=== PATIENT | male | born 1960 | race Caucasian/White ===

== ENCOUNTER → 2017-06-29 | Outpatient (CLI) | payer OTHER ==
[~2017-06-29] MED LIST: ACT30 PO; ALLO100T PO; AMLO-110 PO; BENA-4 PO; CITA40TA4 PO; FLUT1INH INH; GLC/500 PO; TAMS0.4C38 PO; TIZA4CAP PO; UMEC1AER INH; ventolin inh INH
[2017-06-29 10:11] LABS: BASO % 0.6 %; BASO ABS # 0.04 K/uL (0-0.2); COMPLETE YES; EOS % 3.5 %; HEMATOCRIT 41.2 % (42-52); IG% 0.3 %; LYMPH % 35.9 %; LYMPH ABS # 2.48 K/uL (1.2-3.4); MEAN CELL VOLUME 89.8 fL (80-100); MEAN CORPUSCULAR HEMOGLOBIN 29.2 pg (25-34); MEAN CORPUSCULAR HGB CONC 32.5 g/dl (32-36); MEAN PLATELET VOLUME 8.9 fL (7.4-10.4); NEUT % 51.7 %; PLATELET COUNT 313 K/uL (130-400); RED BLOOD COUNT 4.59 M/uL (4.7-6.1)
[2017-06-29 10:19] LABS: INR 0.9 (0.9-1.1)
[2017-06-29 10:45] LABS: ALT/SGPT 22 U/L (12-78); BLOOD UREA NITROGEN 13 mg/dl (7-18); BUN/CREATININE RATIO 15.8 (10-20); CALCIUM 9.2 mg/dl (8.5-10.1); CARBON DIOXIDE 31 mmol/L (21-32); CHLORIDE 104 mmol/L (98-107); CREATININE 0.79 mg/dl (0.60-1.40); GLUCOSE 91 mg/dl (70-99); SODIUM 138 mmol/L (136-145)
[2017-06-29 10:48] LABS: ALB/GLOB RATIO 0.9 (0.9-2); ALKALINE PHOSPHATASE 69 U/L (45-117); AST/SGOT 12 U/L (15-37)
[2017-06-29 12:09] LABS: PARTIAL THROMBOPLASTIN RATIO 1.1
== END | disposition home or self-care (01) ==
LOC: C.LAB1850 09:31
PROVIDERS: ATTEND Internal Medicine Pulmonary Disease
DX: J44.9 Chronic obstructive pulmonary disease, unspecified (principal); I10 Essential (primary) hypertension; R06.09 Other forms of dyspnea

== ENCOUNTER → 2017-07-11 | Outpatient (CLI) | payer OTHER ==
--- NOTE | 2017-07-11 13:46 | DOBUTAMINE ECHO ---
*NOTICE TO RECEIVING REPUBLICAN AGENCY This information is strictly Confidential and protected under [place] law. [place] law prohibits you from making any further disclosure of this information unless further disclosure is expressly permitted by the written consent of the person to whom it pertains or is authorized by law. A general authorization for the release of medical or other information is not sufficient for this purpose. Hospital accepts no responsibility if the information is made available to any other person, INCLUDING THE PATIENT. Interpretation Summary * Name: MARIAH BALL Study Date: 07/11/2017 10:35 AM BP: 100/61 mmHg * Patient Location: [facility] HR: 65 * : 1960 (M/d/yyyy) Gender: Male Height: 69 in * Age: 56 yrs Ethnicity: CA Weight: 230 lb * Ordering Physician: Héctor Shultz * Referring Physician: Héctor Shultz * Performed By: Marzena Villalba RDCS * * Reason For Study: COPD, SOB * BSA: 2.2 m2 * -- Conclusions -- * 1. Negative dobutamine stress echocardiogram for myocardial ischemia at 91% of the maximum predicted heart rate. * 2. No dobutamine induced chest pain. * 3. No EKG changes. * 4. Baseline echocardiogram notes normal left ventricular systolic function, diastolic dysfunction, and mild aortic insufficiency. Procedure Details * DOBUTAMINE ECHO, CPT#45629 * A contrast injection of Definity was performed to improve assessment of LV function. * Contrast was injected into an intravenous site in the left arm. * One vial of Definity ultrasound contrast was diluted in normal saline to a total volume of 10 ml. A total of '6' ml of solution was administered during imaging. * Lot # [id number] of Definity utilized for procedure. * Expiration date 1 AUG 09. * The attending nurse who injected the contrast agent was TAMIKO MAYFIELD RN. Left Ventricle * The left ventricle is normal in size. * There is borderline concentric left ventricular hypertrophy. * Ejection Fraction = 65-70%. * Resting wall motion: Normal. Stress wall motion: Appropriate increase in Left ventricular systolic function and decrease in cavity size. No stress induced segmental wall motion abnormalities. Right Ventricle * The right ventricle is grossly normal size. * The right ventricular systolic function is normal as assessed by tricuspid annular plane systolic excursion (TAPSE) (normal >1.5 cm). Atria * The left atrium is mildly dilated. * Right atrial size is normal. * There is no evidence of atrial septal defect, but resolution does not allow assessment for a patent foramen ovale. Mitral Valve * The mitral valve is grossly normal. * There is no mitral valve stenosis. * Significant mitral regurgitation is absent. Tricuspid Valve * The tricuspid valve is not well visualized, but is grossly normal. * There is no tricuspid stenosis. * Significant tricuspid regurgitation is absent. Aortic Valve * The aortic valve is not well visualized. * The aortic valve opens well. * Aortic valve sclerosis mild, without significant aortic valvular stenosis. * No hemodynamically significant valvular aortic stenosis. * Mild aortic regurgitation. Pulmonic Valve * The pulmonary valve is inadequately visualized, but the Doppler data is adequate for interpretation. Pericardium * There is no pericardial effusion. Stress Parameters * Normal baseline electrocardiogram. * Stress ECG: No ST changes. No arrhythmias. * The stress portion of this study was personally supervised by the undersigned interpreting physician. * Rest heart rate was '65' BPM. * Rest blood pressure was '100/61' * Maximum heart rate achieved was 155 bpm. * Maximum heart rate was 93 % of maximum age-predicted heart rate. * Maximum blood pressure was '166/69' * Maximum Dobutamine infusion rate was '30' mcg/kg/min. * A total of 1 mg of intravenous Atropine was used to supplement Dobutamine for heart rate response. * Dobutamine infusion was terminated due to achieving target heart rate * A total of 10 mg of IV Metoprolol was administered to reverse Dobutamine-induced tachycardia. Left Ventricular Diastolic Function * Grade I diastolic dysfunction, (abnormal relaxation pattern). MMode 2D Measurements and Calculations IVSd 1.0 cm IVSs 1.9 cm LVIDd 4.8 cm LVIDs 3.0 cm LVPWd 1.0 cm LVPWs 1.7 cm IVS/LVPW 1.0 FS 36.6 % EDV(Teich) 105.9 ml ESV(Teich) 35.6 ml EF(Teich) 66.4 % EDV(cubed) 108.4 ml ESV(cubed) 27.6 ml EF(cubed) 74.6 % % IVS thick 77.7 % % LVPW thick 63.3 % LV mass(C)d 179.1 grams LV mass(C)dI 81.7 grams/m\S\2 LV mass(C)s 215.6 grams LV mass(C)sI 98.4 grams/m\S\2 SV(Teich) 70.3 ml SI(Teich) 32.1 ml/m\S\2 SV(cubed) 80.9 ml SI(cubed) 36.9 ml/m\S\2 Ao root diam 3.5 cm Ao root area 9.6 cm\S\2 LA dimension 3.2 cm LA/Ao 0.92 LVAd ap4 36.5 cm\S\2 LVLd ap4 9.1 cm EDV(MOD-sp4) 120.9 ml EDV(sp4-el) 124.6 ml LVAs ap4 21.5 cm\S\2 LVLs ap4 8.0 cm ESV(MOD-sp4) 50.3 ml ESV(sp4-el) 49.5 ml EF(MOD-sp4) 58.4 % EF(sp4-el) 60.3 % LVAd ap2 28.7 cm\S\2 LVLd ap2 9.3 cm EDV(MOD-sp2) 73.7 ml EDV(sp2-el) 75.6 ml LVAs ap2 14.9 cm\S\2 LVLs ap2 7.5 cm ESV(MOD-sp2) 26.5 ml ESV(sp2-el) 25.0 ml EF(MOD-sp2) 64.1 % EF(sp2-el) 66.9 % LVLd %diff 2.2 % EDV(MOD-bp) 95.0 ml LVLs %diff -5.90 % ESV(MOD-bp) 37.1 ml EF(MOD-bp) 60.9 % SV(MOD-sp4) 70.5 ml SI(MOD-sp4) 32.2 ml/m\S\2 SV(MOD-sp2) 47.2 ml SI(MOD-sp2) 21.5 ml/m\S\2 SV(MOD-bp) 57.9 ml SI(MOD-bp) 26.4 ml/m\S\2 SV(sp4-el) 75.1 ml SI(sp4-el) 34.2 ml/m\S\2 SV(sp2-el) 50.6 ml SI(sp2-el) 23.1 ml/m\S\2 Doppler Measurements and Calculations MV E max vu 78.9 cm/sec MV A max vu 89.7 cm/sec MV E/A 0.88 MV dec time 0.19 sec Ao V2 max 173.8 cm/sec Ao max PG 12.1 mmHg Ao max PG (full) 9.0 mmHg Ao V2 mean 116.8 cm/sec Ao mean PG 6.2 mmHg Ao mean PG (full) 4.6 mmHg Ao V2 VTI 36.2 cm LV V1 max PG 3.1 mmHg LV V1 mean PG 1.6 mmHg LV V1 max 88.4 cm/sec LV V1 mean 56.9 cm/sec LV V1 VTI 20.3 cm SV(Ao) 348.4 ml SI(Ao) 158.9 ml/m\S\2
== END | disposition home or self-care (01) ==
LOC: C.CPL 10:25
PROVIDERS: ATTEND Internal Medicine Pulmonary Disease
DX: I10 Essential (primary) hypertension (principal); J44.9 Chronic obstructive pulmonary disease, unspecified; R06.09 Other forms of dyspnea

== ENCOUNTER 2017-07-12 06:33 | Day surgery (SDC) | payer OTHER ==
[~2017-07-12] VITALS: Ht 170.2 cm; Wt 104.5 kg
[2017-07-12] VITALS (18 sets, daily range): BP systolic 90–120; BP diastolic 62–89; PULSE 59–75; TEMP 36.4–36.9; O2SAT 90–100; Ht 170.2 cm; Wt 104.5 kg
[~2017-07-12 06:33] MED LIST changes: -ACT30 PO; -ALLO100T PO; -AMLO-110 PO; +ATROPINE SULFATE 0.1 MG/ML 5ML SYR ONE; -BENA-4 PO; -CITA40TA4 PO; +DOBUTamine 500MG / 250ML D5W ONE; -FLUT1INH INH; -GLC/500 PO; +METOPROLOL TARTRATE 1 MG/ML VIAL ONE; +PERFLUTREN LIPID MICROSPHERE (DEFINITY) IV ONE; -TAMS0.4C38 PO; -TIZA4CAP PO; -UMEC1AER INH; -ventolin inh INH
[2017-07-12] MEDS ORDERED: MIDAZOLAM HCL 1 MG/ML 2ML VIAL IV ONE (06:34)
[2017-07-12] MEDS ORDERED: FENTANYL CITRATE 100 MCG 2 ML CARP IV ONE (06:34)
[2017-07-12] MEDS ORDERED: BENA-4 PO (07:12)
[2017-07-12] MEDS ORDERED: ALLO100T PO (07:12)
[2017-07-12] MEDS ORDERED: AMLO-110 PO (07:12)
[2017-07-12] MEDS ORDERED: GLC/500 PO (07:12)
[2017-07-12] MEDS ORDERED: ventolin inh INH (07:12)
[2017-07-12] MEDS ORDERED: ACT30 PO (07:12)
[2017-07-12] MEDS ORDERED: TIZA4CAP PO (07:12)
[2017-07-12] MEDS ORDERED: TAMS0.4C38 PO (07:12)
[2017-07-12] MEDS ORDERED: UMEC1AER INH (07:12)
[2017-07-12] MEDS ORDERED: CITA40TA4 PO (07:12)
[2017-07-12] MEDS ORDERED: FLUT1INH INH (07:12)
--- NOTE | 2017-07-12 08:08 | History & Physical Bridge Note ---
H&P Re-Evaluation Bridge Note: I have examined the patient, reviewed the History & Physical and in the interval since the performance of the History & Physical I have noted the following changes of clinical significance: No changes noted
--- NOTE | 2017-07-12 08:08 | Procedure Note ---
Pre-Mod Sedation Assessment General Date of Moderate Sedation: Jul 12, 2017. Vital Signs: Vital Signs Past 12 Hours Date Time Temp Pulse Resp B/P (MAP) Pulse Ox O2 Delivery O2 Flow Rate FiO2 07/12/17 07:00 36.5 68 20 97/71 (80) 99 Room Air Review Cardiovascular: regular rate, rhythm, no edema, no gallop, no JVD, no murmur Abdomen: normal bowel sounds, non tender, soft, no organomegaly, no pulsatile mass Lungs: chest non-tender, lungs clear, normal breath sounds, no respiratory distress, no accessory muscle use Pre-Sedation Airway Assessment Oral Cavity: Loose Teeth, Chipped Teeth Short Thick Neck: Yes Hx of Sleep Apnea: Yes Smoking Status: Former Smoker Mallampati Classification: Class III ASA Classification: Class II Procedure Planning Contraindications-for Mod Sed: None Yes Notes The planned sedation has been discussed with the patient and consent obtained. I have identified the patient, determined the appropriateness of sedation and have assessed the patient immediately prior to the procedure. All medicine(s) and interventions are by my order.
--- NOTE | 2017-07-12 08:08 | History and Physical ---
History & Physical Date Jul 12, 2017. Chief Complaint Chronic Cough with SOB History of Present Illness The patient is a 56 year old male with complaints of SOB with PT presents today for a initial consult visit. He reports he is hear today for his breathing. He has dyspnea and increase in SOB all the time. He usually has a cough when he goes to bed at night. He props himself up at night and this helps him. Denies drainage and cough while sitting upright. He is taking medications as listed./ap 56-year-old white male who within the past years moved up from [place] to live with his sister who [facility]. 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 His primary care physician at the [facility] in [facility] was Nena Perez/STEPHANIE and has established himself with Amelie WHITE here in [place]. He suffers from benign essential hypertension, type 2 diabetes mellitus with diabetic polyneuropathy and major depression. He also has been diagnosed with COPD/ chronic bronchitis and hyperuricemia. He is currently on Breo Ellipta 100 micrograms 1 inhalation daily Melita symptoms of sciatica requiring epidural injections for L5-S1 disc protrusion. His hypertension has been managed with amlodipine and benazepril/hydrochlorothiazide and depression with Celexa as well as BPH on Flomax. He has been placed on oxygen at 2 liters continually and chest x-ray on 05/17/2017 was reportedly showing no acute abnormality. PFTs in the past revealed forced vital capacity of 3.30 liters or 63 percent of predicted with an FEV1 of 2.70 liters or 67 percent of predicted with a ratio of 82 percent. No response to bronchodilator was noted. Lung volumes were not measured. He was also started on ANoro Ellipta inhaler home with his Breo Ellipta. Prednisone has been utilized. Hemoglobin A1c has been elevated. He was seen in the clear field area in the ER with severe shortness of breath and chest pain on 05/17/2017 given an albuterol inhaler. Enzymes and echocardiogram were reportedly negative for acute infarction. He has 1 sister and 2 brothers with a history of cancer or diabetes in the family. And his parents are both . Patient quit smoking 20 years ago after pack a day for 30 years. He tends to cough when he lays flat and prednisone is ineffective when decreased below 30 milligrams daily. He has not been stress test in over 30 years. Active Problems 1. Anxiety 2. BPH (benign prostatic hyperplasia) 3. COPD (FEV1: 67%) & RVD via GOLD standards (FVC: 63%) 4. Diabetes mellitus, type 2 5. Dyspnea on exertion 6. Gout 7. Hypertension 8. Neck pain 9. Vision problem Surgical History 1. foot surgery 2. hernia repair Family History 1. Diabetes 2. Hypertension 3. Malignancy, breast, colon, ovary, prostate 4. 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 Citalopram Hydrobromide 40 MG Oral Tablet; TAKE 1 TABLET DAILY 2. Tamsulosin HCl - 0.4 MG Oral Capsule; TAKE 1 CAPSULE Daily 3. Breo Ellipta 100-25 MCG/INH ONE INHALATION DAILY 4. Anoro Ellipta 62.5-25 MCG/INH Inhalation Aerosol Powder Breath Activated; INHALE 1PUFFS Daily 5. Pioglitazone HCl - 15 MG Oral Tablet; TAKE 1 TABLET ONCE DAILY; 6. Allopurinol 100 MG Oral Tablet; TAKE 1 TABLET TWICE DAILY; 7. AmLODIPine Besylate 5 MG Oral Tablet; TAKE 1 TABLET TWICE DAILY; 8. Benazepril-Hydrochlorothiazide 20-12.5 MG Oral Tablet; Take 1 tablet twice daily; 9. TiZANidine HCl - 4 MG Oral Tablet; TAKE 1 TABLET 3 TIMES DAILY NEEDED; 10. MetFORMIN HCl - 500 MG Oral Tablet; Take 1 tablet twice daily; 11. Ventolin HFA 108 1 TO 2 PUFFS EVERY 4 TO 6 HOURS NEEDED Allergies 1. No Known Drug Allergies Additional History Hepatic Disease: No Endocrine Disorder: Yes Kidney Disease: No Hypertension: Yes Heart Disease: No Bleeding Tendencies: No Infectious Diseases: No Allergies Coded Allergies: No Known Allergies (Unverified , 07/12/17) PER PATIENT Home Medications Scheduled Allopurinol (Zyloprim), 100 MG PO DAILY Amlodipine (Norvasc), 5 MG PO DAILY Benazepril/Hctz (Lotensin Hct), 1 TAB PO BID Citalopram (Citalopram Hydrobromide), 40 MG PO DAILY Fluticasone Furoate-Vilanterol (Breo Ellipta), 1 PUFF INH DAILY Metformin Hcl (Glucophage), 500 MG PO TID Pioglitazone (Actos), 15 MG PO DAILY Tizanidine (Zanaflex), 4 MG PO prn Umeclidinium-Vilanterol (Anoro Ellipta 62.5-25 Mcg/INH), 1 PUFF INH DAILY [ventolin inh], 2 PUFFS INH [id number] Miscellaneous Medications Tamsulosin Hcl (Flomax), 0.4 MG PO Physical Examination Skin: warm/dry, no rash Eyes: normal inspection, EOMI, sclerae normal ENT: normal ENT inspection, pharynx normal Head: normocephalic, atraumatic Neck: supple, no adenopathy, trachea midline Respiratory/Chest: lungs clear, normal breath sounds, no respiratory distress Cardiovascular: regular rate, rhythm, no edema, no murmur Abdomen / GI: normal bowel sounds, non tender Back: normal inspection Extremities: normal inspection, normal range of motion Neurologic/Psych: no motor/sensory deficits, alert, normal reflexes, oriented x 3 Diagnosis MOLINA ASA Classification: ASA Class II Plan of Treatment Dynamic Bronchoscopy with BAL
--- NOTE | 2017-07-12 09:42 | Bronchoscopy Procedure Note ---
Bronchoscopy Procedure Note Procedure: Bronchoscopy, conscious sedation, bronchial lavage right upper lobe, dynamic bronchoscopy Consent: Obtained through the patient placed into the chart Pre-procedural diagnosis: Progressive shortness of breath with chronic cough Post-procedural diagnosis: Progressive shortness of breath with chronic cough Start time: 919 End time: 929 Total time: minutes Analgesia: 2% liquid lidocaine: Via nebulizer 4% gel lidocaine: Via right naris 2% liquid lidocaine: Via bronchoscopy Sedation: Versed IV: 2mg Fentanyl IV: 50g Procedure: The Olympus video bronchoscope was used for this procedure and passed down through the right naris Right naris/posterior naris/posterior oropharynx: Anatomically within normal limits, diffuse mucous secretions Glottis: Anatomically within normal limits Vocal cords: Proper abduction and abduction, anatomically within normal limits Subglottis/trachea/Stacy: Anatomically within normal limits Right bronchial tree: Right mainstem bronchus: Anatomically within normal limits, mucous secretions in the RB3 region Right upper lobe: Anatomically within normal limits Bronchus intermedius: Anatomically within normal limits Right middle lobe: Anatomically within normal limits Right lower lobe: Anatomically within normal limits Findings: No significant findings noted Left bronchial tree: Left mainstem bronchus: Anatomically within normal limits Left upper lobe: Anatomically within normal limits Lingula: Anatomically within normal limits Left lower lobe: Anatomically within normal limits, easy friability at the takeoff to the left lower lobe Findings: No significant findings noted Bronchial alveolar lavage: Performed in the RB3 region Dynamic bronchoscopy: No signs of tracheobronchial malacia or EDAC EBL: None Complications: None Follow-up: In the [facility] with Dr. Héctor Shultz
--- NOTE | 2017-07-12 09:43 | Procedure Note ---
Post-Moderate Sedation Plan General Date of Moderate Sedation Jul 12, 2017. Vital Signs: Vital Signs Past 12 Hours Date Time Temp Pulse Resp B/P (MAP) Pulse Ox O2 Delivery O2 Flow Rate FiO2 07/12/17 09:35 75 16 90/74 95 Mask 4.0 07/12/17 09:30 73 16 103/89 98 Mask 4.0 07/12/17 09:25 72 16 116/78 100 Mask 4.0 07/12/17 09:20 63 20 107/81 100 Mask 4.0 07/12/17 09:15 64 20 108/73 100 Mask 4.0 07/12/17 09:10 63 20 110/65 100 Mask 8.0 07/12/17 09:05 59 20 113/70 100 Room Air 07/12/17 08:48 36.5 68 20 97/71 99 Room Air 07/12/17 07:00 36.5 68 20 97/71 (80) 99 Room Air Review - Discharge Plan Post Moderate Sedation Plan: On clinical assessment, the patient appears to have tolerated the conscious sedation without complications. Patient is recovering as anticipated. Patient will continue to be monitored by nursing and may be discharged when conscious sedation discharge criteria are met.
--- NOTE | 2017-07-12 09:45 | Discharge Instructions ---
Discharge Instructions Date of Service Jul 12, 2017. Admission Reason for Admission: Copd, Shortness Of Breath Discharge Discharge Diagnosis / Problem: progressive dysmenorrhea exertion, cough Discharge Goals Goal(s): Diagnostic testing Activity Recommendations Activity Limitations: resume your previous activity . Current Hospital Diet Patient's current hospital diet: Discharge Diet Recommended Diet: Regular Diet Procedures Procedures Performed: Bronchoscopy, conscious sedation, bronchial alveolar lavage Pending Studies Studies pending at discharge: no Medical Emergencies . Who to Call and When: Medical Emergencies: If at any time you feel your situation is an emergency, please call 911 immediately. . Non-Emergent Contact Non-Emergency issues call your: Appliance Sales Associate . . "Provider Documentation" section prepared by Maury Melvin. . VTE Core Measure Inpt VTE Proph given/why not?: Treatment not indicated
[2017-07-12] MEDS ORDERED: NURSING VERBAL MED ORDER ONE (10:15)
[2017-07-12] MEDS ORDERED: FENTANYL CITRATE INJ 50 MCG/1 ML 2 ML VIAL IV ONE (10:30)
[2017-07-12] MEDS ORDERED: MIDAZOLAM HCL 5 MG/ML 1 ML VIAL IV ONE (10:30)
[2017-08-05 14:18] LABS: HERPES SIMPLEX CULT SOURCE OTHER-BRONCH LAVAGE; HERPES SIMPLEX VIRUS CULT NOT ISOLATED (NOT ISOLATED)
== END 2017-07-12 12:55 | disposition home or self-care (01) ==
LOC: C.ACU 06:33
PROVIDERS: ATTEND Internal Medicine Critical Care Medicine
DX: R06.02 Shortness of breath (principal); J44.9 Chronic obstructive pulmonary disease, unspecified; I10 Essential (primary) hypertension; E11.42 Type 2 diabetes mellitus with diabetic polyneuropathy; F32.9 Major depressive disorder, single episode, unspecified; N40.0 Benign prostatic hyperplasia without lower urinary tract symptoms; F41.9 Anxiety disorder, unspecified; Z87.891 Personal history of nicotine dependence; Z80.3 Family history of malignant neoplasm of breast; Z80.0 Family history of malignant neoplasm of digestive organs; Z82.49 Family history of ischemic heart disease and other diseases of the circulatory system; Z83.3 Family history of diabetes mellitus; Z79.84 Long term (current) use of oral hypoglycemic drugs; Z79.899 Other long term (current) drug therapy; Z80.41 Family history of malignant neoplasm of ovary; Z80.42 Family history of malignant neoplasm of prostate

== ENCOUNTER → 2017-08-10 | Outpatient (CLI) | payer OTHER ==
[~2017-08-10] MED LIST changes: +ACT30 PO; +ALLO100T PO; +AMLO-110 PO; -ATROPINE SULFATE 0.1 MG/ML 5ML SYR ONE; +BENA-4 PO; +CITA40TA4 PO; -DOBUTamine 500MG / 250ML D5W ONE; +FLUT1INH INH; +GLC/500 PO; -METOPROLOL TARTRATE 1 MG/ML VIAL ONE; -PERFLUTREN LIPID MICROSPHERE (DEFINITY) IV ONE; +TAMS0.4C38 PO; +TIZA4CAP PO; +UMEC1AER INH; +ventolin inh INH
--- NOTE | 2017-08-10 12:41 | DIAGNOSTIC IMAGING REPORT ---
ABDOMEN FOR HERNIA HISTORY: 56 years-old Male 22.2 Abdominal wall masshernia vs. cystic structure on abdominal palpable abnormality of the midline abdomen COMPARISON: None available TECHNIQUE: Multiple real-time sonographic images of the midline abdomen were obtained assessing grayscale appearance, and color flow FINDINGS: No abdominal wall hernia identified. Within the area of concern, there is a circumscribed ovoid wider than tall lesion, 5.1 x 2.5 x 5.1 cm located within the subcutaneous tissues demonstrating heterogeneous echogenicity, mostly isoechoic to slightly hypoechoic compared to the subcutaneous fat. There is likely minimal internal vascularity documented. IMPRESSION: 1. No abdominal wall hernia. 2. Nonspecific circumscribed ovoid wider than tall soft tissue mass containing internal vascularity within the subcutaneous tissues of the abdomen measures 5.1 x 2.5 x 5.1 cm. The above report was generated using voice recognition software. It may contain grammatical, syntax or spelling errors. Electronically signed by: Benigno Alvarado M.D. 08/10/2017 12:40 PM Dictated Date/Time: 08/10/2017 12:36 PM
== END | disposition home or self-care (01) ==
LOC: C.ULTR 11:33
PROVIDERS: ATTEND Internal Medicine
DX: R22.2 Localized swelling, mass and lump, trunk (principal)

== ENCOUNTER → 2017-08-30 | Outpatient (CLI) | payer OTHER ==
[~2017-08-30] MED LIST changes: +ACT/15 PO; -ACT30 PO; +HYDR-5688 PO; +VNTHFA/IN INH; -ventolin inh INH
[2017-08-30 12:18] LABS: BASO % 0.7 %; BASO ABS # 0.06 K/uL (0-0.2); COMPLETE YES; EOS % 3.2 %; HEMATOCRIT 40.3 % (42-52); IG% 0.5 %; LYMPH % 45.3 %; MEAN CELL VOLUME 87.6 fL (80-100); MEAN CORPUSCULAR HEMOGLOBIN 28.9 pg (25-34); MEAN PLATELET VOLUME 9.3 fL (7.4-10.4); MONO % 7.9 %; NEUT % 42.4 %; PLATELET COUNT 314 K/uL (130-400); WHITE BLOOD COUNT 8.39 K/uL (4.8-10.8)
[2017-08-30 17:53] LABS: BLOOD UREA NITROGEN 11 mg/dl (7-18); BUN/CREATININE RATIO 12.8 (10-20); CALCIUM 8.8 mg/dl (8.5-10.1); CARBON DIOXIDE 30 mmol/L (21-32); CHLORIDE 102 mmol/L (98-107); CREATININE 0.85 mg/dl (0.60-1.40); GLUCOSE 121 mg/dl (70-99); POTASSIUM 3.6 mmol/L (3.5-5.1); SODIUM 138 mmol/L (136-145)
== END | disposition home or self-care (01) ==
LOC: C.LABPBG 11:11
PROVIDERS: ATTEND Surgery
DX: Z01.812 Encounter for preprocedural laboratory examination (principal); R22.2 Localized swelling, mass and lump, trunk

== ENCOUNTER → 2017-09-05 | Day surgery (SDC) | payer OTHER ==
[2017-08-29 12:34] VITALS: Ht 180.3 cm; Wt 104.5 kg
[~2017-09-05] VITALS: Ht 180.3 cm; Wt 104.5 kg
[~2017-09-05] MED LIST changes: +ATROPINE SULFATE 0.1 MG/ML 5ML SYR IV PRN; +BUPIVACAINE 0.5 % 5 MG/1 ML MPF 30ML VIAL ONE; +CEFAZOLIN 2000MG IV PUSH 10 ML IV SCH; +EpHEDrine SULFATE INJ 50 MG/ML AMP IV PRN; +FENTANYL CITRATE INJ 50 MCG/1 ML 2 ML VIAL IV PRN; +FENTANYL CITRATE INJ 50 MCG/1 ML 2 ML VIAL ONE; +HYDROCODONE/ACETAMOPHEN 5/325MG TAB PO PRN; +HYDROmorphone INJ 1 MG/ML SYR IV PRN; +LACTATED RINGER'S 1000ML 1,000 ML IV SCH; +LIDOCAINE HCL 2% 2 ML VIAL (20MG/ML) ONE; +MIDAZOLAM HCL 1 MG/ML 2ML VIAL ONE; +ONDANSETRON INJ 2 MG/ML 2 ML VIAL IV PRN; +ONDANSETRON INJ 2 MG/ML 2 ML VIAL ONE; +PROPOFOL IV EMULSION 10 MG/ML 20 ML VIAL IV ONE; +SODIUM CHLORIDE 0.9% 1000ML 1,000 ML IV SCH
--- NOTE | 2017-09-05 10:13 | [facility] Operative Report ---
Operative Report Operative Date Sep 05, 2017. Pre-Operative Diagnosis Abdominal Wall Mass Post-Operative Diagnosis large abdominal wall cyst Procedure(s) Performed Excision Of Abdominal Wall Mass (6 cm) Surgeon Dr. Neumann Vocational Psychologist Surgeon(s) Yumi Benavides PA-C Estimated Blood Loss 5 mL Findings large sebaceous cyst Specimens A. Abdominal Wall Mass (6 cm) Anesthesia LMA Disposition Recovery Room / PACU Description of Procedure After informed consent was obtained the patient was taken the operating room and placed in supine position. The abdomen had already been shaved. After successful placement of the laryngeal mask airway the abdomen was sterilely prepped and draped in usual fashion. We made a vertical incision directly over the visible mass. I carried this down through the soft tissue using electrocautery. We immediately encountered an extremely large 6 cm sebaceous cyst. It was very thin-walled and closed the abdominal wall skin and a small puncture was made incidentally in it. We able to keep the majority of the sebaceous material from coming out of it. We used traction countertraction electrocautery to remove the cyst entirely intact except for the small hole previously mentioned. Once we removed it we sent to pathology. We thoroughly irrigated the abdominal wound. There was no evidence of hernia. We closed this in multiple layers using 2-0 Vicryl for deep layers 3-0 Vicryl for mid layers and 4-0 Monocryl for skin. Marcaine was used for postoperative analgesia benzoin and Steri-Strips were used for dressing. The patient was awaken extubated and transferred recovery in stable condition My physician medical assistant cardiology was directly involved in the surgical procedure. She held retractors throughout the procedure. She also held countertraction on the cyst as I dissected it free. She also closed the middle and superficial layers of the wound closure and placed the abdominal dressing I attest to the content of the Intraoperative Record and any orders documented therein. Any exceptions are noted below.
--- NOTE | 2017-09-05 10:14 | Discharge Instructions-SurgCtr ---
Discharge Instructions Date of Service Sep 05, 2017. Visit Reason for Visit: 6 Cm Abdominal Wall Mass Discharge Discharge Diagnosis / Problem: 6cm Abdomimal Wall Mass Discharge Goals Goal(s): Decrease discomfort, Improve function Medications Stopped Medications Name(s): metformin stopped last dose on monday. Activity Recommendations Activity Limitations: as noted below Lifting Limitations: no more than 10 pounds Exercise/Sports Limitations: until after follow-up appointment May Resume Sexual Activity: after follow-up appointment Shower/Bathe: tomorrow Driving or Machine Use: resume 1 day after discharge Anesthesia . Post Anesthesia Instructions: If you have had General Anesthesia or IV Sedation: * Do not drive today. * Resume driving when surgeon permits. * Do not make important decisions or sign legal documents today. * Call surgeon for: 1. Temperature elevations greater than 101 degrees F. 2. Uncontrollable pain. 3. Excessive bleeding. 4. Persistent nausea and vomiting. 5. Medication intolerance (nausea, vomiting or rash). * For nausea and vomiting use only clear liquids such as: tea, soda, bouillon until nausea subsides, then gradually increase diet as tolerated. * If you have any concerns or questions, call your surgeon's office. If physician is unavailable and it is an emergency, call 911 or go to the nearest emergency room. . Instructions / Follow-Up Instructions / Follow-Up Please follow-up with Dr. Neumann in the General Surgery Office in 1-2 weeks. Please call the office at [phone] to make a follow-up appointment if you do not have one already. Please call the office with any questions or concerns. Diet Recommendations Home Diet: no limitations, resume previous diet Procedures Procedures Performed: Excision Of Abdominal Wall Mass (6 cm) Pending Studies Studies pending at discharge: yes List of pending studies: Pathology report. Medical Emergencies . Who to Call and When: Medical Emergencies: If at any time you feel your situation is an emergency, please call 911 immediately. . Non-Emergent Contact Non-Emergency issues call your: Primary Care Provider, Surgeon Call Non-Emergent contact if: temperature is above 101.5, your pain is not controlled, wound has increased drainage, wound has increased redness . . "Provider Documentation" section prepared by Alisa Benavides. . [place] Drug Monitoring Program Search Results: patient reviewed within database, no issues identified
[2017-09-05 11:39] VITALS: TEMP 36.8
[2017-09-05 12:03] VITALS: BP 114/78; PULSE 76; O2SAT 95
--- NOTE | 2017-09-05 12:14 | Anesthesia Progress Nt - [facility] ---
Anesthesia Post Op Note Date & Time Sep 05, 2017 at 12:13 Vital Signs Pain Intensity: 0 Vital Signs Past 12 Hours Date Time Temp Pulse Resp B/P (MAP) Pulse Ox O2 Delivery O2 Flow Rate FiO2 09/05/17 12:03 76 16 114/78 (90) 95 Room Air 09/05/17 11:49 92 Room Air 09/05/17 11:39 36.8 69 16 108/72 (84) 95 Nasal Cannula 2 09/05/17 11:30 37.3 70 17 125/84 93 Nasal Cannula 2 09/05/17 11:30 125/84 09/05/17 11:29 71 15 09/05/17 11:29 69 15 93 09/05/17 11:25 131/84 09/05/17 11:24 74 12 91 09/05/17 11:24 73 12 09/05/17 11:20 130/82 09/05/17 11:19 70 16 09/05/17 11:19 70 16 89 09/05/17 11:15 119/85 09/05/17 11:14 63 15 93 09/05/17 11:14 65 15 09/05/17 11:10 117/80 09/05/17 11:09 72 15 09/05/17 11:09 72 15 94 09/05/17 11:05 127/84 09/05/17 11:04 74 11 09/05/17 11:04 73 11 94 09/05/17 11:00 122/78 09/05/17 10:59 75 16 94 09/05/17 10:59 74 16 09/05/17 10:55 118/83 09/05/17 10:54 73 16 09/05/17 10:54 72 16 93 09/05/17 10:50 109/81 09/05/17 10:49 72 17 09/05/17 10:49 73 17 92 09/05/17 10:45 109/70 09/05/17 10:44 70 17 09/05/17 10:44 71 17 94 09/05/17 10:40 119/73 09/05/17 10:39 71 17 09/05/17 10:39 71 17 93 09/05/17 10:35 109/65 09/05/17 10:34 71 16 09/05/17 10:34 71 16 93 09/05/17 10:30 119/71 09/05/17 10:29 76 16 09/05/17 10:29 77 16 94 09/05/17 10:25 115/77 09/05/17 10:24 74 16 09/05/17 10:24 74 16 93 09/05/17 10:20 114/73 09/05/17 10:19 75 15 09/05/17 10:19 76 15 93 09/05/17 10:15 112/81 09/05/17 10:14 83 20 09/05/17 10:14 83 20 93 09/05/17 10:10 114/70 09/05/17 10:09 82 8 89 09/05/17 10:09 82 8 09/05/17 10:09 37 85 12 114/70 93 Mask 10 09/05/17 07:35 36.5 68 18 97/60 (72) 95 Room Air Notes Mental Status: alert / awake / arousable, participated in evaluation Pt Amnestic to Procedure: Yes Nausea / Vomiting: adequately controlled Pain: adequately controlled Airway Patency, RR, SpO2: stable & adequate BP & HR: stable & adequate Hydration State: stable & adequate Anesthetic Complications: no major complications apparent
== END | disposition home or self-care (01) ==
LOC: X.SURG 06:45
PROVIDERS: ATTEND Surgery
DX: L72.0 Epidermal cyst (principal); F41.9 Anxiety disorder, unspecified; E11.9 Type 2 diabetes mellitus without complications; M10.9 Gout, unspecified; I10 Essential (primary) hypertension; J98.4 Other disorders of lung

== ENCOUNTER → 2017-09-11 | Outpatient (CLI) | payer OTHER ==
[~2017-09-11] MED LIST changes: -ATROPINE SULFATE 0.1 MG/ML 5ML SYR IV PRN; -BUPIVACAINE 0.5 % 5 MG/1 ML MPF 30ML VIAL ONE; -CEFAZOLIN 2000MG IV PUSH 10 ML IV SCH; -EpHEDrine SULFATE INJ 50 MG/ML AMP IV PRN; -FENTANYL CITRATE INJ 50 MCG/1 ML 2 ML VIAL IV PRN; -FENTANYL CITRATE INJ 50 MCG/1 ML 2 ML VIAL ONE; -HYDR-5688 PO; -HYDROCODONE/ACETAMOPHEN 5/325MG TAB PO PRN; -HYDROmorphone INJ 1 MG/ML SYR IV PRN; -LACTATED RINGER'S 1000ML 1,000 ML IV SCH; -LIDOCAINE HCL 2% 2 ML VIAL (20MG/ML) ONE; -MIDAZOLAM HCL 1 MG/ML 2ML VIAL ONE; -ONDANSETRON INJ 2 MG/ML 2 ML VIAL IV PRN; -ONDANSETRON INJ 2 MG/ML 2 ML VIAL ONE; +OPTIRAY 320 IV PRN; -PROPOFOL IV EMULSION 10 MG/ML 20 ML VIAL IV ONE; -SODIUM CHLORIDE 0.9% 1000ML 1,000 ML IV SCH
--- NOTE | 2017-09-11 09:55 | DIAGNOSTIC IMAGING REPORT ---
CT SCAN OF THE CHEST WITHOUT IV CONTRAST CLINICAL HISTORY: Cough. COPD. Restrictive lung disease. COMPARISON STUDY: No priors. TECHNIQUE: CT scan of the thorax was performed from the thoracic inlet to the upper abdomen. Images are reviewed in the axial, sagittal, and coronal planes. IV contrast was not administered for this examination as per the referring clinician. A dose lowering technique was utilized adhering to the principles of ALARA. CT DOSE: 728.25 mGy.cm FINDINGS: Thyroid: Imaged portions of the thyroid gland are normal in size and attenuation. Thoracic aorta: The thoracic aorta is normal in caliber and demonstrates standard 3-vessel arch anatomy. Heart: The heart is enlarged and there is a moderate pericardial effusion. There are calcifications of the aortic valve leaflets. Lungs and pleural spaces: The trachea and central airways are clear. No airspace consolidation or pleural effusion is identified. There is no subpleural reticulation, honeycombing, or traction bronchiectasis. A 4 mm right upper lobe pulmonary nodule seen image #86. A 3 mm left upper lobe pleural-based nodule is seen along the major fissure on image #67. There are atelectasis versus scarring are present at the lung bases. Mediastinum: There is no mediastinal lymphadenopathy. An: Not well assessed without IV contrast. Axillae: There is no axillary lymphadenopathy. Upper abdomen: There is a small hiatal hernia. Partially visualized upper abdominal viscera is otherwise within normal limits. Skeletal structures: The skeletal structures are osteopenic. Mild degenerative change is noted in the thoracic spine. There are healed right-sided rib fractures. There are mild compression deformities of T4, T5, T6, T7, and T10. No lytic or blastic bony lesions are seen. IMPRESSION: 1. There is no airspace consolidation or pleural effusion. 2. Cardiomegaly noting a moderate pericardial effusion. 3. There is no significant emphysematous change, and no CT evidence of interstitial lung disease. 4. There are at least 2 pathologically indeterminant but low suspicion pulmonary nodules measuring up to 4 mm. These can be followed if clinically warranted. See below. Please refer to below summary of Fleischner criteria recommendations for follow-up of incidental CT nodules (Kirsty Hatch, Guidelines for management of small pulmonary nodules detected on CT scans: A statement from the Fleischner Society, Radiology 237: [phone].) SOLID NODULES Solitary nodule size: <6 mm * low risk patients: no follow-up needed * high risk patients: optional CT at 12 months Solitary nodule size: 6-8 mm * low risk patients: follow-up at 6-12 months, then consider further follow-up at 18-24 months * high risk patients: initial follow-up CT at 6-12 months and then at 18-24 months if no change Solitary nodule size: >8 mm * either low or high risk patients - consider follow-up CT at 3 months, and/or CT-PET, and/or biopsy Multiple nodules size: <6 mm * low risk patients: no routine follow-up * high risk patients: optional CT at 12 months Multiple nodules size: 6-8 mm * low risk patients: follow-up at 3-6 months, then consider further follow-up at 18-24 months * high risk patients: follow-up at 3-6 months, then at 18-24 months if no change Multiple nodules size: >8 mm * low risk patients: follow-up at 3-6 months, then consider further follow-up at 18-24 months * high risk patients: follow-up at 3-6 months, then at 18-24 months if no change Note: newly detected indeterminate nodule in persons 35 years of age or older. * low risk patients: minimal or absent history of smoking and/or other known risk factors * high risk patients: history of smoking or of other known risk factors (e.g. first degree relative with lung cancer, or exposure to asbestos, radon, uranium) * if a nodule up to 8 mm is partly solid or is ground glass further follow-up is required after 24 months to exclude possible slow growing adenocarcinoma (EVANGELINA) SUBSOLID NODULES Solitary pure ground-glass nodule * nodule size <6 mm - no CT follow-up required * nodule size >=6 mm - follow-up CT at 6-12 months, then every 2 years until 5 years Solitary part-solid nodule * nodule size <6 mm - no CT follow-up required * nodule size >=6 mm - follow-up CT at 3-6 months. If unchanged, and solid component remains <6 mm, then annual follow-up for 5 years Multiple subsolid nodules * nodule size <6 mm - follow-up CT at 3-6 months, consider further follow-up at 2 and 4 years if stable * nodule size >=6 mm - follow-up CT at 3-6 months, subsequent management based on the most suspicious nodule(s) Electronically signed by: Jake Elizalde M.D. 09/11/2017 9:54 AM Dictated Date/Time: 09/11/2017 9:48 AM
== END | disposition home or self-care (01) ==
LOC: C.CTS 08:54
PROVIDERS: ATTEND Internal Medicine Critical Care Medicine
DX: J98.4 Other disorders of lung (principal); I51.7 Cardiomegaly; I31.3 Pericardial effusion (noninflammatory); R91.8 Other nonspecific abnormal finding of lung field

== ENCOUNTER → 2018-01-12 | Outpatient (CLI) | payer OTHER ==
[~2018-01-12] MED LIST changes: -OPTIRAY 320 IV PRN
[2018-01-12 13:27] LABS: BASO % 0.5 %; BASO ABS # 0.04 K/uL (0-0.2); EOS ABS # 0.22 K/uL (0-0.5); HEMATOCRIT 41.6 % (42-52); HEMOGLOBIN 13.9 g/dL (14.0-18.0); IG# 0.01 K/uL (0.00-0.02); LYMPH % 27.2 %; LYMPH ABS # 1.99 K/uL (1.2-3.4); MEAN CELL VOLUME 85.4 fL (80-100); MEAN CORPUSCULAR HEMOGLOBIN 28.5 pg (25-34); MEAN CORPUSCULAR HGB CONC 33.4 g/dl (32-36); MEAN PLATELET VOLUME 9.7 fL (7.4-10.4); MONO % 9.6 %; NEUT % 59.6 %; NEUT ABS # 4.36 K/uL (1.4-6.5); PLATELET COUNT 366 K/uL (130-400); RED CELL DISTRIBUTION WIDTH CV 13.7 % (11.5-14.5); RED CELL DISTRIBUTION WIDTH SD 42.8 fL (36.4-46.3); WHITE BLOOD COUNT 7.32 K/uL (4.8-10.8)
[2018-01-12 14:07] LABS: ALBUMIN 3.7 gm/dl (3.4-5.0); ALT/SGPT 33 U/L (12-78); AST/SGOT 16 U/L (15-37); BLOOD UREA NITROGEN 19 mg/dl (7-18); CALCIUM 9.2 mg/dl (8.5-10.1); CARBON DIOXIDE 29 mmol/L (21-32); CHOLESTEROL 170 mg/dl (0-200); CREATININE 0.85 mg/dl (0.60-1.40); GLUCOSE 108 mg/dl (70-99); POTASSIUM 3.7 mmol/L (3.5-5.1); SODIUM 136 mmol/L (136-145)
[2018-01-12 14:18] LABS: ALKALINE PHOSPHATASE 76 U/L (45-117); LDL CHOLESTEROL CALCULATED 107 mg/dl; TOTAL PROTEIN 8.5 gm/dl (6.4-8.2)
[2018-01-13 07:31] LABS: HEMOGLOBIN A1C 6.5 % (4.5-5.6)
--- NOTE | 2018-01-25 14:12 | CODING QUERY MEDICAL NECESSITY ---
CQSUPPORTING DIAGNOSIS NEEDED A supporting diagnosis is required for the test/procedure performed on this patient in order for us to be reimbursed by the patient's insurance. Please provide a supporting diagnosis for the following test/procedure listed below next to the test name along with your signature. *If there is no additional diagnosis for this patient that would support the following test/procedure please document that below next to the test/procedure. Test(s)/Procedure(s) that require a supporting diagnosis: DOS 01/12/18 VITAMIN D TEST TSH (THYROID) TEST Provider Signature: Date: Thank you [facility] Information Management Once completed, please kindly fax back to [phone] For questions please call [phone]
== END | disposition home or self-care (01) ==
LOC: C.LABPBG 08:01
PROVIDERS: ATTEND Physician Assistant
DX: E11.9 Type 2 diabetes mellitus without complications (principal); N40.0 Benign prostatic hyperplasia without lower urinary tract symptoms; M54.2 Cervicalgia; M79.642 Pain in left hand

== ENCOUNTER → 2018-01-16 | Outpatient (CLI) | payer OTHER ==
--- NOTE | 2018-01-16 14:07 | DIAGNOSTIC IMAGING REPORT ---
CT SCAN OF THE CHEST WITHOUT IV CONTRAST CLINICAL HISTORY: Dyspnea. Follow-up pulmonary nodules. COMPARISON STUDY: Chest CT dated 09/11/2017. TECHNIQUE: CT scan of the thorax was performed from the thoracic inlet to the upper abdomen. Images are reviewed in the axial, sagittal, and coronal planes. IV contrast was not administered for this examination as per the referring clinician. A dose lowering technique was utilized adhering to the principles of ALARA. CT DOSE: 624.27 mGycm FINDINGS: Thyroid: Imaged portions of the thyroid gland are normal in size and attenuation. Thoracic aorta: The thoracic aorta is normal in caliber and demonstrates standard 3-vessel arch anatomy. Heart: The heart is enlarged and there is a small to moderate pericardial effusion. There are calcifications of the aortic valve leaflets. Lungs and pleural spaces: Evaluation of lung parenchyma is modestly degraded by motion artifact. The trachea and central airways are clear. No airspace consolidation or pleural effusion is identified. A 4 mm right upper lobe pulmonary nodule is seen image #86. A 3 mm left upper lobe pleural-based nodule is seen along the major fissure on image #58. A 3 mm nodule at the left lung base is seen on image #171. This was not seen previously due to atelectasis at this site. No new pulmonary nodule is clearly identified. Mediastinum: There is no mediastinal lymphadenopathy. An: Not well assessed without IV contrast. Axillae: There is no axillary lymphadenopathy. Upper abdomen: There is a small hiatal hernia. A 2.1 cm cyst is noted in the right kidney. Partially visualized upper abdominal viscera is otherwise within normal limits. Skeletal structures: The skeletal structures are osteopenic. Mild degenerative change is noted in the thoracic spine. There are healed right-sided rib fractures. There are mild compression deformities of T4, T5, T6, T7, and T10. No lytic or blastic bony lesions are seen. IMPRESSION: 1. There is no airspace consolidation or pleural effusion. 2. Cardiomegaly with a a small to moderate pericardial effusion. 3. There are at least 3 pathologically indeterminant but low suspicion pulmonary nodules measuring up to 4 mm. As detailed above These can be followed if clinically warranted. See below. 4. No new pulmonary nodule is identified. Please refer to below summary of Fleischner criteria recommendations for follow-up of incidental CT nodules (Kirsty Hatch, Guidelines for management of small pulmonary nodules detected on CT scans: A statement from the Fleischner Society, Radiology 237: [phone].) SOLID NODULES Solitary nodule size: <6 mm * low risk patients: no follow-up needed * high risk patients: optional CT at 12 months Solitary nodule size: 6-8 mm * low risk patients: follow-up at 6-12 months, then consider further follow-up at 18-24 months * high risk patients: initial follow-up CT at 6-12 months and then at 18-24 months if no change Solitary nodule size: >8 mm * either low or high risk patients - consider follow-up CT at 3 months, and/or CT-PET, and/or biopsy Multiple nodules size: <6 mm * low risk patients: no routine follow-up * high risk patients: optional CT at 12 months Multiple nodules size: 6-8 mm * low risk patients: follow-up at 3-6 months, then consider further follow-up at 18-24 months * high risk patients: follow-up at 3-6 months, then at 18-24 months if no change Multiple nodules size: >8 mm * low risk patients: follow-up at 3-6 months, then consider further follow-up at 18-24 months * high risk patients: follow-up at 3-6 months, then at 18-24 months if no change Note: newly detected indeterminate nodule in persons 35 years of age or older. * low risk patients: minimal or absent history of smoking and/or other known risk factors * high risk patients: history of smoking or of other known risk factors (e.g. first degree relative with lung cancer, or exposure to asbestos, radon, uranium) * if a nodule up to 8 mm is partly solid or is ground glass further follow-up is required after 24 months to exclude possible slow growing adenocarcinoma (EVANGELINA) SUBSOLID NODULES Solitary pure ground-glass nodule * nodule size <6 mm - no CT follow-up required * nodule size >=6 mm - follow-up CT at 6-12 months, then every 2 years until 5 years Solitary part-solid nodule * nodule size <6 mm - no CT follow-up required * nodule size >=6 mm - follow-up CT at 3-6 months. If unchanged, and solid component remains <6 mm, then annual follow-up for 5 years Multiple subsolid nodules * nodule size <6 mm - follow-up CT at 3-6 months, consider further follow-up at 2 and 4 years if stable * nodule size >=6 mm - follow-up CT at 3-6 months, subsequent management based on the most suspicious nodule(s) Electronically signed by: Jake Elizalde M.D. 01/16/2018 2:05 PM Dictated Date/Time: 01/16/2018 2:00 PM
--- NOTE | 2018-01-16 14:29 | DIAGNOSTIC IMAGING REPORT ---
CERVICAL SPINE 2 OR 3 VIEWS CLINICAL HISTORY: Neck pain. COMPARISON STUDY: No previous studies for comparison. FINDINGS: Alignment of the cervical spine is anatomic. There is no fracture or suspicious lesion. Lower cervical spine is slightly obscured on this exam but was demonstrated on the chest CT performed at the same time. Prevertebral soft tissues are unremarkable. There is no fracture. There is moderate multilevel facet arthrosis and mild multilevel degenerative disc disease. IMPRESSION: 1. No cervical spine fracture. 2. Mild multilevel degenerative disc disease and moderate multilevel facet arthrosis. Electronically signed by: Blake Irving M.D. 01/16/2018 2:27 PM Dictated Date/Time: 01/16/2018 2:04 PM
== END | disposition home or self-care (01) ==
LOC: C.CTS 13:09
PROVIDERS: ATTEND Internal Medicine Critical Care Medicine
DX: M54.2 Cervicalgia (principal); M79.642 Pain in left hand; R91.8 Other nonspecific abnormal finding of lung field; I51.7 Cardiomegaly; I31.3 Pericardial effusion (noninflammatory)

== ENCOUNTER → 2018-01-26 | Outpatient (CLI) | payer OTHER ==
[2018-01-26 17:30] LABS: BLOOD UREA NITROGEN 10 mg/dl (7-18); CREATININE 0.83 mg/dl (0.60-1.40)
== END | disposition home or self-care (01) ==
LOC: C.LABPBG 11:54
PROVIDERS: ATTEND Family Medicine
DX: E11.9 Type 2 diabetes mellitus without complications (principal)

== ENCOUNTER → 2018-01-29 | Outpatient (CLI) | payer OTHER ==
[~2018-01-29] MED LIST changes: +GADAVIST IV PRN
--- NOTE | 2018-01-29 18:18 | DIAGNOSTIC IMAGING REPORT ---
CERVICAL SPINE COMBO CLINICAL HISTORY: 57 years-old Male presenting with M54.2 Neck painR20.2 Hand paresthesia pain from the neck down to lower back, pain for years, radiating into the left numbness and tingling. TECHNIQUE: Multisequence, multiplanar MR imaging of the cervical spine was performed before and after the administration of intravenous contrast. IV contrast: 10.5 mL of Gadavist. COMPARISON: Plain radiographs of the cervical spine 01/16/2018. FINDINGS: Localizer images: Unremarkable. Normal cervical lordosis. Vertebral bodies maintain normal height, alignment, and bone marrow signal intensity. Intervertebral discs are preserved in signal intensity and height. Small disc osteophyte complexes noted at C3-4 and C4-5. At C3-4, there is mild effacement of the thecal sac secondary to disc osteophyte complex and ligamentum flavum thickening. This does not deform the spinal cord. Some CSF signal is maintained. No significant spinal stenosis at C4-5. Uncovertebral hypertrophy at C6-7 results in mild bilateral neural foraminal narrowing. The remaining levels demonstrate no significant neural foraminal narrowing. Cervical spinal cord normal in morphology and signal intensity. Craniocervical junction normal. Paraspinal soft tissues normal. Postcontrast imaging demonstrates no abnormal enhancement. IMPRESSION: 1. Mild degenerative changes of the cervical spine with mild circumferential spinal canal stenosis at C3-4 and mild bilateral neural foraminal narrowing at C6-7. No evidence of spinal cord impingement. Electronically signed by: Ant Reid M.D. 01/29/2018 6:17 PM Dictated Date/Time: 01/29/2018 6:09 PM
== END | disposition home or self-care (01) ==
LOC: C.MRI 16:41
PROVIDERS: ATTEND Family Medicine
DX: M54.2 Cervicalgia (principal); R20.2 Paresthesia of skin

== ENCOUNTER 2024-05-13 13:22 | Inpatient (IN) ==
--- NOTE | 2024-05-13 15:05 | History & Physical Report ---
Date of Service May 13, 2024 Assessment & Plan (1) Gross hematuria: Plan: s/p TURP 04/23/2024 UA +culture, blood culture Consult urology for CBI Continue IV ceftriaxone while on CBI (first dose given in [facility] ER) CT ordered by urology Monitor Hgb in AM Hold ASA (2) BPH loc w urin obs/LUTS: Plan: s/p TURP, given problems orf urine retention will continue on tamsulosin (pt reports previously stopping this (3) Diabetes mellitus, type 2: Plan: Hemoglobin A1C 7.6 in April Hold glipizide, Jardiance, semaglutide Use insulin while admitted Lantus 5 units BID NovoLog: --Goal BSG Range: Low 110 mg/dL, High 140 mg/dL --Correction Factor: 45mg/dL/unit --Carbohydrate ratio = 15 g/unit --BSGs ACHS if eating, q6h if npo (4) Hypertension: Plan: Hold lisinopril given low normal BP, continue metoprolol Plan VTE Prophylaxis - SCDs Diet - T2DM Disposition - admit to med/surg Admission and Anticipated Discharge Date Admission Date: May 13, 2024 History of Present Illness Chief Complaint: Hematuria Primary Care Provider: Sharita Pompa DO Rigo Diaz is a 63 year old male who presents as a direct admission from [facility] ER due to hematuria. He underwent TURP on April 23, [address] Nobles. He reports passing blood clots since the operation. The marinelli catheter was removed the day after surgery. He followed up on still passing blood clots however PVR showed only 134ml and he was unable to give a urine sample during the nurse office visit. He was advised to go to the ER if he still couldn't pass urine after 6 hours. He went to the ER the following day at [place] and placed a marinelli catheter and passed over a 1L of bloody urine. He was discharged from the ER. He has been having intermittent problems with the marinelli catheter working since with it becoming blocked. This morning around 3am he woke up and no urine was coming out therefore went to [place] ER. He was started on CBI and urology were contacted here for transfer. Urology requested the patient transferred under medicine. On discussion with ER physician at [place] no prior urine culture was in there system. He received 1g IV ceftriaxone in the ER around 11am today. The patient denies any fever or chills. He stopped taking his aspirin 4 days ago. Allergies Allergy/AdvReac Type Severity Reaction Status Date / Time No Known Drug Allergies Allergy Verified 05/07/24 15:47 Home Medications Medication Instructions Recorded Confirmed Type Custom Orthotics #1 ea 07/21/20 04/22/24 Rx Orthotics Misc #1 ea 07/21/20 04/22/24 Rx blood sugar diagnostic #50 ea 10/13/20 04/22/24 Rx lancets 33 gauge (OneTouch Delica #100 ea 01/18/23 04/22/24 Rx Lancets) blood-glucose meter (OneTouch #1 ea 01/27/23 04/22/24 Rx Verio Flex Start kit) fluticasone propionate 50 2 spray intranasal DAILY PRN 06/01/23 05/13/24 Rx mcg/actuation nasal Congestion #47.4 mL spray,suspension (Allergy Relief (fluticasone)) diabetic supplies, miscellan. #1 ea 07/28/23 04/22/24 Rx Diabetic Shoes #1 ea 08/07/23 04/22/24 Rx gabapentin 300 mg capsule 600 mg (2 x 300 mg) PO HS #180 caps 08/07/23 05/13/24 Rx pantoprazole 40 mg tablet,delayed 40 mg PO PM #90 tabs 08/11/23 05/13/24 Rx release aspirin 325 mg tablet 81 mg PO QAM 10/10/23 05/13/24 History trazodone 50 mg tablet 50 mg PO HS #90 tabs 10/20/23 05/13/24 Rx metoprolol succinate 25 mg 25 mg PO QAM #90 tabs 01/08/24 05/13/24 Rx tablet,extended release 24 hr promethazine 12.5 mg tablet 12.5 mg PO HS PRN nausea and 02/12/24 05/13/24 Rx vomiting #60 tabs tamsulosin 0.4 mg capsule (Flomax) 0.4 mg PO QPM #90 caps 03/14/24 05/13/24 Rx azelastine 137 mcg (0.1 %) nasal 1 spray intranasal DAILY PRN 04/04/24 05/13/24 Rx spray Congestion #90 mL escitalopram oxalate 20 mg tablet 20 mg PO QAM 04/11/24 05/13/24 History fluticasone fur. 100 mcg-umeclid 1 inh inhalation Q24H PRN sob 04/11/24 05/13/24 History 62.5 mcg-vilant 25 mcg inhalat.powder (Trelegy Ellipta) glipizide 10 mg tablet, extended 10 mg PO QAM 04/11/24 05/13/24 History release 24 hr atorvastatin 20 mg tablet 20 mg PO PM #90 tabs 04/15/24 05/13/24 Rx lisinopril 10 mg tablet 10 mg PO Q2D #90 tabs 04/15/24 05/13/24 Rx blood sugar diagnostic (OneTouch #100 ea 04/22/24 04/22/24 Rx Verio test strips) tizanidine 4 mg tablet 4 mg PO HS PRN muscle spasticity 04/22/24 05/13/24 Rx #20 tabs empagliflozin 25 mg tablet 25 mg PO QAM #90 tabs 04/30/24 05/13/24 Rx semaglutide 0.25 mg or 0.5 mg (2 0.25 mg (0.368 mL) subcut .Weekly 04/30/24 05/13/24 Rx mg/3 mL) subcutaneous pen injector #3 mL (Ozempic) Past Med/Surg History Problem List (Updated 05/13/24 @ 15:34 by CINDY Rodriguez) Gross hematuria BPH loc w urin obs/LUTS Pre-operative cardiovascular exam, new EKG abnormalities c/w ischemia Chronic venous insufficiency Varicose veins of left lower extremity S/P right rotator cuff repair Encounter for pre-operative examination Urinary urgency Right ankle pain Trochanteric bursitis, right hip Right rotator cuff tear Atypical chest pain Bony sclerosis 05/02/23-Sclerotic foci within the intertrochanteric region of the right femur have slightly progressed. Dominant focus measures 1.9 cm, previously measuring 1.6 cm Avascular necrosis of right femoral head Pericardial effusion small, monitoring per [place] cardiology records Cardiomegaly follows w/ Dr Rigo Barrios Diabetic neuropathy ETD (eustachian tube dysfunction) Mixed hearing loss, bilateral IBS (irritable bowel syndrome) Abnormal finding on GI tract imaging Dyslipidemia Renal cyst Lung nodules being monitored Vitamin D deficiency Stenosis, cervical spine Restrictive lung disease has not used rescue for a while Obstructive sleep apnea of adult cpap Mixed conductive and sensorineural hearing loss of right ear with restricted hearing of left ear Disc degeneration, lumbar Chronic diarrhea Benign prostatic hyperplasia with urinary obstruction Obesity Gout GERD (gastroesophageal reflux disease) Diabetes mellitus, type 2 NIDDM Hypertension COPD (chronic obstructive pulmonary disease) Anxiety Medical History Urinary urgency Pericardial effusion pt. unaware - small, monitoring per [place] cardiology records ETD (eustachian tube dysfunction) Renal cyst pt. unaware Lung nodules monitored Dyslipidemia Hypertension Anxiety COPD (chronic obstructive pulmonary disease) no pulm, inhalers prn, SOB with exertion Stenosis, cervical spine reports full ROM Disc degeneration, lumbar Obstructive sleep apnea cpap - does not wear as it "does not stay on" Restrictive lung disease no pulmonoloist, uses inhaler prn Diabetic neuropathy GERD (gastroesophageal reflux disease) Diabetes mellitus, type 2 Cardiomegaly follows w/ Dr Rigo Barrios (03/10/24) IBS (irritable bowel syndrome) Mixed hearing loss, bilateral No H/A's Bony sclerosis 05/02/23-Sclerotic foci within the intertrochanteric region of the right femur have slightly progressed. Dominant focus measures 1.9 cm, previously measuring 1.6 cm Varicose veins of left lower extremity having testing at [facility] 04/17 or 04/18 Chronic venous insufficiency Hx: UTI (urinary tract infection) Hx of colonic polyps Chest discomfort I called patient who reports new onset of chest discomfort with activity 3 weeks ago-he denied chest discomfort or changed MOLINA during call and was instructed to call 911 if recurrence and to call his cardiology group for further evaluation BPH (benign prostatic hyperplasia) Hx of gout SOBOE (shortness of breath on exertion) with minimal exertion when walking Surgical History Hx of removal of cyst (2016) abdominal Hx of colonoscopy with polypectomy History of arthroscopy of right shoulder (07/2023) History of open reduction and internal fixation (ORIF) procedure (11/12/19) R ankle History of cataract surgery (2019) B/L Hx of transurethral resection of prostate (06/2018) History of esophagogastroduodenoscopy (EGD) (2019) History of tooth extraction All teeth removed History of inguinal herniorrhaphy Family History Sister Family history of diabetes mellitus multiple sisters Stroke Hypertension Cancer Breast cancer Mother Family history of diabetes mellitus Hypertension Cancer Other Family history of deafness or hearing loss No family history of adverse response to anesthesia Denies family history of Ovarian cancer Prostate cancer Myocardial infarction Colorectal cancer Social History Smoking Status: Former smoker Tobacco Type: Cigarettes packs per day: 1; Smoking End Date: 15 years ago; Second Hand Exposure: No; Do You Dip or Chew Tobacco: No; Hx Alcohol Use: No Hx Substance Use: No Preferred Language: Guamanian Communication Ability: Effective Visual Impairment: No Limitations Hearing Ability: Normal 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 Beliefs That Will Affect Care: None marital status: Current Living Situation: Family current occupational status: unemployed Other Information That Helps Us Care for You: No Feels Safe at Home: Yes Safety Concerns: Feels Safe At This Time Childhood Exposure to Second-Hand Smoke: Yes Diet: regular Diet Comment: regular caffeine: No during the past year weight has: remained stable Dental Care, Regularly: No Physical Activity Frequency: 1-2 Times per Week Physical Activity Frequency Comment: LIMITED BY PHYSICAL CONDITION Seatbelt Use: always Sunscreen Use: No Assistive Devices: Denture - Upper and Denture - Lower Review of Systems Review of Systems: All systems reviewed & are unremarkable except as noted in HPI & below Physical Exam Constitutional: WD/WN, vitals as above Eyes: PERRL, conjunctivae normal, anicteric sclerae ENMT: external ear and nose normal, oropharynx normal Respiratory: normal respiratory effort, lungs clear to auscultation Cardiovascular: RRR, no murmur, no edema Gastrointestinal (Abdomen): normal bowel sounds, soft, nontender, no hepatosplenomegaly Musculoskeletal: no cyanosis or clubbing, extremities motor strength 5/5 Skin: no rashes, warm and dry Neurologic: moves all extremities and awake; not confused Psychiatric: A+Ox3, euthymic affect Genitourinary: no CVA tenderness meagan blood coming out of marinelli catheter Results & Data Results & Data Laboratory Results Abnormal lab results 05/13/24 05/13/24 05/13/24 Range/Units 15:09 17:30 20:45 WBC 19.31 H (4.8-10.8) K/ul RBC 4.17 L (4.70-6.10) M/uL Hgb 11.4 L (14.0-18.0) g/dl Hct 34.4 L (42.0-52.0) % Neut # (Auto) 14.22 H (1.40-6.50) K/uL Lymph # (Auto) 3.71 H (1.20-3.40) K/uL Weston # (Auto) 1.25 H (0.11-0.59) K/uL Glucose 155 H (70-99(Fasting)) mg/dl POC Glucose 192 H 195 H (70-99) mg/dl Urine Appearance Cloudy A (Clear) Urine Protein 2+ H (Negative) Urine Blood 3+ H (Negative) Ur Leukocyte Esterase 1+ H (Negative) Urine RBC >20 H (0-2) /hpf Urine WBC 21-50 H (0-5) /hpf Ur Epithelial Cells 3-5 H (0-2) /hpf Urine Bacteria 1+ H (None Seen) Urine Yeast Present A (None Prsent) Code Status & VTE Plan Code Status Full VTE Prophylaxis Plan VTE Prophylaxis will be ordered: Yes Reason for no VTE drug order: Contraindicated PG Care Time/CCT Total # of Minutes Spent Total Time Spent: 75 Total Time Spent with Patient: Total time spent is greater than 50% in coordination of care (as documented) at patient's floor/unit and/or counseling patient: Coding Level of Care Code 13559 INT INP/OBS CARE 3/75MIN Diagnoses Gross hematuria R31.0 BPH loc w urin obs/LUTS N40.1 Diabetes mellitus, type 2 E11.9 Hypertension I10
--- NOTE | 2024-05-13 15:07 | Urology Consultation ---
Date of Consultation May 13, 2024 Assessment & Plan (1) BPH loc w urin obs/LUTS: (2) Gross hematuria: Plan 63-year-old male s/p TURP on 04/23/24 who was transferred from an outside ER due to gross hematuria. We will order a CT without contrast for further evaluation Labs reviewed-patient has leukocytosis, slightly anemic, normal kidney function Recommend urine culture -treat with appropriate antibiotics as indicated- recommend empiric antibiotics until culture results are available Patient currently on CBI, titrate as needed Maintain Cortez catheter and may hand irrigate as needed if CBI not draining Urology will follow-further recommendations pending imaging/labs Other medical management per primary team History of Present Illness Attending Physician: Jacky Mcdermott, II, DO History of Present Illness 63-year-old male with BPH with LUTS status post TURP on 04/23/[address] Nobles. Patient presented twice to an outside ER for gross hematuria. On 05/09/2024 he was started on CBI and then discharged with a Cortez catheter. He returned back to an outside facility on 05/13/2024. They continued CBI but were dealt with clots/clogging of the catheter per report on the phone. Per outside ER doctor he had leukocytosis, normal hemoglobin, slightly elevated creatinine-there are no records to review in his chart from his transfer. Patient resting comfortably in bed. Patient was seen in our office on 05/07/2024 was unable to void he had a PVR of 134. He then presented to an outside ER in which he states that he had over thousand in his bladder and a catheter was placed. It sounds like they replaced a Cortez catheter with a three-way catheter and CBI was started. He again called our office on Monday in which our computer systems were not working stating his catheter was not draining appropriately and we recommended going to an ER for evaluation. He decided to not report back to an ER until this morning. He states when the catheter is not draining he has significant lower abdominal pain. Denies pain currently. He denied fevers, chills. Did report some nausea/vomiting when he has pain. Labs reviewed 05/13/2024 WBCs 19.31 Hemoglobin 11.4 Glucose 155 Creatinine 0.91 Allergies Allergy/AdvReac Type Severity Reaction Status Date / Time No Known Drug Allergies Allergy Verified 05/07/24 15:47 Home Medications Medication Instructions Recorded Confirmed Type Custom Orthotics #1 ea 07/21/20 04/22/24 Rx Orthotics Misc #1 ea 07/21/20 04/22/24 Rx blood sugar diagnostic #50 ea 10/13/20 04/22/24 Rx lancets 33 gauge (OneTouch Delica #100 ea 01/18/23 04/22/24 Rx Lancets) blood-glucose meter (OneTouch #1 ea 01/27/23 04/22/24 Rx Verio Flex Start kit) fluticasone propionate 50 2 spray intranasal DAILY PRN 06/01/23 05/13/24 Rx mcg/actuation nasal Congestion #47.4 mL spray,suspension (Allergy Relief (fluticasone)) diabetic supplies, Scaladocellan. #1 ea 07/28/23 04/22/24 Rx Diabetic Shoes #1 ea 08/07/23 04/22/24 Rx gabapentin 300 mg capsule 600 mg (2 x 300 mg) PO HS #180 caps 08/07/23 05/13/24 Rx pantoprazole 40 mg tablet,delayed 40 mg PO PM #90 tabs 08/11/23 05/13/24 Rx release aspirin 325 mg tablet 81 mg PO QAM 10/10/23 05/13/24 History trazodone 50 mg tablet 50 mg PO HS #90 tabs 10/20/23 05/13/24 Rx metoprolol succinate 25 mg 25 mg PO QAM #90 tabs 01/08/24 05/13/24 Rx tablet,extended release 24 hr promethazine 12.5 mg tablet 12.5 mg PO HS PRN nausea and 02/12/24 05/13/24 Rx vomiting #60 tabs tamsulosin 0.4 mg capsule (Flomax) 0.4 mg PO QPM #90 caps 03/14/24 05/13/24 Rx azelastine 137 mcg (0.1 %) nasal 1 spray intranasal DAILY PRN 04/04/24 05/13/24 Rx spray Congestion #90 mL escitalopram oxalate 20 mg tablet 20 mg PO QAM 04/11/24 05/13/24 History fluticasone fur. 100 mcg-umeclid 1 inh inhalation Q24H PRN sob 04/11/24 05/13/24 History 62.5 mcg-vilant 25 mcg inhalat.powder (Trelegy Ellipta) glipizide 10 mg tablet, extended 10 mg PO QAM 04/11/24 05/13/24 History release 24 hr atorvastatin 20 mg tablet 20 mg PO PM #90 tabs 04/15/24 05/13/24 Rx lisinopril 10 mg tablet 10 mg PO Q2D #90 tabs 04/15/24 05/13/24 Rx blood sugar diagnostic (OneTouch #100 ea 04/22/24 04/22/24 Rx Verio test strips) tizanidine 4 mg tablet 4 mg PO HS PRN muscle spasticity 04/22/24 05/13/24 Rx #20 tabs empagliflozin 25 mg tablet 25 mg PO QAM #90 tabs 04/30/24 05/13/24 Rx semaglutide 0.25 mg or 0.5 mg (2 0.25 mg (0.368 mL) subcut .Weekly 04/30/24 05/13/24 Rx mg/3 mL) subcutaneous pen injector #3 mL (Ozempic) Patient History Medical History Urinary urgency Pericardial effusion pt. unaware - small, monitoring per [place] cardiology records ETD (eustachian tube dysfunction) Renal cyst pt. unaware Lung nodules monitored Dyslipidemia Hypertension Anxiety COPD (chronic obstructive pulmonary disease) no pulm, inhalers prn, SOB with exertion Stenosis, cervical spine reports full ROM Disc degeneration, lumbar Obstructive sleep apnea cpap - does not wear as it "does not stay on" Restrictive lung disease no pulmonoloist, uses inhaler prn Diabetic neuropathy GERD (gastroesophageal reflux disease) Diabetes mellitus, type 2 Cardiomegaly follows w/ Dr Rigo Barrios (03/10/24) IBS (irritable bowel syndrome) Mixed hearing loss, bilateral No H/A's Bony sclerosis 05/02/23-Sclerotic foci within the intertrochanteric region of the right femur have slightly progressed. Dominant focus measures 1.9 cm, previously measuring 1.6 cm Varicose veins of left lower extremity having testing at [facility] 04/17 or 04/18 Chronic venous insufficiency Hx: UTI (urinary tract infection) Hx of colonic polyps Chest discomfort I called patient who reports new onset of chest discomfort with activity 3 weeks ago-he denied chest discomfort or changed MOLINA during call and was instructed to call 911 if recurrence and to call his cardiology group for further evaluation BPH (benign prostatic hyperplasia) Hx of gout SOBOE (shortness of breath on exertion) with minimal exertion when walking Surgical History Hx of removal of cyst (2016) abdominal Hx of colonoscopy with polypectomy History of arthroscopy of right shoulder (07/2023) History of open reduction and internal fixation (ORIF) procedure (11/12/19) R ankle History of cataract surgery (2019) B/L Hx of transurethral resection of prostate (06/2018) History of esophagogastroduodenoscopy (EGD) (2018) History of tooth extraction All teeth removed History of inguinal herniorrhaphy Family History Sister Family history of diabetes mellitus multiple sisters Stroke Hypertension Cancer Breast cancer Mother Family history of diabetes mellitus Hypertension Cancer Other Family history of deafness or hearing loss No family history of adverse response to anesthesia Denies family history of Ovarian cancer Prostate cancer Myocardial infarction Colorectal cancer Social History Smoking Status: Never smoker Tobacco Type: Cigarettes packs per day: 1; Second Hand Exposure: No; Do You Dip or Chew Tobacco: No; Hx Alcohol Use: No Hx Substance Use: No Preferred Language: Lithuanian Communication Ability: Effective Visual Impairment: No Limitations Hearing Ability: Normal Director Of Cardiac Cath Lab Required: No Beliefs That Will Affect Care: None marital status: Current Living Situation: Family current occupational status: unemployed Feels Safe at Home: Yes Childhood Exposure to Second-Hand Smoke: Yes Diet: regular Diet Comment: regular caffeine: No during the past year weight has: remained stable Dental Care, Regularly: No Physical Activity Frequency: 1-2 Times per Week Physical Activity Frequency Comment: LIMITED BY PHYSICAL CONDITION Seatbelt Use: always Sunscreen Use: No Assistive Devices: CPAP, Denture - Upper and Denture - Lower Review of Systems Constitutional: as per Subjective / HPI Genitourinary: + as per Subjective / HPI Physical Exam Constitutional: well developed and well nourished; no acute distress Respiratory: normal respiratory effort and able to speak in complete sentences Musculoskeletal: Extremities: extremities normal to inspection Psychiatric: Orientation: alert and oriented x 3 Genitourinary: Cortez catheter draining burgundy colored urine Catheter hand irrigated clots noted CBI started, catheter draining appropriately with small clots in tubing PG Care Time/CCT Total # of Minutes Spent Total Time Spent with Patient: Total time spent is greater than 50% in coordination of care (as documented) at patient's floor/unit and/or counseling patient: Coding Level of Care Code 80022 IN/OBS CONSULT LVL 4,60M Diagnoses BPH loc w urin obs/LUTS N40.1 Gross hematuria R31.0
[2024-05-13 15:29] LABS: Hematocrit (blood only) 34.4 % (42.0-52.0); Hemoglobin 11.4 g/dl (14.0-18.0); Mean Corpuscular Hemoglobin 27.3 pg (25.0-34.0); Mean Corpuscular Hgb Conc 33.1 g/dL (32.0-36.0); Mean Corpuscular Volume 82.5 fL (80.0-100.0); Mean Platelet Volume 9.5 fL (9.4-12.4); Platelet Count 289 K/uL (130-400); RDW Coefficient of Variation 13.1 % (11.5-14.5); RDW Standard Deviation 39.7 fL (36.4-46.3); Red Blood Count 4.17 M/uL (4.70-6.10); White Blood Count 19.31 K/ul (4.8-10.8)
[2024-05-13 15:48] LABS: Alanine Aminotransferase 14 U/L (7-52); Albumin Level 3.7 gm/dl (3.4-5.0); Alkaline Phosphatase 75 U/L (34-104); Anion Gap 11 (3-11); Aspartate Aminotransferase 13 U/L (13-39); BUN Creatinine Ratio 13.2 (10-20); Bilirubin,Total 0.5 mg/dl (0.2-1.0); Blood Urea Nitrogen 12 mg/dl (6-23); Calcium 8.8 mg/dl (8.6-10.3); Carbon Dioxide 23 mmol/L (21-32); Chloride 102 mmol/L (98-107); Est GFR (African American) 104.3 ml/min; Globulin 3.7 gm/dl (2.5-4.0); Glucose 155 mg/dl (70-99(Fasting)); Potassium 3.5 mmol/L (3.5-5.1); Sodium 136 mmol/L (136-145); Total Protein 7.4 gm/dl (6.0-8.3)
[2024-05-13 15:50] LABS: Basophils # (auto) 0.05 K/uL (0.00-0.20); Basophils % (auto) 0.3 %; Eosinophils # (auto) 0.01 K/uL (0.00-0.50); Eosinophils % (auto) 0.1 %; Immature Granulocytes # (auto) 0.07 K/uL (0.01-0.20); Immature Granulocytes % (auto) 0.4 %; Lymphocytes # (auto) 3.71 K/uL (1.20-3.40); Lymphocytes % (auto) 19.2 %; Monocytes # (auto) 1.25 K/uL (0.11-0.59); Monocytes % (auto) 6.5 %; Neutrophils # (auto) 14.22 K/uL (1.40-6.50); Neutrophils % (auto) 73.5 %
[2024-05-13 16:04] LABS: INR 1.1 (0.9-1.1); Partial Thromboplastin Ratio 0.9; Partial Thromboplastin Time 23 Seconds (21-31); Prothrombin Time 11.4 Seconds (9.0-12.0)
[2024-05-13] MEDS ORDERED: DEXTROSE 50% 50 ML SYRINGE IV PRN (16:13)
[2024-05-13] MEDS ORDERED: GLUCOSE 40% GEL 15 GM TUBE PO PRN (16:13)
[2024-05-13] MEDS ORDERED: GLUCOSE 10 TAB/TUBE PO PRN (16:13)
[2024-05-13] MEDS ORDERED: GLUCAGON FOR INJ 1 MG VIAL SQ PRN (16:13)
[2024-05-13] MEDS ORDERED: CARBOHYDRATES FOR HYPOGLYCEMIA PO PRN (16:13)
--- NOTE | 2024-05-13 17:13 | CT Scan Report ---
ABDOMEN AND PELVIS CT WITHOUT CONTRAST CT DOSE: 1338.53 mGy.cm HISTORY: Gross hematuira TECHNIQUE: Multiaxial CT images of the abdomen and pelvis were performed without contrast. A dose lo wering technique was utilized adhering to the principles of ALARA. COMPARISON STUDY: 05/14/2019 FINDINGS: Trace pericardial effusion. No free air. The unenhanced spleen, pancreas, gallbladder and a drenal glands are unremarkable. Mild hepatic steatosis. There are a few cysts within the kidneys marianne ure 3.5 cm on the right. No urolith or hydronephrosis. Large amount of hemorrhagic debris intermixed with air noted within the urinary bladder lumen. Urinary bladder wall thickening with perivesicular s tranding. A Cortez catheter there is an place. Atherosclerosis of the aorta. No lymphadenopathy. No bowel obstruction or bowel wall thickening. Colonic diverticulosis. No CT evidence of acute append icitis. Unremarkable soft tissues. Chronic appearing transverse process fractures in the lumbar spine . No acute fracture. Mild avascular necrosis of the right femoral head with likely benign sclerotic f ocus in the intertrochanteric right femoral neck. IMPRESSION: 1. There is a large amount of hemorrhagic debris and air within the urinary bladder with Cortez cathet er in place. 2. No urolith or hydronephrosis. 3. No bowel obstruction or bowel wall thickening. 4. 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 ACT 112: Negative or not required by law. The above report was generated using voice recognition software. It may contain grammatical, syntax o r spelling errors. Electronically signed by: Gregory Alvarado M.D. 05/13/2024 5:11 PM
[2024-05-13] MEDS: METOPROLOL SUCC 25MG EXT REL TAB PO ONE (17:46)
[2024-05-13] MEDS: Patient's HEIGHT &/or WEIGHT Needed STA (17:46)
[2024-05-13] MEDS: LACTATED RINGER'S 1,000 ML IV ONE (17:46)
[2024-05-13 18:14] LABS: Appearance Urine Cloudy (Clear); Bilirubin Urine Negative (Negative); Blood Urine 3+ (Negative); Color Urine Red; Glucose Urine UA Negative (Negative); Ketones Urine Negative (Negative); Leukocyte Esterase Urine 1+ (Negative); Nitrite Urine Negative (Negative); Protein Urine 2+ (Negative); Urobilinogen Urine Negative (Negative); pH Urine 5.5 (4.5-7.5)
[2024-05-13 18:20] LABS: Bacteria Urine 1+ (None Seen); RBC Urine >20 /hpf (0-2); WBC Urine 21-50 /hpf (0-5)
[2024-05-13] MEDS: INSULIN ASPART PER UNIT CHARGE SC SCH (18:30)
[2024-05-13] MEDS: tiZANidine HCL 4 MG TABLET PO PRN (20:14)
[2024-05-13] MEDS: TAMSULOSIN HCL 0.4 MG CAP PO SCH (22:27)
[2024-05-13] MEDS: PANTOprazole 40 MG TAB PO SCH (22:27)
[2024-05-13] MEDS: traZODone HCL 50 MG TAB PO SCH (22:27)
[2024-05-13] MEDS: GABAPENTIN 600 MG TAB PO SCH (22:27)
[2024-05-13] MEDS: ATORVASTATIN 20 MG TAB PO SCH (22:27)
[2024-05-13] MEDS: LANTUS PER UNIT CHARGE SQ SCH (22:34)
[2024-05-13] MEDS ORDERED: oxyBUTYnin chloride 5 MG TAB PO PRN (23:16)
[2024-05-13] MEDS ORDERED: MoRPHine SULFATE 2 MG/ML CARP IV PRN (23:16)
[2024-05-14] MEDS ORDERED: Nursing to Pharmacy Communication SCH (01:15)
[2024-05-14] MEDS: INSULIN ASPART PER UNIT CHARGE SC SCH ×2 (06:10→17:41)
--- NOTE | 2024-05-14 08:10 | Urology Progress Note ---
Date of Service May 14, 2024 Assessment & Plan (1) BPH loc w urin obs/LUTS: (2) Gross hematuria: Plan 63-year-old male s/p TURP on 04/23/24 who was transferred from an outside ER due to gross hematuria. Patient currently on CBI, keep on slow drip Maintain Cortez catheter and may hand irrigate as needed if CBI not draining Patient is afebrile and hemodynamically stable, elevated glucose, slightly anemic, no leukocytosis Urine culture and blood cultures still pending Due to CT scan indicating debris/clots in the bladder we discussed surgical intervention with patient Discussed cystoscopy with clot evacuation and possible fulguration. Risk and benefits of procedure discussed. Patient had no further questions and was in agreement to surgical intervention. Trend antibiotics according to culture results, patient currently on ceftriaxone empirically, this will cover antibiotics preoperatively Keep patient n.p.o. Other medical management per primary team Admission and Anticipated Discharge Date Admission Date: May 13, 2024 Subjective Patient resting comfortably in bed Denies abdominal or flank pain Denying fevers, chills, N/V Some discomfort from catheter but no other acute concerns this morning Vital signs stable and patient is afebrile Labs reviewed: 05/14/2024 Glucose 150 WBCs 10.[address] on 05/13/2024 shows no hydronephrosis bilaterally or ureteral or renal stones. There is a large amount of hemorrhagic debris intermixed with air in the urinary bladder, urinary bladder wall thickening and perivascular stranding. Cortez catheter is in place. Review of Systems Constitutional: as per Subjective / HPI Genitourinary: + as per Subjective / HPI Physical Exam Constitutional: well developed and well nourished; no acute distress Respiratory: normal respiratory effort and able to speak in complete sentences Musculoskeletal: Extremities: extremities normal to inspection Psychiatric: Orientation: alert and oriented x 3 Genitourinary: CBI on slow drip Urine is pink tinged Results & Data Vital Signs (Past 12 Hours) Vital Signs Temp Pulse Resp BP BP Pulse Ox O2 Del Method 05/14/24 07:28 36.5 C 79 16 107/71 96 Room Air 05/13/24 20:19 36.9 C 95 H 16 117/80 97 Room Air PG Care Time/CCT Total # of Minutes Spent Total Time Spent with Patient: Total time spent is greater than 50% in coordination of care (as documented) at patient's floor/unit and/or counseling patient: Coding Level of Care Code 50559 SUB INP/OBS CARE 2/35MIN Diagnoses BPH loc w urin obs/LUTS N40.1 Gross hematuria R31.0
[2024-05-14] MEDS: ESCITALOPRAM OXALATE 20 MG TAB PO SCH (08:21)
[2024-05-14] MEDS: METOPROLOL SUCC 25MG EXT REL TAB PO SCH (08:22)
[2024-05-14] MEDS: cefTRIAXone SODIUM 2,000 MG/50 ML BAG IV SCH (08:24)
--- NOTE | 2024-05-14 08:30 | Hospitalist Progress Note ---
Date of Service May 14, 2024 Assessment & Plan (1) Gross hematuria: Plan: s/p TURP 04/23/2024.UA +culture, blood culture Consult urology for CBI Continue IV ceftriaxone while on CBI (first dose given in [place] ER) CT ordered by urology Monitor Hgb in AM Hold ASA (has been on hold for 5 days per patient due to procedure/hematuria) 05/14 CTAP w/o hydro, but noting a large amount of hemorrhagic debris and air within the urinary bladder with Marinelli catheter in place. Urology on consult NPO this morning, planning for OR this afternoon with Urology Added NSS @ 100cc/hr +10meq Kcl while NPO Ceftriaxone IV continued * 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, pansensitive - will nee to monitor to see if needing adjustment WBC 19.3k--> 10.1k, remains AFEBRILE Hgb 11.4--> 9.6, noting was given 1L LR bolus on admission, suspect some dilutional. Marinelli w/ blood tinged urine draining. CBI continued F/u urine cx, blood cultures Added CXR/EKG pre-op, however no hx SD/CVA. Vitals stable and acceptable for OR unless grossly abnormal Monitor labs in AM (2) BPH loc w urin obs/LUTS: Plan: s/p TURP, given problems or urine retention will continue on tamsulosin (pt reports previously stopping this (3) Diabetes mellitus, type 2: Plan: Hemoglobin A1C 7.6 in April Hold glipizide, Jardiance, semaglutide Use insulin while admitted Lantus 5 units BID NovoLog: --Goal BSG Range: Low 110 mg/dL, High 140 mg/dL --Correction Factor: 45mg/dL/unit --Carbohydrate ratio = 15 g/unit --BSGs ACHS if eating, q6h if npo Monitor BSGs/adjustment if needed (4) Hypertension: Plan: Hold lisinopril given low normal BP and planning for OR this afternoon Continue metoprolol w/ hold parameters, BP 107/71. IVF as above added while NPO for OR Plan VTE Prophylaxis - SCDs, chemoproph deferred given hematuria NPO for OR this afternoon Admission and Anticipated Discharge Date Admission Date: May 13, 2024 Subjective EValuated this morning, had messaged Urology regarding possible OR given NPO status. They were just finishing up in the room with patient, discussing adding on to OR schedule for this afternoon. Does appear slightly dry, IVF added while NPO and likely not being done til this afternoon. Not having too much pain at present, CBI continues. Passing gas but no BM, hasn't been eating that well recently due to the pain. No fever. Continues on abx for possible infection but denied any fevers at home. Urine cx pending. Has had his aspirin held last 5 days, no hx SD/CVA, on for prevention. Questions/concerns addressed at this time. Physical Exam Physical Exam: General: 63yo obese male laying in bed, NAD Head atraumatic, +facial hair, mm slightly dry, trachea midline Resp: even/unlabored, no w/c/r, on room air CV: RRR, no significant m/r/g, no pitting edema/calf tenderness GI: +BS, soft/slight distension but nontender, no guarding : marinelli w/ CBI, slight blood tinge in bag MSK/Neuro/Psych: AOX3, nonfocal, answering questions appropriately/following commands Results & Data Results & Data Vital Signs (Past 12 Hours) Vital Signs Temp Pulse Resp BP Pulse Ox O2 Del Method 05/14/24 07:28 36.5 C 79 16 107/71 96 Room Air Laboratory Results 05/14/24 05/14/24 05/13/24 Range/Units 08:12 06:06 20:45 WBC 10.13 (4.8-10.8) K/ul RBC 3.47 L (4.70-6.10) M/uL Hgb 9.6 L (14.0-18.0) g/dl Hct 29.4 L (42.0-52.0) % MCV 84.7 (80.0-100.0) fL MCH 27.7 (25.0-34.0) pg MCHC 32.7 (32.0-36.0) g/dL RDW Std Deviation 41.4 (36.4-46.3) fL RDW Coeff of Mildred 13.3 (11.5-14.5) % Plt Count 263 (130-400) K/uL MPV 9.9 (9.4-12.4) fL Immature Gran % (Auto) % Neut % (Auto) % Lymph % (Auto) % [place] % (Auto) % Eos % (Auto) % Baso % (Auto) % Neut # (Auto) (1.40-6.50) K/uL Lymph # (Auto) (1.20-3.40) K/uL [place] # (Auto) (0.11-0.59) K/uL Eos # (Auto) (0.00-0.50) K/uL Baso # (Auto) (0.00-0.20) K/uL Immature Gran # (Auto) (0.01-0.20) K/uL PT (9.0-12.0) Seconds INR (0.9-1.1) APTT (21-31) Seconds PTT Ratio Sodium Pending (136-145) mmol/L Potassium Pending (3.5-5.1) mmol/L Chloride Pending (98-107) mmol/L Carbon Dioxide Pending (21-32) mmol/L Anion Gap Pending (3-11) BUN Pending (6-23) mg/dl Creatinine Pending (0.6-1.4) mg/dl Est Cr Clr Drug Dosing Pending Est GFR ( Amer) Pending ml/min Est GFR (Non-Af Amer) Pending ml/min BUN/Creatinine Ratio Pending (10-20) Glucose Pending (70-99(Fasting)) mg/dl POC Glucose 155 H 195 H (70-99) mg/dl Lactate (0.4-2.0) mmol/L Calcium Pending (8.6-10.3) mg/dl Total Bilirubin (0.2-1.0) mg/dl AST (13-39) U/L ALT (7-52) U/L Alkaline Phosphatase (34-104) U/L Total Protein (6.0-8.3) gm/dl Albumin (3.4-5.0) gm/dl Globulin (2.5-4.0) gm/dl Albumin/Globulin Ratio (0.9-2) Urine Color Urine Appearance (Clear) Urine pH (4.5-7.5) Ur Specific [place] (1.000-1.030) Urine Protein (Negative) Urine Glucose (UA) (Negative) Urine Ketones (Negative) Urine Blood (Negative) Urine Nitrite (Negative) Urine Bilirubin (Negative) Urine Urobilinogen (Negative) Ur Leukocyte Esterase (Negative) Urine RBC (0-2) /hpf Urine WBC (0-5) /hpf Ur Epithelial Cells (0-2) /hpf Urine Bacteria (None Seen) Urine Yeast (None Prsent) Blood Type Antibody Screen 05/13/24 05/13/24 05/13/24 Range/Units 17:30 16:46 15:09 WBC 19.31 H (4.8-10.8) K/ul RBC 4.17 L (4.70-6.10) M/uL Hgb 11.4 L (14.0-18.0) g/dl Hct 34.4 L (42.0-52.0) % MCV 82.5 (80.0-100.0) fL MCH 27.3 (25.0-34.0) pg MCHC 33.1 (32.0-36.0) g/dL RDW Std Deviation 39.7 (36.4-46.3) fL RDW Coeff of Mildred 13.1 (11.5-14.5) % Plt Count 289 (130-400) K/uL MPV 9.5 (9.4-12.4) fL Immature Gran % (Auto) 0.4 % Neut % (Auto) 73.5 % Lymph % (Auto) 19.2 % [place] % (Auto) 6.5 % Eos % (Auto) 0.1 % Baso % (Auto) 0.3 % Neut # (Auto) 14.22 H (1.40-6.50) K/uL Lymph # (Auto) 3.71 H (1.20-3.40) K/uL [place] # (Auto) 1.25 H (0.11-0.59) K/uL Eos # (Auto) 0.01 (0.00-0.50) K/uL Baso # (Auto) 0.05 (0.00-0.20) K/uL Immature Gran # (Auto) 0.07 (0.01-0.20) K/uL PT 11.4 (9.0-12.0) Seconds INR 1.1 (0.9-1.1) APTT 23 (21-31) Seconds PTT Ratio 0.9 Sodium 136 (136-145) mmol/L Potassium 3.5 (3.5-5.1) mmol/L Chloride 102 (98-107) mmol/L Carbon Dioxide 23 (21-32) mmol/L Anion Gap 11 (3-11) BUN 12 (6-23) mg/dl Creatinine 0.91 (0.6-1.4) mg/dl Est Cr Clr Drug Dosing Not Reportable Est GFR ( Amer) 104.3 ml/min Est GFR (Non-Af Amer) 90.0 ml/min BUN/Creatinine Ratio 13.2 (10-20) Glucose 155 H (70-99(Fasting)) mg/dl POC Glucose 192 H (70-99) mg/dl Lactate 1.3 (0.4-2.0) mmol/L Calcium 8.8 (8.6-10.3) mg/dl Total Bilirubin 0.5 (0.2-1.0) mg/dl AST 13 (13-39) U/L ALT 14 (7-52) U/L Alkaline Phosphatase 75 (34-104) U/L Total Protein 7.4 (6.0-8.3) gm/dl Albumin 3.7 (3.4-5.0) gm/dl Globulin 3.7 (2.5-4.0) gm/dl Albumin/Globulin Ratio 1.0 (0.9-2) Urine Color Red Urine Appearance Cloudy A (Clear) Urine pH 5.5 (4.5-7.5) Ur Specific [place] 1.010 (1.000-1.030) Urine Protein 2+ H (Negative) Urine Glucose (UA) Negative (Negative) Urine Ketones Negative (Negative) Urine Blood 3+ H (Negative) Urine Nitrite Negative (Negative) Urine Bilirubin Negative (Negative) Urine Urobilinogen Negative (Negative) Ur Leukocyte Esterase 1+ H (Negative) Urine RBC >20 H (0-2) /hpf Urine WBC 21-50 H (0-5) /hpf Ur Epithelial Cells 3-5 H (0-2) /hpf Urine Bacteria 1+ H (None Seen) Urine Yeast Present A (None Prsent) Blood Type O Positive Antibody Screen NEGATIVE Diagnostic Findings Abdomen/Pelvis CT 05/13/24 15:[address] WITHOUT CONTRAST CT DOSE: 1338.53 mGy.cm HISTORY: Gross hematuira TECHNIQUE: Multiaxial CT images of the abdomen and pelvis were performed without contrast. A dose lowering technique was utilized adhering to the principles of ALARA. COMPARISON STUDY: 05/14/2019 FINDINGS: Trace pericardial effusion. No free air. The unenhanced spleen, pancreas, gallbladder and adrenal glands are unremarkable. Mild hepatic steatosis. There are a few cysts within the kidneys measure 3.5 cm on the right. No urolith or hydronephrosis. Large amount of hemorrhagic debris intermixed with air noted within the urinary bladder lumen. Urinary bladder wall thickening with perivesicular stranding. A Marinelli catheter there is an place. Atherosclerosis of the aorta. No lymphadenopathy. No bowel obstruction or bowel wall thickening. Colonic diverticulosis. No CT evidence of acute appendicitis. Unremarkable soft tissues. Chronic appearing transverse process fractures in the lumbar spine. No acute fracture. 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 IMPRESSION: 1. There is a large amount of hemorrhagic debris and air within the urinary bladder with Marinelli catheter in place. 2. No urolith or hydronephrosis. 3. No bowel obstruction or bowel wall thickening. 4. 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 ACT 112: Negative or not required by law. The above report was generated using voice recognition software. It may contain grammatical, syntax or spelling errors. Electronically signed by: Gregory Alvarado M.D. 05/13/2024 5:11 PM PG Care Time/CCT Total # of Minutes Spent Total Time Spent with Patient: Total time spent is greater than 50% in coordination of care (as documented) at patient's floor/unit and/or counseling patient: Coding Level of Care Code 84741 SUB INP/OBS CARE 3/50MIN Diagnoses Gross hematuria R31.0 BPH loc w urin obs/LUTS N40.1 Diabetes mellitus, type 2 E11.9 Hypertension I10
[2024-05-14 09:06] LABS: Hematocrit (blood only) 29.4 % (42.0-52.0); Hemoglobin 9.6 g/dl (14.0-18.0); Mean Corpuscular Hemoglobin 27.7 pg (25.0-34.0); Mean Corpuscular Hgb Conc 32.7 g/dL (32.0-36.0); Mean Corpuscular Volume 84.7 fL (80.0-100.0); Mean Platelet Volume 9.9 fL (9.4-12.4); Platelet Count 263 K/uL (130-400); RDW Coefficient of Variation 13.3 % (11.5-14.5); RDW Standard Deviation 41.4 fL (36.4-46.3); Red Blood Count 3.47 M/uL (4.70-6.10); White Blood Count 10.13 K/ul (4.8-10.8)
[2024-05-14 09:26] LABS: BUN Creatinine Ratio 20.7 (10-20); Calcium 8.6 mg/dl (8.6-10.3); Creatinine Clr Calc Pharmacy 115.7 ml/min; Est GFR (African American) 109.8 ml/min; Est GFR (Non-African American) 94.8 ml/min; Potassium 3.5 mmol/L (3.5-5.1)
[2024-05-14] MEDS ORDERED: SODIUM CHLORIDE 0.9% 1,000 ML IV SCH (09:30)
[2024-05-14 09:41] LABS: Basophils # (auto) 0.08 K/uL (0.00-0.20); Basophils % (auto) 0.8 %; Eosinophils % (auto) 3.9 %; Immature Granulocytes # (auto) 0.06 K/uL (0.01-0.20); Immature Granulocytes % (auto) 0.6 %; Lymphocytes # (auto) 3.59 K/uL (1.20-3.40); Lymphocytes % (auto) 35.4 %; Monocytes # (auto) 0.91 K/uL (0.11-0.59); Neutrophils # (auto) 5.09 K/uL (1.40-6.50); Neutrophils % (auto) 50.3 %
[2024-05-14] MEDS: POTASSIUM CHLORIDE 10 MEQ in SODIUM CHLORIDE 0.9% 1,000 ML IV SCH (10:50)
--- NOTE | 2024-05-14 11:14 | XRay Report ---
XR chest 1V portable HISTORY: 63 years-old Male pre-op preoperative exam COMPARISON: Chest CT 05/02/2023 TECHNIQUE: AP view of the chest FINDINGS: Cardiomediastinal and hilar silhouettes are within normal limits. No pneumothorax, pleural effusion o r airspace consolidation. Degenerative changes of the shoulders and spine. IMPRESSION: No acute process. ACT 112: Negative or not required by law. The above report was generated using voice recognition software. It may contain grammatical, syntax o r spelling errors. Electronically signed by: Gregory Alvarado M.D. 05/14/2024 11:12 AM
[2024-05-14] MEDS: LACTATED RINGER'S 1,000 ML IV SCH (14:30)
[2024-05-14] MEDS ORDERED: ePHEDrine sulfate 50 MG/ML AMP IV PRN (14:37)
[2024-05-14] MEDS ORDERED: HYDROmorphone INJ 2 MG/ML SYR/VIAL IV PRN (14:37)
[2024-05-14] MEDS ORDERED: ATROPINE SULFATE 0.1 MG/ML 10ML SYR IV PRN (14:37)
[2024-05-14] MEDS ORDERED: ONDANSETRON INJ 2 MG/ML 2 ML VIAL IV PRN (14:37)
--- NOTE | 2024-05-14 14:39 | Electrocardiogram Report ---
Test Reason : Blood Pressure : / mmHG Vent. 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
[2024-05-14] MEDS ORDERED: MIDAZOLAM HCL 1 MG/ML 2ML VIAL ONE (14:42)
[2024-05-14] MEDS ORDERED: fentaNYL citrate PF 100 MCG/2 ML VIAL ONE (14:42)
--- NOTE | 2024-05-14 14:49 | Anesthesiology Consultation ---
Date of Service May 14, 2024 Assessment & Plan (1) Encounter for pre-operative examination: Chart Review Chart Review: Acceptable Risk for Surgery and Patient NOT seen in Pre Admission Testing Consults Requested none History Surgery Operation Date: 05/14/24 09:15 Proposed Procedures p Cystoscopy, Clot Evacuation, Possible Fulguration - Alcides Nobles MD Height/Weight Height: 5 ft 7 in Weight: 119.748 kg Allergies Allergy/AdvReac Type Severity Reaction Status Date / Time No Known Drug Allergies Allergy Verified 05/07/24 15:47 Medications Home Medications Medication Instructions Recorded Confirmed Last Taken Custom Orthotics #1 ea 07/21/20 04/22/24 Unknown Orthotics Misc #1 ea 07/21/20 04/22/24 Unknown blood sugar diagnostic #50 ea 10/13/20 04/22/24 Unknown lancets 33 gauge (OneTouch Delica #100 ea 01/18/23 04/22/24 Unknown Lancets) blood-glucose meter (OneTouch #1 ea 01/27/23 04/22/24 Unknown Verio Flex Start kit) fluticasone propionate 50 2 spray intranasal DAILY PRN 06/01/23 05/13/24 04/10/24 mcg/actuation nasal Congestion #47.4 mL spray,suspension (Allergy Relief (fluticasone)) diabetic supplies, miscellan. #1 ea 07/28/23 04/22/24 Unknown Diabetic Shoes #1 ea 08/07/23 04/22/24 Unknown gabapentin 300 mg capsule 600 mg (2 x 300 mg) PO HS #180 caps 08/07/23 05/13/24 04/22/24 21:00 pantoprazole 40 mg tablet,delayed 40 mg PO PM #90 tabs 08/11/23 05/13/24 04/22/24 21:00 release aspirin 325 mg tablet 81 mg PO QAM 10/10/23 05/13/24 04/10/24 trazodone 50 mg tablet 50 mg PO HS #90 tabs 10/20/23 05/13/24 04/22/24 21:00 metoprolol succinate 25 mg 25 mg PO QAM #90 tabs 01/08/24 05/13/24 04/22/24 08:00 tablet,extended release 24 hr promethazine 12.5 mg tablet 12.5 mg PO HS PRN nausea and 02/12/24 05/13/24 04/22/24 21:00 vomiting #60 tabs tamsulosin 0.4 mg capsule (Flomax) 0.4 mg PO QPM #90 caps 03/14/24 05/13/24 04/22/24 21:00 azelastine 137 mcg (0.1 %) nasal 1 spray intranasal DAILY PRN 04/04/24 05/13/24 04/16/24 spray Congestion #90 mL escitalopram oxalate 20 mg tablet 20 mg PO QAM 04/11/24 05/13/24 04/22/24 21:00 fluticasone fur. 100 mcg-umeclid 1 inh inhalation Q24H PRN sob 04/11/24 05/13/24 04/11/24 62.5 mcg-vilant 25 mcg inhalat.powder (Trelegy Ellipta) glipizide 10 mg tablet, extended 10 mg PO QAM 04/11/24 05/13/24 04/22/24 08:00 release 24 hr atorvastatin 20 mg tablet 20 mg PO PM #90 tabs 04/15/24 05/13/24 04/22/24 21:00 lisinopril 10 mg tablet 10 mg PO Q2D #90 tabs 04/15/24 05/13/24 04/22/24 08:00 blood sugar diagnostic (OneTouch #100 ea 04/22/24 04/22/24 Unknown Verio test strips) tizanidine 4 mg tablet 4 mg PO HS PRN muscle spasticity 04/22/24 05/13/24 04/21/24 21:00 #20 tabs empagliflozin 25 mg tablet 25 mg PO QAM #90 tabs 04/30/24 05/13/24 Unknown semaglutide 0.25 mg or 0.5 mg (2 0.25 mg (0.368 mL) subcut .Weekly 04/30/24 05/13/24 Unknown mg/3 mL) subcutaneous pen injector #3 mL (Ozempic) Active Medications Generic Name Dose Route Start Last Admin Trade Name Freq PRN Reason Stop Dose Admin Atorvastatin Calcium 20 mg 05/13/24 21:00 05/13/24 22:27 Atorvastatin 20 Mg Tab PO 06/12/24 20:59 20 mg PM FRANCISCO Administration Escitalopram Oxalate 20 mg 05/14/24 09:00 05/14/24 08:21 Escitalopram Oxalate 20 Mg Tab PO 06/13/24 08:59 20 mg QAM FRANCISCO Administration Gabapentin 600 mg 05/13/24 21:00 05/13/24 22:27 Gabapentin 600 Mg Tab PO 06/12/24 20:59 600 mg HS FRANCISCO Administration Ceftriaxone Sodium 2,000 mg in 50 mls @ 100 mls/hr 05/14/24 09:00 05/14/24 10:02 Rocephin IV 05/24/24 08:59 Infused Q24H FRANCISCO Infusion Potassium Chloride 10 meq/ 1,005 mls @ 100 mls/hr 05/14/24 09:30 05/14/24 10:50 Sodium Chloride IV 05/14/24 19:32 100 mls/hr .Q10H3M FRANCISCO Administration Lactated Ringer's 1,000 mls @ 15 mls/hr 05/14/24 14:30 05/14/24 14:30 Lr IV 06/13/24 14:29 15 mls/hr .Q24H FRANCISCO Administration Insulin Aspart 0 units 05/14/24 06:00 05/14/24 11:50 Insulin Aspart Per Unit Charge SC 06/13/24 05:59 Not Given Q6 FRANCISCO Insulin Glargine 5 units 05/13/24 21:00 05/14/24 08:22 Lantus Per Unit Charge SQ 06/12/24 20:59 5 units BID FRANCISCO Administration Metoprolol Succinate 25 mg 05/14/24 09:00 05/14/24 08:22 Metoprolol Succ 25mg Ext Rel Tab PO 06/13/24 08:59 Not Given QAM FRANCISCO Pantoprazole Sodium 40 mg 05/13/24 21:00 05/13/24 22:27 Pantoprazole 40 Mg Tab PO 06/12/24 20:59 40 mg PM FRANCISCO Administration Tamsulosin HCl 0.4 mg 05/13/24 21:00 05/13/24 22:27 Tamsulosin Hcl 0.4 Mg Cap PO 06/12/24 20:59 0.4 mg QPM FRANCISCO Administration Tizanidine HCl 4 mg 05/13/24 16:20 05/13/24 20:14 Tizanidine Hcl 4 Mg Tablet PO 06/12/24 16:19 4 mg HS PRN Administration muscle spasticity Trazodone HCl 50 mg 05/13/24 21:00 05/13/24 22:27 Trazodone Hcl 50 Mg Tab PO 06/12/24 20:59 50 mg HS FRANCISCO Administration NPO Date Last Intake of Fluids: 05/13/24 Time Last Intake of Fluids: 21:00 Date Last Intake of Solids: 05/13/24 Time Last Intake of Solids: 21:00 Past Medical History Medical History Urinary urgency Pericardial effusion pt. unaware - small, monitoring per [place] cardiology records ETD (eustachian tube dysfunction) Renal cyst pt. unaware Lung nodules monitored Dyslipidemia Hypertension Anxiety COPD (chronic obstructive pulmonary disease) no pulm, inhalers prn, SOB with exertion Stenosis, cervical spine reports full ROM Disc degeneration, lumbar Obstructive sleep apnea cpap - does not wear as it "does not stay on" Restrictive lung disease no pulmonoloist, uses inhaler prn Diabetic neuropathy GERD (gastroesophageal reflux disease) Diabetes mellitus, type 2 Cardiomegaly follows w/ Dr Rigo Barrios (03/10/24) IBS (irritable bowel syndrome) Mixed hearing loss, bilateral No H/A's Bony sclerosis 05/02/23-Sclerotic foci within the intertrochanteric region of the right femur have slightly progressed. Dominant focus measures 1.9 cm, previously measuring 1.6 cm Varicose veins of left lower extremity having testing at [facility] 04/17 or 04/18 Chronic venous insufficiency Hx: UTI (urinary tract infection) Hx of colonic polyps Chest discomfort I called patient who reports new onset of chest discomfort with activity 3 weeks ago-he denied chest discomfort or changed MOLINA during call and was instructed to call 911 if recurrence and to call his cardiology group for further evaluation BPH (benign prostatic hyperplasia) Hx of gout SOBOE (shortness of breath on exertion) with minimal exertion when walking Past Family History Family History Sister Family history of diabetes mellitus multiple sisters Stroke Hypertension Cancer Breast cancer Mother Family history of diabetes mellitus Hypertension Cancer Other Family history of deafness or hearing loss No family history of adverse response to anesthesia Denies family history of Ovarian cancer Prostate cancer Myocardial infarction Colorectal cancer Past Surgical History Surgical History Hx of removal of cyst (2016) abdominal Hx of colonoscopy with polypectomy History of arthroscopy of right shoulder (07/2023) History of open reduction and internal fixation (ORIF) procedure (11/12/19) R ankle History of cataract surgery (2019) B/L Hx of transurethral resection of prostate (06/2018) History of esophagogastroduodenoscopy (EGD) (2018) History of tooth extraction All teeth removed History of inguinal herniorrhaphy Social History Smoking Status: Former smoker tobacco type: cigarettes Do You Dip or Chew Tobacco: No Smoking End Date: 15 years ago Hx Alcohol Use: No Alcohol type: beer, wine and hard liquor alcohol intake frequency: holidays/special occasions only Hx Substance Use: No substance use type: does not use Physical Exam Vital Signs Last Vital Signs Temp 98.1 F 05/14/24 14:20 Pulse 86 05/14/24 14:20 Resp 20 05/14/24 14:20 BP 116/73 05/14/24 14:20 Pulse Ox 97 05/14/24 14:20 O2 Del Method Room Air 05/14/24 14:20 Testing Laboratory Results 05/14/24 08:12 05/14/24 08:12 PT 11.4 Seconds (9.0-12.0) 05/13/24 15:09 INR 1.1 (0.9-1.1) 05/13/24 15:09 APTT 23 Seconds (21-31) 05/13/24 15:09 Urine Color Red 05/13/24 17:30 Urine Appearance Cloudy (Clear) A 05/13/24 17:30 Urine pH 5.5 (4.5-7.5) 05/13/24 17:30 Ur Specific [place] 1.010 (1.000-1.030) 05/13/24 17:30 Urine Protein 2+ (Negative) H 05/13/24 17:30 Urine Glucose (UA) Negative (Negative) 05/13/24 17:30 Urine Ketones Negative (Negative) 05/13/24 17:30 Urine Nitrite Negative (Negative) 05/13/24 17:30 Ur Leukocyte Esterase 1+ (Negative) H 05/13/24 17:30 Urine RBC >20 /hpf (0-2) H 05/13/24 17:30 Urine WBC 21-50 /hpf (0-5) H 05/13/24 17:30 Ur Epithelial Cells 3-5 /hpf (0-2) H 05/13/24 17:30 Blood Type O Positive 05/13/24 15:09 Antibody Screen NEGATIVE 05/13/24 15:09 05/13/24 17:30 Urine Culture - Final Urine,Indwelling Cath More than three types of organisms present, all high counts. Repeat collection recommended. No further identifications or sensitivities to follow. 05/14/24 05/14/24 11:45 06:06 POC Glucose 128 H 155 H
[2024-05-14] MEDS ORDERED: PROPOFOL IV EMULSION 10 MG/ML 20 ML VIAL IV ONE ×3 (15:22→15:43)
[2024-05-14] MEDS ORDERED: LIDOCAINE 2% 2 ML VIAL/AMP(20MG/ML) INFIL ONE (15:22)
[2024-05-14] MEDS ORDERED: ONDANSETRON INJ 2 MG/ML 2 ML VIAL ONE (15:22)
--- NOTE | 2024-05-14 16:02 | Operative Report ---
PG Post Operative Report Pre & Post Diagnosis Operation Date: 05/14/24 09:15 Pre-Op Diagnosis: Benign localized hyperplasia of prostate with urinary obstruction and other lower urinary tract symptoms, gross hematuria. Post-Op Diagnosis: Benign localized hyperplasia of prostate with urinary obstruction and other lower urinary tract symptoms, gross hematuria. I identified the patient and participated in the time-out.: Yes Procedure Operation Date: 05/14/24 09:15 Actual Procedures p Cystoscopy, Clot Evacuation, Fulguration - Alcides Nobles MD Surgeon Alcides Nobles MD Web Content Director none Estimated Blood Loss 0 Findings Consistent with Post-Op Diagnosis Specimens none Description of Procedure The patient was identified in the preoperative holding area, appropriate informed consents were reviewed and completed and the patient was transferred to the operative suite. Upon arrival, appropriate antibiotics and anesthesia were administered and the patient was placed in dorsal lithotomy position and prepped and draped in sterile fashion. To be in the case I passed a 27 Tongan resectoscope with 30 degree lens and visual electronic masking system operator peer inspection revealed a healthy-appearing urethra. Prostate is status post TURP. A bladder with a substantial amount of clot which limited visualization. Following this initial inspection I utilized a Curtis syringe to irrigate approximately 500 cc of clot out of the bladder. I reinspected and saw some residual clot and continue to irrigate clot until hide totaled approxima tely 700 cc of clot irrigated from the bladder. Inspection at that time did not reveal any significant bleeding, however, there is an area at the right side of the bladder neck which I suspect may have been the underlying source as there was a very gentle venous ooze in this area. Utilizing a loop electrode to cauterize this area and a few other areas which look like they could have been potential sites of the bleed. Regardless, hemostasis was excellent throughout the procedure and at the conclusion of the procedure. I did place a new 20 Tongan Cortez catheter without difficulty and he was reversed of anesthesia and taken to the recovery room in stable condition. There were no complications. I attest to the content of the Intraoperative Record and any orders documented therein. Any exceptions are noted below.
--- NOTE | 2024-05-14 16:44 | Anesthesiology Progress Note ---
Date of Service May 14, 2024 Anesthesia Post Procedure Vital Signs Vital Signs: Temp Pulse Pulse Resp BP BP Pulse Ox 05/14/24 16:34 97.7 F 80 16 116/79 98 05/14/24 16:15 97.5 F L 79 12 114/76 99 05/14/24 16:05 72 12 122/85 100 05/14/24 15:55 97.5 F L 76 15 118/76 100 05/14/24 14:20 98.1 F 86 20 116/73 97 05/14/24 07:28 97.7 F 79 16 107/71 96 05/13/24 20:19 98.4 F 95 H 16 117/80 97 O2 Del Method O2 Flow Rate 05/14/24 16:34 Room Air 05/14/24 16:15 Room Air 05/14/24 16:05 Oxymask 4 05/14/24 15:55 Oxymask 4 05/14/24 14:20 Room Air 05/14/24 07:28 Room Air 05/13/24 20:19 Room Air Pain Intensity Pelvic: Pain Intensity: 8 Transfer of Care Handoff Completed per policy Notes Mental Status: alert / awake / arousable and participated in evaluation Patient Amnestic to Procedure: Yes Nausea / Vomiting: adequately controlled Pain: adequately controlled Airway Patency, RR, SpO2: stable & adequate BP & HR: stable & adequate Hydration State: stable & adequate Anesthetic Complications: no major complications apparent and Pt Satisfied with anesthetic care
[2024-05-14] MEDS: DOCUSATE SODIUM/SENNA 50/8.6MG TAB PO SCH (21:18)
--- NOTE | 2024-05-15 07:55 | Urology Progress Note ---
Date of Service May 15, 2024 Assessment & Plan (1) Gross hematuria: (2) BPH loc w urin obs/LUTS: Plan Clot obstruction after recent TURP Status post clot evacuation yesterday Urine now clear Plan for voiding trial this morning discharge home Admission and Anticipated Discharge Date Admission Date: May 13, 2024 Subjective Doing extremely well and postop day #1 status post clot evacuation Urine is clear No discomfort Physical Exam Physical Exam: Cortez in place draining clear urine Results & Data Vital Signs (Past 12 Hours) Vital Signs Temp Pulse Resp BP Pulse Ox O2 Del Method 05/15/24 07:08 36.5 C 78 17 123/65 95 Room Air 05/15/24 03:21 36.4 C 75 14 117/74 98 Room Air 05/14/24 23:30 37.1 C 90 14 110/67 96 Room Air PG Care Time/CCT Total # of Minutes Spent Total Time Spent with Patient: Total time spent is greater than 50% in coordination of care (as documented) at patient's floor/unit and/or counseling patient: Coding Level of Care Code 72557 SUB INP/OBS CARE 2/35MIN Diagnoses Gross hematuria R31.0 BPH loc w urin obs/LUTS N40.1
[2024-05-15 08:00] LABS: BUN Creatinine Ratio 14.5 (10-20); Calcium 8.3 mg/dl (8.6-10.3); Creatinine Clr Calc Pharmacy 114.3 ml/min; Est GFR (African American) 109.3 ml/min; Est GFR (Non-African American) 94.3 ml/min; Magnesium 1.8 mg/dl (1.7-2.4); Potassium 3.6 mmol/L (3.5-5.1)
[2024-05-15 08:08] LABS: Hematocrit (blood only) 26.1 % (42.0-52.0); Hemoglobin 8.5 g/dl (14.0-18.0); Mean Corpuscular Hemoglobin 27.9 pg (25.0-34.0); Mean Corpuscular Hgb Conc 32.6 g/dL (32.0-36.0); Mean Corpuscular Volume 85.6 fL (80.0-100.0); Mean Platelet Volume 9.7 fL (9.4-12.4); Platelet Count 267 K/uL (130-400); RDW Coefficient of Variation 13.2 % (11.5-14.5); RDW Standard Deviation 40.9 fL (36.4-46.3); Red Blood Count 3.05 M/uL (4.70-6.10); White Blood Count 8.72 K/ul (4.8-10.8)
--- NOTE | 2024-05-15 08:59 | Hospitalist Progress Note ---
Date of Service May 15, 2024 Assessment & Plan (1) Gross hematuria: Plan: s/p TURP 04/23/2024.UA +culture, blood culture Consult urology for CBI, marinelli Ceftriaxone IV while on CBI (first dose given in [facility] ER) Hold ASA (has been on hold for 5 days per patient due to procedure/hematuria) CTAP w/o hydro, but noting a large amount of hemorrhagic debris and air within the urinary bladder with Marinelli catheter in place. 05/15 s/p Cystoscopy, Clot Evacuation, Fulguration - Alcides Nobles MD on 05/14 * A bladder with a substantial amount of clot which limited visualization. Following this initial inspection I utilized a Curtis syringe to irrigate approximately 500 cc of clot out of the bladder. I reinspected and saw some residual clot and continue to irrigate clot until hide totaled approximately 700 cc of clot irrigated from the bladder. Inspection at that time did not reveal any significant bleeding, however, there is an area at the right side of the bladder neck which I suspect may have been the underlying source as t here was a very gentle venous ooze in this area. Utilizing a loop electrode to cauterize this area and a few other areas which look like they could have been potential sites of the bleed. WBC 19.3--> 10.1 --> 8.7k. Remains AFEBRILE Hgb 11.4--> 9.6 on admission 2nd to IVF/dilution and continued hematuria. Aspirin remaining on hold. Hgb 9.6--> 8.5 this morning. Acute blood loss anemia from hematuria/active bleeding in bladder as above as well as dilutional aspect from IVF Renal function remains stable Ceftriaxone IV continued Urine cx rec repeat collection -ordered. 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, pansensitive - will nee to monitor to see if needing adjustment Blood cultures pending Consult for PT to ensure no needs at dc Monitor exam/status, apprecaite urology assistance/recs (2) BPH loc w urin obs/LUTS: Plan: s/p TURP, given problems or urine retention will continue on tamsulosin (pt reports previously stopping this (3) Diabetes mellitus, type 2: Plan: Hemoglobin A1C 7.6 in April Hold glipizide, Jardiance, semaglutide Use insulin while admitted Lantus 5 units BID NovoLog: --Goal BSG Range: Low 110 mg/dL, High 140 mg/dL --Correction Factor: 45mg/dL/unit --Carbohydrate ratio = 15 g/unit --BSGs ACHS if eating, q6h if npo Monitor BSGs/adjustment if needed (4) Hypertension: Plan: Hold lisinopril given low normal BP and planning for OR this afternoon Continue metoprolol w/ hold parameters, BP 107/71. IVF as above added while NPO for OR Plan VTE Prophylaxis - SCDs, chemoproph deferred given hematuria NPO for OR this afternoon Admission and Anticipated Discharge Date Admission Date: May 13, 2024 Results & Data Results & Data Vital Signs (Past 12 Hours) Vital Signs Temp Pulse Resp BP Pulse Ox O2 Del Method 05/15/24 07:08 36.5 C 78 17 123/65 95 Room Air 05/15/24 03:21 36.4 C 75 14 117/74 98 Room Air 05/14/24 23:30 37.1 C 90 14 110/67 96 Room Air Laboratory Results 05/15/24 05/15/24 05/14/24 Range/Units 07:37 07:03 20:30 WBC 8.72 (4.8-10.8) K/ul RBC 3.05 L (4.70-6.10) M/uL Hgb 8.5 L (14.0-18.0) g/dl Hct 26.1 L (42.0-52.0) % MCV 85.6 (80.0-100.0) fL MCH 27.9 (25.0-34.0) pg MCHC 32.6 (32.0-36.0) g/dL RDW Std Deviation 40.9 (36.4-46.3) fL RDW Coeff of Mildred 13.2 (11.5-14.5) % Plt Count 267 (130-400) K/uL MPV 9.7 (9.4-12.4) fL Immature Gran % (Auto) % Neut % (Auto) % Lymph % (Auto) % [place]ague % (Auto) % Eos % (Auto) % Baso % (Auto) % Neut # (Auto) (1.40-6.50) K/uL Lymph # (Auto) (1.20-3.40) K/uL [place] # (Auto) (0.11-0.59) K/uL Eos # (Auto) (0.00-0.50) K/uL Baso # (Auto) (0.00-0.20) K/uL Immature Gran # (Auto) (0.01-0.20) K/uL Sodium 140 (136-145) mmol/L Potassium 3.6 (3.5-5.1) mmol/L Chloride 103 (98-107) mmol/L Carbon Dioxide 33 H (21-32) mmol/L Anion Gap 4 (3-11) BUN 12 (6-23) mg/dl Creatinine 0.83 (0.6-1.4) mg/dl Est Cr Clr Drug Dosing 114.3 ml/min Est GFR ( Amer) 109.3 ml/min Est GFR (Non-Af Amer) 94.3 ml/min BUN/Creatinine Ratio 14.5 (10-20) Glucose 124 H (70-99(Fasting)) mg/dl POC Glucose 129 H 134 H (70-99) mg/dl Calcium 8.3 L (8.6-10.3) mg/dl Magnesium 1.8 (1.7-2.4) mg/dl 05/14/24 05/14/24 05/14/24 Range/Units 16:33 15:59 11:45 WBC (4.8-10.8) K/ul RBC (4.70-6.10) M/uL Hgb (14.0-18.0) g/dl Hct (42.0-52.0) % MCV (80.0-100.0) fL MCH (25.0-34.0) pg MCHC (32.0-36.0) g/dL RDW Std Deviation (36.4-46.3) fL RDW Coeff of Mildred (11.5-14.5) % Plt Count (130-400) K/uL MPV (9.4-12.4) fL Immature Gran % (Auto) % Neut % (Auto) % Lymph % (Auto) % [place] % (Auto) % Eos % (Auto) % Baso % (Auto) % Neut # (Auto) (1.40-6.50) K/uL Lymph # (Auto) (1.20-3.40) K/uL [place] # (Auto) (0.11-0.59) K/uL Eos # (Auto) (0.00-0.50) K/uL Baso # (Auto) (0.00-0.20) K/uL Immature Gran # (Auto) (0.01-0.20) K/uL Sodium (136-145) mmol/L Potassium (3.5-5.1) mmol/L Chloride (98-107) mmol/L Carbon Dioxide (21-32) mmol/L Anion Gap (3-11) BUN (6-23) mg/dl Creatinine (0.6-1.4) mg/dl Est Cr Clr Drug Dosing ml/min Est GFR ( Amer) ml/min Est GFR (Non-Af Amer) ml/min BUN/Creatinine Ratio (10-20) Glucose (70-99(Fasting)) mg/dl POC Glucose 133 H 133 H 128 H (70-99) mg/dl Calcium (8.6-10.3) mg/dl Magnesium (1.7-2.4) mg/dl 05/14/24 Range/Units 08:12 WBC 10.13 (4.8-10.8) K/ul RBC 3.47 L (4.70-6.10) M/uL Hgb 9.6 L (14.0-18.0) g/dl Hct 29.4 L (42.0-52.0) % MCV 84.7 (80.0-100.0) fL MCH 27.7 (25.0-34.0) pg MCHC 32.7 (32.0-36.0) g/dL RDW Std Deviation 41.4 (36.4-46.3) fL RDW Coeff of Mildred 13.3 (11.5-14.5) % Plt Count 263 (130-400) K/uL MPV 9.9 (9.4-12.4) fL Immature Gran % (Auto) 0.6 % Neut % (Auto) 50.3 % Lymph % (Auto) 35.4 % Mont[place] % (Auto) 9.0 % Eos % (Auto) 3.9 % Baso % (Auto) 0.8 % Neut # (Auto) 5.09 (1.40-6.50) K/uL Lymph # (Auto) 3.59 H (1.20-3.40) K/uL [place] # (Auto) 0.91 H (0.11-0.59) K/uL Eos # (Auto) 0.40 (0.00-0.50) K/uL Baso # (Auto) 0.08 (0.00-0.20) K/uL Immature Gran # (Auto) 0.06 (0.01-0.20) K/uL Sodium 140 (136-145) mmol/L Potassium 3.5 (3.5-5.1) mmol/L Chloride 104 (98-107) mmol/L Carbon Dioxide 31 (21-32) mmol/L Anion Gap 5 (3-11) BUN 17 (6-23) mg/dl Creatinine 0.82 (0.6-1.4) mg/dl Est Cr Clr Drug Dosing 115.7 ml/min Est GFR ( Amer) 109.8 ml/min Est GFR (Non-Af Amer) 94.8 ml/min BUN/Creatinine Ratio 20.7 H (10-20) Glucose 150 H (70-99(Fasting)) mg/dl POC Glucose (70-99) mg/dl Calcium 8.6 (8.6-10.3) mg/dl Magnesium (1.7-2.4) mg/dl PG Care Time/CCT Total # of Minutes Spent Total Time Spent with Patient: Total time spent is greater than 50% in coordination of care (as documented) at patient's floor/unit and/or counseling patient: Coding Diagnoses Gross hematuria R31.0 BPH loc w urin obs/LUTS N40.1 Diabetes mellitus, type 2 E11.9 Hypertension I10
--- NOTE | 2024-05-15 11:18 | Discharge Summary ---
Date of Service May 15, 2024 Admission HPI Per Admitting Provider Rigo Diaz is a 63 year old male who presents as a direct admission from [facility] ER due to hematuria. He underwent TURP on April 23, [address] Nobles. He reports passing blood clots since the operation. The marinelli catheter was removed the day after surgery. He followed up on still passing blood clots however PVR showed only 134ml and he was unable to give a urine sample during the nurse office visit. He was advised to go to the ER if he still couldn't pass urine after 6 hours. He went to the ER the following day at [facility] and placed a marinelli catheter and passed over a 1L of bloody urine. He was discharged from the ER. He has been having intermittent problems with the marinelli catheter working since with it becoming blocked. This morning around 3am he woke up and no urine was coming out therefore went to [facility]. He was started on [facility] and urology were contacted here for transfer. Urology requested the patient transferred under medicine. On discussion with ER physician at [facility] no prior urine culture was in there system. He received 1g IV ceftriaxone in the ER around 11am today. The patient denies any fever or chills. He stopped taking his aspirin 4 days ago. Admission Exam Per Admitting Provider Constitutional: WD/WN, vitals as above Eyes: PERRL, conjunctivae normal, anicteric sclerae ENMT: external ear and nose normal, oropharynx normal Respiratory: normal respiratory effort, lungs clear to auscultation Cardiovascular: RRR, no murmur, no edema Gastrointestinal (Abdomen): normal bowel sounds, soft, nontender, no hep atosplenomegaly Musculoskeletal: no cyanosis or clubbing, extremities motor strength 5/5 Skin: no rashes, warm and dry Neurologic: moves all extremities and awake; not confused Psychiatric: A+Ox3, euthymic affect Genitourinary: no CVA tenderness meagan blood coming out of marinelli catheter Principal Diagnosis Hematuria following TURP, s/p Cycloscopy for clot evacuation Discharge Exam General: 63yo obese male laying in bed, NAD Head atraumatic, +facial hair, mm improved, trachea midline Resp: even/unlabored, no w/c/r, on room air 95% CV: RRR, no significant m/r/g, no pitting edema/calf tenderness GI: +BS, soft, nontender, slight distension but no guarding/rigidity : no further marinelli (removed this morning), noting clear yellow urine in urinal at bedside MSK/Neuro/Psych: AOX3, nonfocal, answering questions appropriately/following commands Discharge Data Allergies Allergy/AdvReac Type Severity Reaction Status Date / Time No Known Drug Allergies Allergy Verified 05/07/24 15:47 Consultations 05/13/24 15:03 Consult Urology Stat Procedures Performed Operation Date: 05/14/24 09:15 Actual Procedures p Clot Evacuation, Fulguration - Alcides Nobles MD s Cystoscopy - Alcides Nobles MD Ordered Studies Abdomen/Pelvis CT 05/13/24 15:[address] WITHOUT CONTRAST CT DOSE: 1338.53 mGy.cm HISTORY: Gross hematuira TECHNIQUE: Multiaxial CT images of the abdomen and pelvis were performed without contrast. A dose lowering technique was utilized adhering to the principles of ALARA. COMPARISON STUDY: 05/14/2019 FINDINGS: Trace pericardial effusion. No free air. The unenhanced spleen, pancreas, gallbladder and adrenal glands are unremarkable. Mild hepatic steatosis. There are a few cysts within the kidneys measure 3.5 cm on the right. No urolith or hydronephrosis. Large amount of hemorrhagic debris intermixed with air noted within the urinary bladder lumen. Urinary bladder wall thickening with perivesicular stranding. A Marinelli catheter there is an place. Atherosclerosis of the aorta. No lymphadenopathy. No bowel obstruction or bowel wall thickening. Colonic diverticulosis. No CT evidence of acute appendicitis. Unremarkable soft tissues. Chronic appearing transverse process fractures in the lumbar spine. No acute fracture. 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 IMPRESSION: 1. There is a large amount of hemorrhagic debris and air within the urinary bladder with Marinelli catheter in place. 2. No urolith or hydronephrosis. 3. No bowel obstruction or bowel wall thickening. 4. 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 ACT 112: Negative or not required by law. The above report was generated using voice recognition software. It may contain grammatical, syntax or spelling errors. Electronically signed by: Gregory Alvarado M.D. 05/13/2024 5:11 PM Chest X-Ray 05/14/24 09:27 XR chest 1V portable HISTORY: 63 years-old Male pre-op preoperative exam COMPARISON: Chest CT 05/02/2023 TECHNIQUE: AP view of the chest FINDINGS: Cardiomediastinal and hilar silhouettes are within normal limits. No pneumothorax, pleural effusion or airspace consolidation. Degenerative changes of the shoulders and spine. IMPRESSION: No acute process. ACT 112: Negative or not required by law. The above report was generated using voice recognition software. It may contain grammatical, syntax or spelling errors. Electronically signed by: Gregory Alvarado M.D. 05/14/2024 11:12 AM Hospital Course (1) Gross hematuria: 63yo male presented with recent TURP with Dr Nobles presented as direct admission from [facility] for hematuria Had initially had marinelli placed on initial visit to [facility] for 1L bloody urine and discharged but had issues with clogging and represented to [facility] and transferred here for Urology evaluation/ongoing management Has had aspirin on hold past 5 days due to ongoing hematuria outpatient prior to admission CTAP w/o hydro, but noting a large amount of hemorrhagic debris and air within the urinary bladder with Marinelli catheter in place. UA appeared positive on admission but notable did get dose [facility] Ceftriaxone IV Continued Ceftriaxone IV while inpatient Urology consulted, Dr Patricia Marinelli w/ [facility] utilized and made NPO for cystoscopy/evaluation of possible clot causing issues s/p Cystoscopy, Clot Evacuation, Fulguration - Alcides Nobles MD on 05/14 * A bladder with a substantial amount of clot which limited visualization. Following this initial inspection I utilized a Curtis syringe to irrigate approximately 500 cc of clot out of the bladder. I reinspected and saw some residual clot and continue to irrigate clot until hide totaled approximately 700 cc of clot irrigated from the bladder. Inspection at that time did not reveal any significant bleeding, however, there is an area at the right side of the bladder neck which I suspect may have been the underlying source as there was a very gentle venous ooze in this area. Utilizing a loop electrode to cauterize this area and a few other areas which look like they could have been potential sites of the bleed. WBC 19.3--> 10.1 --> 8.7k. Remains AFEBRILE Hgb 11.4--> 9.6 on admission 2nd to IVF/dilution and continued hematuria. Aspirin remaining on hold. Hgb 9.6--> 8.5 this morning. Acute blood loss anemia from hematuria/active bleeding in bladder as above as well as dilutional aspect from IVF. No lightheaded/dizziness or CP/SOB reported. Renal function stable Voiding trial AM 05/15 and has been able to urinate clear urine since that time without issues, wanting to go home. Has gotten 3 doses IV Ceftriaxone (prior to discharge since marinelli removed). Urine cx rec repeat collection but discussed with Urology and did NOT feel requiring any further antibiotics and should be covered for 24 hours with dose given this morning. Patient to monitor for any issues to return to ER but otherwise outpatient follow up with PCP/urology Blood cultures NGTD at time of dc, has remained afebrile. (2) BPH loc w urin obs/LUTS: s/p TURP, see above flomax continued (3) Diabetes mellitus, type 2: Hemoglobin A1C 7.6 in April. Home meds held on admission and utilized BSG AC/HS, SSI with glargine 5u BID with acceptable BSGs. Resumed home meds at dc (4) Hypertension: Held lisinopril post-cysto Resumed lisinopril q2d at discharge Plan VTE Prophylaxis - SCDs, chemoproph deferred given hematuria and no evidence for DVT on exam Patient feeling well, voiding without issue since marinelli removal without further hematuria and wanting to go home. As above, discussed with urology and no need for ongoing abx at discharge and suspect more from the bleeding/clot and should also be covered by the Ceftriaxone IV provided while inpatient. Patient to monitor for any fevers/chills/symptoms to return to ER but looked well and wanting to go and cleared by Urology. Total Time Total Time Spent Total Time Spent (In Minutes): 45 Discharge Plan Discharge Items Patient Disposition: Home - Self-Care Reason For Visit: patricia did turp 04-23-24 Discharge Diagnosis: Hematuria, Clot Evacuation Goals: You have been hospitalized for an urgent problem which required surgery. During your stay at [facility], we have made an effort to correct the problem that brought you to the hospital while keeping you as comfortable as possible. Surgery and medications were used to bring your condition under control and your discharge instructions will include directions for any medications you should take after leaving the hospital. Please make sure to follow the advice of your surgeon regarding follow up with the surgeon and with your primary care provider. Activity: As commented below Non-emergency contact: Primary Care Provider Call non-emergency contact if: you have any medication questions, your symptoms worsen, your pain is not controlled and you have a fever Follow-up/Referrals: Sharita Pompa DO [Primary Care Provider] - Jacky Mcdermott DO [Physician] - Diet: Carb Consistent or DM2 Addtl Attending Provider Instructions: You have been hospitalized for bleeding in your urine and issues with catheter. Urology was consulted and you underwent cystoscopy and found to have large amount of clot which was removed, and area of bleeding which was treated and likely the reason for the clot. Your urine culture was negative however we have given you IV antibiotics and you got an additional dose of IV this morning which per Urology should cover. Please monitor for any fever/chills or changes to consider repeat collection but Urology is not recommending any additional antibiotics at discharge. Please follow up with Urology and primary care in the next week to monitor your status. Please continue to hold your baby aspirin for another couple of days prior to resuming. Please return to the ER with worsening hematuria, fever, pain/urinary frequency or for any other symptoms concerning for you. It has been a pleasure being a part of the medical team providing for you while you have been in the hospital. Take care! Pending Studies at Discharge: Yes Studies:: Blood cultures -- no growth to date Stand-Alone Forms: My [facility] Outbox, Smoking Cessation Medications and DC Order Prescriptions: Continued (DME) diabetic supplies, miscellan. Misc See Rx Instructions .Route Qty: 1 0RF Rx Instructions: As directed (DME) blood sugar diagnostic Strip See Rx Instructions .ROUTE .MEDSUPPLY Qty: 50 3RF Rx Instructions: Testing blood sugar once daily (DME) lancets [OneTouch Delica Lancets] 33 gauge misc See Dose Instructions .ROUTE .MEDSUPPLY Qty: 100 0RF Dose Instruction: As directed Rx Instructions: testing twice daily. (DME) blood-glucose meter [OneTouch Verio Flex Start] Kit See Rx Instructions .ROUTE .MEDSUPPLY Qty: 1 0RF Rx Instructions: Use to test once daily DX E11.9 fluticasone propionate [Allergy Relief (fluticasone)] 50 mcg/actuation spray,suspension 2 spray INTNAS DAILY PRN (Reason: Congestion) Qty: 47.4 3RF Rx Instructions: administer into each nostril gabapentin 300 mg capsule 600 mg PO HS Qty: 180 3RF (DME) Diabetic Shoes Mis See Rx Instructions .Route Qty: 1 0RF Rx Instructions: As directed pantoprazole 40 mg tablet,delayed release (DR/EC) 40 mg PO PM Qty: 90 3RF Hold Instructions: elevated creatinine trazodone 50 mg tablet 50 mg PO HS Qty: 90 2RF metoprolol succinate 25 mg tablet extended release 24 hr 25 mg PO QAM Qty: 90 1RF promethazine 12.5 mg tablet 12.5 mg PO HS PRN (Reason: nausea and vomiting) Qty: 60 1RF tamsulosin [Flomax] 0.4 mg capsule 0.4 mg PO QPM Qty: 90 2RF Rx Instructions: Take one capsule at bedtime. azelastine 137 mcg (0.1 %) aerosol,spray 1 spray INTNAS DAILY PRN (Reason: Congestion) Qty: 90 1RF lisinopril 10 mg tablet 10 mg PO Q2D Qty: 90 1RF atorvastatin 20 mg tablet 20 mg PO PM Qty: 90 1RF Ozempic 0.25 mg or 0.5 mg (2 mg/3 mL) pen injector 0.25 mg subcut .Weekly Qty: 3 3RF Rx Instructions: 0.25 mg subcutaneously once every 7 days at any time of day. After 4 weeks increase to 0.5 mg subcutaneously once weekly (Tuesdays). empagliflozin 25 mg tablet 25 mg PO QAM Qty: 90 2RF (DME) Orthotics Misc Misc See Rx Instructions .ROUTE .MEDSUPPLY Qty: 1 0RF Rx Instructions: As directed (DME) Custom Orthotics Misc See Rx Instructions .ROUTE .MEDSUPPLY Qty: 1 0RF Rx Instructions: As directed tizanidine 4 mg tablet 4 mg PO HS PRN (Reason: muscle spasticity) Qty: 20 0RF Rx Instructions: Take 1-2 tabs PO at bedtime PRN; (DME) OneTouch Verio test strips Strip See Rx Instructions .ROUTE .MEDSUPPLY Qty: 100 11RF Rx Instructions: Use to test once daily glipizide 10 mg tablet extended release 24hr 10 mg PO QAM escitalopram oxalate 20 mg tablet 20 mg PO QAM Trelegy Ellipta 100-62.5-25 mcg blister with device 1 inh inhalation Q24H PRN (Reason: sob) Rx Instructions: RINSE MOUTH AND SPIT AFTER USE X 2. DO NOT SWALLOW WATER Held aspirin 325 mg tablet 81 mg PO QAM Hold Instructions: Resume on 05/22/24. Discharge Orders: Discharge Order (Routine); Ordered 05/15/24 Ordered By: Julia Maguire Admission Data Admit Date/Time: 05/13/24 15:02 Attending Provider: Daisy Hernandez Admit Provider: Pedro Ibrahim Primary Care Provider: Sharita Pompa Other Providers: Jacky Mcdermott Coding Level of Care Code 06842 INP/OBS DISCH >30 MIN Diagnoses Gross hematuria R31.0 BPH loc w urin obs/LUTS N40.1 Diabetes mellitus, type 2 E11.9 Hypertension I10
[2024-05-16] MEDS ORDERED: lisinopril 10 MG TAB PO SCH (09:00)
--- NOTE | 2024-05-17 05:25 | Coding Query ---
CODING QUERY To promote full compliance with coding requirements relating to patient care, provider participation is requested in all cases of metal worker uncertainty. Please assist us with the question(s) below: Coding Question(s): Pt admitted with gross hematuria in marinelli cathter s/p 04/23 TURP. 05/15 progress note mentioned recurrent clot obstruction s/p TURP. Please document, if known or suspected, the etiology of the hematuria. Thanks for your help. [facility] Physician's Response(s): Gross hematuria caused by TURP procedure which resulted in large bladder clot causing urinary obstruction Principal Diagnosis: "that condition established after study, to be chiefly responsible for occasioning the admission of the patient to the hospital for care." Co-Existing Principal Diagnosis: "when two or more diagnoses equally meet the criteria for principal diagnosis as determined by the circumstances of admission, diagnostic work up, and/or therapy provided, and the Alphabetic Index, Tabular List, or another coding guideline does not provide sequencing direction, any one of the diagnoses may be sequenced first." "When the physician has documented what appears to be a current diagnosis in the body of the record, but has not included the diagnosis in the final diagnostic statement, the physician should be asked whether the diagnosis should be added." (Source Coding Clinic 2 QTR90. p3-4) KATY
== END 2024-05-15 14:08 | disposition home or self-care (01) | DRG 988 ==
LOC: 3N 14:53 → SUATTDRO 14:53
DX: J44.9 Chronic obstructive pulmonary disease, unspecified; E66.9 Obesity, unspecified; Z98.890 Other specified postprocedural states; R31.0 Gross hematuria; N40.1 Benign prostatic hyperplasia with lower urinary tract symptoms; E11.40 Type 2 diabetes mellitus with diabetic neuropathy, unspecified; R33.9 Retention of urine, unspecified; Y92.009 Unspecified place in unspecified non-institutional (private) residence as the place of occurrence of the external cause; Z79.82 Long term (current) use of aspirin; Z68.41 Body mass index [BMI] 40.0-44.9, adult; N99.820 Postprocedural hemorrhage of a genitourinary system organ or structure following a genitourinary system procedure; I10 Essential (primary) hypertension; Z87.891 Personal history of nicotine dependence; Y83.8 Other surgical procedures as the cause of abnormal reaction of the patient, or of later complication, without mention of misadventure at the time of the procedure; D62 Acute posthemorrhagic anemia; N13.8 Other obstructive and reflux uropathy; Z79.84 Long term (current) use of oral hypoglycemic drugs; Z79.85 Long-term (current) use of injectable non-insulin antidiabetic drugs; D72.829 Elevated white blood cell count, unspecified

== ENCOUNTER 2025-08-28 08:15 | Observation (INO) ==
--- NOTE | 2025-08-28 08:52 | Emergency Department Note ---
Impression & Plan Sepsis, Acute appendicitis, Abdominal pain, RLQ ED Provider Note HISTORY OF PRESENT ILLNESS: Patient is a 64-year-old male presenting with multiple complaints. Patient reports that his multiple complaints of an ongoing for the last month and a half. 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 He denies any chest pain. Denies any DVT or PE history. He reports he is only able to take a few steps before he becomes significantly short of breath. He states that he has had "poor appetite and poor nutrition." He reports he has had chronic abdominal pain that has been ongoing for 5 years. He denies any worsening of the abdominal pain recently. He reports occasional dry heaves over the last month but denies any vomiting or diarrhea. He denies any notable fevers, but does report the other night he had "the sweats." He denies any dysuria or hematuria. He denies any history of abdominal surgeries. ROS: as above PHYSICAL EXAM: Constitutional: Patient appears in no acute distress. HENT: Head: Normocephalic and atraumatic. Eyes: EOMI, PERRL Mouth/Throat: Mucous membranes moist. Neck: Trachea midline. Neck supple. Cardiovascular: Tachycardic with regular rhythm. No murmurs, rubs or gallops. Intact distal pulses. Pulmonary/Chest: No respiratory distress. Breath sounds clear and equal bilaterally. No wheezes or rales. Abdominal: Abdomen soft, no rebound or guarding. RLQ TTP Musculoskeletal: No edema, tenderness or deformity noted. Skin: Warm and dry. No rash, erythema, pallor or cyanosis Psychiatric: Appropriate mood and affect for situation. Neurological: Alert and keenly responsive. CN II-XII grossly intact, moving all extremities equally and fully. MDM: - Vitals signs showed fever, tachycardia and hypotension. - History obtained via patient. History as above. - Chronic conditions affecting care: HTN; GERD; DM-2; BPH; JOSHUA; HLD - Differential diagnoses include, but are not limited to: Pneumonia; UTI; viral syndrome; appendicitis; colitis; bowel obstruction; CHF exacerbation; ACS - Order placed for continuous cardiac monitoring. At this time, monitor showed rate of 82 bpm with normal sinus rhythm, per my interpretation. - External medical records reviewed. Primary care visit note dated 07/12/2025 was reviewed. Patient was seen for a wellness examination for his chronic medical problems. Laboratory workup as well as CT imaging of the chest was ordered at that visit. - EKG image interpreted by myself showed normal sinus rhythm. Rate tachycardic at 110 bpm. QT 326. No acute ischemic changes. - Laboratory workup interpreted by myself showed normal WBC; elevated INR (1.2); slight hyponatremia (Na 135); normal lactate; normal procalcitonin; normal AST/ALT; normal troponin - CXR image reviewed interpreted by myself as needed for pneumonia, per my interpretation. - Blood cultures obtained - Patient given 2L NS in ER. After patient's initial 2 L, his blood pressure was fluid responsive. - UA negative for infection - Viral respiratory panel negative - CT abdomen/pelvis with IV contrast showed a mildly dilated appendix with a 1.6 cm outpouching from the appendiceal tip. Findings concerning for potential diverticular disease appendix or mild acute appendicitis. No free air or abscess. - IV zosyn administered - Discussed case with APPs on for general surgery at 10:37 am. They will be down to see patient. They message me at 11 AM and stated that the patient should be admitted to medicine and they will consult with their attending physician, Dr. Joe. They are unsure of OR status at this time, as the patient reportedly had systolic pressures in the 80s for them in the room. - An additional 500 cc NS ordered. - Discussion was had with case monitor about patient's case and need for admission - Hospitalist consulted for admission - Patient admitted to [facility] for further evaluation and management. I have personally spent 61 minutes of critical care time in the direct management of this patient. This includes bedside care, interpretation of diagnostic studies, and testing, discussion with consultants, patient, and family members, and other required patient management activities. This 61 minutes is in excess of all separately billable procedures. ASSESSMENT AND PLAN: Diagnosis: Sepsis; right lower quadrant abdominal pain; acute appendicitis Plan: Admit Past Med/Surg History Problem List (Updated 08/28/25 @ 12:05 by Jennifer Isabel MD) Abdominal pain, RLQ (Acute) Acute appendicitis (Acute) Sepsis (Acute) Right lumbar radiculopathy Lumbosacral radiculopathy Idiopathic polyneuropathy Esophageal dysphagia BPH loc w urin obs/LUTS Pre-operative cardiovascular exam, new EKG abnormalities c/w ischemia Chronic venous insufficiency Varicose veins of left lower extremity S/P right rotator cuff repair Urinary urgency Right ankle pain Trochanteric bursitis, right hip Right rotator cuff tear Atypical chest pain Bony sclerosis 05/02/23-Sclerotic foci within the intertrochanteric region of the right femur have slightly progressed. Dominant focus measures 1.9 cm, previously measuring 1.6 cm Avascular necrosis of right femoral head Pericardial effusion small, monitoring per [place] [facility]ology records Cardiomegaly follows w/ Dr Rigo Barrios Diabetic neuropathy ETD (eustachian tube dysfunction) Mixed hearing loss, bilateral IBS (irritable bowel syndrome) Abnormal finding on GI tract imaging Dyslipidemia Renal cyst Lung nodules being monitored Vitamin D deficiency Stenosis, cervical spine Restrictive lung disease has not used rescue for a while Obstructive sleep apnea of adult cpap Mixed conductive and sensorineural hearing loss of right ear with restricted hearing of left ear Disc degeneration, lumbar Chronic diarrhea Benign prostatic hyperplasia with urinary obstruction Obesity Gout GERD (gastroesophageal reflux disease) Diabetes mellitus, type 2 NIDDM Hypertension COPD (chronic obstructive pulmonary disease) Anxiety Medical History Anxiety COPD (chronic obstructive pulmonary disease) Diabetes GERD (gastroesophageal reflux disease) Chronic diarrhea Disc degeneration, lumbar Dyslipidemia Diabetic neuropathy Chronic venous insufficiency BPH (benign prostatic hyperplasia) Bloating Dysphagia Urinary urgency Pericardial effusion ETD (eustachian tube dysfunction) Renal cyst Lung nodules Hypertension Stenosis, cervical spine Obstructive sleep apnea Restrictive lung disease Cardiomegaly IBS (irritable bowel syndrome) Mixed hearing loss, bilateral Bony sclerosis Varicose veins of left lower extremity Hx: UTI (urinary tract infection) Hx of colonic polyps Hx of gout SOBOE (shortness of breath on exertion) Surgical History History of cystoscopy (05/14/24) Hx of hernia repair (1981) History of foot surgery (2005) S/P right rotator cuff repair Hx of removal of cyst (2016) Hx of colonoscopy with polypectomy History of arthroscopy of right shoulder (07/2023) History of open reduction and internal fixation (ORIF) procedure (11/12/19) History of cataract surgery (2019) Hx of transurethral resection of prostate History of esophagogastroduodenoscopy (EGD) (2018) History of tooth extraction History of inguinal herniorrhaphy Family History Sister Family history of diabetes mellitus multiple sisters Stroke Hypertension Cancer Breast cancer Mother Family history of diabetes mellitus Hypertension Cancer Other Family history of deafness or hearing loss No family history of adverse response to anesthesia Denies family history of Ovarian cancer Prostate cancer Myocardial infarction Colorectal cancer Social History Smoking Status: Former smoker Tobacco Type: Cigarettes Age Started Using Tobacco: 26; Age Quit Using Tobacco: 41; packs per day: 1; Second Hand Exposure: No; Do You Dip or Chew Tobacco: No; Hx Alcohol Use: Yes Alcohol type: beer, wine and hard liquor Alcohol type Comment: 1-2 Hx Substance Use: No Preferred Language: Telugu Communication Ability: Effective Visual Impairment: No Limitations Hearing Ability: Normal 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 Beliefs That Will Affect Care: None marital status: Current Living Situation: Family Current Living Situation Comment: lives w/ sister current occupational status: unemployed Feels Safe at Home: Yes Childhood Exposure to Second-Hand Smoke: Yes Diet: regular Diet Comment: regular caffeine: No during the past year weight has: remained stable Dental Care, Regularly: No Physical Activity Frequency: 1-2 Times per Week Physical Activity Frequency Comment: LIMITED BY PHYSICAL CONDITION Seatbelt Use: always Sunscreen Use: No Assistive Devices: Denture - Upper and Denture - Lower Allergies Allergies Allergy/AdvReac Type Severity Reaction Status Date / Time No Known Drug Allergies Allergy Verified 07/18/25 07:51 Home Meds Home Medications Medication Instructions Recorded Confirmed fluticasone fur. 100 mcg-umeclid 1 inh inhalation Q24H PRN sob 04/11/24 08/28/25 62.5 mcg-vilant 25 mcg inhalat.powder (Trelegy Ellipta) aspirin 81 mg tablet,delayed 81 mg PO DAILY 11/21/24 08/28/25 release (Adult Aspirin Regimen) Previous Rx's Medication Instructions Recorded Custom Orthotics #1 ea 07/21/20 blood sugar diagnostic #50 ea 10/13/20 empagliflozin 25 mg tablet 25 mg PO QAM #90 tabs 01/15/25 trazodone 50 mg tablet 50 mg PO HS #90 tabs 03/20/25 Diabetic Shoes #1 ea 03/25/25 semaglutide 0.25 mg or 0.5 mg (2 0.5 mg (0.736 mL) subcut .Weekly 04/03/25 mg/3 mL) subcutaneous pen injector #3 mL (Ozempic) blood sugar diagnostic (Accu-Chek #100 ea 04/08/25 Guide test strips) lancets (Accu-Chek Fastclix Lancet #100 ea 04/08/25 Drum) lisinopril 10 mg tablet 10 mg PO .every other day #45 tabs 04/14/25 escitalopram oxalate 20 mg tablet 20 mg PO QAM #90 tabs 04/15/25 glipizide 10 mg tablet, extended 10 mg PO QAM #90 tabs 04/15/25 release 24 hr metoprolol succinate 25 mg 25 mg PO QAM #90 tabs 04/15/25 tablet,extended release 24 hr atorvastatin 20 mg tablet 20 mg PO PM #90 tabs 04/16/25 famotidine 20 mg tablet 20 mg PO HS #180 tabs 04/21/25 blood-glucose meter (Accu-Chek #1 ea 05/12/25 Guide Me Glucose Meter) ferrous sulfate 325 mg (65 mg 325 mg PO DAILY #90 tabs 05/19/25 iron) tablet fluticasone propionate 50 2 spray intranasal DAILY PRN 05/21/25 mcg/actuation nasal Congestion #47.4 mL spray,suspension (Allergy Relief (fluticasone)) tizanidine 4 mg tablet 4 mg PO BID PRN muscle spasticity 05/30/25 #20 tabs promethazine 12.5 mg tablet 12.5 mg PO HS PRN nausea and 06/19/25 vomiting #60 tabs azelastine 137 mcg (0.1 %) nasal 1 spray intranasal DAILY PRN 07/10/25 spray Congestion #90 mL pantoprazole 40 mg tablet,delayed 40 mg PO BID #180 tabs 07/10/25 release tamsulosin 0.4 mg capsule (Flomax) 0.4 mg PO QPM #90 caps 07/14/25 pregabalin 50 mg capsule (Lyrica) 50 mg PO BID #60 caps 07/18/25 Results & Data (ED) Vital Signs Vital Signs - 24 hr 08/28/25 08:16 08/28/25 08:25 08/28/25 08:31 Temperature 37.8 C H Temperature Source Oral Pulse Rate 128 H Pulse Rate [Right Finger] Pulse Rhythm Pulse Rhythm [Right Finger] Pulse Strength [Right Finger] Respiratory Rate 20 Respiratory Effort / Characteristics Non-Labored Spontaneous Respiratory Depth Normal Respiratory Pattern Blood Pressure 95/54 L Blood Pressure [Right Arm] Blood Pressure Mean 67 Blood Pressure Mean [Right Arm] Blood Pressure Position [Right Arm] Pulse Oximetry 96 96 96 Oxygen Delivery Method Room Air Room Air Room Air Oxygen Flow Rate 0 Sepsis Recent Fever Within 48 Hours No Sepsis New/Unexplained Change in Mental Status N/A Sepsis Action Taken by Nursing No Action Required 08/28/25 08:48 08/28/25 09:01 08/28/25 10:39 Temperature 37 C Temperature Source Oral Pulse Rate 103 H Pulse Rate [Right Finger] 109 H 97 H Pulse Rhythm Regular Pulse Rhythm [Right Finger] Regular Regular Pulse Strength [Right Finger] Normal Normal Respiratory Rate 26 H 34 H 16 Respiratory Effort / Characteristics Non-Labored Spontaneous Non-Labored Spontaneous Respiratory Depth Normal Normal Respiratory Pattern Tachypnea Regular Blood Pressure Blood Pressure [Right Arm] 103/68 88/59 L Blood Pressure Mean Blood Pressure Mean [Right Arm] 79 68 Blood Pressure Position [Right Arm] Sitting Sitting Pulse Oximetry 96 94 90 Oxygen Delivery Method Room Air Room Air Room Air Oxygen Flow Rate Sepsis Recent Fever Within 48 Hours Sepsis New/Unexplained Change in Mental Status Sepsis Action Taken by Nursing 08/28/25 10:46 Temperature Temperature Source Pulse Rate 99 H Pulse Rate [Right Finger] Pulse Rhythm Pulse Rhythm [Right Finger] Pulse Strength [Right Finger] Respiratory Rate Respiratory Effort / Characteristics Respiratory Depth Respiratory Pattern Blood Pressure Blood Pressure [Right Arm] Blood Pressure Mean Blood Pressure Mean [Right Arm] Blood Pressure Position [Right Arm] Pulse Oximetry Oxygen Delivery Method Oxygen Flow Rate Sepsis Recent Fever Within 48 Hours Sepsis New/Unexplained Change in Mental Status Sepsis Action Taken by Nursing Laboratory Data 08/28/25 08:48 08/28/25 08:48 Lab Results 08/28/25 08/28/25 Range/Units 08:48 10:35 WBC 5.32 (4.8-10.8) K/ul RBC 4.60 L (4.70-6.10) M/uL Hgb 11.3 L (14.0-18.0) g/dl Hct 35.3 L (42.0-52.0) % MCV 76.7 L (80.0-100.0) fL MCH 24.6 L (25.0-34.0) pg MCHC 32.0 (32.0-36.0) g/dL RDW Std Deviation 47.2 H (36.4-46.3) fL RDW Coeff of Mildred 17.3 H (11.5-14.5) % Plt Count 232 (130-400) K/uL MPV 9.5 (9.4-12.4) fL Immature Gran % (Auto) 0.6 % Neut % (Auto) 59.5 % Lymph % (Auto) 22.7 % [place] % (Auto) 16.2 % Eos % (Auto) 0.4 % Baso % (Auto) 0.6 % Neut # (Auto) 3.17 (1.40-6.50) K/uL Lymph # (Auto) 1.21 (1.20-3.40) K/uL [place] # (Auto) 0.86 H (0.11-0.59) K/uL Eos # (Auto) 0.02 (0.00-0.50) K/uL Baso # (Auto) 0.03 (0.00-0.20) K/uL Immature Gran # (Auto) 0.03 (0.01-0.20) K/uL PT 12.9 H (9.0-12.0) Seconds INR 1.2 H (0.9-1.1) APTT 29 (21-31) Seconds PTT Ratio 1.1 Sodium 135 L (136-145) mmol/L Potassium 3.8 (3.5-5.1) mmol/L Chloride 96 L (98-107) mmol/L Carbon Dioxide 28 (21-32) mmol/L Anion Gap 11 (3-11) BUN 10 (6-23) mg/dl Creatinine 0.91 (0.6-1.4) mg/dl Est Cr Clr Drug Dosing 92.0 ml/min eGFR 94.70 BUN/Creatinine Ratio 11.0 (10-20) Glucose 172 H (70-99(Fasting)) mg/dl Lactate 2.0 (0.4-2.0) mmol/L Calcium 9.0 (8.6-10.3) mg/dl Magnesium 1.8 (1.7-2.4) mg/dl Total Bilirubin 0.9 (0.2-1.0) mg/dl AST 18 (13-39) U/L ALT 12 (7-52) U/L Alkaline Phosphatase 65 (34-104) U/L Troponin I High Sens 4.2 (0-20) pg/ml Total Protein 7.6 (6.0-8.3) gm/dl Albumin 3.2 L (3.4-5.0) gm/dl Globulin 4.4 H (2.5-4.0) gm/dl Albumin/Globulin Ratio 0.7 L (0.9-2) Procalcitonin 0.17 (0-0.5) ng/ml Urine Color Yellow Urine Appearance Clear (Clear) Urine pH 5.0 (4.5-7.5) Ur Specific Roslyn > 1.045 H (1.000-1.030) Urine Protein Negative (Negative) Urine Glucose (UA) 3+ H (Negative) Urine Ketones Negative (Negative) Urine Blood 1+ H (Negative) Urine Nitrite Negative (Negative) Urine Bilirubin Negative (Negative) Urine Urobilinogen Negative (Negative) Ur Leukocyte Esterase Negative (Negative) Urine WBC (Auto) 0-5 (0-5) /hpf Urine RBC (Auto) 0-2 (0-2) /hpf U Hyaline Cast (Auto) 0-2 (0-2) /lpf U Epithel Cells (Auto) 3-5 H (0-2) /hpf Urine Bacteria (Auto) None Seen (None Seen) Urine Comment Adenovirus (PCR) Not Detected (NotDetected) B. pertussis DNA (PCR) Not Detected (NotDetected) B.parapertussis DNA PCR Not Detected (NotDetected) C. pneumoniae DNA (PCR) Not Detected (NotDetected) Coronavirus OC43 (PCR) Not Detected (NotDetected) Coronavirus HKU1 (PCR) Not Detected (NotDetected) Coronavirus 229E (PCR) Not Detected (NotDetected) SARS-CoV-2 (PCR) Not Detected (NotDetected) Coronavirus NL63 (PCR) Not Detected (NotDetected) Human Metapneumovir PCR Not Detected (NotDetected) Influenza Type A (PCR) Not Detected (NotDetected) Influenza Type B (PCR) Not Detected (NotDetected) M. pneumoniae (PCR) Not Detected (NotDetected) Parainfluenza 1 (PCR) Not Detected (NotDetected) Parainfluenza 2 (PCR) Not Detected (NotDetected) Parainfluenza 3 (PCR) Not Detected (NotDetected) Parainfluenza 4 (PCR) Not Detected (NotDetected) RSV (PCR) Not Detected (NotDetected) Entero/Rhino (PCR) Not Detected (NotDetected) Administered Medications Discontinued Medications Sodium Chloride (Nss) 2,000 mls @ 999 mls/hr IV .Q2H1M ONE Stop: 08/28/25 10:30 Last Admin: 08/28/25 09:10 Dose: 999 mls/hr Documented By: jessica Acetaminophen (Ofirmev) 1,000 mg in 100 mls @ 400 mls/hr IV NOW STA Stop: 08/28/25 09:06 Last Infusion: 08/28/25 09:30 Dose: Infused Documented By: jessica Admin: 08/28/25 09:13 Dose: 400 mls/hr Documented By: jessica Ioversol (Optiray 320 100ml) 94 ml IV ONCE ONE Stop: 08/28/25 10:01 Last Admin: 08/28/25 10:00 Dose: 94 ml Documented By: LIZZY Imaging Data Radiologist's Impression: Chest X-Ray 08/28/25 08:30 XR chest 1V not portable CLINICAL HISTORY: Sepsis COMPARISON STUDY: 05/14/2024 FINDINGS: Stable cardiomegaly without pulmonary vascular congestion. No consolidation or pleural effusion seen. No pneumothorax. IMPRESSION: No acute findings. ACT 112: Negative or not required by law. Electronically signed by: Godfrey Pollock M.D. 08/28/2025 9:06 AM Abdomen/Pelvis CT 08/28/25 08:52 CT SCAN OF THE ABDOMEN AND PELVIS WITH IV CONTRAST CLINICAL HISTORY: Decreased appetite. Abdominal pain. COMPARISON STUDY: CT of the abdomen and pelvis June 21, 2024. Chest CT July 28, 2025. TECHNIQUE: Following the IV administration of 94 cc of Optiray 320, CT scan of the abdomen and pelvis is performed from the lung bases to the proximal femora. Images are reviewed in the axial, sagittal, and coronal planes. IV contrast was administered without complication. A dose lowering technique was utilized adhering to the principles of ALARA. CT DOSE: 1347.79 mGy.cm FINDINGS: A small to moderate pericardial effusion has mildly increased in size since CT of July 28, 2025. A small subpleural left lower lobe pulmonary nodule measuring 3 mm is unchanged and CT of June 21, 2024. This is likely benign. No pneumatosis, free air or portal venous gas is present. There is no biliary or pancreatic ductal dilatation. Mild splenomegaly has developed since CT of June 21, 2024. Adrenal glands, left kidney and pancreas are unremarkable. Mild stranding within left frontal sinus is unchanged. Water attenuation 4.1 cm right upper pole renal lesion represents a cyst. No evidence for a bowel obstruction. The appendix is mildly dilated, measuring 1 cm in caliber. Dilatation has decreased when compared to CT of June 21, 2024. The appendix is within the right mid abdomen. There is a 1.6 cm outpouching arising from the appendiceal tip which contains hyperdense material. There is mild adjacent stranding. There is no free air. There is no abscess. Bladder wall thickening is unchanged. This is likely chronic. Major vasculature is patent. There is no lymphadenopathy. IMPRESSION: 1. Mildly dilated appendix with a 1.6 cm outpouching arising from the appendiceal tip with mild adjacent inflammation. Although uncommon, the appearance raises the possibility of diverticulitis of the appendix. Mild acute appendicitis could appear similar. No free air or abscess. 2. Interval development of mild splenomegaly since CT of May 13, 2024. 3. Slight increase in size of a small to moderate pericardial effusion since chest CT of July 28, 2025. ACT 112: Negative or not required by law. Electronically signed by: Blake Irving M.D. 08/28/2025 10:21 AM Discharge Plan Visit Data Chief Complaint: Weakness Stated Complaint: DIZZY BREATHING ED Provider: Jennifer Isabel Discharge Problem: Sepsis, Acute appendicitis, Abdominal pain, RLQ Prescriptions Prescriptions: No Action pregabalin [Lyrica] 50 mg capsule 50 mg PO BID Qty: 60 0RF (DME) blood sugar diagnostic Strip See Rx Instructions .ROUTE .MEDSUPPLY Qty: 50 3RF Rx Instructions: Testing blood sugar once daily empagliflozin 25 mg tablet 25 mg PO QAM Qty: 90 2RF trazodone 50 mg tablet 50 mg PO HS Qty: 90 2RF (DME) Diabetic Shoes Misc See Rx Instructions .Route Qty: 1 0RF Rx Instructions: Diabetic shoes and inserts Ozempic 0.25 mg or 0.5 mg (2 mg/3 mL) pen injector 0.5 mg subcut .Weekly Qty: 3 4RF Patient Comments: tuesdays (DME) Accu-Chek Guide test strips Strip See Rx Instructions .Route Qty: 100 1RF Rx Instructions: TEST BSG ONCE DAILY; DX CODE- E11.9 ([facility] [place] lancets [Accu-Chek Fastclix Lancet Drum] Misc See Rx Instructions .Route Qty: 100 1RF Rx Instructions: TEST BSG ONCE DAILY; DX CODE- E11.9 lisinopril 10 mg tablet 10 mg PO .every other day Qty: 45 3RF escitalopram oxalate 20 mg tablet 20 mg PO QAM Qty: 90 1RF metoprolol succinate 25 mg tablet extended release 24 hr 25 mg PO QAM Qty: 90 1RF glipizide 10 mg tablet extended release 24hr 10 mg PO QAM Qty: 90 1RF atorvastatin 20 mg tablet 20 mg PO PM Qty: 90 1RF famotidine 20 mg tablet 20 mg PO HS Qty: 180 2RF Rx Instructions: 12/18/2024 per Seth--- may increase to BID PRN if needed (DME) blood-glucose meter [Accu-Chek Guide Me Glucose Mtr] Misc See Rx Instructions .Route Qty: 1 0RF Rx Instructions: TEST BSG ONCE DAILY; DX CODE- E11.9 ferrous sulfate 325 mg (65 mg iron) tablet 325 mg PO DAILY Qty: 90 3RF fluticasone propionate [Allergy Relief (fluticasone)] 50 mcg/actuation spray,suspension 2 spray INTNAS DAILY PRN (Reason: Congestion) Qty: 47.4 3RF Rx Instructions: administer into each nostril tizanidine 4 mg tablet 4 mg PO BID PRN (Reason: muscle spasticity) Qty: 20 0RF promethazine 12.5 mg tablet 12.5 mg PO HS PRN (Reason: nausea and vomiting) Qty: 60 1RF pantoprazole 40 mg tablet,delayed release (DR/EC) 40 mg PO BID Qty: 180 1RF Hold Instructions: elevated creatinine azelastine 137 mcg (0.1 %) spray,non-aerosol 1 spray INTNAS DAILY PRN (Reason: Congestion) Qty: 90 1RF tamsulosin [Flomax] 0.4 mg capsule 0.4 mg PO QPM Qty: 90 2RF Rx Instructions: Take one capsule at bedtime. (DME) Custom Orthotics Misc See Rx Instructions .ROUTE .MEDSUPPLY Qty: 1 0RF Rx Instructions: As directed aspirin [Adult Aspirin Regimen] 81 mg tablet,delayed release (DR/EC) 81 mg PO DAILY Trelegy Ellipta 100-62.5-25 mcg blister with device 1 inh inhalation Q24H PRN (Reason: sob) Rx Instructions: RINSE MOUTH AND SPIT AFTER USE X 2. DO NOT SWALLOW WATER
--- NOTE | 2025-08-28 09:07 | XRay Report ---
XR chest 1V not portable CLINICAL HISTORY: Sepsis COMPARISON STUDY: 05/14/2024 FINDINGS: Stable cardiomegaly without pulmonary vascular congestion. No consolidation or pleural effu vince seen. No pneumothorax. IMPRESSION: No acute findings. ACT 112: Negative or not required by law. Electronically signed by: Godfrey Pollock M.D. 08/28/2025 9:06 AM
[2025-08-28] MEDS: SODIUM CHLORIDE 0.9% 2,000 ML IV ONE (09:10)
[2025-08-28] MEDS: ACETAMINOPHEN 1,000 MG/100 ML VIAL IV STA (09:13)
[2025-08-28 09:23] LABS: Hematocrit (blood only) 35.3 % (42.0-52.0); Hemoglobin 11.3 g/dl (14.0-18.0); Mean Corpuscular Hemoglobin 24.6 pg (25.0-34.0); Mean Corpuscular Volume 76.7 fL (80.0-100.0); Platelet Count 232 K/uL (130-400); RDW Standard Deviation 47.2 fL (36.4-46.3); Red Blood Count 4.60 M/uL (4.70-6.10); White Blood Count 5.32 K/ul (4.8-10.8)
[2025-08-28 09:40] LABS: Alanine Aminotransferase 12.0 U/L (7-52); Albumin Globulin Ratio 0.7 (0.9-2); Albumin Level 3.2 gm/dl (3.4-5.0); Alkaline Phosphatase 65.0 U/L (34-104); Anion Gap 11.0 (3-11); Bilirubin,Total 0.9 mg/dl (0.2-1.0); Blood Urea Nitrogen 10.0 mg/dl (6-23); Calcium 9.0 mg/dl (8.6-10.3); Carbon Dioxide 28.0 mmol/L (21-32); Chloride 96.0 mmol/L (98-107); Creatinine Clr Calc Pharmacy 92.0 ml/min; Globulin 4.4 gm/dl (2.5-4.0); Glucose 172.0 mg/dl (70-99(Fasting)); Magnesium 1.8 mg/dl (1.7-2.4); Potassium 3.8 mmol/L (3.5-5.1); Sodium 135.0 mmol/L (136-145); Total Protein 7.6 gm/dl (6.0-8.3)
[2025-08-28 09:50] LABS: INR 1.2 (0.9-1.1); Partial Thromboplastin Time 29 Seconds (21-31); Prothrombin Time 12.9 Seconds (9.0-12.0)
[2025-08-28] MEDS: OPTIRAY 320 100ml IV ONE (10:00)
[2025-08-28 10:01] LABS: Immature Granulocytes # (auto) 0.03 K/uL (0.01-0.20); Immature Granulocytes % (auto) 0.6 %
[2025-08-28 10:11] LABS: Chlamydia pneumoniae PCR Not Detected (NotDetected); Coronavirus 229E PCR Not Detected (NotDetected); Coronavirus CoV-2 (COVID19)PCR Not Detected (NotDetected); Coronavirus HKU1 PCR Not Detected (NotDetected); Coronavirus NL63 PCR Not Detected (NotDetected); Coronavirus OC43PCR Not Detected (NotDetected); Human Metapneumovirus PCR Not Detected (NotDetected); Parainfluenza Virus 1 PCR Not Detected (NotDetected); Parainfluenza Virus 2 PCR Not Detected (NotDetected); Parainfluenza Virus 3 PCR Not Detected (NotDetected); Parainfluenza Virus 4 PCR Not Detected (NotDetected); Respiratory Syncytial VirusPCR Not Detected (NotDetected); Rhinovirus/Enterovirus PCR Not Detected (NotDetected)
--- NOTE | 2025-08-28 10:22 | CT Scan Report ---
CT SCAN OF THE ABDOMEN AND PELVIS WITH IV CONTRAST CLINICAL HISTORY: Decreased appetite. Abdominal pain. COMPARISON STUDY: CT of the abdomen and pelvis June 21, 2024. Chest CT July 28, 2025. TECHNIQUE: Following the IV administration of 94 cc of Optiray 320, CT scan of the abdomen and pelvi s is performed from the lung bases to the proximal femora. Images are reviewed in the axial, sagittal , and coronal planes. IV contrast was administered without complication. A dose lowering technique wa s utilized adhering to the principles of ALARA. CT DOSE: 1347.79 mGy.cm FINDINGS: A small to moderate pericardial effusion has mildly increased in size since CT of July. A small subpleural left lower lobe pulmonary nodule measuring 3 mm is unchanged and CT of May us2023. This is likely benign. No pneumatosis, free air or portal venous gas is present. There is no biliary or pancreatic ductal dilatation. Mild splenomegaly has developed since CT of June 21, 2024. Adrenal glands, left kidney and pancreas are unremarkable. Mild stranding within left frontal sinus is unchanged. Water attenuation 4.1 cm right upper pole renal lesion represents a cyst. No evid ence for a bowel obstruction. The appendix is mildly dilated, measuring 1 cm in caliber. Dilatation h as decreased when compared to CT of June 21, 2024. The appendix is within the right mid abdomen. Th ere is a 1.6 cm outpouching arising from the appendiceal tip which contains hyperdense material. Ther e is mild adjacent stranding. There is no free air. There is no abscess. Bladder wall thickening is u nchanged. This is likely chronic. Major vasculature is patent. There is no lymphadenopathy. IMPRESSION: 1. Mildly dilated appendix with a 1.6 cm outpouching arising from the appendiceal tip with mild adjac ent inflammation. Although uncommon, the appearance raises the possibility of diverticulitis of the a ppendix. Mild acute appendicitis could appear similar. No free air or abscess. 2. Interval development of mild splenomegaly since CT of May 13, 2024. 3. Slight increase in size of a small to moderate pericardial effusion since chest CT of July 28 025. ACT 112: Negative or not required by law. Electronically signed by: Blake Irving M.D. 08/28/2025 10:21 AM
[2025-08-28 11:01] LABS: Appearance Urine Clear (Clear); Bacteria Urine Automated None Seen (None Seen); Cast Urine Automated 0-2 /lpf (0-2); Glucose Urine UA 3+ (Negative); RBC Urine Automated 0-2 /hpf (0-2); WBC Urine Automated 0-5 /hpf (0-5)
--- NOTE | 2025-08-28 11:06 | Surgery Consultation ---
Date of Consultation August 28, 2025 Assessment & Plan (1) Abdominal pain, RLQ: Patient is a 64-year-old male presented to the emergency department with complaints of weakness and shortness of breath and abdominal pain. Patient upon arrival to the emergency department was tachycardic and hypotensive. Patient was started on IV fluids and IV antibiotic coverage with Zosyn. Upon workup WBC within normal limits, however CT imaging concerning for mildly dilated appendix with 1.6 cm outpouching arising from the tip with adjacent inflammation, possibility of diverticulitis of the appendix versus acute appendicitis. The patient was seen and evaluated this morning at bedside. Blood pressure still in the 80s during my evaluation, however no longer tachycardic. Patient does elicit tenderness in his right lower quadrant with some voluntary guarding. Patient will be admitted to the medical service and from a surgical perspective recommend the following: -Keep n.p.o., continue fluid resuscitation, continue IV antibiotic coverage with Zosyn, antiemetics as needed - Discussed patient's case with attending surgeon, Dr. Joe, will tentatively plan to take the patient to the operating theater later today. I did discuss with the patient at bedside and he is in agreement with the plan at this time. (2) Acute appendicitis: Supervising Physician Co-Signing Physician Notes Patient seen and examined, labs and imaging reviewed, agree with above. 64-year-old male presented to the emergency department with abdominal pain. Has had abdominal pain on and off for a month and a half, worsened over the past day or 2. Up-to-date on colonoscopies. Prior open left inguinal hernia repair. Not on any blood thinners. On exam he is afebrile with mild asymptomatic hypotension that is improving with resuscitation. His abdomen is soft, tender to palpation in the right lower quadrant McBurney's point with localized guarding. WBC normal. CT scan personally reviewed and interpreted and agree with the assessment of dilated appendix that appears to be mild appendicitis, without evidence of perforation. Slight abnormality at the tip of the appendix may represent appendiceal diverticulum or focal dilation Plan for laparoscopic appendectomy Risk of the procedure were discussed to include but not limited to bleeding, infection, conversion open, normal appendix, damage surrounding structures, need for future more extensive surgery, abscess, and the risk of anesthesia History of Present Illness Reason for Consultation: abdominal pain History of Present Illness Patient is a 64-year-old male presented to the emergency department with complaints of weakness and shortness of breath. Patient states that he has been extremely fatigued and has been getting very short of breath with minimal activity. He also states that recently over the last few days he started with abdominal pain, mostly in his mid abdomen and right lower quadrant. Patient states that he does have chronic abdominal pain for the last 5 years, and also has a history of IBS. Patient denies any associated nausea, vomiting, or changes in bowel movements. He denies any new onset of fevers or chills. Due to his ongoing symptoms, the patient presented to the emergency department this morning and upon arrival he was tachycardic and hypotensive. The patient underwent CT imaging concerning for mildly dilated appendix with 1.6 cm outpouching arising from the tip with adjacent inflammation, possibility of diverticulitis of the appendix versus acute appendicitis. At that time general surgery was consulted for further evaluation of the patient. The patient was seen and evaluated in the emergency department this morning, he is resting comfortably in bed, however still hypotensive with systolic pressures in the high 80s. Patient no longer tachycardic. Patient on exam is tender in the right lower quadrant, however no signs of peritonitis. Patient states that he does have a surgical history of an open inguinal hernia over 20 years ago along with a superficial abdominal wall cyst removal. Allergies Allergy/AdvReac Type Severity Reaction Status Date / Time No Known Drug Allergies Allergy Verified 07/18/25 07:51 Home Medications Medication Instructions Recorded Confirmed Type Custom Orthotics #1 ea 07/21/20 07/21/25 Rx blood sugar diagnostic #50 ea 10/13/20 07/21/25 Rx fluticasone fur. 100 mcg-umeclid 1 inh inhalation Q24H PRN sob 04/11/24 08/28/25 History 62.5 mcg-vilant 25 mcg inhalat.powder (Trelegy Ellipta) aspirin 81 mg tablet,delayed 81 mg PO DAILY 11/21/24 08/28/25 History release (Adult Aspirin Regimen) empagliflozin 25 mg tablet 25 mg PO QAM #90 tabs 01/15/25 08/28/25 Rx trazodone 50 mg tablet 50 mg PO HS #90 tabs 03/20/25 08/28/25 Rx Diabetic Shoes #1 ea 03/25/25 07/21/25 Rx semaglutide 0.25 mg or 0.5 mg (2 0.5 mg (0.736 mL) subcut .Weekly 04/03/25 08/28/25 Rx mg/3 mL) subcutaneous pen injector #3 mL (Ozempic) blood sugar diagnostic (Accu-Chek #100 ea 04/08/25 07/21/25 Rx Guide test strips) lancets (Accu-Chek Fastclix Lancet #100 ea 04/08/25 07/21/25 Rx Drum) lisinopril 10 mg tablet 10 mg PO .every other day #45 tabs 04/14/25 08/28/25 Rx escitalopram oxalate 20 mg tablet 20 mg PO QAM #90 tabs 04/15/25 08/28/25 Rx glipizide 10 mg tablet, extended 10 mg PO QAM #90 tabs 04/15/25 08/28/25 Rx release 24 hr metoprolol succinate 25 mg 25 mg PO QAM #90 tabs 04/15/25 08/28/25 Rx tablet,extended release 24 hr atorvastatin 20 mg tablet 20 mg PO PM #90 tabs 04/16/25 08/28/25 Rx famotidine 20 mg tablet 20 mg PO HS #180 tabs 04/21/25 08/28/25 Rx blood-glucose meter (Accu-Chek #1 ea 05/12/25 07/21/25 Rx Guide Me Glucose Meter) ferrous sulfate 325 mg (65 mg 325 mg PO DAILY #90 tabs 05/19/25 08/28/25 Rx iron) tablet fluticasone propionate 50 2 spray intranasal DAILY PRN 05/21/25 08/28/25 Rx mcg/actuation nasal Congestion #47.4 mL spray,suspension (Allergy Relief (fluticasone)) tizanidine 4 mg tablet 4 mg PO BID PRN muscle spasticity 05/30/25 08/28/25 Rx #20 tabs promethazine 12.5 mg tablet 12.5 mg PO HS PRN nausea and 06/19/25 08/28/25 Rx vomiting #60 tabs azelastine 137 mcg (0.1 %) nasal 1 spray intranasal DAILY PRN 07/10/25 08/28/25 Rx spray Congestion #90 mL pantoprazole 40 mg tablet,delayed 40 mg PO BID #180 tabs 07/10/25 08/28/25 Rx release tamsulosin 0.4 mg capsule (Flomax) 0.4 mg PO QPM #90 caps 07/14/25 08/28/25 Rx pregabalin 50 mg capsule (Lyrica) 50 mg PO BID #60 caps 07/18/25 08/28/25 Rx Patient History Medical History Anxiety COPD (chronic obstructive pulmonary disease) Diabetes GERD (gastroesophageal reflux disease) Chronic diarrhea Disc degeneration, lumbar Dyslipidemia Diabetic neuropathy Chronic venous insufficiency BPH (benign prostatic hyperplasia) Bloating Dysphagia Urinary urgency Pericardial effusion ETD (eustachian tube dysfunction) Renal cyst Lung nodules Hypertension Stenosis, cervical spine Obstructive sleep apnea Restrictive lung disease Cardiomegaly IBS (irritable bowel syndrome) Mixed hearing loss, bilateral Bony sclerosis Varicose veins of left lower extremity Hx: UTI (urinary tract infection) Hx of colonic polyps Hx of gout SOBOE (shortness of breath on exertion) Surgical History History of cystoscopy (05/14/24) Hx of hernia repair (1981) History of foot surgery (2005) S/P right rotator cuff repair Hx of removal of cyst (2016) Hx of colonoscopy with polypectomy History of arthroscopy of right shoulder (07/2023) History of open reduction and internal fixation (ORIF) procedure (11/12/19) History of cataract surgery (2019) Hx of transurethral resection of prostate History of esophagogastroduodenoscopy (EGD) (2018) History of tooth extraction History of inguinal herniorrhaphy Family History Sister Family history of diabetes mellitus multiple sisters Stroke Hypertension Cancer Breast cancer Mother Family history of diabetes mellitus Hypertension Cancer Other Family history of deafness or hearing loss No family history of adverse response to anesthesia Denies family history of Ovarian cancer Prostate cancer Myocardial infarction Colorectal cancer Social History Smoking Status: Former smoker Tobacco Type: Cigarettes Age Started Using Tobacco: 26; Age Quit Using Tobacco: 41; packs per day: 1; Second Hand Exposure: No; Do You Dip or Chew Tobacco: No; Hx Alcohol Use: Yes Alcohol type: beer, wine and hard liquor Alcohol type Comment: 1-2 Hx Substance Use: No Preferred Language: Bel[place]ian Communication Ability: Effective Visual Impairment: No Limitations Hearing Ability: Normal Receiving Team Member Required: No Beliefs That Will Affect Care: None marital status: Current Living Situation: Family Current Living Situation Comment: lives w/ sister current occupational status: unemployed Feels Safe at Home: Yes Childhood Exposure to Second-Hand Smoke: Yes Diet: regular Diet Comment: regular caffeine: No during the past year weight has: remained stable Dental Care, Regularly: No Physical Activity Frequency: 1-2 Times per Week Physical Activity Frequency Comment: LIMITED BY PHYSICAL CONDITION Seatbelt Use: always Sunscreen Use: No Assistive Devices: Denture - Upper and Denture - Lower Review of Systems Constitutional: + weakness; no fever and no chills Respiratory: as per Subjective / HPI +increased SOB with activity Cardiovascular: no chest pain and no palpitations Gastrointestinal: as per Subjective / HPI and + abdominal pain; no nausea, no vomiting and no change in stools Genitourinary: no difficulty urinating or no hematuria Physical Exam Constitutional: WD/WN, vitals as above Respiratory: normal respiratory effort, lungs clear to auscultation Cardiovascular: Rate/Rhythm: regular rate Gastrointestinal (Abdomen): Abdomen soft, nondistended, + tenderness palpation in the right lower quadrant with some voluntary guarding. No signs of peritonitis Results & Data Vital Signs (Past 12 Hours) Vital Signs Temp Pulse Pulse Resp BP BP Pulse Ox 08/28/25 10:46 99 H 08/28/25 10:39 37 C 97 H 16 88/59 L 90 08/28/25 09:01 109 H 34 H 103/68 94 08/28/25 08:48 103 H 26 H 96 08/28/25 08:31 96 08/28/25 08:25 37.8 C H 128 H 20 95/54 L 96 08/28/25 08:16 96 O2 Del Method O2 Flow Rate 08/28/25 10:46 08/28/25 10:39 Room Air 08/28/25 09:01 Room Air 08/28/25 08:48 Room Air 08/28/25 08:31 Room Air 08/28/25 08:25 Room Air 08/28/25 08:16 Room Air [address] SCAN OF THE ABDOMEN AND PELVIS WITH IV CONTRAST CLINICAL HISTORY: Decreased appetite. Abdominal pain. COMPARISON STUDY: CT of the abdomen and pelvis June 21, 2024. Chest CT July 28, 2025. TECHNIQUE: Following the IV administration of 94 cc of Optiray 320, CT scan of the abdomen and pelvis is performed from the lung bases to the proximal femora. Images are reviewed in the axial, sagittal, and coronal planes. IV contrast was administered without complication. A dose lowering technique was utilized adhering to the principles of ALARA. CT DOSE: 1347.79 mGy.cm FINDINGS: A small to moderate pericardial effusion has mildly increased in size since CT of July 28, 2025. A small subpleural left lower lobe pulmonary nodule measuring 3 mm is unchanged and CT of June 21, 2024. This is likely benign. No pneumatosis, free air or portal venous gas is present. There is no biliary or pancreatic ductal dilatation. Mild splenomegaly has developed since CT of June 21, 2024. Adrenal glands, left kidney and pancreas are unremarkable. Mild stranding within left frontal sinus is unchanged. Water attenuation 4.1 cm right upper pole renal lesion represents a cyst. No evidence for a bowel obstruction. The appendix is mildly dilated, measuring 1 cm in caliber. Dilatation has decreased when compared to CT of June 21, 2024. The appendix is within the right mid abdomen. There is a 1.6 cm outpouching arising from the appendiceal tip which contains hyperdense material. There is mild adjacent stranding. There is no free air. There is no abscess. Bladder wall thickening is unchanged. This is likely chronic. Major vasculature is patent. There is no lymphadenopathy. IMPRESSION: 1. Mildly dilated appendix with a 1.6 cm outpouching arising from the appendiceal tip with mild adjacent inflammation. Although uncommon, the appearance raises the possibility of diverticulitis of the appendix. Mild acute appendicitis could appear similar. No free air or abscess. 2. Interval development of mild splenomegaly since CT of May 13, 2024. 3. Slight increase in size of a small to moderate pericardial effusion since chest CT of July 28, 2025. PG Care Time/CCT Total # of Minutes Spent Total Time Spent with Patient: Total time spent is greater than 50% in coordination of care (as documented) at patient's floor/unit and/or counseling patient: [place] [address] INT INP/OBS CARE 40MIN Patient Type New Medical Decision Making Straight Forward Diagnoses Abdominal pain, RLQ R10.31 Acute appendicitis K35.80
[2025-08-28] MEDS: SODIUM CHLORIDE 0.9% 500 ML IV ONE (12:05)
[2025-08-28] MEDS: PIPERACILLIN/TAZOBACTAM 4.5 GM/100 ML BAG IV ONE (12:05)
[2025-08-28] MEDS ORDERED: DEXTROSE 50% 50 ML SYRINGE IV PRN (12:33)
[2025-08-28] MEDS ORDERED: GLUCOSE 40% GEL 15 GM TUBE PO PRN (12:33)
[2025-08-28] MEDS ORDERED: GLUCAGON FOR INJ 1 MG VIAL SQ PRN (12:33)
[2025-08-28] MEDS ORDERED: CARBOHYDRATES FOR HYPOGLYCEMIA PO PRN (12:33)
[2025-08-28] MEDS ORDERED: NON-FORMULARY MEDICATION (Fluticasone-Umeclidin-Vilanter [Trelegy Ellipta] 100-62.5-25 mcg INH PRN (12:33)
[2025-08-28] MEDS ORDERED: PHARMACY GLYCEMIC MGMT CONSULT PRN (12:33)
[2025-08-28] MEDS ORDERED: GLUCOSE 10 TAB/TUBE PO PRN (12:33)
[2025-08-28] MEDS ORDERED: FLUTICASONE FUROATE 100MCG 14 PUFFS/INHALER INH PRN (12:42)
[2025-08-28] MEDS ORDERED: UMECLIDINIUM/VILANTEROL 62.5/25MCG 7 PUFFS/INHALER INH PRN (12:42)
--- NOTE | 2025-08-28 12:47 | Electrocardiogram Report ---
Test Reason : Blood Pressure : */* mmHG Vent. Rate : 110 BPM Atrial Rate : 110 BPM P-R Int : 150 ms QRS Dur : 92 ms QT Int : 326 ms P-R-T Axes : 54 -59 42 degrees QTcB Int : 441 ms Sinus tachycardia with occasional Premature ventricular complexes Left axis deviation Low voltage QRS Abnormal ECG When compared with ECG of 14-May-2024 12:02, Premature ventricular complexes are now Present Nonspecific T wave abnormality no longer evident in Inferior leads Confirmed by Héctor Gonzalez ([id number]) on 08/28/2025 12:46:31 PM Referred By: Sharita Pompa Confirmed By: Héctor Gonzalez
--- NOTE | 2025-08-28 12:53 | History & Physical Report ---
Date of Service August 28, 2025 Assessment & Plan (1) Sepsis: (2) Acute appendicitis: (3) Type 2 diabetes mellitus with peripheral neuropathy: Plan In summary this is a 64-year-old male who presents with subacute malaise and abdominal pain, recently focalized to the right lower quadrant #Sepsis secondary to acute appendicitis Patient's initial presentation was concerning for febrile temperature, borderline tachycardia, and hypotension; found to have, on abdominal imaging, concerning findings of early acute appendicitis; general surgery was consulted by the emergency provider and have elected to take the patient to the surgical suite for intervention today; blood cultures were obtained by the emergency provider prior to administration of Zosyn in addition to fluid resuscitation Continue Zosyn 4.5 g every 8 hours Continue LR at 150 mL/h until liberated to oral intake Follow blood cultures Follow daily CBC without manual differential, renal function panel #Type II diabetes mellitus with peripheral neuropathy Most recent hemoglobin A1c of 6.8% in 04/2025; glycemic target of preprandial less than 140 and random checks less than 180; we will withhold the patient's home non-insulin regimen and continue management as below with consultation to pharmacy for continued glycemic control - Start glargine 9 units SQ twice daily - Start aspart with correction factor of 35 mg/dL/unit and carbohydrate ratio of 12 g/unit Given the patient's presenting hypotension we will withhold their home lisinopril and metoprolol succinate until hemodynamically stable Admission and Anticipated Discharge Date Admission Date: August 28, 2025 History of Present Illness Chief Complaint: Generalized malaise Primary Care Provider: Sharita Pompa DO Mr. Diaz is a 64-year-old male whose active medical conditions include type 2 diabetes mellitus with peripheral neuropathy, simple chronic bronchitis with obstructive sleep apnea, hyperlipidemia, avascular necrosis of the right femoral head among other chronic medical conditions who presented to the [facility] due to progressive malaise, fatigue and intermittent nonspecific abdominal pain. The patient describes they have been experiencing the above symptoms progressively over the past 6 to 8 weeks; they deny any recent medication changes associated with this. They have had intermittent abdominal pain, today is primarily worsened in the right lower quadrant however is not severe in its description. The patient describes her abdominal pain as "migratory" as it tends to spread around the abdomen from day-to-day. They deny any abdominal distention, altered bowel movements, hematochezia, melanotic stool, hematemesis, bilious emesis, early satiety, increased frequency of heartburn, chest discomfort, palpitations, fevers, chills. They have not had any recent antibiotic courses. Allergies Allergy/AdvReac Type Severity Reaction Status Date / Time No Known Drug Allergies Allergy Verified 08/28/25 14:10 Home Medications Medication Instructions Recorded Confirmed Type Custom Orthotics #1 ea 07/21/20 07/21/25 Rx blood sugar diagnostic #50 ea 10/13/20 07/21/25 Rx fluticasone fur. 100 mcg-umeclid 1 inh inhalation Q24H PRN sob 04/11/24 08/28/25 History 62.5 mcg-vilant 25 mcg inhalat.powder (Trelegy Ellipta) aspirin 81 mg tablet,delayed 81 mg PO DAILY 11/21/24 08/28/25 History release (Adult Aspirin Regimen) empagliflozin 25 mg tablet 25 mg PO QAM #90 tabs 01/15/25 08/28/25 Rx trazodone 50 mg tablet 50 mg PO HS #90 tabs 03/20/25 08/28/25 Rx Diabetic Shoes #1 ea 03/25/25 07/21/25 Rx semaglutide 0.25 mg or 0.5 mg (2 0.5 mg (0.736 mL) subcut .Weekly 04/03/25 08/28/25 Rx mg/3 mL) subcutaneous pen injector #3 mL (Ozempic) blood sugar diagnostic (Accu-Chek #100 ea 04/08/25 07/21/25 Rx Guide test strips) lancets (Accu-Chek Fastclix Lancet #100 ea 04/08/25 07/21/25 Rx Drum) lisinopril 10 mg tablet 10 mg PO .every other day #45 tabs 04/14/25 08/28/25 Rx escitalopram oxalate 20 mg tablet 20 mg PO QAM #90 tabs 04/15/25 08/28/25 Rx glipizide 10 mg tablet, extended 10 mg PO QAM #90 tabs 04/15/25 08/28/25 Rx release 24 hr metoprolol succinate 25 mg 25 mg PO QAM #90 tabs 04/15/25 08/28/25 Rx tablet,extended release 24 hr atorvastatin 20 mg tablet 20 mg PO PM #90 tabs 04/16/25 08/28/25 Rx famotidine 20 mg tablet 20 mg PO HS #180 tabs 04/21/25 08/28/25 Rx blood-glucose meter (Accu-Chek #1 ea 05/12/25 07/21/25 Rx Guide Me Glucose Meter) ferrous sulfate 325 mg (65 mg 325 mg PO DAILY #90 tabs 05/19/25 08/28/25 Rx iron) tablet fluticasone propionate 50 2 spray intranasal DAILY PRN 05/21/25 08/28/25 Rx mcg/actuation nasal Congestion #47.4 mL spray,suspension (Allergy Relief (fluticasone)) tizanidine 4 mg tablet 4 mg PO BID PRN muscle spasticity 05/30/25 08/28/25 Rx #20 tabs promethazine 12.5 mg tablet 12.5 mg PO HS PRN nausea and 06/19/25 08/28/25 Rx vomiting #60 tabs azelastine 137 mcg (0.1 %) nasal 1 spray intranasal DAILY PRN 07/10/25 08/28/25 Rx spray Congestion #90 mL pantoprazole 40 mg tablet,delayed 40 mg PO BID #180 tabs 07/10/25 08/28/25 Rx release tamsulosin 0.4 mg capsule (Flomax) 0.4 mg PO QPM #90 caps 07/14/25 08/28/25 Rx pregabalin 50 mg capsule (Lyrica) 50 mg PO BID #60 caps 07/18/25 08/28/25 Rx Past Med/Surg History Problem List (Updated 08/28/25 @ 16:23 by Odell Johns DO) Acute appendicitis Sepsis Type 2 diabetes mellitus with peripheral neuropathy Right lumbar radiculopathy Lumbosacral radiculopathy Esophageal dysphagia Chronic venous insufficiency Varicose veins of left lower extremity Bony sclerosis 05/02/23-Sclerotic foci within the intertrochanteric region of the right femur have slightly progressed. Dominant focus measures 1.9 cm, previously measuring 1.6 cm Avascular necrosis of right femoral head Pericardial effusion (Chronic) small, monitoring per [place] cardiology records Cardiomegaly (Chronic) follows w/ Dr Rigo Barrios ETD (eustachian tube dysfunction) Mixed hearing loss, bilateral IBS (irritable bowel syndrome) Dyslipidemia Renal cyst Lung nodules being monitored Vitamin D deficiency Stenosis, cervical spine Restrictive lung disease has not used rescue for a while Obstructive sleep apnea of adult cpap Mixed conductive and sensorineural hearing loss of right ear with restricted hearing of left ear Disc degeneration, lumbar Chronic diarrhea Benign prostatic hyperplasia with urinary obstruction (Chronic) Obesity Gout GERD (gastroesophageal reflux disease) Hypertension COPD (chronic obstructive pulmonary disease) Anxiety Medical History (Updated 08/28/25 @ 16:23 by Odell Johns DO) Right rotator cuff tear Trochanteric bursitis, right hip Anxiety COPD (chronic obstructive pulmonary disease) Diabetes GERD (gastroesophageal reflux disease) Chronic diarrhea Disc degeneration, lumbar Dyslipidemia Diabetic neuropathy Chronic venous insufficiency BPH (benign prostatic hyperplasia) Bloating reason for upcoming EGD Dysphagia reason for upcoming EGD Urinary urgency hx Pericardial effusion pt. unaware - small, monitoring per [place] [facility] records ETD (eustachian tube dysfunction) Renal cyst pt. unaware Lung nodules monitored Hypertension Stenosis, cervical spine reports full ROM Obstructive sleep apnea cpap - does not wear as it "does not stay on" Restrictive lung disease no pulmonoloist, uses inhaler prn Cardiomegaly follows w/ Dr Rigo Barrios (03/10/24) IBS (irritable bowel syndrome) Mixed hearing loss, bilateral No H/A's Bony sclerosis 05/02/23-Sclerotic foci within the intertrochanteric region of the right femur have slightly progressed. Dominant focus measures 1.9 cm, previously measuring 1.6 cm Varicose veins of left lower extremity having testing at [facility] 04/17 or 04/18 Hx: UTI (urinary tract infection) Hx of colonic polyps Hx of gout SOBOE (shortness of breath on exertion) with minimal exertion when walking Surgical History (Updated 08/28/25 @ 15:46 by Odell Johns DO) S/P right rotator cuff repair History of cystoscopy (05/14/24) w/ clot evacuation Hx of hernia repair (1981) History of foot surgery (2005) S/P right rotator cuff repair Hx of removal of cyst (2016) abdominal Hx of colonoscopy with polypectomy History of arthroscopy of right shoulder (07/2023) History of open reduction and internal fixation (ORIF) procedure (11/12/19) R ankle History of cataract surgery (2019) B/L Hx of transurethral resection of prostate 04/23/24 and 06/2018 History of esophagogastroduodenoscopy (EGD) (2019) History of tooth extraction All teeth removed History of inguinal herniorrhaphy Family History Sister Family history of diabetes mellitus multiple sisters Stroke Hypertension Cancer Breast cancer Mother Family history of diabetes mellitus Hypertension Cancer Other Family history of deafness or hearing loss No family history of adverse response to anesthesia Denies family history of Ovarian cancer Prostate cancer Myocardial infarction Colorectal cancer Social History Smoking Status: Former smoker Tobacco Type: Cigarettes Age Started Using Tobacco: 26; Age Quit Using Tobacco: 41; packs per day: 1; Second Hand Exposure: No; Do You Dip or Chew Tobacco: No; Hx Alcohol Use: Yes Alcohol type: beer, wine and hard liquor Alcohol type Comment: 1-2 Hx Substance Use: No Preferred Language: Italian Communication Ability: Effective Visual Impairment: No Limitations Hearing Ability: Normal Bumper Machine Operator Required: No Beliefs That Will Affect Care: None marital status: Current Living Situation: Family Current Living Situation Comment: lives w/ sister current occupational status: unemployed Feels Safe at Home: Yes Childhood Exposure to Second-Hand Smoke: Yes Diet: regular Diet Comment: regular caffeine: No during the past year weight has: remained stable Dental Care, Regularly: No Physical Activity Frequency: 1-2 Times per Week Physical Activity Frequency Comment: LIMITED BY PHYSICAL CONDITION Seatbelt Use: always Sunscreen Use: No Assistive Devices: Denture - Upper and Denture - Lower Review of Systems Review of Systems: Review of constitutional, cardiovascular, pulmonary, gastrointestinal systems was unremarkable except for pertinent positive and negative findings discussed above Physical Exam Physical Exam: General: Elderly male in no acute distress Vital Signs: Reviewed; Initially at presentation was febrile and tachycardic HEENT: Tacky mucous membranes Pulmonary: symmetric chest wall excursion without restriction; CTAB Cardiovascular: regular rate and rhythm without murmur, rub, or gallop; right radial pulse 2+; no notable lower extremity edema Gastrointestinal: soft, protuberant; normal bowel sound pitch and frequency throughout; tender to deep palpation in the right lower quadrant, specifically at McBurney's point; remaining abdomen is relatively benign Results & Data Results & Data Vital Signs (Past 12 Hours) Vital Signs Temp Pulse Pulse Resp BP BP Pulse Ox 08/28/25 11:31 81 26 H 97/70 L 94 08/28/25 10:46 99 H 08/28/25 10:39 37 C 97 H 16 88/59 L 90 08/28/25 09:01 109 H 34 H 103/68 94 08/28/25 08:48 103 H 26 H 96 08/28/25 08:31 96 08/28/25 08:25 37.8 C H 128 H 20 95/54 L 96 08/28/25 08:16 96 O2 Del Method O2 Flow Rate 08/28/25 11:31 Room Air 08/28/25 10:46 08/28/25 10:39 Room Air 08/28/25 09:01 Room Air 08/28/25 08:48 Room Air 08/28/25 08:31 Room Air 08/28/25 08:25 Room Air 08/28/25 08:16 Room Air 0 Code Status & VTE Plan VTE Prophylaxis Plan VTE Prophylaxis will be ordered: Yes PG Care Time/CCT Total # of Minutes Spent Total Time Spent with Patient: Total time spent is greater than 50% in coordination of care (as documented) at patient's floor/unit and/or counseling patient: Coding Level of Care Code 34068 INT INP/OBS CARE 2/55MIN Diagnoses Sepsis without acute organ dysfunction, due to unspecified organism A41.9 Sepsis type: sepsis due to unspecified organism Sepsis acute organ dysfunction status: without acute organ dysfunction Other acute appendicitis K35.890 Acute appendicitis type: other Type 2 diabetes mellitus with peripheral neuropathy E11.42 (1) Sepsis Sepsis type: sepsis due to unspecified organism Sepsis acute organ dysfunction status: without acute organ dysfunction Qualified Code(s): A41.9 - Sepsis, unspecified organism (2) Acute appendicitis Acute appendicitis type: other Qualified Code(s): K35.890 - Other acute appendicitis without perforation or gangrene
[2025-08-28] MEDS ORDERED: LACTATED RINGER'S 1,000 ML IV SCH (13:00)
[2025-08-28] MEDS: LACTATED RINGER'S 1,000 ML IV SCH (13:06)
[2025-08-28] MEDS: ENOXAPARIN INJ 40 MG/0.4 ML SYR SQ SCH (13:07)
--- NOTE | 2025-08-28 13:24 | Pharmacy Report ---
Pharmacy Glycemic Short Note 2 - Date of Service August 28, 2025 - Glycemic Short BSG Results (Last 24 hours): 08/28/25 08:48 Glucose 172 H OUTPATIENT ANTIDIABETIC REGIMEN: * Glipizide 10 mg PO qAM * Ozempic 0.5 mg SC weekly HbA1c: 6.8% (05/14/25), repeat 08/29/25 ASSESSMENT: * GERARD is a 64 year old male who presents to ED with right lower quadrant abdominal pain * Surgery consulted - concern of diverticulitis of appendix vs. acute appendicitis * History of T2DM well-controlled as an outpatient * Blood sugar of 172 mg/dL on presentation, 95 mg/dL this afternoon * NPO at this time w/ plan for laparoscopic appendectomy today PLAN FOR INPATIENT GLYCEMIC CONTROL: * Hold outpatient oral diabetes medications * Basal insulin * Lantus 0-5-10 units SC HS (see EHR for details) * Bolus insulin * NovoLog per scale ACHS or Q6hrs while NPO * Goal Range: Low 120 mg/dL - High 160 mg/dL * Correction Factor: 35 mg/dL/unit * Nutritional / Prandial insulin per carb ratio of 1 unit per 12 grams CHO consumed
[2025-08-28] MEDS: INSULIN ASPART PER UNIT CHARGE SC SCH ×2 (13:43→21:34)
[2025-08-28] MEDS ORDERED: ROCURONIUM BROMIDE 10 MG/ML 5 ML VIAL IV ONE (14:08)
[2025-08-28] MEDS ORDERED: LIDOCAINE 2% 2 ML VIAL/AMP(20MG/ML) INFIL ONE (14:08)
[2025-08-28] MEDS ORDERED: DEXAMETHASONE SOD INJ 4 MG/ML VIAL ONE (14:08)
[2025-08-28] MEDS ORDERED: PROPOFOL IV EMULSION 10 MG/ML 20 ML VIAL IV ONE (14:08)
[2025-08-28] MEDS ORDERED: ONDANSETRON INJ 2 MG/ML 2 ML VIAL ONE (14:08)
[2025-08-28] MEDS ORDERED: MIDAZOLAM HCL 1 MG/ML 2ML VIAL ONE (14:09)
[2025-08-28] MEDS ORDERED: HYDROmorphone INJ 1 MG/ML SYRINGE IV PRN (14:59)
[2025-08-28] MEDS ORDERED: ATROPINE SULFATE 0.1 MG/ML 10ML SYR IV PRN (14:59)
--- NOTE | 2025-08-28 14:59 | Anesthesiology Consultation ---
Date of Service August 28, 2025 Assessment & Plan ASA ASA3 Proposed Anesthesia Anesthesia Type: General Risk / Benefits Reviewed With: PT / POA / Parent / Guardian, Accepts Plan and Informed Consent Obtained History Surgery Operation Date: 08/28/25 13:25 Proposed Procedures p Laparoscopic Appendectomy - Godfrey Joe DO, FACS Height/Weight Height: 5 ft 7 in Weight: 96.5 kg Allergies Allergy/AdvReac Type Severity Reaction Status Date / Time No Known Drug Allergies Allergy Verified 08/28/25 14:10 Medications Home Medications Medication Instructions Recorded Confirmed Last Taken Custom Orthotics #1 ea 07/21/20 07/21/25 Unknown blood sugar diagnostic #50 ea 10/13/20 07/21/25 Unknown fluticasone fur. 100 mcg-umeclid 1 inh inhalation Q24H PRN sob 04/11/24 08/28/25 07/23/24 62.5 mcg-vilant 25 mcg inhalat.powder (Trelegy Ellipta) aspirin 81 mg tablet,delayed 81 mg PO DAILY 11/21/24 08/28/25 08/28/25 release (Adult Aspirin Regimen) empagliflozin 25 mg tablet 25 mg PO QAM #90 tabs 01/15/25 08/28/25 08/28/25 trazodone 50 mg tablet 50 mg PO HS #90 tabs 03/20/25 08/28/25 Unknown Diabetic Shoes #1 ea 03/25/25 07/21/25 Unknown semaglutide 0.25 mg or 0.5 mg (2 0.5 mg (0.736 mL) subcut .Weekly 04/03/25 08/28/25 Unknown mg/3 mL) subcutaneous pen injector #3 mL (Ozempic) blood sugar diagnostic (Accu-Chek #100 ea 04/08/25 07/21/25 Unknown Guide test strips) lancets (Accu-Chek Fastclix Lancet #100 ea 04/08/25 07/21/25 Unknown Drum) lisinopril 10 mg tablet 10 mg PO .every other day #45 tabs 04/14/25 08/28/25 Unknown escitalopram oxalate 20 mg tablet 20 mg PO QAM #90 tabs 04/15/25 08/28/25 08/28/25 glipizide 10 mg tablet, extended 10 mg PO QAM #90 tabs 04/15/25 08/28/25 08/28/25 release 24 hr metoprolol succinate 25 mg 25 mg PO QAM #90 tabs 04/15/25 08/28/25 08/28/25 tablet,extended release 24 hr atorvastatin 20 mg tablet 20 mg PO PM #90 tabs 04/16/25 08/28/25 Unknown famotidine 20 mg tablet 20 mg PO HS #180 tabs 04/21/25 08/28/25 Unknown blood-glucose meter (Accu-Chek #1 ea 05/12/25 07/21/25 Unknown Guide Me Glucose Meter) ferrous sulfate 325 mg (65 mg 325 mg PO DAILY #90 tabs 05/19/25 08/28/25 08/28/25 iron) tablet fluticasone propionate 50 2 spray intranasal DAILY PRN 05/21/25 08/28/25 Unknown mcg/actuation nasal Congestion #47.4 mL spray,suspension (Allergy Relief (fluticasone)) tizanidine 4 mg tablet 4 mg PO BID PRN muscle spasticity 05/30/25 08/28/25 Unknown #20 tabs promethazine 12.5 mg tablet 12.5 mg PO HS PRN nausea and 06/19/25 08/28/25 Unknown vomiting #60 tabs azelastine 137 mcg (0.1 %) nasal 1 spray intranasal DAILY PRN 07/10/25 08/28/25 Unknown spray Congestion #90 mL pantoprazole 40 mg tablet,delayed 40 mg PO BID #180 tabs 07/10/25 08/28/25 08/28/25 release tamsulosin 0.4 mg capsule (Flomax) 0.4 mg PO QPM #90 caps 07/14/25 08/28/25 Unknown pregabalin 50 mg capsule (Lyrica) 50 mg PO BID #60 caps 07/18/25 08/28/25 08/28/25 Active Medications Generic Name Dose Route Start Last Admin Trade Name Freq PRN Reason Stop Dose Admin Enoxaparin Sodium 40 mg 08/28/25 13:00 08/28/25 13:07 Enoxaparin Inj 40 Mg/0.4 Ml Syr SQ 09/27/25 12:59 40 mg Q24H FRANCISCO Administration Lactated Ringer's 1,000 mls @ 150 mls/hr 08/28/25 12:33 08/28/25 13:06 Lr IV 08/31/25 12:32 150 mls/hr .Q6H40M FRANCISCO Administration Insulin Aspart 0 units 08/28/25 13:00 08/28/25 13:43 Insulin Aspart Per Unit Charge SC 09/27/25 12:59 Not Given Q6 FRANCISCO NPO Date Last Intake of Fluids: 08/28/25 Time Last Intake of Fluids: 05:00 Last Intake of Fluids Comment: 8 oz lemonade Date Last Intake of Solids: 08/27/25 Time Last Intake of Solids: 17:30 Past Medical History Medical History Anxiety COPD (chronic obstructive pulmonary disease) Diabetes GERD (gastroesophageal reflux disease) Chronic diarrhea Disc degeneration, lumbar Dyslipidemia Diabetic neuropathy Chronic venous insufficiency BPH (benign prostatic hyperplasia) Bloating Dysphagia Urinary urgency Pericardial effusion ETD (eustachian tube dysfunction) Renal cyst Lung nodules Hypertension Stenosis, cervical spine Obstructive sleep apnea Restrictive lung disease Cardiomegaly IBS (irritable bowel syndrome) Mixed hearing loss, bilateral Bony sclerosis Varicose veins of left lower extremity Hx: UTI (urinary tract infection) Hx of colonic polyps Hx of gout SOBOE (shortness of breath on exertion) Exercise / Class Metabolic Activity II 4-5 Yardwork/Stairs/Walk up hill Past Family History Family History Sister Family history of diabetes mellitus multiple sisters Stroke Hypertension Cancer Breast cancer Mother Family history of diabetes mellitus Hypertension Cancer Other Family history of deafness or hearing loss No family history of adverse response to anesthesia Denies family history of Ovarian cancer Prostate cancer Myocardial infarction Colorectal cancer Past Surgical History Surgical History History of cystoscopy (05/14/24) Hx of hernia repair (1981) History of foot surgery (2005) S/P right rotator cuff repair Hx of removal of cyst (2016) Hx of colonoscopy with polypectomy History of arthroscopy of right shoulder (07/2023) History of open reduction and internal fixation (ORIF) procedure (11/12/19) History of cataract surgery (2019) Hx of transurethral resection of prostate History of esophagogastroduodenoscopy (EGD) (2019) History of tooth extraction History of inguinal herniorrhaphy Past Anesthesia History No Hx of Anesthesia Complications and No Family Hx of Anesthesia Complications History of PONV No Hx of PONV and No Hx of Motion Sickness Social History Smoking Status: Former smoker tobacco type: cigarettes Do You Dip or Chew Tobacco: No Hx Alcohol Use: Yes Alcohol type: beer, wine and hard liquor alcohol intake frequency: holidays/special occasions only Hx Substance Use: No substance use type: does not use Review of Systems denies fever/cough/ colds/ chest pain/ SOB/ JOSHUA denies JOSHUA Physical Exam Vital Signs Last Vital Signs Temp 36.5 C 08/28/25 14:11 Pulse 73 08/28/25 14:11 Resp 20 08/28/25 14:11 BP 103/61 08/28/25 14:11 Pulse Ox 99 08/28/25 14:11 O2 Del Method Nasal Cannula 08/28/25 14:11 O2 Flow Rate 2 08/28/25 14:11 ENMT Mouth: + dentures; no TMJ abnormality and no dentition abnormality Thyromental Distance: > or= 3.5 Finger Breadths Mallampati Class: II Neck neck extension not limited Respiratory normal respiratory effort; no respiratory distress Auscultation: lungs clear to auscultation bilaterally Cardiovascular Rate/Rhythm: regular rate and regular rhythm Neurologic moves all extremities Psychiatric Orientation: alert and oriented x 3 Testing Laboratory Results 08/28/25 08:48 08/28/25 08:48 PT 12.9 Seconds (9.0-12.0) H 08/28/25 08:48 INR 1.2 (0.9-1.1) H 08/28/25 08:48 APTT 29 Seconds (21-31) 08/28/25 08:48 Urine Color Yellow 08/28/25 10:35 Urine Appearance Clear (Clear) 08/28/25 10:35 Urine pH 5.0 (4.5-7.5) 08/28/25 10:35 Ur Specific [place] > 1.045 (1.000-1.030) H 08/28/25 10:35 Urine Protein Negative (Negative) 08/28/25 10:35 Urine Glucose (UA) 3+ (Negative) H 08/28/25 10:35 Urine Ketones Negative (Negative) 08/28/25 10:35 Urine Nitrite Negative (Negative) 08/28/25 10:35 Ur Leukocyte Esterase Negative (Negative) 08/28/25 10:35 Urine WBC (Auto) 0-5 /hpf (0-5) 08/28/25 10:35 Urine RBC (Auto) 0-2 /hpf (0-2) 08/28/25 10:35 U Hyaline Cast (Auto) 0-2 /lpf (0-2) 08/28/25 10:35 U Epithel Cells (Auto) 3-5 /hpf (0-2) H 08/28/25 10:35 Urine Bacteria (Auto) None Seen (None Seen) 08/28/25 10:35 08/28/25 14:11 POC Glucose 95
--- NOTE | 2025-08-28 15:01 | Communication Note ---
Date of Service: August 28, 2025 pt is on Jardiance. pt needs blood ketones monitored for euglycemic ketoacidosis which can occur when it is not stopped 72 hrs prior to surgery
[2025-08-28] MEDS ORDERED: ePHEDrine sulfate 50 MG/5 ML SYR ONE (15:14)
[2025-08-28] MEDS ORDERED: PHENYLEPHRINE HCL 10 MG/ML VIAL ONE (15:20)
[2025-08-28] MEDS ORDERED: SUGAMMADEX SODIUM 200 MG/2 ML VIAL IV ONE (15:23)
[2025-08-28] MEDS: BUPIVACAINE 0.5 % 5 MG/1 ML MPF 30ML VIAL ONE (15:48)
--- NOTE | 2025-08-28 15:56 | Operative Report ---
PG Post Operative Report Pre & Post Diagnosis Operation Date: 08/28/25 13:25 Pre-Op Diagnosis: Appendicitis Post-Op Diagnosis: Appendicitis I identified the patient and participated in the time-out.: Yes Procedure Operation Date: 08/28/25 13:25 Actual Procedures p Laparoscopic Appendectomy(Not Applicable) - Godfrey Joe DO, BENI Surgeon Godfrey Joe DO, BENI Budget Record Clerk Milagros Yang Estimated Blood Loss 5 Findings Consistent with Post-Op Diagnosis Appendicitis, dilated mid to distal appendix. Good hemostasis. Specimens Appendix Anesthesia Type General Complications none Disposition Accompanied Patient To Recovery: No Disposition: Recovery Room Indications 64-year-old male presented with several weeks of abdominal pain that suddenly got worse and migrated to the right lower quadrant. Physical exam and imaging consistent with appendicitis. Plan for laparoscopic appendectomy. The risks of the procedure were discussed, all questions were answered, and the patient agreed to proceed with surgery as planned. Description of Procedure The patient was properly identified, consented, and taken to the operating room where he was placed in the supine position. General endotracheal anesthesia was induced. SCDs and a safety belt were placed. Preoperative antibiotics were administered. A Cortez catheter was not placed. The patient's abdomen was prepped and draped in the standard sterile fashion. Surgical timeout was performed and all parties were in agreement that this was the correct patient and procedure to be performed and we continued as planned. An incision was made superior and to the left of midline. The Veress needle was inserted and saline drop test confirmed entry into the abdomen. The abdomen was insufflated with carbon dioxide which the patient tolerated without incident. The Veress needle was removed and the abdomen was entered utilizing the Optiview technique with a 5 mm 30 degree scope and a 5 mm trocar. The introducer was removed and the camera inserted. No damage from initial trocar placement or port placement was noted. There were no significant abnormalities in the 4 qu adrants of the abdomen. A 12 mm port was placed in the left lower quadrant with care not to damage the epigastric vessels and a 5 mm port was placed in the suprapubic midline with care not to damage the bladder. The patient was placed in Trendelenburg position and rotated towards the left. The small bowel was swept away from the right lower quadrant. The cecum was grasped with an atraumatic grasper exposing the appendix. The appendix was mildly inflamed and there was no evidence of perforation. It was dilated from the mid to distal portion. There was no fluid in the pelvis. A window was created between the base of the appendix and the mesoappendix. A rivera loaded endoscopic stapler was then used to divide the appendix at its base. The Sonicision was then used to divide the mesoappendix. Hemostasis was good. The appendix was placed in an Endo Catch bag and removed through the left lower quadrant port site. The fascia of the 12 mm port site was closed with a [id number] 0 Vicryl suture utilizing the Bruce-Terri device. 5 mm trochars were removed and the abdomen was allowed to collapse. The wound was irrigated, and the skin of all ports was closed with 4-0 Monocryl subcuticular sutures. Dermabond was placed over the wounds. The patient was extubated in the operating room and taken to the PACU where he recovered without apparent incident. All sponge, instrument and needle counts were correct at the conclusion of the procedure. The patient tolerated the procedure well. Physicians legal assistant was present and scrubbed for the entire to the case. She was critical in positioning the patient, prepping and draping, retraction and exposure, driving the laparoscope, removal of the appendix, closure the incisions, placement the dressings. I attest to the content of the Intraoperative Record and any orders documented therein. Any exceptions are noted below.
[2025-08-28] MEDS: ONDANSETRON INJ 2 MG/ML 2 ML VIAL IV PRN (16:14)
--- NOTE | 2025-08-28 16:52 | Anesthesiology Progress Note ---
Date of Service August 28, 2025 Anesthesia Post Procedure Vital Signs Vital Signs: Temp Pulse Pulse Pulse Resp BP BP 08/28/25 16:40 84 20 103/69 08/28/25 16:30 36.5 C 87 18 103/70 08/28/25 16:20 80 20 104/66 08/28/25 16:10 79 18 121/55 L 08/28/25 16:00 36.0 C L 86 16 116/56 L 08/28/25 14:11 36.5 C 73 20 103/61 08/28/25 13:30 69 23 100/69 08/28/25 13:15 67 22 102/63 08/28/25 13:03 84 24 101/60 08/28/25 13:03 101/60 08/28/25 13:00 74 20 93/59 L 08/28/25 12:55 72 20 89/67 L 08/28/25 12:53 78 17 91/64 L 08/28/25 12:30 77 21 100/62 08/28/25 12:15 79 22 96/65 L 08/28/25 12:00 78 23 98/69 L 08/28/25 11:45 82 18 105/62 08/28/25 11:31 81 26 H 97/70 L 08/28/25 11:30 80 26 H 97/70 L 08/28/25 10:46 99 H 08/28/25 10:39 37 C 97 H 16 88/59 L 08/28/25 09:01 109 H 34 H 103/68 08/28/25 08:48 103 H 26 H 08/28/25 08:31 08/28/25 08:25 37.8 C H 128 H 20 95/54 L 08/28/25 08:16 Pulse Ox O2 Del Method O2 Flow Rate 08/28/25 16:40 96 Nasal Cannula 2 08/28/25 16:30 95 Room Air 08/28/25 16:20 99 Oxymask 4 08/28/25 16:10 100 Oxymask 6 08/28/25 16:00 98 Oxymask 6 08/28/25 14:11 99 Nasal Cannula 2 08/28/25 13:30 96 Nasal Cannula 2 08/28/25 13:15 97 Nasal Cannula 2 08/28/25 13:03 97 Nasal Cannula 2 08/28/25 13:03 11/06/25 13:00 98 Nasal Cannula 2 08/28/25 12:55 97 Nasal Cannula 2 08/28/25 12:53 98 Nasal Cannula 2 08/28/25 12:30 96 Nasal Cannula 2 08/28/25 12:15 95 Nasal Cannula 2 08/28/25 12:00 96 Nasal Cannula 2 08/28/25 11:45 92 Room Air 08/28/25 11:31 94 Room Air 08/28/25 11:30 90 Room Air 08/28/25 10:46 08/28/25 10:39 90 Room Air 08/28/25 09:01 94 Room Air 08/28/25 08:48 96 Room Air 08/28/25 08:31 96 Room Air 08/28/25 08:25 96 Room Air 08/28/25 08:16 96 Room Air 0 Pain Intensity Abdomen: Pain Intensity: 5 Transfer of Care Handoff Completed per policy Notes Mental Status: alert / awake / arousable and participated in evaluation Patient Amnestic to Procedure: Yes Nausea / Vomiting: adequately controlled Pain: adequately controlled Airway Patency, RR, SpO2: stable & adequate BP & HR: stable & adequate Hydration State: stable & adequate Anesthetic Complications: no major complications apparent and Pt Satisfied with anesthetic care
[2025-08-28] MEDS ORDERED: MoRPHine SULFATE 4 MG/ML 1 ML CARP\\VIAL IV PRN (17:00)
[2025-08-28] MEDS ORDERED: MoRPHine SULFATE 2 MG/ML CARP IV PRN (17:00)
[2025-08-28] MEDS ORDERED: ACETAMINOPHEN 325 MG TAB PO PRN (17:00)
[2025-08-28] MEDS: PIPERACILLIN/TAZOBACTAM 4.5 GM/100 ML BAG IV SCH (18:25)
[2025-08-28] MEDS: TAMSULOSIN HCL 0.4 MG CAP PO SCH (21:32)
[2025-08-28] MEDS: ATORVASTATIN 20 MG TAB PO SCH (21:32)
[2025-08-28] MEDS: LANTUS PER UNIT CHARGE SQ SCH (21:33)
[2025-08-28] MEDS: FAMOTIDINE 20 MG TAB PO SCH (21:36)
[2025-08-28] MEDS: PREGABALIN 50 MG CAP PO SCH (21:36)
--- NOTE | 2025-08-29 07:05 | Hospitalist Progress Note ---
Date of Service August 29, 2025 Assessment & Plan (1) Sepsis: (2) Acute appendicitis: (3) Type 2 diabetes mellitus with peripheral neuropathy: Plan In summary this is a 64-year-old male who presents with subacute malaise and abdominal pain, recently focalized to the right lower quadrant #Sepsis secondary to acute appendicitis // s/p laparoscopic appendectomy 08/29 Patient's initial presentation was concerning for febrile temperature, borderline tachycardia, and hypotension; found to have, on abdominal imaging, concerning findings of early acute appendicitis; blood cultures were obtained by the emergency provider prior to administration of Zosyn in addition to fluid resuscitation Continue Zosyn 4.5 g every 8 hours, anticipate discontinuation if blood cultures are without growth at 48 hours Discontinue IVF Follow blood cultures Follow daily CBC without manual differential, renal function panel #Anasarca // Physical debility Increasing difficulty navigating home due to progressive muscle weakness -PT and OT consulted #Type II diabetes mellitus with peripheral neuropathy Most recent hemoglobin A1c of 7.5% during the current hospitalization; glycemic target of preprandial less than 140 and random checks less than 180; we will withhold the patient's home non-insulin regimen and continue management as below with consultation to pharmacy for continued glycemic control Given the patient's continued hypotension, we will withhold their home lisinopril and metoprolol succinate until hemodynamically stable Admission and Anticipated Discharge Date Admission Date: August 28, 2025 Subjective Mr. Diaz is a 64-year-old male whose active medical conditions include type 2 diabetes mellitus with peripheral neuropathy, simple chronic bronchitis with obstructive sleep apnea, hyperlipidemia, avascular necrosis of the right femoral head among other chronic medical conditions who presented to the [facility] due to progressive malaise, fatigue and intermittent nonspecific abdominal pain. The patient underwent laparoscopic appendectomy on 08/30 without complication. No acute overnight events Review of Systems Review of Systems: Review of constitutional, cardiovascular, pulmonary, gastrointestinal systems was unremarkable except for pertinent positive and negative findings discussed above Physical Exam Physical Exam: General: Elderly male in no acute distress Vital Signs: Reviewed HEENT: Tacky mucous membranes Pulmonary: symmetric chest wall excursion without restriction; CTAB Cardiovascular: regular rate and rhythm without murmur, rub, or gallop; right radial pulse 2+; no notable lower extremity edema Gastrointestinal: soft, protuberant; normal bowel sound pitch and frequency throughout; surgical sites appear well, mild residual tenderness in the right lower quadrant Results & Data Results & Data Vital Signs (Past 12 Hours) Vital Signs Temp Pulse Pulse Resp BP Pulse Ox O2 Del Method 08/29/25 04:00 55 L 18 95/60 L 95 Nasal Cannula 08/28/25 23:01 36.4 C L 75 16 100/64 95 Nasal Cannula 08/28/25 22:03 69 08/28/25 21:24 36.3 C L 75 18 96/64 L 96 Room Air 08/28/25 20:05 36.4 C L 72 18 96/61 L 96 Nasal Cannula 08/28/25 19:08 36.4 C L 76 18 97/64 L 95 Nasal Cannula O2 Flow Rate 08/29/25 04:00 1 08/28/25 23:01 1 08/28/25 22:03 08/28/25 21:24 08/28/25 20:05 1 08/28/25 19:08 1 PG Care Time/CCT Total # of Minutes Spent Total Time Spent with Patient: Total time spent is greater than 50% in coordination of care (as documented) at patient's floor/unit and/or counseling patient: Coding Level of Care Code 53890 SUB INP/OBS CARE 2/35MIN Diagnoses Sepsis without acute organ dysfunction, due to unspecified organism A41.9 Sepsis acute organ dysfunction status: without acute organ dysfunction Sepsis type: sepsis due to unspecified organism Other acute appendicitis K35.890 Acute appendicitis type: other Type 2 diabetes mellitus with peripheral neuropathy E11.42 (1) Sepsis Sepsis acute organ dysfunction status: without acute organ dysfunction Sepsis type: sepsis due to unspecified organism Qualified Code(s): A41.9 - Sepsis, unspecified organism (2) Acute appendicitis Acute appendicitis type: other Qualified Code(s): K35.890 - Other acute appendicitis without perforation or gangrene
[2025-08-29 07:53] LABS: Albumin Level 2.4 gm/dl (3.4-5.0); Anion Gap 8.0 (3-11); Blood Urea Nitrogen 11.0 mg/dl (6-23); Calcium 8.4 mg/dl (8.6-10.3); Carbon Dioxide 25.0 mmol/L (21-32); Chloride 109.0 mmol/L (98-107); Creatinine Clr Calc Pharmacy 124.7 ml/min; Glucose 104.0 mg/dl (70-99(Fasting)); Potassium 4.6 mmol/L (3.5-5.1); Sodium 142.0 mmol/L (136-145)
[2025-08-29] MEDS: ESCITALOPRAM OXALATE 20 MG TAB PO SCH (08:17)
--- NOTE | 2025-08-29 09:03 | Surgery Progress Note ---
Date of Service August 29, 2025 Assessment & Plan (1) Acute appendicitis: Plan: POD#1 laparoscopic appendectomy No WBC back yet this AM. Vitals stable, afebrile, HR 50-70s, BPs stable low (asymptomatic) Abdomen soft, not overly tender, incisions c/d/i with dermabond On regular diet without issues No need for further abx after today from our standpoint Please call with any questions/concerns, will need f/u in the office with Dr. Joe in 2 weeks time Admission and Anticipated Discharge Date Admission Date: August 28, 2025 Supervising Physician Co-Signing Physician Notes Patient seen examined, labs reviewed, agree with above. POD #1 laparoscopic appendectomy for appendicitis. Doing well, feels much better than prior to admission. Tolerating diet. Abdomen soft, appropriately tender to palpation, incisions without infection. Okay to DC to home from general surgery standpoint. Wound care instructions and activity restrictions reviewed. Follow-up with me in 2 weeks. Does not need additional antibiotics from a surgery standpoint. Subjective Patient states he feels pretty good. Some abdominal pain overnight with certain movements, but it's tolerable and not that bad at the moment. Tolerating diet, no n/v. + voiding. No dizziness/lightheadedness. Physical Exam Physical Exam: awake/alert, no distress Respiratory: normal respiratory effort Gastrointestinal (Abdomen): Inspection/Auscultation: + abdominal surgical incision (c/d/i with dermabond ); abdomen not distended Percussion/Palpation: + abdomen tender (mild discomfort to palpation in the lower abd) and abdomen soft Results & Data Vital Signs (Past 12 Hours) Vital Signs Temp Pulse Pulse Resp BP Pulse Ox O2 Del Method 08/29/25 08:44 97.7 F 57 L 16 107/70 98 Nasal Cannula 08/29/25 04:00 55 L 18 95/60 L 95 Nasal Cannula 08/28/25 23:01 97.5 F L 75 16 100/64 95 Nasal Cannula 08/28/25 22:03 69 08/28/25 21:24 97.3 F L 75 18 96/64 L 96 Room Air O2 Flow Rate 08/29/25 08:44 1 08/29/25 04:00 1 08/28/25 23:01 1 08/28/25 22:03 08/28/25 21:24 PG Care Time/CCT Total # of Minutes Spent Total Time Spent with Patient: Total time spent is greater than 50% in coordination of care (as documented) at patient's floor/unit and/or counseling patient: Coding Level of Care Code 66791 Post Operative Follow-Up Diagnoses Other acute appendicitis K35.890 Acute appendicitis type: other (1) Acute appendicitis Acute appendicitis type: other Qualified Code(s): K35.890 - Other acute appendicitis without perforation or gangrene
[2025-08-29 09:06] LABS: Hemoglobin A1C 7.5 % (4.5-5.6)
[2025-08-29] MEDS: PNEUMOCOCCAL VACCINE (PCV20) 20-VAL CONJ-DIP CRM/PF 0.5 ML SYR IM ONE (09:50)
[2025-08-30 02:42] VITALS: RESP 20
[2025-08-30 06:17] LABS: Hematocrit (blood only) 29.2 % (42.0-52.0); Hemoglobin 9.4 g/dl (14.0-18.0); Mean Corpuscular Hemoglobin 25.1 pg (25.0-34.0); Mean Corpuscular Volume 77.9 fL (80.0-100.0); Platelet Count 189 K/uL (130-400); RDW Standard Deviation 48.8 fL (36.4-46.3); Red Blood Count 3.75 M/uL (4.70-6.10); White Blood Count 4.55 K/ul (4.8-10.8)
[2025-08-30 06:39] LABS: Albumin Level 2.4 gm/dl (3.4-5.0); Anion Gap 6.0 (3-11); Blood Urea Nitrogen 10.0 mg/dl (6-23); Calcium 8.2 mg/dl (8.6-10.3); Carbon Dioxide 28.0 mmol/L (21-32); Chloride 103.0 mmol/L (98-107); Creatinine Clr Calc Pharmacy 102.4 ml/min; Glucose 128.0 mg/dl (70-99(Fasting)); Potassium 4.0 mmol/L (3.5-5.1); Sodium 137.0 mmol/L (136-145)
--- NOTE | 2025-08-30 07:19 | Hospitalist Progress Note ---
Date of Service August 30, 2025 Assessment & Plan (1) Sepsis: (2) Acute appendicitis: (3) Type 2 diabetes mellitus with peripheral neuropathy: Plan In summary this is a 64-year-old male who presents with subacute malaise and abdominal pain, recently focalized to the right lower quadrant #Sepsis secondary to acute appendicitis // s/p laparoscopic appendectomy 08/29 Patient's initial presentation was concerning for febrile temperature, borderline tachycardia, and hypotension; found to have, on abdominal imaging, concerning findings of early acute appendicitis; blood cultures were obtained by the emergency provider prior to administration of Zosyn in addition to fluid resuscitation Continue Zosyn 4.5 g every 8 hours, anticipate discontinuation if blood cultures are without growth at 48 hours Follow blood cultures Follow daily CBC without manual differential, renal function panel #Anasarca // Physical debility Increasing difficulty navigating home due to progressive muscle weakness -PT and OT consulted; recommend discharge home with self care #Type II diabetes mellitus with peripheral neuropathy Most recent hemoglobin A1c of 7.5% during the current hospitalization; glycemic target of preprandial less than 140 and random checks less than 180; we will withhold the patient's home non-insulin regimen and continue management as below with consultation to pharmacy for continued glycemic control #Heart failure with preserved ejection fraction // Hypertension Previously withheld the patient's metoprolol succinate at admission due to asymptomatic hypotension; resume on 08/30 - Continue to hold Lisinopril QOD Admission and Anticipated Discharge Date Admission Date: August 28, 2025 Subjective Mr. Diaz is a 64-year-old male whose active medical conditions include type 2 diabetes mellitus with peripheral neuropathy, simple chronic bronchitis with obstructive sleep apnea, hyperlipidemia, avascular necrosis of the right femoral head among other chronic medical conditions who presented to the [facility] due to progressive malaise, fatigue and intermittent nonspecific abdominal pain. The patient underwent laparoscopic appendectomy on 08/30 without complication. No acute overnight events Review of Systems Review of Systems: Review of constitutional, cardiovascular, pulmonary, gastrointestinal systems was unremarkable except for pertinent positive and negative findings discussed above Physical Exam Physical Exam: General: Elderly male in no acute distress Vital Signs: Reviewed HEENT: Tacky mucous membranes Pulmonary: symmetric chest wall excursion without restriction; CTAB Cardiovascular: regular rate and rhythm without murmur, rub, or gallop; right radial pulse 2+; no notable lower extremity edema Gastrointestinal: soft, protuberant; normal bowel sound pitch and frequency throughout; surgical sites appear well, mild residual tenderness in the right lower quadrant Results & Data Results & Data Vital Signs (Past 12 Hours) Vital Signs Temp Pulse Pulse Resp BP Pulse Ox O2 Del Method 08/30/25 02:40 37.1 C 88 20 100/66 92 Nasal Cannula 08/29/25 23:43 85 08/29/25 23:08 37.0 C 91 H 21 94/60 L 93 Nasal Cannula 08/29/25 22:05 90 08/29/25 21:46 Room Air 08/29/25 20:14 37.0 C 90 18 92/64 L 92 Room Air O2 Flow Rate 08/30/25 02:40 1.5 08/29/25 23:43 08/29/25 23:08 1.5 08/29/25 22:05 08/29/25 21:46 08/29/25 20:14 PG Care Time/CCT Total # of Minutes Spent Total Time Spent with Patient: Total time spent is greater than 50% in coordination of care (as documented) at patient's floor/unit and/or counseling patient: Coding Diagnoses Sepsis without acute organ dysfunction, due to unspecified organism A41.9 Sepsis type: sepsis due to unspecified organism Sepsis acute organ dysfunction status: without acute organ dysfunction Other acute appendicitis K35.890 Acute appendicitis type: other Type 2 diabetes mellitus with peripheral neuropathy E11.42 (1) Sepsis Sepsis type: sepsis due to unspecified organism Sepsis acute organ dysfunction status: without acute organ dysfunction Qualified Code(s): A41.9 - Sepsis, unspecified organism (2) Acute appendicitis Acute appendicitis type: other Qualified Code(s): K35.890 - Other acute appendicitis without perforation or gangrene
[2025-08-30 07:25] VITALS: BP 99/65; TEMP 98.1; O2SAT 96
[2025-08-30 08:06] LABS: Hematocrit (blood only) 31.3 % (42.0-52.0); Hemoglobin 10.0 g/dl (14.0-18.0)
[2025-08-30] MEDS: METOPROLOL SUCC 25MG EXT REL TAB PO SCH (08:41)
[2025-08-30 11:17] VITALS: PULSE 84
--- NOTE | 2025-08-30 11:20 | Discharge Summary ---
Discharge Summary Date of Service August 30, 2025 Principal Dx & Hospital Course #1 = Principal Diagnosis (1) Sepsis: (2) Acute appendicitis: (3) Type 2 diabetes mellitus with peripheral neuropathy: Plan #Sepsis secondary to acute appendicitis // s/p laparoscopic appendectomy 08/29 Patient's initial presentation was concerning for febrile temperature, borderline tachycardia, and hypotension; found to have, on abdominal imaging, findings of early acute appendicitis; blood cultures were obtained by the emergency provider prior to administration of Zosyn in addition to fluid resuscitation, these remain without growth at 48 hours - Follow up with General Surgery as recommended #Anasarca // Physical debility Increasing difficulty navigating home due to progressive muscle weakness -PT and OT consulted; recommended home with self-care Admission HPI Per Admitting Provider Mr. Diaz is a 64-year-old male whose active medical conditions include type 2 diabetes mellitus with peripheral neuropathy, simple chronic bronchitis with obstructive sleep apnea, hyperlipidemia, avascular necrosis of the right femoral head among other chronic medical conditions who presented to the [facility] due to progressive malaise, fatigue and intermittent nonspecific abdominal pain. The patient describes they have been experiencing the above symptoms progressively over the past 6 to 8 weeks; they deny any recent medication changes associated with this. They have had intermittent abdominal pain, today is primarily worsened in the right lower quadrant however is not severe in its description. The patient describes her abdominal pain as "migratory" as it tends to spread around the abdomen from day-to-day. They deny any abdominal distention, altered bowel movements, hematochezia, melanotic stool, hematemesis, bilious emesis, early satiety, increased frequency of heartburn, chest discomfort, palpitations, fevers, chills. They have not had any recent antibiotic courses. Discharge Exam General: Elderly male in no acute distress Vital Signs: Reviewed HEENT: Moist mucous membranes Pulmonary: symmetric chest wall excursion without restriction; CTAB Cardiovascular: regular rate and rhythm without murmur, rub, or gallop; right radial pulse 2+; no notable lower extremity edema Gastrointestinal: soft, protuberant; normal bowel sound pitch and frequency throughout; surgical sites appear well, improved residual tenderness in the right lower quadrant Discharge Plan Discharge Items Patient Disposition: Home - Self-Care Reason For Visit: SEPSIS SECONDARY TO SUSPECTED APPENDICITIS Discharge Diagnosis: laparoscopic appendectomy // Sepsis resolved Condition on Discharge: Fair Activity: Per Instructions section Lifting: No more than 10 pounds Bathing Comment: may shower; no soaking in tubs/pools x 2 weeks Exercise/Sports: Wait until after follow-up appointment Driving/Machine Use: no driving while on narcotics for pain Non-emergency contact: Primary Care Provider and Surgeon Call non-emergency contact if: you have any medication questions, your pain is worsening, you have a fever, your temperature is above 101.5, your wound has increased redness, your wound has increased drainage and your wound pain has increased Follow-up/Referrals: Sharita Pompa DO [Primary Care Provider] - 09/08/25 9:20 am Godfrey Joe DO, BENI [Physician] - (Please call to schedule follow up in the office in 2 weeks ) Diet: Carb Consistent or DM2 Addtl Attending Provider Instructions: You were admitted to the [facility] for sepsis secondary to acute appendicitis. Your surgery was performed without complication. Subsequent assessment has been without evidence for a systemic infection, and blood cultures are without growth at 48 hours. Please maintain follow up with General Surgery as recommended, and contact your PCP for a hospital follow up visit. Addtl [employer] Developer Provider Instructions: SPECIAL CARE INSTRUCTIONS: * You have skin glue over your incisions called dermabond. you may shower with this on. It will tend to dissolve and fall off within a couple weeks. Do not pick at the skin glue * You may shower. NO soaking in pools or baths for 2 weeks * No lifting greater than 10lbs. No strenuous exercise until cleared by surgeon. Light walking is accepted. * No driving while taking narcotic pain medication; wait at least 3 days * No drinking alcohol while taking narcotic pain medication * May use Ibuprofen/Tylenol over the counter for pain as tolerated. Do not exceed 3grams of Tylenol per 24 hours * Expect some swelling and bruising. * Diet- you may resume your regular diet Call your doctor if: * Temperature above 101 degrees, nausea/vomiting, fever/chills * Pain not relieved by pain medicine ordered * There is increased drainage or redness from any incision * You have any unanswered questions or concerns [phone]. FOLLOW UP VISIT: If not already scheduled, please call the office for a follow-up visit. Office Pending Studies at Discharge: Yes Studies:: surgical pathology Stand-Alone Forms: My [facility] Medications and DC Order Prescriptions: Continued pregabalin [Lyrica] 50 mg capsule 50 mg PO BID Qty: 60 0RF (DME) blood sugar diagnostic Strip See Rx Instructions .ROUTE .MEDSUPPLY Qty: 50 3RF Rx Instructions: Testing blood sugar once daily empagliflozin 25 mg tablet 25 mg PO QAM Qty: 90 2RF trazodone 50 mg tablet 50 mg PO HS Qty: 90 2RF (DME) Diabetic Shoes Misc See Rx Instructions .Route Qty: 1 0RF Rx Instructions: Diabetic shoes and inserts Ozempic 0.25 mg or 0.5 mg (2 mg/3 mL) pen injector 0.5 mg subcut .Weekly Qty: 3 4RF Patient Comments: tuesdays (DME) Accu-Chek Guide test strips Strip See Rx Instructions .Route Qty: 100 1RF Rx Instructions: TEST BSG ONCE DAILY; DX CODE- E11.9 (DME) lancets [Accu-Chek Fastclix Lancet Drum] Mis See Rx Instructions .Route Qty: 100 1RF Rx Instructions: TEST BSG ONCE DAILY; DX CODE- E11.9 lisinopril 10 mg tablet 10 mg PO .every other day Qty: 45 3RF escitalopram oxalate 20 mg tablet 20 mg PO QAM Qty: 90 1RF metoprolol succinate 25 mg tablet extended release 24 hr 25 mg PO QAM Qty: 90 1RF glipizide 10 mg tablet extended release 24hr 10 mg PO QAM Qty: 90 1RF atorvastatin 20 mg tablet 20 mg PO PM Qty: 90 1RF famotidine 20 mg tablet 20 mg PO HS Qty: 180 2RF Rx Instructions: 12/18/2024 per Seth--- may increase to BID PRN if needed (DME) blood-glucose meter [Accu-Chek Guide Me Glucose Mtr] Mis See Rx Instructions .Route Qty: 1 0RF Rx Instructions: TEST BSG ONCE DAILY; DX CODE- E11.9 ferrous sulfate 325 mg (65 mg iron) tablet 325 mg PO DAILY Qty: 90 3RF fluticasone propionate [Allergy Relief (fluticasone)] 50 mcg/actuation spray,suspension 2 spray INTNAS DAILY PRN (Reason: Congestion) Qty: 47.4 3RF Rx Instructions: administer into each nostril tizanidine 4 mg tablet 4 mg PO BID PRN (Reason: muscle spasticity) Qty: 20 0RF promethazine 12.5 mg tablet 12.5 mg PO HS PRN (Reason: nausea and vomiting) Qty: 60 1RF pantoprazole 40 mg tablet,delayed release (DR/EC) 40 mg PO BID Qty: 180 1RF Hold Instructions: elevated creatinine azelastine 137 mcg (0.1 %) spray,non-aerosol 1 spray INTNAS DAILY PRN (Reason: Congestion) Qty: 90 1RF tamsulosin [Flomax] 0.4 mg capsule 0.4 mg PO QPM Qty: 90 2RF Rx Instructions: Take one capsule at bedtime. (DME) Custom Orthotics Misc See Rx Instructions .ROUTE .MEDSUPPLY Qty: 1 0RF Rx Instructions: As directed aspirin [Adult Aspirin Regimen] 81 mg tablet,delayed release (DR/EC) 81 mg PO DAILY Trelegy Ellipta 100-62.5-25 mcg blister with device 1 inh inhalation Q24H PRN (Reason: sob) Rx Instructions: RINSE MOUTH AND SPIT AFTER USE X 2. DO NOT SWALLOW WATER Discharge Orders: Discharge Order (Routine); Ordered 08/30/25 Ordered By: Odell Celis/Other Patient Handouts: Managing Type 2 Diabetes Admission Data Admit Date/Time: 08/28/25 11:18 Attending Provider: Odell Johns Admit Provider: Odell Johns Primary Care Provider: Sharita Pompa Other Providers: Godfrey Joe; Odell Johns Hospital Stay Data Consultations 08/28/25 11:00 Consult General Surgery Stat 08/28/25 11:03 ED Decision to Admit Stat Procedures Performed Operation Date: 08/28/25 13:25 Actual Procedures p Laparoscopic Appendectomy(Not Applicable) - Godfrey Joe DO, FACS Diagnostic Imagining Performed 08/28/25 08:52 CT Abd and Pelvis [CT abd pelvis IV con only] Stat Pending Results Patient Have Any Pending Studies at Discharge: Yes Discharge Instructions Given to Patient (Per Discharging Provider) You were admitted to the [facility] for sepsis secondary to acute appendicitis. Your surgery was performed without complication. Subsequent assessment has been without evidence for a systemic infection, and blood cultures are without growth at 48 hours. Please maintain follow up with General Surgery as recommended, and contact your PCP for a hospital follow up visit. Total Time Total Time Spent Total Time Spent (In Minutes): I personally spent 40 minutes in coordination of today's discharge including bedside counseling, physical exam, consultation review, medication reconciliation Coding Level of Care Code 67456 INP/OBS DISCH >30 MIN Diagnoses Sepsis without acute organ dysfunction, due to unspecified organism A41.9 Sepsis type: sepsis due to unspecified organism Sepsis acute organ dysfunction status: without acute organ dysfunction Other acute appendicitis K35.890 Acute appendicitis type: other Type 2 diabetes mellitus with peripheral neuropathy E11.42
== END 2025-08-30 13:07 | disposition home or self-care (01) | DRG 854 ==
LOC: ED 08:15 → INTOOBSV 11:18 → EDINP 11:18 → 2N 16:54

== ENCOUNTER 2025-09-13 09:31 | Inpatient (IN) ==
[2025-09-13] MEDS: SODIUM CHLORIDE 0.9% 500 ML IV ONE ×2 (10:10→14:03)
[2025-09-13 10:19] LABS: Hematocrit (blood only) 30.6 % (42.0-52.0); Hemoglobin 9.9 g/dL (14.0-18.0); Mean Corpuscular Hemoglobin 24.4 pg (25.0-34.0); Mean Corpuscular Volume 75.4 fL (80.0-100.0); Platelet Count 205 K/uL (130-400); RDW Standard Deviation 49.3 fL (36.4-46.3); Red Blood Count 4.06 M/uL (4.70-6.10); White Blood Count 8.64 K/ul (4.8-10.8)
[2025-09-13 10:21] LABS: Base Excess VBG 3.4 mEq/L; HCO3 VBG 27 mmol/L; Oxygen Saturation VBG 98.0 %; PCO2 VBG 36 mmHg (38-50); PO2 VBG 81 mmHg; pH VBG 7.48 (7.36-7.41)
[2025-09-13] MEDS: ALBUT/IPRATROP 3MG/0.5MG NEB 3 ML VIAL NEB STA (10:35)
--- NOTE | 2025-09-13 10:38 | Emergency Department Note ---
History of Present Illness General Chief complaint: Referred by Doctor Stated complaint: REF BY PCP, DIZZINESS, BREATHING TROUBLE Time Seen by Provider: 09/13/25 09:45 History of Present Illness Provider complaint: Dizziness shortness of breath Onset (ago): week(s) 3 63-year-old male with history of COPD, anxiety, pericardial effusion, recent appendectomy and sepsis presents to the emergency department for dizziness and shortness of breath. Patient reports the symptoms have been present for the last 3 weeks since he had his appendix removed. Patient reports his symptoms have been getting progressively worse. Patient [place] any chest pain. No melena or hematochezia. Patient reports blurry vision. Reports no headache. Home Medications Medication Instructions Recorded Confirmed Type Custom Orthotics #1 ea 07/21/20 09/08/25 Rx blood sugar diagnostic #50 ea 10/13/20 09/08/25 Rx fluticasone fur. 100 mcg-umeclid 1 inh inhalation Q24H PRN sob 04/11/24 09/13/25 History 62.5 mcg-vilant 25 mcg inhalat.powder (Trelegy Ellipta) aspirin 81 mg tablet,delayed 81 mg PO DAILY 11/21/24 09/13/25 History release (Adult Aspirin Regimen) empagliflozin 25 mg tablet 25 mg PO QAM #90 tabs 01/15/25 09/13/25 Rx trazodone 50 mg tablet 50 mg PO HS #90 tabs 03/20/25 09/13/25 Rx Diabetic Shoes #1 ea 03/25/25 09/08/25 Rx semaglutide 0.25 mg or 0.5 mg (2 0.5 mg (0.736 mL) subcut .Weekly 04/03/25 09/13/25 Rx mg/3 mL) subcutaneous pen injector #3 mL (Ozempic) blood sugar diagnostic (Accu-Chek #100 ea 04/08/25 09/08/25 Rx Guide test strips) lancets (Accu-Chek Fastclix Lancet #100 ea 04/08/25 09/08/25 Rx Drum) lisinopril 10 mg tablet 10 mg PO .every other day #45 tabs 04/14/25 09/13/25 Rx escitalopram oxalate 20 mg tablet 20 mg PO QAM #90 tabs 04/15/25 09/13/25 Rx glipizide 10 mg tablet, extended 10 mg PO QAM #90 tabs 04/15/25 09/13/25 Rx release 24 hr metoprolol succinate 25 mg 25 mg PO QAM #90 tabs 04/15/25 09/13/25 Rx tablet,extended release 24 hr atorvastatin 20 mg tablet 20 mg PO PM #90 tabs 04/16/25 09/13/25 Rx famotidine 20 mg tablet 20 mg PO HS #180 tabs 04/21/25 09/13/25 Rx blood-glucose meter (Accu-Chek #1 ea 05/12/25 09/08/25 Rx Guide Me Glucose Meter) ferrous sulfate 325 mg (65 mg 325 mg PO DAILY #90 tabs 05/19/25 09/13/25 Rx iron) tablet fluticasone propionate 50 2 spray intranasal DAILY PRN 05/21/25 09/13/25 Rx mcg/actuation nasal Congestion #47.4 mL spray,suspension (Allergy Relief (fluticasone)) tizanidine 4 mg tablet 4 mg PO BID PRN muscle spasticity 05/30/25 09/13/25 Rx #20 tabs promethazine 12.5 mg tablet 12.5 mg PO HS PRN nausea and 06/19/25 09/13/25 Rx vomiting #60 tabs azelastine 137 mcg (0.1 %) nasal 1 spray intranasal DAILY PRN 07/10/25 09/13/25 Rx spray Congestion #90 mL pantoprazole 40 mg tablet,delayed 40 mg PO BID #180 tabs 07/10/25 09/13/25 Rx release tamsulosin 0.4 mg capsule (Flomax) 0.4 mg PO QPM #90 caps 07/14/25 09/13/25 Rx pregabalin 50 mg capsule (Lyrica) 50 mg PO BID #60 caps 07/18/25 09/13/25 Rx ciprofloxacin HCl 500 mg tablet 500 mg PO BID 7 days #14 tabs 09/09/25 09/13/25 Rx (Cipro) Allergies Allergy/AdvReac Type Severity Reaction Status Date / Time No Known Drug Allergies Allergy Verified 09/08/25 09:22 Past Med/Surg History Problem List (Updated 09/13/25 @ 16:17 by Amador Cox MD) Acute UTI (Acute) Hypoxia (Acute) Acute appendicitis Sepsis Type 2 diabetes mellitus with peripheral neuropathy Right lumbar radiculopathy Lumbosacral radiculopathy Esophageal dysphagia Chronic venous insufficiency Varicose veins of left lower extremity Bony sclerosis 05/02/23-Sclerotic foci within the intertrochanteric region of the right femur have slightly progressed. Dominant focus measures 1.9 cm, previously measuring 1.6 cm Avascular necrosis of right femoral head Pericardial effusion (Chronic) small, monitoring per [place] [facility] records Cardiomegaly (Chronic) follows w/ Dr Rigo Barrios ETD (eustachian tube dysfunction) Mixed hearing loss, bilateral IBS (irritable bowel syndrome) Dyslipidemia Renal cyst Lung nodules being monitored Vitamin D deficiency Stenosis, cervical spine Restrictive lung disease has not used rescue for a while Obstructive sleep apnea of adult cpap Mixed conductive and sensorineural hearing loss of right ear with restricted hearing of left ear Disc degeneration, lumbar Chronic diarrhea Benign prostatic hyperplasia with urinary obstruction (Chronic) Obesity Gout GERD (gastroesophageal reflux disease) Hypertension COPD (chronic obstructive pulmonary disease) (Acute) Anxiety Medical History Right rotator cuff tear Trochanteric bursitis, right hip Anxiety COPD (chronic obstructive pulmonary disease) Diabetes GERD (gastroesophageal reflux disease) Chronic diarrhea Disc degeneration, lumbar Dyslipidemia Diabetic neuropathy Chronic venous insufficiency BPH (benign prostatic hyperplasia) Bloating reason for upcoming EGD Dysphagia reason for upcoming EGD Urinary urgency hx Pericardial effusion pt. unaware - small, monitoring per [place] [facility] records ETD (eustachian tube dysfunction) Renal cyst pt. unaware Lung nodules monitored Hypertension Stenosis, cervical spine reports full ROM Obstructive sleep apnea cpap - does not wear as it "does not stay on" Restrictive lung disease no pulmonoloist, uses inhaler prn Cardiomegaly follows w/ Dr Rigo Barrios (03/10/24) IBS (irritable bowel syndrome) Mixed hearing loss, bilateral No H/A's Bony sclerosis 05/02/23-Sclerotic foci within the intertrochanteric region of the right femur have slightly progressed. Dominant focus measures 1.9 cm, previously measuring 1.6 cm Varicose veins of left lower extremity having testing at [facility] 04/17 or 04/18 Hx: UTI (urinary tract infection) Hx of colonic polyps Hx of gout SOBOE (shortness of breath on exertion) with minimal exertion when walking Surgical History History of laparoscopic appendectomy (08/28/25) Laparoscopic Appendectomy(Not Applicable) - Godfrey Joe, DO, FACS S/P right rotator cuff repair History of cystoscopy (05/14/24) w/ clot evacuation Hx of hernia repair (1981) History of foot surgery (2005) S/P right rotator cuff repair Hx of removal of cyst (2016) abdominal Hx of colonoscopy with polypectomy History of arthroscopy of right shoulder (07/2023) History of open reduction and internal fixation (ORIF) procedure (11/12/19) R ankle History of cataract surgery (2019) B/L Hx of transurethral resection of prostate 04/23/24 and 06/2018 History of esophagogastroduodenoscopy (EGD) (2018) History of tooth extraction All teeth removed History of inguinal herniorrhaphy Family History Sister Family history of diabetes mellitus multiple sisters Stroke Hypertension Cancer Breast cancer Mother Family history of diabetes mellitus Hypertension Cancer Other Family history of deafness or hearing loss No family history of adverse response to anesthesia Denies family history of Ovarian cancer Prostate cancer Myocardial infarction Colorectal cancer Social History Smoking Status: Never smoker Tobacco Type: Cigarettes Age Started Using Tobacco: 26; Age Quit Using Tobacco: 41; packs per day: 1; Second Hand Exposure: No; Do You Dip or Chew Tobacco: No; Hx Alcohol Use: No Hx Substance Use: No Preferred Language: [place] Communication Ability: Effective Visual Impairment: No Limitations Hearing Ability: Normal Advertising Representative Required: No Beliefs That Will Affect Care: None marital status: Current Living Situation: Other Current Living Situation Comment: home with sister current occupational status: unemployed Feels Safe at Home: Yes Childhood Exposure to Second-Hand Smoke: Yes Diet: regular Diet Comment: regular caffeine: No during the past year weight has: remained stable Dental Care, Regularly: No Physical Activity Frequency: 1-2 Times per Week Physical Activity Frequency Comment: LIMITED BY PHYSICAL CONDITION Seatbelt Use: always Sunscreen Use: No Assistive Devices: None Physical Exam Vital Signs Vital Signs - 24 hr 09/13/25 09:38 09/13/25 09:48 09/13/25 09:50 Temperature 36.5 C Temperature Source Temporal Artery Scan Pulse Rate 130 H 118 H Pulse Rate [Apical] 120 H Pulse Rate from SpO2 Sensor Respiratory Rate 22 36 H 24 Respiratory Effort / Characteristics Non-Labored Spontaneous Non-Labored Spontaneous Respiratory Depth Normal Normal Blood Pressure 100/71 110/80 Blood Pressure [Right Arm] 108/80 Blood Pressure Mean 80 90 Blood Pressure Mean [Right Arm] 89 Blood Pressure Position Sitting Pulse Oximetry 94 98 Oxygen Delivery Method Room Air Oxygen Flow Rate Sepsis Recent Fever Within 48 Hours No Sepsis New/Unexplained Change in Mental Status N/A Sepsis Action Taken by Nursing Physician Notified 09/13/25 09:59 09/13/25 10:00 09/13/25 10:00 Temperature Temperature Source Pulse Rate 120 H 111 H Pulse Rate [Apical] Pulse Rate from SpO2 Sensor 120 H 111 H Respiratory Rate 35 H 24 Respiratory Effort / Characteristics Respiratory Depth Blood Pressure 110/83 110/83 Blood Pressure [Right Arm] Blood Pressure Mean 92 93 Blood Pressure Mean [Right Arm] Blood Pressure Position Pulse Oximetry 88 L 94 Oxygen Delivery Method Room Air Room Air Room Air Oxygen Flow Rate 2 Sepsis Recent Fever Within 48 Hours Sepsis New/Unexplained Change in Mental Status Sepsis Action Taken by Nursing 09/13/25 10:05 09/13/25 10:07 09/13/25 10:25 Temperature Temperature Source Pulse Rate 117 H Pulse Rate [Apical] Pulse Rate from SpO2 Sensor Respiratory Rate Respiratory Effort / Characteristics Respiratory Depth Blood Pressure 119/88 Blood Pressure [Right Arm] Blood Pressure Mean 93 Blood Pressure Mean [Right Arm] Blood Pressure Position Pulse Oximetry 91 Oxygen Delivery Method Nasal Cannula Oxygen Flow Rate Sepsis Recent Fever Within 48 Hours Sepsis New/Unexplained Change in Mental Status Sepsis Action Taken by Nursing 09/13/25 10:25 09/13/25 10:25 09/13/25 10:25 Temperature Temperature Source Pulse Rate Pulse Rate [Apical] Pulse Rate from SpO2 Sensor Respiratory Rate Respiratory Effort / Characteristics Respiratory Depth Blood Pressure 119/88 119/88 119/88 Blood Pressure [Right Arm] Blood Pressure Mean 93 93 93 Blood Pressure Mean [Right Arm] Blood Pressure Position Pulse Oximetry Oxygen Delivery Method Oxygen Flow Rate Sepsis Recent Fever Within 48 Hours Sepsis New/Unexplained Change in Mental Status Sepsis Action Taken by Nursing 09/13/25 10:27 09/13/25 10:27 09/13/25 10:30 Temperature Temperature Source Pulse Rate 111 H Pulse Rate [Apical] 112 H Pulse Rate from SpO2 Sensor 111 H Respiratory Rate 23 18 Respiratory Effort / Characteristics Non-Labored Spontaneous Respiratory Depth Normal Blood Pressure 104/79 Blood Pressure [Right Arm] 119/88 Blood Pressure Mean 86 Blood Pressure Mean [Right Arm] 98 Blood Pressure Position Pulse Oximetry 94 94 Oxygen Delivery Method Nasal Cannula Oxygen Flow Rate 2 Sepsis Recent Fever Within 48 Hours Sepsis New/Unexplained Change in Mental Status Sepsis Action Taken by Nursing 09/13/25 10:30 09/13/25 10:30 09/13/25 10:30 Temperature Temperature Source Pulse Rate Pulse Rate [Apical] Pulse Rate from SpO2 Sensor Respiratory Rate Respiratory Effort / Characteristics Respiratory Depth Blood Pressure 104/79 104/79 104/79 Blood Pressure [Right Arm] Blood Pressure Mean 86 86 86 Blood Pressure Mean [Right Arm] Blood Pressure Position Pulse Oximetry Oxygen Delivery Method Oxygen Flow Rate Sepsis Recent Fever Within 48 Hours Sepsis New/Unexplained Change in Mental Status Sepsis Action Taken by Nursing 09/13/25 10:30 09/13/25 10:30 09/13/25 10:45 Temperature Temperature Source Pulse Rate 110 H Pulse Rate [Apical] Pulse Rate from SpO2 Sensor 110 H Respiratory Rate 31 H Respiratory Effort / Characteristics Respiratory Depth Blood Pressure 104/79 101/81 Blood Pressure [Right Arm] Blood Pressure Mean 86 94 Blood Pressure Mean [Right Arm] Blood Pressure Position Pulse Oximetry 92 Oxygen Delivery Method Oxygen Flow Rate Sepsis Recent Fever Within 48 Hours Sepsis New/Unexplained Change in Mental Status Sepsis Action Taken by Nursing 09/13/25 10:45 09/13/25 10:45 09/13/25 10:45 Temperature Temperature Source Pulse Rate Pulse Rate [Apical] Pulse Rate from SpO2 Sensor Respiratory Rate Respiratory Effort / Characteristics Respiratory Depth Blood Pressure 101/81 101/81 101/81 Blood Pressure [Right Arm] Blood Pressure Mean 94 94 94 Blood Pressure Mean [Right Arm] Blood Pressure Position Pulse Oximetry Oxygen Delivery Method Oxygen Flow Rate Sepsis Recent Fever Within 48 Hours Sepsis New/Unexplained Change in Mental Status Sepsis Action Taken by Nursing 09/13/25 10:45 09/13/25 10:45 09/13/25 11:00 Temperature Temperature Source Pulse Rate 108 H Pulse Rate [Apical] Pulse Rate from SpO2 Sensor 107 H Respiratory Rate 27 H Respiratory Effort / Characteristics Respiratory Depth Blood Pressure 101/81 85/66 L Blood Pressure [Right Arm] Blood Pressure Mean 94 71 Blood Pressure Mean [Right Arm] Blood Pressure Position Pulse Oximetry 95 Oxygen Delivery Method Oxygen Flow Rate Sepsis Recent Fever Within 48 Hours Sepsis New/Unexplained Change in Mental Status Sepsis Action Taken by Nursing 09/13/25 11:00 09/13/25 11:00 09/13/25 11:00 Temperature Temperature Source Pulse Rate Pulse Rate [Apical] Pulse Rate from SpO2 Sensor Respiratory Rate Respiratory Effort / Characteristics Respiratory Depth Blood Pressure 85/66 L 85/66 L 85/66 L Blood Pressure [Right Arm] Blood Pressure Mean 71 71 71 Blood Pressure Mean [Right Arm] Blood Pressure Position Pulse Oximetry Oxygen Delivery Method Oxygen Flow Rate Sepsis Recent Fever Within 48 Hours Sepsis New/Unexplained Change in Mental Status Sepsis Action Taken by Nursing 09/13/25 11:00 09/13/25 11:00 09/13/25 11:30 Temperature Temperature Source Pulse Rate 107 H Pulse Rate [Apical] Pulse Rate from SpO2 Sensor 106 H Respiratory Rate 29 H Respiratory Effort / Characteristics Respiratory Depth Blood Pressure 85/66 L 147/90 H Blood Pressure [Right Arm] Blood Pressure Mean 71 108 Blood Pressure Mean [Right Arm] Blood Pressure Position Pulse Oximetry 89 L Oxygen Delivery Method Oxygen Flow Rate Sepsis Recent Fever Within 48 Hours Sepsis New/Unexplained Change in Mental Status Sepsis Action Taken by Nursing 09/13/25 11:30 09/13/25 11:30 09/13/25 11:30 Temperature Temperature Source Pulse Rate Pulse Rate [Apical] Pulse Rate from SpO2 Sensor Respiratory Rate Respiratory Effort / Characteristics Respiratory Depth Blood Pressure 147/90 H 147/90 H 147/90 H Blood Pressure [Right Arm] Blood Pressure Mean 108 108 108 Blood Pressure Mean [Right Arm] Blood Pressure Position Pulse Oximetry Oxygen Delivery Method Oxygen Flow Rate Sepsis Recent Fever Within 48 Hours Sepsis New/Unexplained Change in Mental Status Sepsis Action Taken by Nursing 09/13/25 11:30 09/13/25 11:30 09/13/25 11:45 Temperature Temperature Source Pulse Rate 96 H 94 H Pulse Rate [Apical] Pulse Rate from SpO2 Sensor 96 H 93 H Respiratory Rate 20 19 Respiratory Effort / Characteristics Respiratory Depth Blood Pressure 147/90 H Blood Pressure [Right Arm] Blood Pressure Mean 108 Blood Pressure Mean [Right Arm] Blood Pressure Position Pulse Oximetry 93 92 Oxygen Delivery Method Oxygen Flow Rate Sepsis Recent Fever Within 48 Hours Sepsis New/Unexplained Change in Mental Status Sepsis Action Taken by Nursing 09/13/25 11:46 09/13/25 11:46 09/13/25 11:46 Temperature Temperature Source Pulse Rate Pulse Rate [Apical] Pulse Rate from SpO2 Sensor Respiratory Rate Respiratory Effort / Characteristics Respiratory Depth Blood Pressure 121/97 121/97 121/97 Blood Pressure [Right Arm] Blood Pressure Mean 112 112 112 Blood Pressure Mean [Right Arm] Blood Pressure Position Pulse Oximetry Oxygen Delivery Method Oxygen Flow Rate Sepsis Recent Fever Within 48 Hours Sepsis New/Unexplained Change in Mental Status Sepsis Action Taken by Nursing 09/13/25 11:46 09/13/25 11:46 09/13/25 12:00 Temperature Temperature Source Pulse Rate 93 H Pulse Rate [Apical] Pulse Rate from SpO2 Sensor 92 H Respiratory Rate 19 Respiratory Effort / Characteristics Respiratory Depth Blood Pressure 121/97 121/97 Blood Pressure [Right Arm] Blood Pressure Mean 112 112 Blood Pressure Mean [Right Arm] Blood Pressure Position Pulse Oximetry 91 Oxygen Delivery Method Oxygen Flow Rate Sepsis Recent Fever Within 48 Hours Sepsis New/Unexplained Change in Mental Status Sepsis Action Taken by Nursing 09/13/25 12:01 09/13/25 12:01 09/13/25 12:01 Temperature Temperature Source Pulse Rate Pulse Rate [Apical] Pulse Rate from SpO2 Sensor Respiratory Rate Respiratory Effort / Characteristics Respiratory Depth Blood Pressure 127/105 H 127/105 H 127/105 H Blood Pressure [Right Arm] Blood Pressure Mean 119 119 119 Blood Pressure Mean [Right Arm] Blood Pressure Position Pulse Oximetry Oxygen Delivery Method Oxygen Flow Rate Sepsis Recent Fever Within 48 Hours Sepsis New/Unexplained Change in Mental Status Sepsis Action Taken by Nursing 09/13/25 12:01 09/13/25 12:01 09/13/25 12:03 Temperature Temperature Source Pulse Rate 93 H Pulse Rate [Apical] Pulse Rate from SpO2 Sensor 94 H Respiratory Rate 18 Respiratory Effort / Characteristics Respiratory Depth Blood Pressure 127/105 H 127/105 H Blood Pressure [Right Arm] Blood Pressure Mean 119 119 Blood Pressure Mean [Right Arm] Blood Pressure Position Pulse Oximetry 95 Oxygen Delivery Method Oxygen Flow Rate Sepsis Recent Fever Within 48 Hours Sepsis New/Unexplained Change in Mental Status Sepsis Action Taken by Nursing 09/13/25 12:15 09/13/25 12:16 09/13/25 12:16 Temperature Temperature Source Pulse Rate 90 Pulse Rate [Apical] Pulse Rate from SpO2 Sensor 88 Respiratory Rate 17 Respiratory Effort / Characteristics Respiratory Depth Blood Pressure Blood Pressure [Right Arm] Blood Pressure Mean 100 100 Blood Pressure Mean [Right Arm] Blood Pressure Position Pulse Oximetry 94 Oxygen Delivery Method Oxygen Flow Rate Sepsis Recent Fever Within 48 Hours Sepsis New/Unexplained Change in Mental Status Sepsis Action Taken by Nursing 09/13/25 12:16 09/13/25 12:16 09/13/25 12:16 Temperature Temperature Source Pulse Rate Pulse Rate [Apical] Pulse Rate from SpO2 Sensor Respiratory Rate Respiratory Effort / Characteristics Respiratory Depth Blood Pressure Blood Pressure [Right Arm] Blood Pressure Mean 100 100 100 Blood Pressure Mean [Right Arm] Blood Pressure Position Pulse Oximetry Oxygen Delivery Method Oxygen Flow Rate Sepsis Recent Fever Within 48 Hours Sepsis New/Unexplained Change in Mental Status Sepsis Action Taken by Nursing 09/13/25 12:30 09/13/25 12:31 09/13/25 12:31 Temperature Temperature Source Pulse Rate 87 Pulse Rate [Apical] Pulse Rate from SpO2 Sensor Respiratory Rate 17 Respiratory Effort / Characteristics Respiratory Depth Blood Pressure 119/98 119/98 Blood Pressure [Right Arm] Blood Pressure Mean 111 111 Blood Pressure Mean [Right Arm] Blood Pressure Position Pulse Oximetry Oxygen Delivery Method Oxygen Flow Rate Sepsis Recent Fever Within 48 Hours Sepsis New/Unexplained Change in Mental Status Sepsis Action Taken by Nursing 09/13/25 12:31 09/13/25 12:31 09/13/25 12:31 Temperature Temperature Source Pulse Rate Pulse Rate [Apical] Pulse Rate from SpO2 Sensor Respiratory Rate Respiratory Effort / Characteristics Respiratory Depth Blood Pressure 119/98 119/98 119/98 Blood Pressure [Right Arm] Blood Pressure Mean 111 111 111 Blood Pressure Mean [Right Arm] Blood Pressure Position Pulse Oximetry Oxygen Delivery Method Oxygen Flow Rate Sepsis Recent Fever Within 48 Hours Sepsis New/Unexplained Change in Mental Status Sepsis Action Taken by Nursing 09/13/25 12:45 09/13/25 12:46 09/13/25 12:46 Temperature Temperature Source Pulse Rate 88 Pulse Rate [Apical] Pulse Rate from SpO2 Sensor 86 Respiratory Rate 21 Respiratory Effort / Characteristics Respiratory Depth Blood Pressure Blood Pressure [Right Arm] Blood Pressure Mean 138 138 Blood Pressure Mean [Right Arm] Blood Pressure Position Pulse Oximetry 92 Oxygen Delivery Method Oxygen Flow Rate Sepsis Recent Fever Within 48 Hours Sepsis New/Unexplained Change in Mental Status Sepsis Action Taken by Nursing 09/13/25 12:46 09/13/25 12:46 09/13/25 12:48 Temperature Temperature Source Pulse Rate 86 Pulse Rate [Apical] Pulse Rate from SpO2 Sensor 87 Respiratory Rate 20 Respiratory Effort / Characteristics Respiratory Depth Blood Pressure Blood Pressure [Right Arm] Blood Pressure Mean 138 138 Blood Pressure Mean [Right Arm] Blood Pressure Position Pulse Oximetry 93 Oxygen Delivery Method Oxygen Flow Rate Sepsis Recent Fever Within 48 Hours Sepsis New/Unexplained Change in Mental Status Sepsis Action Taken by Nursing 09/13/25 12:50 09/13/25 12:50 09/13/25 12:50 Temperature Temperature Source Pulse Rate Pulse Rate [Apical] Pulse Rate from SpO2 Sensor Respiratory Rate Respiratory Effort / Characteristics Respiratory Depth Blood Pressure 94/66 L 94/66 L 94/66 L Blood Pressure [Right Arm] Blood Pressure Mean 72 72 72 Blood Pressure Mean [Right Arm] Blood Pressure Position Pulse Oximetry Oxygen Delivery Method Oxygen Flow Rate Sepsis Recent Fever Within 48 Hours Sepsis New/Unexplained Change in Mental Status Sepsis Action Taken by Nursing 09/13/25 12:50 09/13/25 12:50 09/13/25 13:00 Temperature Temperature Source Pulse Rate Pulse Rate [Apical] Pulse Rate from SpO2 Sensor Respiratory Rate Respiratory Effort / Characteristics Respiratory Depth Blood Pressure 94/66 L 94/66 L 92/47 L Blood Pressure [Right Arm] Blood Pressure Mean 72 72 65 Blood Pressure Mean [Right Arm] Blood Pressure Position Pulse Oximetry Oxygen Delivery Method Oxygen Flow Rate Sepsis Recent Fever Within 48 Hours Sepsis New/Unexplained Change in Mental Status Sepsis Action Taken by Nursing 09/13/25 13:00 09/13/25 13:00 09/13/25 13:00 Temperature Temperature Source Pulse Rate Pulse Rate [Apical] Pulse Rate from SpO2 Sensor Respiratory Rate Respiratory Effort / Characteristics Respiratory Depth Blood Pressure 92/47 L 92/47 L 92/47 L Blood Pressure [Right Arm] Blood Pressure Mean 65 65 65 Blood Pressure Mean [Right Arm] Blood Pressure Position Pulse Oximetry Oxygen Delivery Method Oxygen Flow Rate Sepsis Recent Fever Within 48 Hours Sepsis New/Unexplained Change in Mental Status Sepsis Action Taken by Nursing 09/13/25 13:00 09/13/25 13:00 09/13/25 13:15 Temperature Temperature Source Pulse Rate 87 86 Pulse Rate [Apical] Pulse Rate from SpO2 Sensor 85 85 Respiratory Rate 17 18 Respiratory Effort / Characteristics Respiratory Depth Blood Pressure 92/47 L Blood Pressure [Right Arm] Blood Pressure Mean 65 Blood Pressure Mean [Right Arm] Blood Pressure Position Pulse Oximetry 91 91 Oxygen Delivery Method Oxygen Flow Rate Sepsis Recent Fever Within 48 Hours Sepsis New/Unexplained Change in Mental Status Sepsis Action Taken by Nursing 09/13/25 13:15 09/13/25 13:15 09/13/25 13:15 Temperature Temperature Source Pulse Rate Pulse Rate [Apical] Pulse Rate from SpO2 Sensor Respiratory Rate Respiratory Effort / Characteristics Respiratory Depth Blood Pressure 88/66 L 88/66 L 88/66 L Blood Pressure [Right Arm] Blood Pressure Mean 72 72 72 Blood Pressure Mean [Right Arm] Blood Pressure Position Pulse Oximetry Oxygen Delivery Method Oxygen Flow Rate Sepsis Recent Fever Within 48 Hours Sepsis New/Unexplained Change in Mental Status Sepsis Action Taken by Nursing 09/13/25 13:15 09/13/25 13:15 09/13/25 13:15 Temperature Temperature Source Pulse Rate Pulse Rate [Apical] Pulse Rate from SpO2 Sensor Respiratory Rate Respiratory Effort / Characteristics Respiratory Depth Blood Pressure 88/66 L 88/66 L 88/66 L Blood Pressure [Right Arm] Blood Pressure Mean 72 72 72 Blood Pressure Mean [Right Arm] Blood Pressure Position Pulse Oximetry Oxygen Delivery Method Oxygen Flow Rate Sepsis Recent Fever Within 48 Hours Sepsis New/Unexplained Change in Mental Status Sepsis Action Taken by Nursing 09/13/25 13:15 09/13/25 13:15 09/13/25 13:15 Temperature Temperature Source Pulse Rate Pulse Rate [Apical] Pulse Rate from SpO2 Sensor Respiratory Rate Respiratory Effort / Characteristics Respiratory Depth Blood Pressure 88/66 L 88/66 L 88/66 L Blood Pressure [Right Arm] Blood Pressure Mean 72 72 72 Blood Pressure Mean [Right Arm] Blood Pressure Position Pulse Oximetry Oxygen Delivery Method Oxygen Flow Rate Sepsis Recent Fever Within 48 Hours Sepsis New/Unexplained Change in Mental Status Sepsis Action Taken by Nursing 09/13/25 13:24 09/13/25 13:26 09/13/25 13:26 Temperature Temperature Source Pulse Rate 87 Pulse Rate [Apical] Pulse Rate from SpO2 Sensor 87 Respiratory Rate 19 Respiratory Effort / Characteristics Respiratory Depth Blood Pressure 105/72 Blood Pressure [Right Arm] 105/72 Blood Pressure Mean 76 Blood Pressure Mean [Right Arm] 83 Blood Pressure Position Pulse Oximetry 92 Oxygen Delivery Method Oxygen Flow Rate Sepsis Recent Fever Within 48 Hours Sepsis New/Unexplained Change in Mental Status Sepsis Action Taken by Nursing 09/13/25 13:26 09/13/25 13:26 09/13/25 13:26 Temperature Temperature Source Pulse Rate Pulse Rate [Apical] Pulse Rate from SpO2 Sensor Respiratory Rate Respiratory Effort / Characteristics Respiratory Depth Blood Pressure 105/72 105/72 105/72 Blood Pressure [Right Arm] Blood Pressure Mean 76 76 76 Blood Pressure Mean [Right Arm] Blood Pressure Position Pulse Oximetry Oxygen Delivery Method Oxygen Flow Rate Sepsis Recent Fever Within 48 Hours Sepsis New/Unexplained Change in Mental Status Sepsis Action Taken by Nursing 09/13/25 13:30 09/13/25 13:30 09/13/25 13:30 Temperature Temperature Source Pulse Rate Pulse Rate [Apical] Pulse Rate from SpO2 Sensor Respiratory Rate Respiratory Effort / Characteristics Respiratory Depth Blood Pressure 98/60 L 98/60 L 98/60 L Blood Pressure [Right Arm] Blood Pressure Mean 64 64 64 Blood Pressure Mean [Right Arm] Blood Pressure Position Pulse Oximetry Oxygen Delivery Method Oxygen Flow Rate Sepsis Recent Fever Within 48 Hours Sepsis New/Unexplained Change in Mental Status Sepsis Action Taken by Nursing 09/13/25 13:30 09/13/25 13:30 09/13/25 13:30 Temperature Temperature Source Pulse Rate 83 Pulse Rate [Apical] Pulse Rate from SpO2 Sensor 84 Respiratory Rate 18 Respiratory Effort / Characteristics Respiratory Depth Blood Pressure 98/60 L 98/60 L Blood Pressure [Right Arm] Blood Pressure Mean 64 64 Blood Pressure Mean [Right Arm] Blood Pressure Position Pulse Oximetry 92 Oxygen Delivery Method Oxygen Flow Rate Sepsis Recent Fever Within 48 Hours Sepsis New/Unexplained Change in Mental Status Sepsis Action Taken by Nursing 09/13/25 13:45 09/13/25 13:45 09/13/25 13:45 Temperature Temperature Source Pulse Rate 83 Pulse Rate [Apical] Pulse Rate from SpO2 Sensor 84 Respiratory Rate 18 Respiratory Effort / Characteristics Respiratory Depth Blood Pressure 77/63 L 77/63 L Blood Pressure [Right Arm] Blood Pressure Mean 70 70 Blood Pressure Mean [Right Arm] Blood Pressure Position Pulse Oximetry 94 Oxygen Delivery Method Oxygen Flow Rate Sepsis Recent Fever Within 48 Hours Sepsis New/Unexplained Change in Mental Status Sepsis Action Taken by Nursing 09/13/25 13:47 09/13/25 13:47 09/13/25 13:47 Temperature Temperature Source Pulse Rate Pulse Rate [Apical] Pulse Rate from SpO2 Sensor Respiratory Rate Respiratory Effort / Characteristics Respiratory Depth Blood Pressure 94/60 L 94/60 L 94/60 L Blood Pressure [Right Arm] Blood Pressure Mean 64 64 64 Blood Pressure Mean [Right Arm] Blood Pressure Position Pulse Oximetry Oxygen Delivery Method Oxygen Flow Rate Sepsis Recent Fever Within 48 Hours Sepsis New/Unexplained Change in Mental Status Sepsis Action Taken by Nursing 09/13/25 13:47 09/13/25 13:47 09/13/25 14:00 Temperature Temperature Source Pulse Rate Pulse Rate [Apical] Pulse Rate from SpO2 Sensor Respiratory Rate Respiratory Effort / Characteristics Respiratory Depth Blood Pressure 94/60 L 94/60 L 93/62 L Blood Pressure [Right Arm] Blood Pressure Mean 64 64 66 Blood Pressure Mean [Right Arm] Blood Pressure Position Pulse Oximetry Oxygen Delivery Method Oxygen Flow Rate Sepsis Recent Fever Within 48 Hours Sepsis New/Unexplained Change in Mental Status Sepsis Action Taken by Nursing 09/13/25 14:00 09/13/25 14:00 09/13/25 14:00 Temperature Temperature Source Pulse Rate Pulse Rate [Apical] Pulse Rate from SpO2 Sensor Respiratory Rate Respiratory Effort / Characteristics Respiratory Depth Blood Pressure 93/62 L 93/62 L 93/62 L Blood Pressure [Right Arm] Blood Pressure Mean 66 66 66 Blood Pressure Mean [Right Arm] Blood Pressure Position Pulse Oximetry Oxygen Delivery Method Oxygen Flow Rate Sepsis Recent Fever Within 48 Hours Sepsis New/Unexplained Change in Mental Status Sepsis Action Taken by Nursing 09/13/25 14:00 09/13/25 14:00 09/13/25 14:06 Temperature Temperature Source Pulse Rate 85 81 Pulse Rate [Apical] Pulse Rate from SpO2 Sensor 85 80 Respiratory Rate 19 18 Respiratory Effort / Characteristics Respiratory Depth Blood Pressure 93/62 L Blood Pressure [Right Arm] Blood Pressure Mean 66 Blood Pressure Mean [Right Arm] Blood Pressure Position Pulse Oximetry 94 95 Oxygen Delivery Method Oxygen Flow Rate Sepsis Recent Fever Within 48 Hours Sepsis New/Unexplained Change in Mental Status Sepsis Action Taken by Nursing 09/13/25 14:08 09/13/25 14:08 09/13/25 14:08 Temperature Temperature Source Pulse Rate Pulse Rate [Apical] Pulse Rate from SpO2 Sensor Respiratory Rate Respiratory Effort / Characteristics Respiratory Depth Blood Pressure 87/69 L 87/69 L 87/69 L Blood Pressure [Right Arm] Blood Pressure Mean 74 74 74 Blood Pressure Mean [Right Arm] Blood Pressure Position Pulse Oximetry Oxygen Delivery Method Oxygen Flow Rate Sepsis Recent Fever Within 48 Hours Sepsis New/Unexplained Change in Mental Status Sepsis Action Taken by Nursing 09/13/25 14:08 09/13/25 14:08 09/13/25 14:11 Temperature Temperature Source Pulse Rate 79 Pulse Rate [Apical] Pulse Rate from SpO2 Sensor Respiratory Rate Respiratory Effort / Characteristics Respiratory Depth Blood Pressure 87/69 L 87/69 L Blood Pressure [Right Arm] Blood Pressure Mean 74 74 Blood Pressure Mean [Right Arm] Blood Pressure Position Pulse Oximetry Oxygen Delivery Method Oxygen Flow Rate Sepsis Recent Fever Within 48 Hours Sepsis New/Unexplained Change in Mental Status Sepsis Action Taken by Nursing 09/13/25 14:12 09/13/25 14:14 09/13/25 14:15 Temperature Temperature Source Pulse Rate 79 Pulse Rate [Apical] Pulse Rate from SpO2 Sensor 75 Respiratory Rate 20 Respiratory Effort / Characteristics Respiratory Depth Blood Pressure 92/66 L 85/64 L Blood Pressure [Right Arm] Blood Pressure Mean 77 68 Blood Pressure Mean [Right Arm] Blood Pressure Position Pulse Oximetry 95 Oxygen Delivery Method Oxygen Flow Rate Sepsis Recent Fever Within 48 Hours Sepsis New/Unexplained Change in Mental Status Sepsis Action Taken by Nursing 09/13/25 14:15 09/13/25 14:15 09/13/25 14:15 Temperature Temperature Source Pulse Rate Pulse Rate [Apical] Pulse Rate from SpO2 Sensor Respiratory Rate Respiratory Effort / Characteristics Respiratory Depth Blood Pressure 85/64 L 85/64 L 85/64 L Blood Pressure [Right Arm] Blood Pressure Mean 68 68 68 Blood Pressure Mean [Right Arm] Blood Pressure Position Pulse Oximetry Oxygen Delivery Method Oxygen Flow Rate Sepsis Recent Fever Within 48 Hours Sepsis New/Unexplained Change in Mental Status Sepsis Action Taken by Nursing 09/13/25 14:15 09/13/25 14:15 09/13/25 14:30 Temperature Temperature Source Pulse Rate 80 77 Pulse Rate [Apical] Pulse Rate from SpO2 Sensor 79 79 Respiratory Rate 10 L Respiratory Effort / Characteristics Respiratory Depth Blood Pressure 85/64 L Blood Pressure [Right Arm] Blood Pressure Mean 68 Blood Pressure Mean [Right Arm] Blood Pressure Position Pulse Oximetry 95 96 Oxygen Delivery Method Oxygen Flow Rate Sepsis Recent Fever Within 48 Hours Sepsis New/Unexplained Change in Mental Status Sepsis Action Taken by Nursing 09/13/25 14:30 09/13/25 14:30 09/13/25 14:30 Temperature Temperature Source Pulse Rate Pulse Rate [Apical] Pulse Rate from SpO2 Sensor Respiratory Rate Respiratory Effort / Characteristics Respiratory Depth Blood Pressure 85/61 L 85/61 L 85/61 L Blood Pressure [Right Arm] Blood Pressure Mean 65 65 65 Blood Pressure Mean [Right Arm] Blood Pressure Position Pulse Oximetry Oxygen Delivery Method Oxygen Flow Rate Sepsis Recent Fever Within 48 Hours Sepsis New/Unexplained Change in Mental Status Sepsis Action Taken by Nursing 09/13/25 14:30 09/13/25 14:30 09/13/25 14:36 Temperature Temperature Source Pulse Rate 80 Pulse Rate [Apical] Pulse Rate from SpO2 Sensor 78 Respiratory Rate Respiratory Effort / Characteristics Respiratory Depth Blood Pressure 85/61 L 85/61 L Blood Pressure [Right Arm] Blood Pressure Mean 65 65 Blood Pressure Mean [Right Arm] Blood Pressure Position Pulse Oximetry 96 Oxygen Delivery Method Oxygen Flow Rate Sepsis Recent Fever Within 48 Hours Sepsis New/Unexplained Change in Mental Status Sepsis Action Taken by Nursing 09/13/25 14:37 09/13/25 14:37 09/13/25 14:37 Temperature Temperature Source Pulse Rate Pulse Rate [Apical] Pulse Rate from SpO2 Sensor Respiratory Rate Respiratory Effort / Characteristics Respiratory Depth Blood Pressure 86/66 L 86/66 L 86/66 L Blood Pressure [Right Arm] Blood Pressure Mean 75 75 75 Blood Pressure Mean [Right Arm] Blood Pressure Position Pulse Oximetry Oxygen Delivery Method Oxygen Flow Rate Sepsis Recent Fever Within 48 Hours Sepsis New/Unexplained Change in Mental Status Sepsis Action Taken by Nursing 09/13/25 14:37 09/13/25 14:37 09/13/25 14:45 Temperature Temperature Source Pulse Rate 73 Pulse Rate [Apical] Pulse Rate from SpO2 Sensor 73 Respiratory Rate Respiratory Effort / Characteristics Respiratory Depth Blood Pressure 86/66 L 86/66 L Blood Pressure [Right Arm] Blood Pressure Mean 75 75 Blood Pressure Mean [Right Arm] Blood Pressure Position Pulse Oximetry 96 Oxygen Delivery Method Oxygen Flow Rate Sepsis Recent Fever Within 48 Hours Sepsis New/Unexplained Change in Mental Status Sepsis Action Taken by Nursing 09/13/25 14:45 09/13/25 14:45 09/13/25 14:45 Temperature Temperature Source Pulse Rate Pulse Rate [Apical] Pulse Rate from SpO2 Sensor Respiratory Rate Respiratory Effort / Characteristics Respiratory Depth Blood Pressure 81/60 L 81/60 L 81/60 L Blood Pressure [Right Arm] Blood Pressure Mean 66 66 66 Blood Pressure Mean [Right Arm] Blood Pressure Position Pulse Oximetry Oxygen Delivery Method Oxygen Flow Rate Sepsis Recent Fever Within 48 Hours Sepsis New/Unexplained Change in Mental Status Sepsis Action Taken by Nursing 09/13/25 14:45 09/13/25 14:45 09/13/25 15:00 Temperature Temperature Source Pulse Rate 67 Pulse Rate [Apical] Pulse Rate from SpO2 Sensor 67 Respiratory Rate Respiratory Effort / Characteristics Respiratory Depth Blood Pressure 81/60 L 81/60 L Blood Pressure [Right Arm] Blood Pressure Mean 66 66 Blood Pressure Mean [Right Arm] Blood Pressure Position Pulse Oximetry 97 Oxygen Delivery Method Oxygen Flow Rate Sepsis Recent Fever Within 48 Hours Sepsis New/Unexplained Change in Mental Status Sepsis Action Taken by Nursing 09/13/25 15:00 09/13/25 15:00 09/13/25 15:00 Temperature Temperature Source Pulse Rate Pulse Rate [Apical] Pulse Rate from SpO2 Sensor Respiratory Rate Respiratory Effort / Characteristics Respiratory Depth Blood Pressure 91/65 L 91/65 L 91/65 L Blood Pressure [Right Arm] Blood Pressure Mean 70 70 70 Blood Pressure Mean [Right Arm] Blood Pressure Position Pulse Oximetry Oxygen Delivery Method Oxygen Flow Rate Sepsis Recent Fever Within 48 Hours Sepsis New/Unexplained Change in Mental Status Sepsis Action Taken by Nursing 09/13/25 15:00 09/13/25 15:00 09/13/25 15:00 Temperature Temperature Source Pulse Rate Pulse Rate [Apical] Pulse Rate from SpO2 Sensor Respiratory Rate Respiratory Effort / Characteristics Respiratory Depth Blood Pressure 91/65 L 91/65 L 91/65 L Blood Pressure [Right Arm] Blood Pressure Mean 70 70 70 Blood Pressure Mean [Right Arm] Blood Pressure Position Pulse Oximetry Oxygen Delivery Method Oxygen Flow Rate Sepsis Recent Fever Within 48 Hours Sepsis New/Unexplained Change in Mental Status Sepsis Action Taken by Nursing 09/13/25 15:15 09/13/25 15:15 09/13/25 15:15 Temperature Temperature Source Pulse Rate Pulse Rate [Apical] Pulse Rate from SpO2 Sensor Respiratory Rate Respiratory Effort / Characteristics Respiratory Depth Blood Pressure 114/84 114/84 114/84 Blood Pressure [Right Arm] Blood Pressure Mean 88 88 88 Blood Pressure Mean [Right Arm] Blood Pressure Position Pulse Oximetry Oxygen Delivery Method Oxygen Flow Rate Sepsis Recent Fever Within 48 Hours Sepsis New/Unexplained Change in Mental Status Sepsis Action Taken by Nursing 09/13/25 15:15 09/13/25 15:15 09/13/25 15:15 Temperature Temperature Source Pulse Rate 71 Pulse Rate [Apical] Pulse Rate from SpO2 Sensor 70 Respiratory Rate Respiratory Effort / Characteristics Respiratory Depth Blood Pressure 114/84 114/84 Blood Pressure [Right Arm] Blood Pressure Mean 88 88 Blood Pressure Mean [Right Arm] Blood Pressure Position Pulse Oximetry 98 Oxygen Delivery Method Oxygen Flow Rate Sepsis Recent Fever Within 48 Hours Sepsis New/Unexplained Change in Mental Status Sepsis Action Taken by Nursing 09/13/25 15:30 09/13/25 15:31 09/13/25 15:31 Temperature Temperature Source Pulse Rate 74 Pulse Rate [Apical] Pulse Rate from SpO2 Sensor 70 Respiratory Rate Respiratory Effort / Characteristics Respiratory Depth Blood Pressure 116/81 116/81 Blood Pressure [Right Arm] Blood Pressure Mean 89 89 Blood Pressure Mean [Right Arm] Blood Pressure Position Pulse Oximetry 92 Oxygen Delivery Method Oxygen Flow Rate Sepsis Recent Fever Within 48 Hours Sepsis New/Unexplained Change in Mental Status Sepsis Action Taken by Nursing 09/13/25 15:31 09/13/25 15:31 09/13/25 15:31 Temperature Temperature Source Pulse Rate Pulse Rate [Apical] Pulse Rate from SpO2 Sensor Respiratory Rate Respiratory Effort / Characteristics Respiratory Depth Blood Pressure 116/81 116/81 116/81 Blood Pressure [Right Arm] Blood Pressure Mean 89 89 89 Blood Pressure Mean [Right Arm] Blood Pressure Position Pulse Oximetry Oxygen Delivery Method Oxygen Flow Rate Sepsis Recent Fever Within 48 Hours Sepsis New/Unexplained Change in Mental Status Sepsis Action Taken by Nursing 09/13/25 15:45 09/13/25 15:46 09/13/25 15:46 Temperature Temperature Source Pulse Rate 71 Pulse Rate [Apical] Pulse Rate from SpO2 Sensor 73 Respiratory Rate Respiratory Effort / Characteristics Respiratory Depth Blood Pressure 103/74 103/74 Blood Pressure [Right Arm] Blood Pressure Mean 76 76 Blood Pressure Mean [Right Arm] Blood Pressure Position Pulse Oximetry 82 L Oxygen Delivery Method Oxygen Flow Rate Sepsis Recent Fever Within 48 Hours Sepsis New/Unexplained Change in Mental Status Sepsis Action Taken by Nursing 09/13/25 15:46 09/13/25 15:46 09/13/25 16:06 Temperature Temperature Source Pulse Rate Pulse Rate [Apical] Pulse Rate from SpO2 Sensor Respiratory Rate Respiratory Effort / Characteristics Respiratory Depth Blood Pressure 103/74 103/74 Blood Pressure [Right Arm] Blood Pressure Mean 76 76 Blood Pressure Mean [Right Arm] Blood Pressure Position Pulse Oximetry 96 Oxygen Delivery Method Nasal Cannula Oxygen Flow Rate 2 Sepsis Recent Fever Within 48 Hours Sepsis New/Unexplained Change in Mental Status Sepsis Action Taken by Nursing Physical Exam HENT: Exam performed. - Head: Normocephalic and atraumatic. EYES: Conjunctivae and EOM are normal. Right eye exhibits no discharge. Left eye exhibits no discharge. No scleral icterus. NECK: Normal range of motion. Neck supple. No JVD present. CV: Tachycardic rate, regular rhythm, normal heart sounds and intact distal pulses. There is no peripheral edema. Palpable radial pulses bue. PULM/CHEST: Scant expiratory wheezes bilaterally. ABD: The abdomen is soft. There is no tenderness. NEURO: Motor and sensation grossly intact. SKIN: Pale. Course Course 09: The patient was evaluated in room B2. A complete history and physical exam was performed Cardiac monitoring: An order was placed for continuous cardiac monitoring. The monitor shows a rate of 110 with sinus tachycardia rhythm interpreted by me Bedside cardiac ultrasound shows pericardial effusion. Right atrium appears to be collapsing right ventricle does not. Patient will be given small fluid bolus DuoNeb treatment and steroids. Will plan on obtaining CTA of the chest given the patient's recent appendectomy. 1000: Patient became hypoxic on room air. Supplemental oxygen applied via nasal cannula which improved the patient's oxygen saturation. 1057: Vital signs stable on supplemental oxygen. Labs show a glucose of 36. Patient alert and oriented x 3. Patient states he did not eat this morning. Patient states he did not take too much of his glipizide and did not take his glipizide today. Patient be given 1 amp D50. 1320: Vital signs stable on supplemental oxygen.White blood cell count 8.64 hemoglobin 9.9 VBG unremarkable lactic acid unremarkable. Ammonia 25. Patient will be admitted to the [facility] hospitalist team. 1430: Patient became hypotensive. IV fluids ordered for the patient. Patient was evaluated by Dr. Crocker [facility] hospitalist. He was able to access the patient's medical records which showed E. coli on a urine culture from September 08, 2025. Antibiotics ordered by hospitalist team. Administered Medications Discontinued Medications Albuterol (Albut/Ipratrop 3mg/0.5mg Neb 3 Ml Vial) 3 ml NEB NOW STA; Protocol Stop: 09/13/25 10:28 Last Admin: 09/13/25 10:35 Dose: 3 ml Documented By: JILLIAN Dextrose (Dextrose 50% 50 Ml Syringe) 50 ml IV NOW ONE Stop: 09/13/25 10:54 Last Admin: 09/13/25 10:57 Dose: 50 ml Documented By: Sodium Chloride (Nss) 500 mls @ 999 mls/hr IV .Q31M ONE Stop: 09/13/25 10:29 Last Infusion: 09/13/25 11:00 Dose: Infused Documented By: oseas Admin: 09/13/25 10:10 Dose: 999 mls/hr Documented By: Sodium Chloride (Nss) 500 mls @ 999 mls/hr IV .Q31M ONE Stop: 09/13/25 14:24 Last Infusion: 09/13/25 14:56 Dose: Infused Documented By: oseas Admin: 09/13/25 14:03 Dose: 999 mls/hr Documented By: oseas Sodium Chloride (Nss) 500 mls @ 125 mls/hr IV .Q4H FRANCISCO Stop: 09/13/25 17:59 Last Admin: 09/13/25 14:29 Dose: Not Given Documented By: oseas Sodium Chloride (Nss) 1,000 mls @ 999 mls/hr IV .Q1H1M ONE Stop: 09/13/25 15:24 Last Infusion: 09/13/25 15:50 Dose: Infused Documented By: oseas Admin: 09/13/25 14:51 Dose: 999 mls/hr Documented By: oseas Cefepime HCl (Maxipime 2000mg) 2,000 mg in 20 mls @ 5 mls/min IV NOW STA; Protocol Stop: 09/13/25 14:32 Last Admin: 09/13/25 14:53 Dose: 5 mls/min Documented By: oseas Ioversol (Optiray 320 125ml) 120 ml IV ONCE ONE Stop: 09/13/25 11:13 Last Admin: 09/13/25 11:12 Dose: 120 ml Documented By: SHIVANI Methylprednisolone (Methylprednisolone 125 Mg/2 Ml Vial) 125 mg IV NOW STA Stop: 09/13/25 10:28 Last Admin: 09/13/25 10:32 Dose: 125 mg Documented By: JILLIAN Critical Care Time Critical Care Time: Yes Total Critical Care Time: 36 I have personally spent greater than 36 minutes of critical care time in the direct management of this patient. This includes bedside care, interpretation of diagnostic studies, and testing, discussion with consultants, patient, and family members, and other required patient management activities. This 36 minutes is in excess of all separately billable procedures. Medical Decision Making Medical Records Attestation: I reviewed the patient's medical records. Medical records reviewed. Patient presented to the emergency department August 28, 2025 with fever tachycardia and hypotension. Patient was determined to have sepsis secondary to appendicitis. Laboratory Data Attestation: I reviewed the patient's lab results. 09/13/25 09:54 09/13/25 09:54 Lab Results 09/13/25 09/13/25 09/13/25 Range/Units 09:54 10:11 11:23 WBC 8.64 (4.8-10.8) K/ul RBC 4.06 L (4.70-6.10) M/uL Hgb 9.9 L (14.0-18.0) g/dL Hct 30.6 L (42.0-52.0) % MCV 75.4 L (80.0-100.0) fL MCH 24.4 L (25.0-34.0) pg MCHC 32.4 (32.0-36.0) g/dL RDW Std Deviation 49.3 H (36.4-46.3) fL RDW Coeff of Mildred 18.4 H (11.5-14.5) % Plt Count 205 (130-400) K/uL MPV 9.6 (9.4-12.4) fL Absolute Nucleated RBC 0.02 (0.00-0.12) K/uL Nucleated RBC % (auto) 0.2 % Neutrophils % (Manual) 33 % Lymphocytes % (Manual) 24 % Reactive Lymphs % (Man) 16 % Monocytes % (Manual) 27 % Neutrophils # (Manual) 2.85 (1.40-6.50) K/uL Total Absolute Neuts 2.85 (1.4-6.5) K/uL Lymphocytes # (Manual) 2.07 (1.2-3.4) K/uL Reactive Lymphs # 1.38 K/uL Total Abs Lymphocytes 3.46 H (1.2-3.4) K/uL Monocytes # (Manual) 2.33 H (0.11-0.59) K/uL Polychromasia 1+ Hypochromasia Present ESR (0-20) mm/hr PT 13.0 H (9.0-12.0) Seconds INR 1.2 H (0.9-1.1) APTT 33 H (21-31) Seconds PTT Ratio 1.2 VBG pH 7.48 H (7.36-7.41) VBG pCO2 36 L (38-50) mmHg VBG pO2 81 mmHg VBG HCO3 27 mmol/L VBG O2 Saturation 98.0 % VBG Base Excess 3.4 mEq/L Sodium 132 L (136-145) mmol/L Potassium 3.4 L (3.5-5.1) mmol/L Chloride 97 L (98-107) mmol/L Carbon Dioxide 28 (21-32) mmol/L Anion Gap 7 (3-11) BUN 15 (6-23) mg/dl Creatinine 0.83 (0.6-1.4) mg/dl Est Cr Clr Drug Dosing 101.2 ml/min eGFR 98.34 BUN/Creatinine Ratio 18.1 (10-20) Glucose 36 L* (70-99(Fasting)) mg/dl POC Glucose 128 H (70-99) mg/dl Lactate (0.4-2.0) mmol/L Calcium 7.9 L (8.6-10.3) mg/dl Magnesium 1.8 (1.7-2.4) mg/dl Iron 11 L (35-175) mcg/dl TIBC 225 L (250-450) mcg/dl Transferrin 161 L (200-360) mg/dl Transferrin % Sat 5 L (20-50) % Ferritin 990.2 H (8-388) ng/ml Total Bilirubin 0.5 (0.2-1.0) mg/dl Direct Bilirubin 0.2 (0-0.2) mg/dl AST 63 H (13-39) U/L ALT 35 (7-52) U/L Alkaline Phosphatase 97 (34-104) U/L Ammonia (18-72) umol/L Troponin I High Sens 4.2 (0-20) pg/ml C-Reactive Protein 12.56 H (0-0.5) mg/dl B-Natriuretic Peptide 8 (0-100) pg/ml Total Protein 6.4 (6.0-8.3) gm/dl Albumin 2.7 L (3.4-5.0) gm/dl Lipase 38 (11-82) U/L TSH 0.622 (0.300-4.500) uIu/ml Random Cortisol 21.32 mcg/dl Urine Color Urine Appearance (Clear) Urine pH (4.5-7.5) Ur Specific [place] (1.000-1.030) Urine Protein (Negative) Urine Glucose (UA) (Negative) Urine Ketones (Negative) Urine Blood (Negative) Urine Nitrite (Negative) Urine Bilirubin (Negative) Urine Urobilinogen (Negative) Ur Leukocyte Esterase (Negative) Urine WBC (Auto) (0-5) /hpf Urine RBC (Auto) (0-2) /hpf U Hyaline Cast (Auto) (0-2) /lpf U Epithel Cells (Auto) (0-2) /hpf Urine Bacteria (Auto) (None Seen) Urine Comment Adenovirus (PCR) Not Detected (NotDetected) Anaplasma Smear B. pertussis DNA (PCR) Not Detected (NotDetected) B.parapertussis DNA PCR Not Detected (NotDetected) C. pneumoniae DNA (PCR) Not Detected (NotDetected) Coronavirus OC43 (PCR) Not Detected (NotDetected) Coronavirus HKU1 (PCR) Not Detected (NotDetected) Coronavirus 229E (PCR) Not Detected (NotDetected) SARS-CoV-2 (PCR) Not Detected (NotDetected) Coronavirus NL63 (PCR) Not Detected (NotDetected) EBV Capsid Ag IgG Ab Positive EBV Caps Ag IgG Sig Str > 750.0 (< 18.0) U/mL EBV Capsid Ag IgM Ab Negative EBV Caps Ag IgM Sig Str < 10.0 (< 36.0) U/mL EBV Early Antigen IgG Negative (Negative) EBV EA Signal Strength < 5.0 (< 9.0) U/mL EBV Nuclear Antigen Ab Positive EBV Nucl Ag IgG Sig Str 514.0 (< 18.0) U/mL EBV Interpretation See Comment Monoscreen Negative (Negative) Human Metapneumovir PCR Not Detected (NotDetected) Influenza Type A (PCR) Not Detected (NotDetected) Influenza Type B (PCR) Not Detected (NotDetected) M. pneumoniae (PCR) Not Detected (NotDetected) Parainfluenza 1 (PCR) Not Detected (NotDetected) Parainfluenza 2 (PCR) Not Detected (NotDetected) Parainfluenza 3 (PCR) Not Detected (NotDetected) Parainfluenza 4 (PCR) Not Detected (NotDetected) RSV (PCR) Not Detected (NotDetected) Entero/Rhino (PCR) Not Detected (NotDetected) 09/13/25 09/13/25 09/13/25 Range/Units 12:35 12:48 12:58 WBC (4.8-10.8) K/ul RBC (4.70-6.10) M/uL Hgb (14.0-18.0) g/dL Hct (42.0-52.0) % MCV (80.0-100.0) fL MCH (25.0-34.0) pg MCHC (32.0-36.0) g/dL RDW Std Deviation (36.4-46.3) fL RDW Coeff of Mildred (11.5-14.5) % Plt Count (130-400) K/uL MPV (9.4-12.4) fL Absolute Nucleated RBC (0.00-0.12) K/uL Nucleated RBC % (auto) % Neutrophils % (Manual) % Lymphocytes % (Manual) % Reactive Lymphs % (Man) % Monocytes % (Manual) % Neutrophils # (Manual) (1.40-6.50) K/uL Total Absolute Neuts (1.4-6.5) K/uL Lymphocytes # (Manual) (1.2-3.4) K/uL Reactive Lymphs # K/uL Total Abs Lymphocytes (1.2-3.4) K/uL Monocytes # (Manual) (0.11-0.59) K/uL Polychromasia Hypochromasia ESR (0-20) mm/hr PT (9.0-12.0) Seconds INR (0.9-1.1) APTT (21-31) Seconds PTT Ratio VBG pH (7.36-7.41) VBG pCO2 (38-50) mmHg VBG pO2 mmHg VBG HCO3 mmol/L VBG O2 Saturation % VBG Base Excess mEq/L Sodium (136-145) mmol/L Potassium (3.5-5.1) mmol/L Chloride (98-107) mmol/L Carbon Dioxide (21-32) mmol/L Anion Gap (3-11) BUN (6-23) mg/dl Creatinine (0.6-1.4) mg/dl Est Cr Clr Drug Dosing ml/min eGFR BUN/Creatinine Ratio (10-20) Glucose (70-99(Fasting)) mg/dl POC Glucose 87 85 (70-99) mg/dl Lactate (0.4-2.0) mmol/L Calcium (8.6-10.3) mg/dl Magnesium (1.7-2.4) mg/dl Iron (35-175) mcg/dl TIBC (250-450) mcg/dl Transferrin (200-360) mg/dl Transferrin % Sat (20-50) % Ferritin (8-388) ng/ml Total Bilirubin (0.2-1.0) mg/dl Direct Bilirubin (0-0.2) mg/dl AST (13-39) U/L ALT (7-52) U/L Alkaline Phosphatase (34-104) U/L Ammonia 25.0 (18-72) umol/L Troponin I High Sens (0-20) pg/ml C-Reactive Protein (0-0.5) mg/dl B-Natriuretic Peptide (0-100) pg/ml Total Protein (6.0-8.3) gm/dl Albumin (3.4-5.0) gm/dl Lipase (11-82) U/L TSH (0.300-4.500) uIu/ml Random Cortisol mcg/dl Urine Color Urine Appearance (Clear) Urine pH (4.5-7.5) Ur Specific [place] (1.000-1.030) Urine Protein (Negative) Urine Glucose (UA) (Negative) Urine Ketones (Negative) Urine Blood (Negative) Urine Nitrite (Negative) Urine Bilirubin (Negative) Urine Urobilinogen (Negative) Ur Leukocyte Esterase (Negative) Urine WBC (Auto) (0-5) /hpf Urine RBC (Auto) (0-2) /hpf U Hyaline Cast (Auto) (0-2) /lpf U Epithel Cells (Auto) (0-2) /hpf Urine Bacteria (Auto) (None Seen) Urine Comment Adenovirus (PCR) (NotDetected) Anaplasma Smear B. pertussis DNA (PCR) (NotDetected) B.parapertussis DNA PCR (NotDetected) C. pneumoniae DNA (PCR) (NotDetected) Coronavirus OC43 (PCR) (NotDetected) Coronavirus HKU1 (PCR) (NotDetected) Coronavirus 229E (PCR) (NotDetected) SARS-CoV-2 (PCR) (NotDetected) Coronavirus NL63 (PCR) (NotDetected) EBV Capsid Ag IgG Ab EBV Caps Ag IgG Sig Str (< 18.0) U/mL EBV Capsid Ag IgM Ab EBV Caps Ag IgM Sig Str (< 36.0) U/mL EBV Early Antigen IgG (Negative) EBV EA Signal Strength (< 9.0) U/mL EBV Nuclear Antigen Ab EBV Nucl Ag IgG Sig Str (< 18.0) U/mL EBV Interpretation Monoscreen (Negative) Human Metapneumovir PCR (NotDetected) Influenza Type A (PCR) (NotDetected) Influenza Type B (PCR) (NotDetected) M. pneumoniae (PCR) (NotDetected) Parainfluenza 1 (PCR) (NotDetected) Parainfluenza 2 (PCR) (NotDetected) Parainfluenza 3 (PCR) (NotDetected) Parainfluenza 4 (PCR) (NotDetected) RSV (PCR) (NotDetected) Entero/Rhino (PCR) (NotDetected) 09/13/25 09/13/25 09/13/25 Range/Units 13:41 13:50 14:03 WBC (4.8-10.8) K/ul RBC (4.70-6.10) M/uL Hgb (14.0-18.0) g/dL Hct (42.0-52.0) % MCV (80.0-100.0) fL MCH (25.0-34.0) pg MCHC (32.0-36.0) g/dL RDW Std Deviation (36.4-46.3) fL RDW Coeff of Mildred (11.5-14.5) % Plt Count (130-400) K/uL MPV (9.4-12.4) fL Absolute Nucleated RBC (0.00-0.12) K/uL Nucleated RBC % (auto) % Neutrophils % (Manual) % Lymphocytes % (Manual) % Reactive Lymphs % (Man) % Monocytes % (Manual) % Neutrophils # (Manual) (1.40-6.50) K/uL Total Absolute Neuts (1.4-6.5) K/uL Lymphocytes # (Manual) (1.2-3.4) K/uL Reactive Lymphs # K/uL Total Abs Lymphocytes (1.2-3.4) K/uL Monocytes # (Manual) (0.11-0.59) K/uL Polychromasia Hypochromasia ESR (0-20) mm/hr PT (9.0-12.0) Seconds INR (0.9-1.1) APTT (21-31) Seconds PTT Ratio VBG pH (7.36-7.41) VBG pCO2 (38-50) mmHg VBG pO2 mmHg VBG HCO3 mmol/L VBG O2 Saturation % VBG Base Excess mEq/L Sodium (136-145) mmol/L Potassium (3.5-5.1) mmol/L Chloride (98-107) mmol/L Carbon Dioxide (21-32) mmol/L Anion Gap (3-11) BUN (6-23) mg/dl Creatinine (0.6-1.4) mg/dl Est Cr Clr Drug Dosing ml/min eGFR BUN/Creatinine Ratio (10-20) Glucose (70-99(Fasting)) mg/dl POC Glucose 102 H 98 (70-99) mg/dl Lactate 1.9 (0.4-2.0) mmol/L Calcium (8.6-10.3) mg/dl Magnesium (1.7-2.4) mg/dl Iron (35-175) mcg/dl TIBC (250-450) mcg/dl Transferrin (200-360) mg/dl Transferrin % Sat (20-50) % Ferritin (8-388) ng/ml Total Bilirubin (0.2-1.0) mg/dl Direct Bilirubin (0-0.2) mg/dl AST (13-39) U/L ALT (7-52) U/L Alkaline Phosphatase (34-104) U/L Ammonia (18-72) umol/L Troponin I High Sens (0-20) pg/ml C-Reactive Protein (0-0.5) mg/dl B-Natriuretic Peptide (0-100) pg/ml Total Protein (6.0-8.3) gm/dl Albumin (3.4-5.0) gm/dl Lipase (11-82) U/L TSH (0.300-4.500) uIu/ml Random Cortisol mcg/dl Urine Color Urine Appearance (Clear) Urine pH (4.5-7.5) Ur Specific [place] (1.000-1.030) Urine Protein (Negative) Urine Glucose (UA) (Negative) Urine Ketones (Negative) Urine Blood (Negative) Urine Nitrite (Negative) Urine Bilirubin (Negative) Urine Urobilinogen (Negative) Ur Leukocyte Esterase (Negative) Urine WBC (Auto) (0-5) /hpf Urine RBC (Auto) (0-2) /hpf U Hyaline Cast (Auto) (0-2) /lpf U Epithel Cells (Auto) (0-2) /hpf Urine Bacteria (Auto) (None Seen) Urine Comment Adenovirus (PCR) (NotDetected) Anaplasma Smear B. pertussis DNA (PCR) (NotDetected) B.parapertussis DNA PCR (NotDetected) C. pneumoniae DNA (PCR) (NotDetected) Coronavirus OC43 (PCR) (NotDetected) Coronavirus HKU1 (PCR) (NotDetected) Coronavirus 229E (PCR) (NotDetected) SARS-CoV-2 (PCR) (NotDetected) Coronavirus NL63 (PCR) (NotDetected) EBV Capsid Ag IgG Ab EBV Caps Ag IgG Sig Str (< 18.0) U/mL EBV Capsid Ag IgM Ab EBV Caps Ag IgM Sig Str (< 36.0) U/mL EBV Early Antigen IgG (Negative) EBV EA Signal Strength (< 9.0) U/mL EBV Nuclear Antigen Ab EBV Nucl Ag IgG Sig Str (< 18.0) U/mL EBV Interpretation Monoscreen (Negative) Human Metapneumovir PCR (NotDetected) Influenza Type A (PCR) (NotDetected) Influenza Type B (PCR) (NotDetected) M. pneumoniae (PCR) (NotDetected) Parainfluenza 1 (PCR) (NotDetected) Parainfluenza 2 (PCR) (NotDetected) Parainfluenza 3 (PCR) (NotDetected) Parainfluenza 4 (PCR) (NotDetected) RSV (PCR) (NotDetected) Entero/Rhino (PCR) (NotDetected) 09/13/25 09/13/25 09/13/25 Range/Units 14:16 14:38 15:38 WBC (4.8-10.8) K/ul RBC (4.70-6.10) M/uL Hgb (14.0-18.0) g/dL Hct (42.0-52.0) % MCV (80.0-100.0) fL MCH (25.0-34.0) pg MCHC (32.0-36.0) g/dL RDW Std Deviation (36.4-46.3) fL RDW Coeff of Mildred (11.5-14.5) % Plt Count (130-400) K/uL MPV (9.4-12.4) fL Absolute Nucleated RBC (0.00-0.12) K/uL Nucleated RBC % (auto) % Neutrophils % (Manual) % Lymphocytes % (Manual) % Reactive Lymphs % (Man) % Monocytes % (Manual) % Neutrophils # (Manual) (1.40-6.50) K/uL Total Absolute Neuts (1.4-6.5) K/uL Lymphocytes # (Manual) (1.2-3.4) K/uL Reactive Lymphs # K/uL Total Abs Lymphocytes (1.2-3.4) K/uL Monocytes # (Manual) (0.11-0.59) K/uL Polychromasia Hypochromasia ESR 100 H (0-20) mm/hr PT (9.0-12.0) Seconds INR (0.9-1.1) APTT (21-31) Seconds PTT Ratio VBG pH (7.36-7.41) VBG pCO2 (38-50) mmHg VBG pO2 mmHg VBG HCO3 mmol/L VBG O2 Saturation % VBG Base Excess mEq/L Sodium (136-145) mmol/L Potassium (3.5-5.1) mmol/L Chloride (98-107) mmol/L Carbon Dioxide (21-32) mmol/L Anion Gap (3-11) BUN (6-23) mg/dl Creatinine (0.6-1.4) mg/dl Est Cr Clr Drug Dosing ml/min eGFR BUN/Creatinine Ratio (10-20) Glucose (70-99(Fasting)) mg/dl POC Glucose 112 H (70-99) mg/dl Lactate (0.4-2.0) mmol/L Calcium (8.6-10.3) mg/dl Magnesium (1.7-2.4) mg/dl Iron (35-175) mcg/dl TIBC (250-450) mcg/dl Transferrin (200-360) mg/dl Transferrin % Sat (20-50) % Ferritin (8-388) ng/ml Total Bilirubin (0.2-1.0) mg/dl Direct Bilirubin (0-0.2) mg/dl AST (13-39) U/L ALT (7-52) U/L Alkaline Phosphatase (34-104) U/L Ammonia (18-72) umol/L Troponin I High Sens (0-20) pg/ml C-Reactive Protein (0-0.5) mg/dl B-Natriuretic Peptide (0-100) pg/ml Total Protein (6.0-8.3) gm/dl Albumin (3.4-5.0) gm/dl Lipase (11-82) U/L TSH (0.300-4.500) uIu/ml Random Cortisol mcg/dl Urine Color Yellow Urine Appearance Clear (Clear) Urine pH 5.5 (4.5-7.5) Ur Specific [place] 1.019 (1.000-1.030) Urine Protein Negative (Negative) Urine Glucose (UA) 2+ H (Negative) Urine Ketones Negative (Negative) Urine Blood Trace H (Negative) Urine Nitrite Negative (Negative) Urine Bilirubin Negative (Negative) Urine Urobilinogen Negative (Negative) Ur Leukocyte Esterase Negative (Negative) Urine WBC (Auto) 0-5 (0-5) /hpf Urine RBC (Auto) 0-2 (0-2) /hpf U Hyaline Cast (Auto) 0-2 (0-2) /lpf U Epithel Cells (Auto) 0-2 (0-2) /hpf Urine Bacteria (Auto) None Seen (None Seen) Urine Comment Adenovirus (PCR) (NotDetected) Anaplasma Smear See Comment B. pertussis DNA (PCR) (NotDetected) B.parapertussis DNA PCR (NotDetected) C. pneumoniae DNA (PCR) (NotDetected) Coronavirus OC43 (PCR) (NotDetected) Coronavirus HKU1 (PCR) (NotDetected) Coronavirus 229E (PCR) (NotDetected) SARS-CoV-2 (PCR) (NotDetected) Coronavirus NL63 (PCR) (NotDetected) EBV Capsid Ag IgG Ab EBV Caps Ag IgG Sig Str (< 18.0) U/mL EBV Capsid Ag IgM Ab EBV Caps Ag IgM Sig Str (< 36.0) U/mL EBV Early Antigen IgG (Negative) EBV EA Signal Strength (< 9.0) U/mL EBV Nuclear Antigen Ab EBV Nucl Ag IgG Sig Str (< 18.0) U/mL EBV Interpretation Monoscreen (Negative) Human Metapneumovir PCR (NotDetected) Influenza Type A (PCR) (NotDetected) Influenza Type B (PCR) (NotDetected) M. pneumoniae (PCR) (NotDetected) Parainfluenza 1 (PCR) (NotDetected) Parainfluenza 2 (PCR) (NotDetected) Parainfluenza 3 (PCR) (NotDetected) Parainfluenza 4 (PCR) (NotDetected) RSV (PCR) (NotDetected) Entero/Rhino (PCR) (NotDetected) 09/13/25 Range/Units 15:46 WBC (4.8-10.8) K/ul RBC (4.70-6.10) M/uL Hgb (14.0-18.0) g/dL Hct (42.0-52.0) % MCV (80.0-100.0) fL MCH (25.0-34.0) pg MCHC (32.0-36.0) g/dL RDW Std Deviation (36.4-46.3) fL RDW Coeff of Mildred (11.5-14.5) % Plt Count (130-400) K/uL MPV (9.4-12.4) fL Absolute Nucleated RBC (0.00-0.12) K/uL Nucleated RBC % (auto) % Neutrophils % (Manual) % Lymphocytes % (Manual) % Reactive Lymphs % (Man) % Monocytes % (Manual) % Neutrophils # (Manual) (1.40-6.50) K/uL Total Absolute Neuts (1.4-6.5) K/uL Lymphocytes # (Manual) (1.2-3.4) K/uL Reactive Lymphs # K/uL Total Abs Lymphocytes (1.2-3.4) K/uL Monocytes # (Manual) (0.11-0.59) K/uL Polychromasia Hypochromasia ESR (0-20) mm/hr PT (9.0-12.0) Seconds INR (0.9-1.1) APTT (21-31) Seconds PTT Ratio VBG pH (7.36-7.41) VBG pCO2 (38-50) mmHg VBG pO2 mmHg VBG HCO3 mmol/L VBG O2 Saturation % VBG Base Excess mEq/L Sodium (136-145) mmol/L Potassium (3.5-5.1) mmol/L Chloride (98-107) mmol/L Carbon Dioxide (21-32) mmol/L Anion Gap (3-11) BUN (6-23) mg/dl Creatinine (0.6-1.4) mg/dl Est Cr Clr Drug Dosing ml/min eGFR BUN/Creatinine Ratio (10-20) Glucose (70-99(Fasting)) mg/dl POC Glucose 121 H (70-99) mg/dl Lactate (0.4-2.0) mmol/L Calcium (8.6-10.3) mg/dl Magnesium (1.7-2.4) mg/dl Iron (35-175) mcg/dl TIBC (250-450) mcg/dl Transferrin (200-360) mg/dl Transferrin % Sat (20-50) % Ferritin (8-388) ng/ml Total Bilirubin (0.2-1.0) mg/dl Direct Bilirubin (0-0.2) mg/dl AST (13-39) U/L ALT (7-52) U/L Alkaline Phosphatase (34-104) U/L Ammonia (18-72) umol/L Troponin I High Sens (0-20) pg/ml C-Reactive Protein (0-0.5) mg/dl B-Natriuretic Peptide (0-100) pg/ml Total Protein (6.0-8.3) gm/dl Albumin (3.4-5.0) gm/dl Lipase (11-82) U/L TSH (0.300-4.500) uIu/ml Random Cortisol mcg/dl Urine Color Urine Appearance (Clear) Urine pH (4.5-7.5) Ur Specific [place] (1.000-1.030) Urine Protein (Negative) Urine Glucose (UA) (Negative) Urine Ketones (Negative) Urine Blood (Negative) Urine Nitrite (Negative) Urine Bilirubin (Negative) Urine Urobilinogen (Negative) Ur Leukocyte Esterase (Negative) Urine WBC (Auto) (0-5) /hpf Urine RBC (Auto) (0-2) /hpf U Hyaline Cast (Auto) (0-2) /lpf U Epithel Cells (Auto) (0-2) /hpf Urine Bacteria (Auto) (None Seen) Urine Comment Adenovirus (PCR) (NotDetected) Anaplasma Smear B. pertussis DNA (PCR) (NotDetected) B.parapertussis DNA PCR (NotDetected) C. pneumoniae DNA (PCR) (NotDetected) Coronavirus OC43 (PCR) (NotDetected) Coronavirus HKU1 (PCR) (NotDetected) Coronavirus 229E (PCR) (NotDetected) SARS-CoV-2 (PCR) (NotDetected) Coronavirus NL63 (PCR) (NotDetected) EBV Capsid Ag IgG Ab EBV Caps Ag IgG Sig Str (< 18.0) U/mL EBV Capsid Ag IgM Ab EBV Caps Ag IgM Sig Str (< 36.0) U/mL EBV Early Antigen IgG (Negative) EBV EA Signal Strength (< 9.0) U/mL EBV Nuclear Antigen Ab EBV Nucl Ag IgG Sig Str (< 18.0) U/mL EBV Interpretation Monoscreen (Negative) Human Metapneumovir PCR (NotDetected) Influenza Type A (PCR) (NotDetected) Influenza Type B (PCR) (NotDetected) M. pneumoniae (PCR) (NotDetected) Parainfluenza 1 (PCR) (NotDetected) Parainfluenza 2 (PCR) (NotDetected) Parainfluenza 3 (PCR) (NotDetected) Parainfluenza 4 (PCR) (NotDetected) RSV (PCR) (NotDetected) Entero/Rhino (PCR) (NotDetected) Imaging Data Attestation: I personally reviewed and interpreted this imaging study as follows: My Impression: Chest x-ray negative. Airway clear. No pneumothorax. No consolidation. No cardiomegaly or cephalization.. No free air under the diaphragm. No fractures of the skeletal structures. Radiologist's Impression: Chest CTA 09/13/25 09:59 Exam: CT angiogram of the chest with pulmonary embolus protocol. Reason for exam: Dizziness. Previous studies: Chest radiograph 09/13/2025. Findings there is good opacification of the pulmonary arteries. At this time no persistent filling defect to indicate embolus is seen on either side. Pulmonary artery size normal and there is no evidence of right ventricular strain. Moderately large pleural effusion is seen. Correlation with echocardiogram recommended. Moderate coronary artery calcifications present. No aortic aneurysm or dissection seen at the examined levels. Scattered areas of atelectasis seen in both lower lobes. IMPRESSION: 1. Negative for pulmonary embolus. 2. Negative for aortic aneurysm or dissection. 3. Moderate coronary artery calcifications. 4. Moderate pericardial effusion. Further evaluation with echocardiogram recommended. 5. Scattered areas of atelectasis in both lower lobes. Electronically signed by Godfrey Andrew 09-13-2025 12:19 PM Chest X-Ray 09/13/25 10:00 Clinical History: Shortness of breath Technique: A frontal view of the chest was obtained Comparison is made to the prior examination dated 08/28/2025 Findings: There are no confluent pulmonary infiltrates. The heart size is within normal limits. No pleural effusion or pneumothorax is seen. There is no definite pulmonary nodule. No fracture is noted. No foreign body is seen Impression: No active disease Electronically signed by Tera Dunne 09-13-2025 10:[address] 09/13/25 10:00 EXAM: CT head/brain wo con CLINICAL HISTORY: dizziness TECHNIQUE: Axial non-contrast CT scan of the brain was performed from the skull base to the high parietal region in axial, sagittal and coronal reconstructions. One of the following dose reduction techniques were utilized for this exam: Automated exposure control, adjustment of the mA and/or kV according to patient size, use of iterative reconstruction. CTDI: 76 mGy , DLP: 1566 mGy-cm. COMPARISON: None. FINDINGS: Brain Parenchyma: Amber-ventricular hypo-attenuation of the cerebral hemispheres. Bilateral basal ganglia hypodense lacunar infarctions. No evidence of acute infarct, hemorrhage, or mass effect. Ventricular System: No evidence of hydrocephalus. Subarachnoid Spaces: Age-related mild brain involutional changes. No evidence of subarachnoid hemorrhage or extra-axial fluid collections. Cerebellum and Brainstem: No masses, lesions, or areas of abnormal density. Orbits: Normal appearance of the globes, optic nerves, and extraocular muscles. No evidence of orbital masses or abnormal density. Sinuses: Clear paranasal sinuses. No evidence of sinusitis or mucosal thickening. Skull: Normal skull morphology. IMPRESSION: 1. Chronic small-vessel ischemic changes with old bilateral basal ganglia lacunar infarctions. 2. Age-related brain involutional changes. 3. No acute intracranial hemorrhage or mass effect. 4. Early acute infarction may not be visible on CT. If clinically suspected, MRI with DWI is recommended for further evaluation. Electronically signed by Nicolas Corrales 09-13-2025 12:22 PM ECG Data Attestation: I personally reviewed and interpreted this ECG as follows: Rate (beats per minute): 117 Rhythm: + sinus tachycardia ECG Intervals/blocks: + Normal QRS, + Normal OH and + Normal QT-c ECG ST segments: + Normal ST segments ECG Findings: + PVCs Additional Comments: Baseline wander and artifact EKG #2 at 1352: Sinus rhythm with rate of 83. OH 172 QRS [address] elevation or ST depression. [facility] Narrative 0945: The patient was evaluated in room B2. A complete history and physical exam was performed Cardiac monitoring: An order was placed for continuous cardiac monitoring. The monitor shows a rate of 110 with sinus tachycardia rhythm interpreted by me Bedside cardiac ultrasound shows pericardial effusion. Right atrium appears to be collapsing right ventricle does not. Patient will be given small fluid bolus DuoNeb treatment and steroids. Will plan on obtaining CTA of the chest given the patient's recent appendectomy. 1000: Patient became hypoxic on room air. Supplemental oxygen applied via nasal cannula which improved the patient's oxygen saturation. 1057: Vital signs stable on supplemental oxygen. Labs show a glucose of 36. Patient alert and oriented x 3. Patient states he did not eat this morning. Patient states he did not take too much of his glipizide and did not take his glipizide today. Patient be given 1 amp D50. 1320: Vital signs stable on supplemental oxygen.White blood cell count 8.64 hemoglobin 9.9 VBG unremarkable lactic acid unremarkable. Ammonia 25. Patient will be admitted to the [facility] team. 1430: Patient became hypotensive. IV fluids ordered for the patient. Patient was evaluated by Dr. [facility] hospitalist. He was able to access the patient's medical records which showed E. coli on a urine culture from September 08, 2025. Antibiotics ordered by hospitalist team. Impression & Plan Hypoxia, COPD (chronic obstructive pulmonary disease), Acute UTI Discharge Plan Visit Data Chief Complaint: Referred by Doctor Stated Complaint: REF BY PCP, DIZZINESS, BREATHING TROUBLE ED Provider: Amador Cox Discharge Problem: Hypoxia, COPD (chronic obstructive pulmonary disease), Acute UTI Patient Disposition: Admitted As Inpatient Condition: Serious Forms Stand Alone Forms: My [facility] Prescriptions Prescriptions: No Action pregabalin [Lyrica] 50 mg capsule 50 mg PO BID Qty: 60 0RF (DME) blood sugar diagnostic Strip See Rx Instructions .ROUTE .MEDSUPPLY Qty: 50 3RF Rx Instructions: Testing blood sugar once daily empagliflozin 25 mg tablet 25 mg PO QAM Qty: 90 2RF trazodone 50 mg tablet 50 mg PO HS Qty: 90 2RF (DME) Diabetic Shoes Misc See Rx Instructions .Route Qty: 1 0RF Rx Instructions: Diabetic shoes and inserts Ozempic 0.25 mg or 0.5 mg (2 mg/3 mL) pen injector 0.5 mg subcut .Weekly Qty: 3 4RF Patient Comments: tuesdays (DME) Accu-Chek Guide test strips Strip See Rx Instructions .Route Qty: 100 1RF Rx Instructions: TEST BSG ONCE DAILY; DX CODE- E11.9 (DME) lancets [Accu-Chek Fastclix Lancet Drum] Misc See Rx Instructions .Route Qty: 100 1RF Rx Instructions: TEST BSG ONCE DAILY; DX CODE- E11.9 lisinopril 10 mg tablet 10 mg PO .every other day Qty: 45 3RF Hold Instructions: low BP escitalopram oxalate 20 mg tablet 20 mg PO QAM Qty: 90 1RF metoprolol succinate 25 mg tablet extended release 24 hr 25 mg PO QAM Qty: 90 1RF glipizide 10 mg tablet extended release 24hr 10 mg PO QAM Qty: 90 1RF atorvastatin 20 mg tablet 20 mg PO PM Qty: 90 1RF famotidine 20 mg tablet 20 mg PO HS Qty: 180 2RF Rx Instructions: 12/18/2024 per Seth--- may increase to BID PRN if needed (DME) blood-glucose meter [Accu-Chek Guide Me Glucose Mtr] Misc See Rx Instructions .Route Qty: 1 0RF Rx Instructions: TEST BSG ONCE DAILY; DX CODE- E11.9 ferrous sulfate 325 mg (65 mg iron) tablet 325 mg PO DAILY Qty: 90 3RF fluticasone propionate [Allergy Relief (fluticasone)] 50 mcg/actuation spray,suspension 2 spray INTNAS DAILY PRN (Reason: Congestion) Qty: 47.4 3RF Rx Instructions: administer into each nostril tizanidine 4 mg tablet 4 mg PO BID PRN (Reason: muscle spasticity) Qty: 20 0RF promethazine 12.5 mg tablet 12.5 mg PO HS PRN (Reason: nausea and vomiting) Qty: 60 1RF pantoprazole 40 mg tablet,delayed release (DR/EC) 40 mg PO BID Qty: 180 1RF Hold Instructions: elevated creatinine azelastine 137 mcg (0.1 %) spray,non-aerosol 1 spray INTNAS DAILY PRN (Reason: Congestion) Qty: 90 1RF tamsulosin [Flomax] 0.4 mg capsule 0.4 mg PO QPM Qty: 90 2RF Rx Instructions: Take one capsule at bedtime. ciprofloxacin HCl [Cipro] 500 mg tablet 500 mg PO BID 7 Days Qty: 14 0RF (DME) Custom Orthotics Misc See Rx Instructions .ROUTE .MEDSUPPLY Qty: 1 0RF Rx Instructions: As directed aspirin [Adult Aspirin Regimen] 81 mg tablet,delayed release (DR/EC) 81 mg PO DAILY Trelegy Ellipta 100-62.5-25 mcg blister with device 1 inh inhalation Q24H PRN (Reason: sob) Rx Instructions: RINSE MOUTH AND SPIT AFTER USE X 2. DO NOT SWALLOW WATER Referrals Referrals: Shartia Pompa DO [Primary Care Provider] -
--- NOTE | 2025-09-13 10:51 | XRay Report ---
Clinical History: Shortness of breath Technique: A frontal view of the chest was obtained Comparison is made to the prior examination dated 08/28/2025 Findings: There are no confluent pulmonary infiltrates. The heart size is within normal limits. No pleural effusion or pneumothorax is seen. There is no definite pulmonary nodule. No fracture is noted. No foreign body is seen Impression: No active disease Electronically signed by Tera Dunne 09-13-2025 10:51 AM
[2025-09-13 10:54] LABS: Alanine Aminotransferase 35.0 U/L (7-52); Albumin Level 2.7 gm/dl (3.4-5.0); Alkaline Phosphatase 97.0 U/L (34-104); Anion Gap 7.0 (3-11); Bilirubin,Total 0.5 mg/dl (0.2-1.0); Blood Urea Nitrogen 15.0 mg/dl (6-23); Calcium 7.9 mg/dl (8.6-10.3); Carbon Dioxide 28.0 mmol/L (21-32); Chloride 97.0 mmol/L (98-107); Creatinine Clr Calc Pharmacy 101.2 ml/min; Glucose 36.0 mg/dl (70-99(Fasting)); Lipase 38.0 U/L (11-82); Magnesium 1.8 mg/dl (1.7-2.4); Potassium 3.4 mmol/L (3.5-5.1); Sodium 132.0 mmol/L (136-145); Total Protein 6.4 gm/dl (6.0-8.3)
[2025-09-13] MEDS: DEXTROSE 50% 50 ML SYRINGE IV ONE (10:57)
[2025-09-13 11:02] LABS: INR 1.2 (0.9-1.1); Prothrombin Time 13.0 Seconds (9.0-12.0)
[2025-09-13 11:03] LABS: Partial Thromboplastin Time 33 Seconds (21-31)
[2025-09-13 11:10] LABS: Chlamydia pneumoniae PCR Not Detected (NotDetected); Coronavirus 229E PCR Not Detected (NotDetected); Coronavirus CoV-2 (COVID19)PCR Not Detected (NotDetected); Coronavirus HKU1 PCR Not Detected (NotDetected); Coronavirus NL63 PCR Not Detected (NotDetected); Coronavirus OC43PCR Not Detected (NotDetected); Human Metapneumovirus PCR Not Detected (NotDetected); Parainfluenza Virus 1 PCR Not Detected (NotDetected); Parainfluenza Virus 2 PCR Not Detected (NotDetected); Parainfluenza Virus 3 PCR Not Detected (NotDetected); Parainfluenza Virus 4 PCR Not Detected (NotDetected); Respiratory Syncytial VirusPCR Not Detected (NotDetected); Rhinovirus/Enterovirus PCR Not Detected (NotDetected)
[2025-09-13] MEDS: OPTIRAY 320 125ml IV ONE (11:12)
[2025-09-13 11:30] LABS: ALC (manual) 3.46 K/uL (1.2-3.4); ANC (manual) 2.85 K/uL (1.4-6.5); Hypochromasia Present; Polychromasia 1+; Reactive Lymphocytes # (manual) 1.38 K/uL; Reactive Lymphocytes % (manual) 16 %
--- NOTE | 2025-09-13 12:20 | CT Scan Report ---
Exam: CT angiogram of the chest with pulmonary embolus protocol. Reason for exam: Dizziness. Previous studies: Chest radiograph 09/13/2025. Findings there is good opacification of the pulmonary arteries. At this time no persistent filling defect to indicate embolus is seen on either side. Pulmonary artery size normal and there is no evidence of right ventricular strain. Moderately large pleural effusion is seen. Correlation with echocardiogram recommended. Moderate coronary artery calcifications present. No aortic aneurysm or dissection seen at the examined levels. Scattered areas of atelectasis seen in both lower lobes. IMPRESSION: 1. Negative for pulmonary embolus. 2. Negative for aortic aneurysm or dissection. 3. Moderate coronary artery calcifications. 4. Moderate pericardial effusion. Further evaluation with echocardiogram recommended. 5. Scattered areas of atelectasis in both lower lobes. Electronically signed by Godfrey Andrew 09-13-2025 12:19 PM
--- NOTE | 2025-09-13 12:22 | CT Scan Report ---
EXAM: CT head/brain wo con CLINICAL HISTORY: dizziness TECHNIQUE: Axial non-contrast CT scan of the brain was performed from the skull base to the high parietal region in axial, sagittal and coronal reconstructions. One of the following dose reduction techniques were utilized for this exam: Automated exposure control, adjustment of the mA and/or kV according to patient size, use of iterative reconstruction. CTDI: 76 mGy , DLP: 1566 mGy-cm. COMPARISON: None. FINDINGS: Brain Parenchyma: Amber-ventricular hypo-attenuation of the cerebral hemispheres. Bilateral basal ganglia hypodense lacunar infarctions. No evidence of acute infarct, hemorrhage, or mass effect. Ventricular System: No evidence of hydrocephalus. Subarachnoid Spaces: Age-related mild brain involutional changes. No evidence of subarachnoid hemorrhage or extra-axial fluid collections. Cerebellum and Brainstem: No masses, lesions, or areas of abnormal density. Orbits: Normal appearance of the globes, optic nerves, and extraocular muscles. No evidence of orbital masses or abnormal density. Sinuses: Clear paranasal sinuses. No evidence of sinusitis or mucosal thickening. Skull: Normal skull morphology. IMPRESSION: 1. Chronic small-vessel ischemic changes with old bilateral basal ganglia lacunar infarctions. 2. Age-related brain involutional changes. 3. No acute intracranial hemorrhage or mass effect. 4. Early acute infarction may not be visible on CT. If clinically suspected, MRI with DWI is recommended for further evaluation. Electronically signed by Nicolas Corrales 09-13-2025 12:22 PM
--- NOTE | 2025-09-13 13:39 | History & Physical Report ---
Date of Service September 13, 2025 Assessment & Plan (1) Shock circulatory: (2) Metabolic encephalopathy: (3) Acute UTI: (4) Type 2 diabetes mellitus with peripheral neuropathy: (5) Pericardial effusion: (6) Benign prostatic hyperplasia with urinary obstruction: (7) Hypertension: (8) COPD (chronic obstructive pulmonary disease): (9) Hypothermia: (10) Hypoglycemia: (11) Elevated erythrocyte sedimentation rate: (12) Weight loss: Plan 64yo male with recent hospitalization from 08/28 to 08/30 for sepsis 2nd to appendicitis s/p appendectomy, COPD, tobacco dependence, gout, GERD, HTN, T2DM, and a chronic pericardial effusion first seen on echo in 2021 per records. Since the patient could not provide any history I obtained all information from the ER attending and the medical record. The patient presented from his home in [place] today with a report of dizziness for several weeks, fatigue, weakness, recently diagnosed e.coli UTI, and poor appetite. A 09/07/25 PCP office note states that he has not been feeling well since his surgery earlier this month. #shock - -presumed septic with recently dx E Coli UTI, hypoglycemia, hypothermia, altered MS, abnormal CBC indices, elevated inflammatory markers, etc. -hypovolemia may also be playing a role as he looks volume contracted on examination -given his recent appendectomy and inability to provide any history will image the abd/pelvis with CT - r/o intra-abdominal source of infection (abscess, etc) -cortisol level wnl -no PE on CTA chest -does have moderate sized pericardial effusion - can't exclude early tamponade physiology - but no JVD on exam, no tachycardia, etc -[id number] ICU team is aware of the effusion & echo has been ordered -see below -s/p 3 liters of isotonic fluid in the ER followed by initiation of norepinephrine -cont basal fluids -defer on stress dose steroids (although he did get a very large dose of solumedrol in the ER at presentation) -follow blood cultures, and will defer antibiotic selection to the ICU team (gave cefepime x 1 after my assessment) #acute metabolic encephalopathy - -CT head negative -presumed 2nd to UTI/sepsis, hypoglycemia, etc. -supportive care -treat underlying causes #hypoglycemia, hypothermia - -2nd to stress from illness/UTI - all in the setting of poor PO intake and glipizide/empagliflozin usage -add glucose to basal IVF -hold PO DM agents -serial BSGs -place temp-sensing marinelli -warming blanket as needed -treat underlying presumed sepsis from UTI #pericardial effusion - -moderate in size -a 2021 echo from the [facility] system showed an effusion even then -it has been small in the past -gradually enlarging over the last several months -echo ordered -etiology?? -with abnormal CBC, elevated inflammatory markers, splenomegaly, etc - malignant? inflammatory / autoimmune? -uncertain if any early tamponade physiology although he has no tachycardia, no JVD (but cannot r/o low-pressure cardiac tamponade which can present with lack of JVD, etc) -await echo and obtain cardiology consultation if necessary #e.coli UTI - -pansensitive -grew on outpatient urine cx just a few days ago -cefepime IV -blood cx's obtained -at minimum I believe this UTI is contributing to his presentation -defer to ICU choice of ongoing abx therapy #recent appendicitis s/p appendectomy 08/28/25 - -incisions clean/healed -CT a/p ordered - r/o intra-abd abscess, etc that could be contributing to his presentation #T2DM - -a1c 7.5% earlier this month -BSGs per ICU protocol -was severely hypoglycemic at presentation - likely due to stress from illness, poor PO intake, and DM oral agents -HOLD PO DM meds -add glucose to IVF #COPD - -I presume the IV steroids in ER was for COPD Flare? -but no wheezing or other respiratory symptoms to suggest COPD flare -further, lungs are clear, and CTA chest neg for infiltrates -albuterol prn -cont home inhalers when able #elevated ESR, elevated CRP, abnormal CBC - -could be 2nd to recent surgery, recent e.coli UTI, perhaps related to the worsening pericardial effusion depending on its etiology, etc. -atypical lymphs on differential - checked EBV titers - negative for acute mono -consider formal peripheral smear on Monday #HTN - -hold all home meds due to shock #GERD - -PPI twice daily #weight loss - -15-20kg of weight loss since this time 1 year ago -etiology? -CT chest w/o pathology -CT a/p pending -perhaps the underlying etiology of the pericardial effusion is contributing? -some of the weight loss could be semaglutide related? #tobacco dependence - -nicoderm patch #DVT proph - -defer selection to ICU team attempted to call pt's sister at the number listed in chart no answer, went directly to voicemail; left message asking her to call the hospital for an update when able total critical care time 90 minutes much of which was spent on shock management History of Present Illness Chief Complaint: dizziness, altered mental status, fatigue/weakness Primary Care Provider: Sharita Pompa DO 64yo male with recent hospitalization from 08/28 to 08/30 for sepsis 2nd to appendicitis s/p appendectomy, COPD, tobacco dependence, gout, GERD, HTN, T2DM, and a chronic pericardial effusion first seen on echo in 2021 per records. Since the patient could not provide any history I obtained all information from the ER attending and the medical record. The patient presented from his home in [place] earlier today with a report of dizziness, fatigue, weakness, recently diagnosed e.coli UTI, and poor appetite. A 09/07/25 PCP office note states that he has not been feeling well since his surgery earlier this month. During my initial assessment the patient was significantly altered. He slept for most of the visit, just occasionally waking up when I called his name. He could only tell me that he lives with his sister & nephew and that his nephew brought him to the ER today. I was unable to elicit any further history from him due to his altered mental status. While assessing him he was noted to have low-normal BPs, and within minutes his SBP was in the 80s. Prior to my assessment he had received about 1 liter of isotonic fluids. I ordered an additional 1 liter of NS while I was assessing him. Following this 2nd liter his SBP did not improve and 3rd bolus of 1 liter was ordered. Simultaneously I contacted the ICU attending on-call, Dr Sibley, and ordered norepinephrine for refractory shock. Due to recently diagnosed e.coli UTI I ordered blood cultures and started IV antibiotic therapy. Sed rate returned elevated at 100, and CRP was also elevated at 12. Allergies Allergy/AdvReac Type Severity Reaction Status Date / Time No Known Drug Allergies Allergy Verified 09/08/25 09:22 Home Medications Medication Instructions Recorded Confirmed Type Custom Orthotics #1 ea 07/21/20 09/08/25 Rx blood sugar diagnostic #50 ea 10/13/20 09/08/25 Rx fluticasone fur. 100 mcg-umeclid 1 inh inhalation Q24H PRN sob 04/11/24 09/13/25 History 62.5 mcg-vilant 25 mcg inhalat.powder (Trelegy Ellipta) aspirin 81 mg tablet,delayed 81 mg PO DAILY 11/21/24 09/13/25 History release (Adult Aspirin Regimen) empagliflozin 25 mg tablet 25 mg PO QAM #90 tabs 01/15/25 09/13/25 Rx trazodone 50 mg tablet 50 mg PO HS #90 tabs 03/20/25 09/13/25 Rx Diabetic Shoes #1 ea 03/25/25 09/08/25 Rx semaglutide 0.25 mg or 0.5 mg (2 0.5 mg (0.736 mL) subcut .Weekly 04/03/25 09/13/25 Rx mg/3 mL) subcutaneous pen injector #3 mL (Ozempic) blood sugar diagnostic (Accu-Chek #100 ea 04/08/25 09/08/25 Rx Guide test strips) lancets (Accu-Chek Fastclix Lancet #100 ea 04/08/25 09/08/25 Rx Drum) lisinopril 10 mg tablet 10 mg PO .every other day #45 tabs 04/14/25 09/13/25 Rx escitalopram oxalate 20 mg tablet 20 mg PO QAM #90 tabs 04/15/25 09/13/25 Rx glipizide 10 mg tablet, extended 10 mg PO QAM #90 tabs 04/15/25 09/13/25 Rx release 24 hr metoprolol succinate 25 mg 25 mg PO QAM #90 tabs 04/15/25 09/13/25 Rx tablet,extended release 24 hr atorvastatin 20 mg tablet 20 mg PO PM #90 tabs 04/16/25 09/13/25 Rx famotidine 20 mg tablet 20 mg PO HS #180 tabs 04/21/25 09/13/25 Rx blood-glucose meter (Accu-Chek #1 ea 05/12/25 09/08/25 Rx Guide Me Glucose Meter) ferrous sulfate 325 mg (65 mg 325 mg PO DAILY #90 tabs 05/19/25 09/13/25 Rx iron) tablet fluticasone propionate 50 2 spray intranasal DAILY PRN 05/21/25 09/13/25 Rx mcg/actuation nasal Congestion #47.4 mL spray,suspension (Allergy Relief (fluticasone)) tizanidine 4 mg tablet 4 mg PO BID PRN muscle spasticity 05/30/25 09/13/25 Rx #20 tabs promethazine 12.5 mg tablet 12.5 mg PO HS PRN nausea and 06/19/25 09/13/25 Rx vomiting #60 tabs azelastine 137 mcg (0.1 %) nasal 1 spray intranasal DAILY PRN 07/10/25 09/13/25 Rx spray Congestion #90 mL pantoprazole 40 mg tablet,delayed 40 mg PO BID #180 tabs 07/10/25 09/13/25 Rx release tamsulosin 0.4 mg capsule (Flomax) 0.4 mg PO QPM #90 caps 07/14/25 09/13/25 Rx pregabalin 50 mg capsule (Lyrica) 50 mg PO BID #60 caps 07/18/25 09/13/25 Rx ciprofloxacin HCl 500 mg tablet 500 mg PO BID 7 days #14 tabs 09/09/25 09/13/25 Rx (Cipro) Past Med/Surg History Problem List (Updated 09/13/25 @ 20:50 by Pedro Caicedo MD) Weight loss Elevated erythrocyte sedimentation rate Hypoglycemia Hypothermia Shock circulatory Metabolic encephalopathy Acute UTI (Acute) Hypoxia (Acute) Acute appendicitis Sepsis Type 2 diabetes mellitus with peripheral neuropathy Right lumbar radiculopathy Lumbosacral radiculopathy Esophageal dysphagia Chronic venous insufficiency Varicose veins of left lower extremity Bony sclerosis 05/02/23-Sclerotic foci within the intertrochanteric region of the right femur have slightly progressed. Dominant focus measures 1.9 cm, previously measuring 1.6 cm Avascular necrosis of right femoral head Pericardial effusion (Chronic) small, monitoring per [facility] records Cardiomegaly (Chronic) follows w/ Dr Rigo Barrios ETCarole (eustachian tube dysfunction) Mixed hearing loss, bilateral IBS (irritable bowel syndrome) Dyslipidemia Renal cyst Lung nodules being monitored Vitamin D deficiency Stenosis, cervical spine Restrictive lung disease has not used rescue for a while Obstructive sleep apnea of adult cpap Mixed conductive and sensorineural hearing loss of right ear with restricted hearing of left ear Disc degeneration, lumbar Chronic diarrhea Benign prostatic hyperplasia with urinary obstruction (Chronic) Obesity Gout GERD (gastroesophageal reflux disease) Hypertension COPD (chronic obstructive pulmonary disease) (Acute) Anxiety Medical History Right rotator cuff tear Trochanteric bursitis, right hip Anxiety COPD (chronic obstructive pulmonary disease) Diabetes GERD (gastroesophageal reflux disease) Chronic diarrhea Disc degeneration, lumbar Dyslipidemia Diabetic neuropathy Chronic venous insufficiency BPH (benign prostatic hyperplasia) Bloating reason for upcoming EGD Dysphagia reason for upcoming EGD Urinary urgency hx Pericardial effusion pt. unaware - small, monitoring per [facility] records ETD (eustachian tube dysfunction) Renal cyst pt. unaware Lung nodules monitored Hypertension Stenosis, cervical spine reports full ROM Obstructive sleep apnea cpap - does not wear as it "does not stay on" Restrictive lung disease no pulmonoloist, uses inhaler prn Cardiomegaly follows w/ Dr Rigo Barrios (03/10/24) IBS (irritable bowel syndrome) Mixed hearing loss, bilateral No H/A's Bony sclerosis 05/02/23-Sclerotic foci within the intertrochanteric region of the right femur have slightly progressed. Dominant focus measures 1.9 cm, previously measuring 1.6 cm Varicose veins of left lower extremity having testing at [facility] 04/17 or 04/18 Hx: UTI (urinary tract infection) Hx of colonic polyps Hx of gout SOBOE (shortness of breath on exertion) with minimal exertion when walking Surgical History History of laparoscopic appendectomy (08/28/25) Laparoscopic Appendectomy(Not Applicable) - Godfrey Joe, DO, FACS S/P right rotator cuff repair History of cystoscopy (05/14/24) w/ clot evacuation Hx of hernia repair (1981) History of foot surgery (2005) S/P right rotator cuff repair Hx of removal of cyst (2016) abdominal Hx of colonoscopy with polypectomy History of arthroscopy of right shoulder (07/2023) History of open reduction and internal fixation (ORIF) procedure (11/12/19) R ankle History of cataract surgery (2019) B/L Hx of transurethral resection of prostate 04/23/24 and 06/2018 History of esophagogastroduodenoscopy (EGD) (2018) History of tooth extraction All teeth removed History of inguinal herniorrhaphy Family History Sister Family history of diabetes mellitus multiple sisters Stroke Hypertension Cancer Breast cancer Mother Family history of diabetes mellitus Hypertension Cancer Other Family history of deafness or hearing loss No family history of adverse response to anesthesia Denies family history of Ovarian cancer Prostate cancer Myocardial infarction Colorectal cancer Social History Smoking Status: Unknown if ever smoked Tobacco Type: Cigarettes Age Started Using Tobacco: 26; Age Quit Using Tobacco: 41; packs per day: 1; Second Hand Exposure: No; Do You Dip or Chew Tobacco: No; Preferred Language: Namibian Communication Ability: Effective Visual Impairment: No Limitations Hearing Ability: Normal Financial Assistant Required: No Beliefs That Will Affect Care: None marital status: Current Living Situation: Other Current Living Situation Comment: home with sister current occupational status: unemployed Feels Safe at Home: Yes Childhood Exposure to Second-Hand Smoke: Yes Diet: regular Diet Comment: regular caffeine: No during the past year weight has: remained stable Dental Care, Regularly: No Physical Activity Frequency: 1-2 Times per Week Physical Activity Frequency Comment: LIMITED BY PHYSICAL CONDITION Seatbelt Use: always Sunscreen Use: No Assistive Devices: None Review of Systems Review of Systems: Unobtainable due to cognitive status and Unobtainable due to reduced consciousness Physical Exam Physical Exam: gen - lethargic, wakes up briefly for 30 seconds at most, then quickly falls back asleep eyes - PERRL, no icterus HENT - TMs clear b/l; nose clear; mouth - MM very dry neck - supple; no JVD, no goiter, no lymph nodes heart - RRR, s1 s2, no murmur or rub lungs - CTA b/l abd - soft NT ND BS+; abd wall incisions from recent appendectomy clean/intact/h ealed ext - cool to touch, but pulses are palpable b/l feet - about 1-2+; no edema neuro - moves all 4 limbs spontaneously, no obvious facial droop skin - mild pallor, no rashes psych - lethargic, unable to assess orientation Results & Data Results & Data Vital Signs (Past 12 Hours) Vital Signs Temp Pulse Pulse Resp BP BP Pulse Ox 09/13/25 13:26 105/72 09/13/25 13:15 88/66 L 09/13/25 13:15 88/66 L 09/13/25 13:15 88/66 L 09/13/25 13:15 88/66 L 09/13/25 13:15 88/66 L 09/13/25 13:15 86 18 91 09/13/25 13:00 87 17 91 09/13/25 13:00 92/47 L 09/13/25 13:00 92/47 L 09/13/25 13:00 92/47 L 09/13/25 13:00 92/47 L 09/13/25 13:00 92/47 L 09/13/25 12:50 94/66 L 09/13/25 12:50 94/66 L 09/13/25 12:50 94/66 L 09/13/25 12:50 94/66 L 09/13/25 12:50 94/66 L 09/13/25 12:48 86 20 93 09/13/25 12:45 88 21 92 09/13/25 12:31 119/98 09/13/25 12:31 119/98 09/13/25 12:31 119/98 09/13/25 12:31 119/98 09/13/25 12:31 119/98 09/13/25 12:30 87 17 09/13/25 12:15 90 17 94 09/13/25 12:03 93 H 18 95 09/13/25 12:01 127/105 H 09/13/25 12:01 127/105 H 09/13/25 12:01 127/105 H 09/13/25 12:01 127/105 H 09/13/25 12:01 127/105 H 09/13/25 12:00 93 H 19 91 09/13/25 11:46 121/97 09/13/25 11:46 121/97 09/13/25 11:46 121/97 09/13/25 11:46 121/97 09/13/25 11:46 121/97 09/13/25 11:45 94 H 19 92 09/13/25 11:30 96 H 20 93 09/13/25 11:30 147/90 H 09/13/25 11:30 147/90 H 09/13/25 11:30 147/90 H 09/13/25 11:30 147/90 H 09/13/25 11:30 147/90 H 09/13/25 11:00 107 H 29 H 89 L 09/13/25 11:00 85/66 L 09/13/25 11:00 85/66 L 09/13/25 11:00 85/66 L 09/13/25 11:00 85/66 L 09/13/25 11:00 85/66 L 09/13/25 10:45 108 H 27 H 95 09/13/25 10:45 101/81 09/13/25 10:45 101/81 09/13/25 10:45 101/81 09/13/25 10:45 101/81 09/13/25 10:45 101/81 09/13/25 10:30 110 H 31 H 92 09/13/25 10:30 104/79 09/13/25 10:30 104/79 09/13/25 10:30 104/79 09/13/25 10:30 104/79 09/13/25 10:30 104/79 09/13/25 10:27 111 H 18 94 09/13/25 10:27 112 H 23 119/88 94 09/13/25 10:25 119/88 09/13/25 10:25 119/88 09/13/25 10:25 119/88 09/13/25 10:25 119/88 09/13/25 10:07 91 09/13/25 10:05 117 H 09/13/25 10:00 111 H 24 110/83 94 09/13/25 10:00 120 H 35 H 110/83 88 L 09/13/25 09:59 09/13/25 09:50 120 H 24 108/80 98 09/13/25 09:48 118 H 36 H 110/80 09/13/25 09:38 36.5 C 130 H 22 100/71 94 O2 Del Method O2 Flow Rate 09/13/25 10:27 Nasal Cannula 2 09/13/25 10:00 Room Air 09/13/25 10:00 Room Air 2 09/13/25 09:59 Room Air 09/13/25 09:38 Room Air Laboratory Results Laboratory Results - last 24 hr 09/13/25 09/13/25 09/13/25 09:54 10:11 11:23 WBC 8.64 RBC 4.06 L Hgb 9.9 L POC Hgb Hct 30.6 L POC Hct MCV 75.4 L MCH 24.4 L MCHC 32.4 RDW Std Deviation 49.3 H RDW Coeff of Mildred 18.4 H Plt Count 205 MPV 9.6 Absolute Nucleated RBC 0.02 Nucleated RBC % (auto) 0.2 Neutrophils % (Manual) 33 Lymphocytes % (Manual) 24 Reactive Lymphs % (Man) 16 Monocytes % (Manual) 27 Neutrophils # (Manual) 2.85 Total Absolute Neuts 2.85 Lymphocytes # (Manual) 2.07 Reactive Lymphs # 1.38 Total Abs Lymphocytes 3.46 H Monocytes # (Manual) 2.33 H Polychromasia 1+ Hypochromasia Present ESR PT 13.0 H INR 1.2 H APTT 33 H PTT Ratio 1.2 Specimen Type Sample Site POC pH POC pCO2 POC pO2 POC HCO3 POC Total CO2 POC Base Excess O2 Sat Pulse Oximetry ABG pH (Temp Correct) ABG pCO2 (Temp Corrct POC ABG pO2 at Pt Temp POC ABG O2 Sat Kamari Test VBG pH 7.48 H VBG pCO2 36 L VBG pO2 81 VBG HCO3 27 VBG O2 Saturation 98.0 VBG Base Excess 3.4 O2 Delivery Device POC Sodium Sodium 132 L POC Potassium Potassium 3.4 L Chloride 97 L Carbon Dioxide 28 Anion Gap 7 BUN 15 Creatinine 0.83 Est Cr Clr Drug Dosing 101.2 eGFR 98.34 BUN/Creatinine Ratio 18.1 Glucose 36 L* POC Glucose 128 H Lactate Calcium 7.9 L Magnesium 1.8 Iron 11 L TIBC 225 L Transferrin 161 L Transferrin % Sat 5 L Ferritin 990.2 H Total Bilirubin 0.5 Direct Bilirubin 0.2 AST 63 H ALT 35 Alkaline Phosphatase 97 Ammonia Troponin I High Sens 4.2 C-Reactive Protein 12.56 H B-Natriuretic Peptide 8 Total Protein 6.4 Albumin 2.7 L Lipase 38 Procalcitonin 0.13 TSH 0.622 Random Cortisol 21.32 Urine Color Urine Appearance Urine pH Ur Specific Parkin Urine Protein Urine Glucose (UA) Urine Ketones Urine Blood Urine Nitrite Urine Bilirubin Urine Urobilinogen Ur Leukocyte Esterase Urine WBC (Auto) Urine RBC (Auto) U Hyaline Cast (Auto) U Epithel Cells (Auto) Urine Bacteria (Auto) Urine Comment Nasal Screen MRSA (PCR) Adenovirus (PCR) Not Detected Anaplasma Smear B. pertussis DNA (PCR) Not Detected B.parapertussis DNA PCR Not Detected C. pneumoniae DNA (PCR) Not Detected Coronavirus OC43 (PCR) Not Detected Coronavirus HKU1 (PCR) Not Detected Coronavirus 229E (PCR) Not Detected SARS-CoV-2 (PCR) Not Detected Coronavirus NL63 (PCR) Not Detected EBV Capsid Ag IgG Ab Positive EBV Caps Ag IgG Sig Str > 750.0 EBV Capsid Ag IgM Ab Negative EBV Caps Ag IgM Sig Str < 10.0 EBV Early Antigen IgG Negative EBV EA Signal Strength < 5.0 EBV Nuclear Antigen Ab Positive EBV Nucl Ag IgG Sig Str 514.0 EBV Interpretation See Comment Monoscreen Negative Human Metapneumovir PCR Not Detected Influenza Type A (PCR) Not Detected Influenza Type B (PCR) Not Detected M. pneumoniae (PCR) Not Detected Parainfluenza 1 (PCR) Not Detected Parainfluenza 2 (PCR) Not Detected Parainfluenza 3 (PCR) Not Detected Parainfluenza 4 (PCR) Not Detected RSV (PCR) Not Detected Entero/Rhino (PCR) Not Detected 09/13/25 09/13/25 09/13/25 12:35 12:48 12:58 WBC RBC Hgb POC Hgb Hct POC Hct MCV MCH MCHC RDW Std Deviation RDW Coeff of Mildred Plt Count MPV Absolute Nucleated RBC Nucleated RBC % (auto) Neutrophils % (Manual) Lymphocytes % (Manual) Reactive Lymphs % (Man) Monocytes % (Manual) Neutrophils # (Manual) Total Absolute Neuts Lymphocytes # (Manual) Reactive Lymphs # Total Abs Lymphocytes Monocytes # (Manual) Polychromasia Hypochromasia ESR PT INR APTT PTT Ratio Specimen Type Sample Site POC pH POC pCO2 POC pO2 POC HCO3 POC Total CO2 POC Base Excess O2 Sat Pulse Oximetry ABG pH (Temp Correct) ABG pCO2 (Temp Corrct POC ABG pO2 at Pt Temp POC ABG O2 Sat Kamari Test VBG pH VBG pCO2 VBG pO2 VBG HCO3 VBG O2 Saturation VBG Base Excess O2 Delivery Device POC Sodium Sodium POC Potassium Potassium Chloride Carbon Dioxide Anion Gap BUN Creatinine Est Cr Clr Drug Dosing eGFR BUN/Creatinine Ratio Glucose POC Glucose 87 85 Lactate Calcium Magnesium Iron TIBC Transferrin Transferrin % Sat Ferritin Total Bilirubin Direct Bilirubin AST ALT Alkaline Phosphatase Ammonia 25.0 Troponin I High Sens C-Reactive Protein B-Natriuretic Peptide Total Protein Albumin Lipase Procalcitonin TSH Random Cortisol Urine Color Urine Appearance Urine pH Ur Specific Parkin Urine Protein Urine Glucose (UA) Urine Ketones Urine Blood Urine Nitrite Urine Bilirubin Urine Urobilinogen Ur Leukocyte Esterase Urine WBC (Auto) Urine RBC (Auto) U Hyaline Cast (Auto) U Epithel Cells (Auto) Urine Bacteria (Auto) Urine Comment Nasal Screen MRSA (PCR) Adenovirus (PCR) Anaplasma Smear B. pertussis DNA (PCR) B.parapertussis DNA PCR C. pneumoniae DNA (PCR) Coronavirus OC43 (PCR) Coronavirus HKU1 (PCR) Coronavirus 229E (PCR) SARS-CoV-2 (PCR) Coronavirus NL63 (PCR) EBV Capsid Ag IgG Ab EBV Caps Ag IgG Sig Str EBV Capsid Ag IgM Ab EBV Caps Ag IgM Sig Str EBV Early Antigen IgG EBV EA Signal Strength EBV Nuclear Antigen Ab EBV Nucl Ag IgG Sig Str EBV Interpretation Monoscreen Human Metapneumovir PCR Influenza Type A (PCR) Influenza Type B (PCR) M. pneumoniae (PCR) Parainfluenza 1 (PCR) Parainfluenza 2 (PCR) Parainfluenza 3 (PCR) Parainfluenza 4 (PCR) RSV (PCR) Entero/Rhino (PCR) 09/13/25 09/13/25 09/13/25 13:41 13:50 14:03 WBC RBC Hgb POC Hgb Hct POC Hct MCV MCH MCHC RDW Std Deviation RDW Coeff of Mildred Plt Count MPV Absolute Nucleated RBC Nucleated RBC % (auto) Neutrophils % (Manual) Lymphocytes % (Manual) Reactive Lymphs % (Man) Monocytes % (Manual) Neutrophils # (Manual) Total Absolute Neuts Lymphocytes # (Manual) Reactive Lymphs # Total Abs Lymphocytes Monocytes # (Manual) Polychromasia Hypochromasia ESR PT INR APTT PTT Ratio Specimen Type Sample Site POC pH POC pCO2 POC pO2 POC HCO3 POC Total CO2 POC Base Excess O2 Sat Pulse Oximetry ABG pH (Temp Correct) ABG pCO2 (Temp Corrct POC ABG pO2 at Pt Temp POC ABG O2 Sat Kamari Test VBG pH VBG pCO2 VBG pO2 VBG HCO3 VBG O2 Saturation VBG Base Excess O2 Delivery Device POC Sodium Sodium POC Potassium Potassium Chloride Carbon Dioxide Anion Gap BUN Creatinine Est Cr Clr Drug Dosing eGFR BUN/Creatinine Ratio Glucose POC Glucose 102 H 98 Lactate 1.9 Calcium Magnesium Iron TIBC Transferrin Transferrin % Sat Ferritin Total Bilirubin Direct Bilirubin AST ALT Alkaline Phosphatase Ammonia Troponin I High Sens C-Reactive Protein B-Natriuretic Peptide Total Protein Albumin Lipase Procalcitonin TSH Random Cortisol Urine Color Urine Appearance Urine pH Ur Specific Parkin Urine Protein Urine Glucose (UA) Urine Ketones Urine Blood Urine Nitrite Urine Bilirubin Urine Urobilinogen Ur Leukocyte Esterase Urine WBC (Auto) Urine RBC (Auto) U Hyaline Cast (Auto) U Epithel Cells (Auto) Urine Bacteria (Auto) Urine Comment Nasal Screen MRSA (PCR) Adenovirus (PCR) Anaplasma Smear B. pertussis DNA (PCR) B.parapertussis DNA PCR C. pneumoniae DNA (PCR) Coronavirus OC43 (PCR) Coronavirus HKU1 (PCR) Coronavirus 229E (PCR) SARS-CoV-2 (PCR) Coronavirus NL63 (PCR) EBV Capsid Ag IgG Ab EBV Caps Ag IgG Sig Str EBV Capsid Ag IgM Ab EBV Caps Ag IgM Sig Str EBV Early Antigen IgG EBV EA Signal Strength EBV Nuclear Antigen Ab EBV Nucl Ag IgG Sig Str EBV Interpretation Monoscreen Human Metapneumovir PCR Influenza Type A (PCR) Influenza Type B (PCR) M. pneumoniae (PCR) Parainfluenza 1 (PCR) Parainfluenza 2 (PCR) Parainfluenza 3 (PCR) Parainfluenza 4 (PCR) RSV (PCR) Entero/Rhino (PCR) 09/13/25 09/13/25 09/13/25 14:16 14:38 15:38 WBC RBC Hgb POC Hgb Hct POC Hct MCV MCH MCHC RDW Std Deviation RDW Coeff of Mildred Plt Count MPV Absolute Nucleated RBC Nucleated RBC % (auto) Neutrophils % (Manual) Lymphocytes % (Manual) Reactive Lymphs % (Man) Monocytes % (Manual) Neutrophils # (Manual) Total Absolute Neuts Lymphocytes # (Manual) Reactive Lymphs # Total Abs Lymphocytes Monocytes # (Manual) Polychromasia Hypochromasia ESR 100 H PT INR APTT PTT Ratio Specimen Type Sample Site POC pH POC pCO2 POC pO2 POC HCO3 POC Total CO2 POC Base Excess O2 Sat Pulse Oximetry ABG pH (Temp Correct) ABG pCO2 (Temp Corrct POC ABG pO2 at Pt Temp POC ABG O2 Sat Kamari Test VBG pH VBG pCO2 VBG pO2 VBG HCO3 VBG O2 Saturation VBG Base Excess O2 Delivery Device POC Sodium Sodium POC Potassium Potassium Chloride Carbon Dioxide Anion Gap BUN Creatinine Est Cr Clr Drug Dosing eGFR BUN/Creatinine Ratio Glucose POC Glucose 112 H Lactate Calcium Magnesium Iron TIBC Transferrin Transferrin % Sat Ferritin Total Bilirubin Direct Bilirubin AST ALT Alkaline Phosphatase Ammonia Troponin I High Sens C-Reactive Protein B-Natriuretic Peptide Total Protein Albumin Lipase Procalcitonin TSH Random Cortisol Urine Color Yellow Urine Appearance Clear Urine pH 5.5 Ur Specific Parkin 1.019 Urine Protein Negative Urine Glucose (UA) 2+ H Urine Ketones Negative Urine Blood Trace H Urine Nitrite Negative Urine Bilirubin Negative Urine Urobilinogen Negative Ur Leukocyte Esterase Negative Urine WBC (Auto) 0-5 Urine RBC (Auto) 0-2 U Hyaline Cast (Auto) 0-2 U Epithel Cells (Auto) 0-2 Urine Bacteria (Auto) None Seen Urine Comment Nasal Screen MRSA (PCR) Adenovirus (PCR) Anaplasma Smear See Comment B. pertussis DNA (PCR) B.parapertussis DNA PCR C. pneumoniae DNA (PCR) Coronavirus OC43 (PCR) Coronavirus HKU1 (PCR) Coronavirus 229E (PCR) SARS-CoV-2 (PCR) Coronavirus NL63 (PCR) EBV Capsid Ag IgG Ab EBV Caps Ag IgG Sig Str EBV Capsid Ag IgM Ab EBV Caps Ag IgM Sig Str EBV Early Antigen IgG EBV EA Signal Strength EBV Nuclear Antigen Ab EBV Nucl Ag IgG Sig Str EBV Interpretation Monoscreen Human Metapneumovir PCR Influenza Type A (PCR) Influenza Type B (PCR) M. pneumoniae (PCR) Parainfluenza 1 (PCR) Parainfluenza 2 (PCR) Parainfluenza 3 (PCR) Parainfluenza 4 (PCR) RSV (PCR) Entero/Rhino (PCR) Diagnostic Findings Chest CTA 09/13/25 09:59 Exam: CT angiogram of the chest with pulmonary embolus protocol. Reason for exam: Dizziness. Previous studies: Chest radiograph 09/13/2025. Findings there is good opacification of the pulmonary arteries. At this time no persistent filling defect to indicate embolus is seen on either side. Pulmonary artery size normal and there is no evidence of right ventricular strain. Moderately large pleural effusion is seen. Correlation with echocardiogram recommended. Moderate coronary artery calcifications present. No aortic aneurysm or dissection seen at the examined levels. Scattered areas of atelectasis seen in both lower lobes. IMPRESSION: 1. Negative for pulmonary embolus. 2. Negative for aortic aneurysm or dissection. 3. Moderate coronary artery calcifications. 4. Moderate pericardial effusion. Further evaluation with echocardiogram recommended. 5. Scattered areas of atelectasis in both lower lobes. Electronically signed by Godfrey Andrew 09-13-2025 12:19 PM Chest X-Ray 09/13/25 10:00 Clinical History: Shortness of breath Technique: A frontal view of the chest was obtained Comparison is made to the prior examination dated 08/28/2025 Findings: There are no confluent pulmonary infiltrates. The heart size is within normal limits. No pleural effusion or pneumothorax is seen. There is no definite pulmonary nodule. No fracture is noted. No foreign body is seen Impression: No active disease Electronically signed by Tera Dunne 09-13-2025 10:[address] 09/13/25 10:00 EXAM: CT head/brain wo con CLINICAL HISTORY: dizziness TECHNIQUE: Axial non-contrast CT scan of the brain was performed from the skull base to the high parietal region in axial, sagittal and coronal reconstructions. One of the following dose reduction techniques were utilized for this exam: Automated exposure control, adjustment of the mA and/or kV according to patient size, use of iterative reconstruction. CTDI: 76 mGy , DLP: 1566 mGy-cm. COMPARISON: None. FINDINGS: Brain Parenchyma: Amber-ventricular hypo-attenuation of the cerebral hemispheres. Bilateral basal ganglia hypodense lacunar infarctions. No evidence of acute infarct, hemorrhage, or mass effect. Ventricular System: No evidence of hydrocephalus. Subarachnoid Spaces: Age-related mild brain involutional changes. No evidence of subarachnoid hemorrhage or extra-axial fluid collections. Cerebellum and Brainstem: No masses, lesions, or areas of abnormal density. Orbits: Normal appearance of the globes, optic nerves, and extraocular muscles. No evidence of orbital masses or abnormal density. Sinuses: Clear paranasal sinuses. No evidence of sinusitis or mucosal thickening. Skull: Normal skull morphology. IMPRESSION: 1. Chronic small-vessel ischemic changes with old bilateral basal ganglia lacunar infarctions. 2. Age-related brain involutional changes. 3. No acute intracranial hemorrhage or mass effect. 4. Early acute infarction may not be visible on CT. If clinically suspected, MRI with DWI is recommended for further evaluation. Electronically signed by Nicolas Corrales 09-13-2025 12:22 PM ECG Additional Comments: EKG - my reading - sinus tach, poor R wave progression, no ST changes Critical Care Time Critical Care Time: Yes Total Critical Care Time: 90 PG Care Time/CCT Total # of Minutes Spent Total Time Spent with Patient: Total time spent is greater than 50% in coordination of care (as documented) at patient's floor/unit and/or counseling patient: Critical Care Time: Yes Total Critical Care Time: 90 Coding Level of Care Code None Diagnoses Shock circulatory R57.9 Metabolic encephalopathy G93.41 Acute UTI N39.0 Type 2 diabetes mellitus with peripheral neuropathy E11.42 Pericardial effusion I31.39 Benign prostatic hyperplasia with urinary obstruction N40.1; N13.8 Primary hypertension I10 Hypertension type: primary hypertension COPD (chronic obstructive pulmonary disease) J44.9 Hypothermia T68.XXXA Hypoglycemia E16.2 Elevated erythrocyte sedimentation rate R70.0 Weight loss R63.4 Additional Codes Critical Care Time - Critical Care Time: Yes ([id number]) (7) Hypertension Hypertension type: primary hypertension Qualified Code(s): I10 - Essential (primary) hypertension
[2025-09-13] MEDS: SODIUM CHLORIDE 0.9% 500 ML IV SCH (14:29)
[2025-09-13 14:49] LABS: Iron 11.0 mcg/dl (35-175); Total Iron Binding Cap Calc 225.0 mcg/dl (250-450); Transferrin 161.0 mg/dl (200-360); Transferrin (FE) Percent Satur 5.0 % (20-50)
[2025-09-13] MEDS: SODIUM CHLORIDE 0.9% 1,000 ML IV ONE ×2 (14:51→16:54)
[2025-09-13] MEDS: CEFEPIME 2000MG 2,000 MG/20 ML SYR IV STA (14:53)
[2025-09-13 15:05] LABS: Thyroid Stimulating Hormone 0.622 uIu/ml (0.300-4.500)
[2025-09-13 15:11] LABS: Ferritin 990.2 ng/ml (8-388)
[2025-09-13 16:01] LABS: Appearance Urine Clear (Clear); Bacteria Urine Automated None Seen (None Seen); Cast Urine Automated 0-2 /lpf (0-2); Epithelial Cell Urine Auto 0-2 /hpf (0-2); Glucose Urine UA 2+ (Negative); RBC Urine Automated 0-2 /hpf (0-2); WBC Urine Automated 0-5 /hpf (0-5)
[2025-09-13 16:05] LABS: EBV Nuclear Antigen IgG Ab Positive; EBV Nuclear Antigen IgG Quant 514.0 U/mL (< 18.0)
[2025-09-13 16:06] LABS: EBV Early Antigen IgG Ab Negative (Negative); EBV Early Antigen IgG Quant < 5.0 U/mL (< 9.0); EBV IgM Antibody Negative; EBV IgM Quant < 10.0 U/mL (< 36.0)
[2025-09-13 16:07] LABS: EBV IgG Antibody Positive; EBV IgG Quant > 750.0 U/mL (< 18.0)
[2025-09-13] MEDS: D5NSS + 20MEQ KCL 20 MEQ/1,000 ML BAG IV SCH (16:11)
[2025-09-13] MEDS ORDERED: STAT IV Infusion **Titration per Protocol STA ×2 (16:47→22:00)
[2025-09-13] MEDS: NOREPINEPHRINE/D5W 4 MG/250 ML IV ONE (16:50)
[2025-09-13] MEDS: NOREPINEPHRINE/D5W 4 MG/250 ML PLCT IV SCH (16:50)
--- NOTE | 2025-09-13 18:09 | Critical Care Consultation ---
Date of Consultation September 13, 2025 Assessment & Plan (1) Metabolic encephalopathy: (2) Shock circulatory: (3) Obstructive sleep apnea of adult: (4) Hypertension: (5) COPD (chronic obstructive pulmonary disease): (6) Anxiety: (7) GERD (gastroesophageal reflux disease): (8) Pericardial effusion: (9) Sepsis: Plan Reason Critically Ill: 64-year-old male coming to the hospital because of feeling unwell. Was found to be hypotensive in the ED, did not respond to fluids. Sent to the ICU on Levophed Past medical history: Appendectomy July 2025, diabetes, hypertension Neuro - [facility] ICU: negative --Metabolic encephalopathy Likely secondary to hypoglycemia with sepsis TSH, ammonia, sodium, calcium within normal limit Cardiac - -- Septic shock Source likely is intra-abdominal Continue broad-spectrum antibiotics Vasopressor support to keep MAP greater than 65 Random cortisol 21.32 --Pericardial effusion Patient seem to have pericardial effusion even on the CT chest 07/28/2025 it has just gotten worse on the latest CTA Follow-up 2D echo Respiratory - CTA chest 09/13/2025 personally reviewed: Motion degraded study Minimal dependent ectasis bilateral lower lobe Moderate pericardial effusion No significant mediastinal lymphadenopathy --History of COPD/asthma On Trelegy 100 at home Not in exacerbation --JOSHUA On BiPAP at home GI - -- Mildly elevated AST Likely from shock Continue to monitor RENAL/LYTES - -- Monitor BUNs/creatinine Avoid obstructive medications ENDO - -- Patient was hypoglycemic at presentation Could be as the patient is on glipizide and was not taking anything p.o. Currently on D5-1/2 with KCl and it -- Diabetes type 2 Continue with ICU hyperglycemia protocol HEME - -- Normocytic anemia Monitor H&H ID - -- Sepsis Source is likely intra-abdominal given the recent appendectomy Respiratory BioFire negative for everything on 09/13/2025 UA clean ESR 100 CRP 12.56 --Prophylaxis VTE: IPC GI: Pantoprazole Lines: Peripheral Diet: N.p.o. Plan: Strict in and out POCUS at bedside did not show any free fluid within the abdomen, moderate pericardial effusion, questionable early signs of tamponade Will order stat echo to be done now CT abdomen pelvis stat with contrast Patient serum cortisol was on the lower side, I would expect it to be higher in somebody who is in septic shock Low threshold to start the patient on hydrocortisone if he continues to require vasopressors Given the patient is somnolent and history of JOSHUA, I will get BiPAP to be used at night ABG to be done now Patient was hypoglycemic at presentation, Could be as the patient is on glipizide and was not taking anything p.o. Currently on D5-1/2 with KCl and it I have personally spent 78 minutes of critical care time in the direct management of this patient. This is a life/limb threatening event. This includes time spent evaluating patient, direct bedside care, chart review, placing orders, interpretation of diagnostic studies, discussion with consultants, patient, and family members, as well as other required patient management activities. This time is exclusive of all separately billable procedures, and teaching time and separate from and in addition to any other critical care service time. History of Present Illness History of Present Illness 64-year-old male coming to the hospital because of feeling unwell. Was found to be hypotensive in the ED, did not respond to fluids. Sent to the ICU on Levophed Past medical history: Appendectomy July 2025, diabetes, hypertension Patient got 3 L of IV fluids but his blood pressure was still in the systolic 70s, he was started on Levophed As per the signout patient got 3 L of IV fluids, he was also given Solu-Medrol 125 mg At the time of examination patient was somnolent but easily arousable and answering questions appropriately He was on 0.05 Levophed with a systolic in the mid 100 and MAP in the high 60s He says that he is feeling better after coming to the hospital Still complaining of dry mouth. Denies any nausea or vomiting Has been having some abdominal discomfort No headache, no blurry vision Did have poor appetite since last week or so Social history: Approximately [id number] smoking history, quit around the age of 36 Allergies Allergy/AdvReac Type Severity Reaction Status Date / Time No Known Drug Allergies Allergy Verified 09/08/25 09:22 Home Medications Medication Instructions Recorded Confirmed Type Custom Orthotics #1 ea 07/21/20 09/08/25 Rx blood sugar diagnostic #50 ea 10/13/20 09/08/25 Rx fluticasone fur. 100 mcg-umeclid 1 inh inhalation Q24H PRN sob 04/11/24 09/13/25 History 62.5 mcg-vilant 25 mcg inhalat.powder (Trelegy Ellipta) aspirin 81 mg tablet,delayed 81 mg PO DAILY 11/21/24 09/13/25 History release (Adult Aspirin Regimen) empagliflozin 25 mg tablet 25 mg PO QAM #90 tabs 01/15/25 09/13/25 Rx trazodone 50 mg tablet 50 mg PO HS #90 tabs 03/20/25 09/13/25 Rx Diabetic Shoes #1 ea 03/25/25 09/08/25 Rx semaglutide 0.25 mg or 0.5 mg (2 0.5 mg (0.736 mL) subcut .Weekly 04/03/25 09/13/25 Rx mg/3 mL) subcutaneous pen injector #3 mL (AVIcode) blood sugar diagnostic (Accu-Chek #100 ea 04/08/25 09/08/25 Rx Guide test strips) lancets (Accu-Chek Fastclix Lancet #100 ea 04/08/25 09/08/25 Rx Drum) lisinopril 10 mg tablet 10 mg PO .every other day #45 tabs 04/14/25 09/13/25 Rx escitalopram oxalate 20 mg tablet 20 mg PO QAM #90 tabs 04/15/25 09/13/25 Rx glipizide 10 mg tablet, extended 10 mg PO QAM #90 tabs 04/15/25 09/13/25 Rx release 24 hr metoprolol succinate 25 mg 25 mg PO QAM #90 tabs 04/15/25 09/13/25 Rx tablet,extended release 24 hr atorvastatin 20 mg tablet 20 mg PO PM #90 tabs 04/16/25 09/13/25 Rx famotidine 20 mg tablet 20 mg PO HS #180 tabs 04/21/25 09/13/25 Rx blood-glucose meter (Accu-Chek #1 ea 05/12/25 09/08/25 Rx Guide Me Glucose Meter) ferrous sulfate 325 mg (65 mg 325 mg PO DAILY #90 tabs 05/19/25 09/13/25 Rx iron) tablet fluticasone propionate 50 2 spray intranasal DAILY PRN 05/21/25 09/13/25 Rx mcg/actuation nasal Congestion #47.4 mL spray,suspension (Allergy Relief (fluticasone)) tizanidine 4 mg tablet 4 mg PO BID PRN muscle spasticity 05/30/25 09/13/25 Rx #20 tabs promethazine 12.5 mg tablet 12.5 mg PO HS PRN nausea and 06/19/25 09/13/25 Rx vomiting #60 tabs azelastine 137 mcg (0.1 %) nasal 1 spray intranasal DAILY PRN 07/10/25 09/13/25 Rx spray Congestion #90 mL pantoprazole 40 mg tablet,delayed 40 mg PO BID #180 tabs 07/10/25 09/13/25 Rx release tamsulosin 0.4 mg capsule (Flomax) 0.4 mg PO QPM #90 caps 07/14/25 09/13/25 Rx pregabalin 50 mg capsule (Lyrica) 50 mg PO BID #60 caps 07/18/25 09/13/25 Rx ciprofloxacin HCl 500 mg tablet 500 mg PO BID 7 days #14 tabs 09/09/25 09/13/25 Rx (Cipro) Patient History Medical History Right rotator cuff tear Trochanteric bursitis, right hip Anxiety COPD (chronic obstructive pulmonary disease) Diabetes GERD (gastroesophageal reflux disease) Chronic diarrhea Disc degeneration, lumbar Dyslipidemia Diabetic neuropathy Chronic venous insufficiency BPH (benign prostatic hyperplasia) Bloating reason for upcoming EGD Dysphagia reason for upcoming EGD Urinary urgency hx Pericardial effusion pt. unaware - small, monitoring per [facility] records ETD (eustachian tube dysfunction) Renal cyst pt. unaware Lung nodules monitored Hypertension Stenosis, cervical spine reports full ROM Obstructive sleep apnea cpap - does not wear as it "does not stay on" Restrictive lung disease no pulmonoloist, uses inhaler prn Cardiomegaly follows w/ Dr Rigo Barrios (03/10/24) IBS (irritable bowel syndrome) Mixed hearing loss, bilateral No H/A's Bony sclerosis 05/02/23-Sclerotic foci within the intertrochanteric region of the right femur have slightly progressed. Dominant focus measures 1.9 cm, previously measuring 1.6 cm Varicose veins of left lower extremity having testing at [facility] 04/17 or 04/18 Hx: UTI (urinary tract infection) Hx of colonic polyps Hx of gout SOBOE (shortness of breath on exertion) with minimal exertion when walking Surgical History History of laparoscopic appendectomy (08/28/25) Laparoscopic Appendectomy(Not Applicable) - Godfrey Joe DO, FACS S/P right rotator cuff repair History of cystoscopy (05/14/24) w/ clot evacuation Hx of hernia repair (1981) History of foot surgery (2005) S/P right rotator cuff repair Hx of removal of cyst (2016) abdominal Hx of colonoscopy with polypectomy History of arthroscopy of right shoulder (07/2023) History of open reduction and internal fixation (ORIF) procedure (11/12/19) R ankle History of cataract surgery (2019) B/L Hx of transurethral resection of prostate 04/23/24 and 06/2018 History of esophagogastroduodenoscopy (EGD) (2018) History of tooth extraction All teeth removed History of inguinal herniorrhaphy Family History Sister Family history of diabetes mellitus multiple sisters Stroke Hypertension Cancer Breast cancer Mother Family history of diabetes mellitus Hypertension Cancer Other Family history of deafness or hearing loss No family history of adverse response to anesthesia Denies family history of Ovarian cancer Prostate cancer Myocardial infarction Colorectal cancer Social History Smoking Status: Never smoker Tobacco Type: Cigarettes Age Started Using Tobacco: 26; Age Quit Using Tobacco: 41; packs per day: 1; Second Hand Exposure: No; Do You Dip or Chew Tobacco: No; Hx Alcohol Use: No Hx Substance Use: No Preferred Language: Persian Communication Ability: Effective Visual Impairment: No Limitations Hearing Ability: Normal Nsh Teacher Required: No Beliefs That Will Affect Care: None marital status: Current Living Situation: Other Current Living Situation Comment: home with sister current occupational status: unemployed Feels Safe at Home: Yes Childhood Exposure to Second-Hand Smoke: Yes Diet: regular Diet Comment: regular caffeine: No during the past year weight has: remained stable Dental Care, Regularly: No Physical Activity Frequency: 1-2 Times per Week Physical Activity Frequency Comment: LIMITED BY PHYSICAL CONDITION Seatbelt Use: always Sunscreen Use: No Assistive Devices: None Review of Systems 2 Review of Systems: All systems reviewed & are unremarkable except as noted in HPI & below and Unobtainable due to cognitive status Physical Exam 2 Physical Exam: Constitutional: No acute distress HEENT: EOMI, PERRLA Respiratory system: Good air entry bilaterally, no wheeze, no rhonchi, mild crackles bilateral lower lobe CVS: S1-S2 positive, no murmurs or gallops Abdomen: Soft, diffuse abdominal tenderness, no rebound, reducible midline hernia, decreased bowel sounds Extremities: +2 pulses bilaterally radialis/ dorsalis pedis, no cyanosis, no edema Neuro: Awake alert oriented to self and place, moving all extremities appropriately, cranial nerves II to XII grossly intact Psych: Flat mood and affect G/U: No [place] Skin: no rashes, warm and dry Lymphatic: no cervical or axillary lymphadenopathy Results & Data Results & Data Vital Signs (Past 12 Hours) Vital Signs Temp Pulse Pulse Resp BP BP Pulse Ox 09/13/25 17:10 103/69 09/13/25 17:09 48 L 99 09/13/25 17:05 112/72 09/13/25 17:05 112/72 09/13/25 17:05 112/72 09/13/25 17:05 112/72 09/13/25 17:05 112/72 09/13/25 17:03 47 L 99 09/13/25 17:00 109/65 09/13/25 17:00 109/65 09/13/25 17:00 109/65 09/13/25 17:00 109/65 09/13/25 17:00 109/65 09/13/25 17:00 109/65 09/13/25 17:00 109/65 09/13/25 17:00 49 L 98 09/13/25 16:55 84/60 L 09/13/25 16:55 84/60 L 09/13/25 16:55 84/60 L 09/13/25 16:55 84/60 L 09/13/25 16:55 84/60 L 09/13/25 16:54 60 98 09/13/25 16:50 86/50 L 09/13/25 16:50 86/50 L 09/13/25 16:50 86/50 L 09/13/25 16:50 86/50 L 09/13/25 16:50 86/50 L 09/13/25 16:48 62 98 09/13/25 16:46 83/55 L 09/13/25 16:46 83/55 L 09/13/25 16:46 83/55 L 09/13/25 16:45 72 97 09/13/25 16:45 73/55 L 09/13/25 16:45 73/55 L 09/13/25 16:41 80/54 L 09/13/25 16:41 80/54 L 09/13/25 16:41 80/54 L 09/13/25 16:41 80/54 L 09/13/25 16:39 70 98 09/13/25 16:38 83/62 L 09/13/25 16:38 83/62 L 09/13/25 16:38 83/62 L 09/13/25 16:36 70 97 09/13/25 16:35 81/56 L 09/13/25 16:35 81/56 L 09/13/25 16:35 81/56 L 09/13/25 16:33 72 98 09/13/25 16:31 82/55 L 09/13/25 16:30 70 98 09/13/25 16:30 82/55 L 09/13/25 16:30 82/55 L 09/13/25 16:30 82/55 L 09/13/25 16:30 82/55 L 09/13/25 16:30 82/55 L 09/13/25 16:24 79/54 L 09/13/25 16:24 79/54 L 09/13/25 16:24 79/54 L 09/13/25 16:24 79/54 L 09/13/25 16:24 68 99 09/13/25 16:24 79/54 L 09/13/25 16:24 79/54 L 09/13/25 16:22 78/54 L 09/13/25 16:22 78/54 L 09/13/25 16:21 73 99 09/13/25 16:15 65 100 09/13/25 16:15 83/55 L 09/13/25 16:15 83/55 L 09/13/25 16:15 83/55 L 09/13/25 16:15 83/55 L 09/13/25 16:15 83/55 L 09/13/25 16:06 96 09/13/25 16:00 80 L 09/13/25 16:00 99/72 L 09/13/25 16:00 99/72 L 09/13/25 16:00 99/72 L 09/13/25 16:00 99/72 L 09/13/25 16:00 99/72 L 09/13/25 15:48 79 99 09/13/25 15:46 103/74 09/13/25 15:46 103/74 09/13/25 15:46 103/74 09/13/25 15:46 103/74 09/13/25 15:46 103/74 09/13/25 15:46 103/74 09/13/25 15:46 103/74 09/13/25 15:45 71 82 L 09/13/25 15:31 116/81 09/13/25 15:31 116/81 09/13/25 15:31 116/81 09/13/25 15:31 116/81 09/13/25 15:31 116/81 09/13/25 15:30 74 92 09/13/25 15:15 71 98 09/13/25 15:15 114/84 09/13/25 15:15 114/84 09/13/25 15:15 114/84 09/13/25 15:15 114/84 09/13/25 15:15 114/84 09/13/25 15:00 91/65 L 09/13/25 15:00 91/65 L 09/13/25 15:00 91/65 L 09/13/25 15:00 91/65 L 09/13/25 15:00 91/65 L 09/13/25 15:00 91/65 L 09/13/25 15:00 67 97 09/13/25 14:45 81/60 L 09/13/25 14:45 81/60 L 09/13/25 14:45 81/60 L 09/13/25 14:45 81/60 L 09/13/25 14:45 81/60 L 09/13/25 14:45 73 96 09/13/25 14:37 86/66 L 09/13/25 14:37 86/66 L 09/13/25 14:37 86/66 L 09/13/25 14:37 86/66 L 09/13/25 14:37 86/66 L 09/13/25 14:36 80 96 09/13/25 14:30 85/61 L 09/13/25 14:30 85/61 L 09/13/25 14:30 85/61 L 09/13/25 14:30 85/61 L 09/13/25 14:30 85/61 L 09/13/25 14:30 77 96 09/13/25 14:15 80 10 L 95 09/13/25 14:15 85/64 L 09/13/25 14:15 85/64 L 09/13/25 14:15 85/64 L 09/13/25 14:15 85/64 L 09/13/25 14:15 85/64 L 09/13/25 14:14 92/66 L 09/13/25 14:12 79 20 95 09/13/25 14:11 79 09/13/25 14:08 87/69 L 09/13/25 14:08 87/69 L 09/13/25 14:08 87/69 L 09/13/25 14:08 87/69 L 09/13/25 14:08 87/69 L 09/13/25 14:06 81 18 95 09/13/25 14:00 85 19 94 09/13/25 14:00 93/62 L 09/13/25 14:00 93/62 L 09/13/25 14:00 93/62 L 09/13/25 14:00 93/62 L 09/13/25 14:00 93/62 L 09/13/25 13:47 94/60 L 09/13/25 13:47 94/60 L 09/13/25 13:47 94/60 L 09/13/25 13:47 94/60 L 09/13/25 13:47 94/60 L 09/13/25 13:45 77/63 L 09/13/25 13:45 77/63 L 09/13/25 13:45 83 18 94 09/13/25 13:30 83 18 92 09/13/25 13:30 98/60 L 09/13/25 13:30 98/60 L 09/13/25 13:30 98/60 L 09/13/25 13:30 98/60 L 09/13/25 13:30 98/60 L 09/13/25 13:26 105/72 09/13/25 13:26 105/72 09/13/25 13:26 105/72 09/13/25 13:26 105/72 09/13/25 13:26 105/72 09/13/25 13:24 87 19 92 09/13/25 13:15 88/66 L 09/13/25 13:15 88/66 L 09/13/25 13:15 88/66 L 09/13/25 13:15 88/66 L 09/13/25 13:15 88/66 L 09/13/25 13:15 88/66 L 09/13/25 13:15 88/66 L 09/13/25 13:15 88/66 L 09/13/25 13:15 88/66 L 09/13/25 13:15 86 18 91 09/13/25 13:00 87 17 91 09/13/25 13:00 92/47 L 09/13/25 13:00 92/47 L 09/13/25 13:00 92/47 L 09/13/25 13:00 92/47 L 09/13/25 13:00 92/47 L 09/13/25 12:50 94/66 L 09/13/25 12:50 94/66 L 09/13/25 12:50 94/66 L 09/13/25 12:50 94/66 L 09/13/25 12:50 94/66 L 09/13/25 12:48 86 20 93 09/13/25 12:45 88 21 92 09/13/25 12:31 119/98 09/13/25 12:31 119/98 09/13/25 12:31 119/98 09/13/25 12:31 119/98 09/13/25 12:31 119/98 09/13/25 12:30 87 17 09/13/25 12:15 90 17 94 09/13/25 12:03 93 H 18 95 09/13/25 12:01 127/105 H 09/13/25 12:01 127/105 H 09/13/25 12:01 127/105 H 09/13/25 12:01 127/105 H 09/13/25 12:01 127/105 H 09/13/25 12:00 93 H 19 91 09/13/25 11:46 121/97 09/13/25 11:46 121/97 09/13/25 11:46 121/97 09/13/25 11:46 121/97 09/13/25 11:46 121/97 09/13/25 11:45 94 H 19 92 09/13/25 11:30 96 H 20 93 09/13/25 11:30 147/90 H 09/13/25 11:30 147/90 H 09/13/25 11:30 147/90 H 09/13/25 11:30 147/90 H 09/13/25 11:30 147/90 H 09/13/25 11:00 107 H 29 H 89 L 09/13/25 11:00 85/66 L 09/13/25 11:00 85/66 L 09/13/25 11:00 85/66 L 09/13/25 11:00 85/66 L 09/13/25 11:00 85/66 L 09/13/25 10:45 108 H 27 H 95 09/13/25 10:45 101/81 09/13/25 10:45 101/81 09/13/25 10:45 101/81 09/13/25 10:45 101/81 09/13/25 10:45 101/81 09/13/25 10:30 110 H 31 H 92 09/13/25 10:30 104/79 09/13/25 10:30 104/79 09/13/25 10:30 104/79 09/13/25 10:30 104/79 09/13/25 10:30 104/79 09/13/25 10:27 111 H 18 94 09/13/25 10:27 112 H 23 119/88 94 09/13/25 10:25 119/88 09/13/25 10:25 119/88 09/13/25 10:25 119/88 09/13/25 10:25 119/88 09/13/25 10:07 91 09/13/25 10:05 117 H 09/13/25 10:00 111 H 24 110/83 94 09/13/25 10:00 120 H 35 H 110/83 88 L 09/13/25 09:59 09/13/25 09:50 120 H 24 108/80 98 09/13/25 09:48 118 H 36 H 110/80 09/13/25 09:38 36.5 C 130 H 22 100/71 94 O2 Del Method O2 Flow Rate 09/13/25 17:10 09/13/25 17:09 09/13/25 17:05 09/13/25 17:05 09/13/25 17:05 09/13/25 17:05 09/13/25 17:05 09/13/25 17:03 09/13/25 17:00 09/13/25 17:00 09/13/25 17:00 09/13/25 17:00 09/13/25 17:00 09/13/25 17:00 09/13/25 17:00 09/13/25 17:00 09/13/25 16:55 09/13/25 16:55 09/13/25 16:55 09/13/25 16:55 09/13/25 16:55 09/13/25 16:54 09/13/25 16:50 09/13/25 16:50 09/13/25 16:50 09/13/25 16:50 09/13/25 16:50 09/13/25 16:48 09/13/25 16:46 09/13/25 16:46 09/13/25 16:46 09/13/25 16:45 09/13/25 16:45 09/13/25 16:45 09/13/25 16:41 09/13/25 16:41 09/13/25 16:41 09/13/25 16:41 09/13/25 16:39 09/13/25 16:38 09/13/25 16:38 09/13/25 16:38 09/13/25 16:36 09/13/25 16:35 09/13/25 16:35 09/13/25 16:35 09/13/25 16:33 09/13/25 16:31 09/13/25 16:30 09/13/25 16:30 09/13/25 16:30 09/13/25 16:30 09/13/25 16:30 09/13/25 16:30 09/13/25 16:24 09/13/25 16:24 09/13/25 16:24 09/13/25 16:24 09/13/25 16:24 09/13/25 16:24 09/13/25 16:24 09/13/25 16:22 09/13/25 16:22 09/13/25 16:21 09/13/25 16:15 09/13/25 16:15 09/13/25 16:15 09/13/25 16:15 09/13/25 16:15 09/13/25 16:15 09/13/25 16:06 Nasal Cannula 2 09/13/25 16:00 09/13/25 16:00 09/13/25 16:00 09/13/25 16:00 09/13/25 16:00 09/13/25 16:00 09/13/25 15:48 09/13/25 15:46 09/13/25 15:46 09/13/25 15:46 09/13/25 15:46 09/13/25 15:46 09/13/25 15:46 09/13/25 15:46 09/13/25 15:45 09/13/25 15:31 09/13/25 15:31 09/13/25 15:31 09/13/25 15:31 09/13/25 15:31 09/13/25 15:30 09/13/25 15:15 09/13/25 15:15 09/13/25 15:15 09/13/25 15:15 09/13/25 15:15 09/13/25 15:15 09/13/25 15:00 09/13/25 15:00 09/13/25 15:00 09/13/25 15:00 09/13/25 15:00 09/13/25 15:00 09/13/25 15:00 09/13/25 14:45 09/13/25 14:45 09/13/25 14:45 09/13/25 14:45 09/13/25 14:45 09/13/25 14:45 09/13/25 14:37 09/13/25 14:37 09/13/25 14:37 09/13/25 14:37 09/13/25 14:37 09/13/25 14:36 09/13/25 14:30 09/13/25 14:30 09/13/25 14:30 09/13/25 14:30 09/13/25 14:30 09/13/25 14:30 09/13/25 14:15 09/13/25 14:15 09/13/25 14:15 09/13/25 14:15 09/13/25 14:15 09/13/25 14:15 09/13/25 14:14 09/13/25 14:12 09/13/25 14:11 09/13/25 14:08 09/13/25 14:08 09/13/25 14:08 09/13/25 14:08 09/13/25 14:08 09/13/25 14:06 09/13/25 14:00 09/13/25 14:00 09/13/25 14:00 09/13/25 14:00 09/13/25 14:00 09/13/25 14:00 09/13/25 13:47 09/13/25 13:47 09/13/25 13:47 09/13/25 13:47 09/13/25 13:47 09/13/25 13:45 09/13/25 13:45 09/13/25 13:45 09/13/25 13:30 09/13/25 13:30 09/13/25 13:30 09/13/25 13:30 09/13/25 13:30 09/13/25 13:30 09/13/25 13:26 09/13/25 13:26 09/13/25 13:26 09/13/25 13:26 09/13/25 13:26 09/13/25 13:24 09/13/25 13:15 09/13/25 13:15 09/13/25 13:15 09/13/25 13:15 09/13/25 13:15 09/13/25 13:15 09/13/25 13:15 09/13/25 13:15 09/13/25 13:15 09/13/25 13:15 09/13/25 13:00 09/13/25 13:00 09/13/25 13:00 09/13/25 13:00 09/13/25 13:00 09/13/25 13:00 09/13/25 12:50 09/13/25 12:50 09/13/25 12:50 09/13/25 12:50 09/13/25 12:50 09/13/25 12:48 09/13/25 12:45 09/13/25 12:31 09/13/25 12:31 09/13/25 12:31 09/13/25 12:31 09/13/25 12:31 09/13/25 12:30 09/13/25 12:15 09/13/25 12:03 09/13/25 12:01 09/13/25 12:01 09/13/25 12:01 09/13/25 12:01 09/13/25 12:01 09/13/25 12:00 09/13/25 11:46 09/13/25 11:46 09/13/25 11:46 09/13/25 11:46 09/13/25 11:46 09/13/25 11:45 09/13/25 11:30 09/13/25 11:30 09/13/25 11:30 09/13/25 11:30 09/13/25 11:30 09/13/25 11:30 09/13/25 11:00 09/13/25 11:00 09/13/25 11:00 09/13/25 11:00 09/13/25 11:00 09/13/25 11:00 09/13/25 10:45 09/13/25 10:45 09/13/25 10:45 09/13/25 10:45 09/13/25 10:45 09/13/25 10:45 09/13/25 10:30 09/13/25 10:30 09/13/25 10:30 09/13/25 10:30 09/13/25 10:30 09/13/25 10:30 09/13/25 10:27 09/13/25 10:27 Nasal Cannula 2 09/13/25 10:25 09/13/25 10:25 09/13/25 10:25 09/13/25 10:25 09/13/25 10:07 Nasal Cannula 09/13/25 10:05 09/13/25 10:00 Room Air 09/13/25 10:00 Room Air 2 09/13/25 09:59 Room Air 09/13/25 09:50 09/13/25 09:48 09/13/25 09:38 Room Air Laboratory Results 09/13/25 09:54 09/13/25 09:54 Coding Level of Care Code 68318 CRITICAL CARE 1ST 30-74M Diagnoses Metabolic encephalopathy G93.41 Shock circulatory R57.9 Obstructive sleep apnea of adult G47.33 Primary hypertension I10 Hypertension type: primary hypertension COPD (chronic obstructive pulmonary disease) J44.9 Anxiety F41.9 GERD (gastroesophageal reflux disease) K21.9 Pericardial effusion I31.39 Sepsis without acute organ dysfunction, due to unspecified organism A41.9 Sepsis type: sepsis due to unspecified organism Sepsis acute organ dysfunction status: without acute organ dysfunction (4) Hypertension Hypertension type: primary hypertension Qualified Code(s): I10 - Essential (primary) hypertension (9) Sepsis Sepsis type: sepsis due to unspecified organism Sepsis acute organ dysfunction status: without acute organ dysfunction Qualified Code(s): A41.9 - Sepsis, unspecified organism
[2025-09-13] MEDS: OPTIRAY 320 100ml IV ONE (19:06)
[2025-09-13] MEDS ORDERED: NON-FORMULARY MEDICATION (Fluticasone-Umeclidin-Vilanter [Trelegy Ellipta] 100-62.5-25 mcg INH SCH (19:44)
[2025-09-13 20:10] LABS: iSTAT Art Bld Gas Base Excess -5.0 mmol/L (-9-1.8); iSTAT Art Bld Gas pCO2 Correct 34 mmHg (35-46); iSTAT Art Bld Gas pH Corrected 7.381 (7.35-7.45); iSTAT Arterial Blood Gas pO2 C 75
[2025-09-13] MEDS: LACTATED RINGER'S 500 ML IV ONE (20:32)
[2025-09-13] MEDS: LACTATED RINGER'S 1,000 ML IV SCH (20:33)
[2025-09-13] MEDS: metroNIDAZOLE 500 MG/100 ML BAG IV SCH (20:56)
[2025-09-13] MEDS: HEPARIN SOD 5,000 UNIT/0.5 ML VIAL SQ SCH (21:07)
--- NOTE | 2025-09-13 21:15 | CT Scan Report ---
CT of the abdomen pelvis with contrast Technique: Postcontrast axial images of the abdomen pelvis. Coronal and sagittal reformatted images made available for review Comparison made to prior exam dated 08/28/2025 Findings: Moderate size pericardial effusion. Trace bilateral pleural effusions. Bibasilar dependent atelectasis. Multiple right renal hypodensities likely representing cysts measuring up to 3.9 cm. Marked distention of the urinary bladder which is filled with excreted contrast. No free air or intestinal obstruction. Splenomegaly. Remaining solid abdominal organs unremarkable in appearance. Impression Splenomegaly Markedly distended urinary bladder CT of the abdomen pelvis otherwise negative for acute intra-abdominal pathology. Electronically signed by Ruben Hutchison 09-13-2025 9:15 PM
[2025-09-13 21:51] LABS: Alanine Aminotransferase 31.0 U/L (7-52); Albumin Globulin Ratio 0.6 (0.9-2); Albumin Level 2.2 gm/dl (3.4-5.0); Alkaline Phosphatase 98.0 U/L (34-104); Anion Gap 8.0 (3-11); Bilirubin,Total 0.6 mg/dl (0.2-1.0); Blood Urea Nitrogen 17.0 mg/dl (6-23); Calcium 7.6 mg/dl (8.6-10.3); Carbon Dioxide 24.0 mmol/L (21-32); Chloride 104.0 mmol/L (98-107); Creatinine Clr Calc Pharmacy 113.5 ml/min; Globulin 3.6 gm/dl (2.5-4.0); Glucose 368.0 mg/dl (70-99(Fasting)); Magnesium 2.1 mg/dl (1.7-2.4); Potassium 4.1 mmol/L (3.5-5.1); Sodium 136.0 mmol/L (136-145); Total Protein 5.8 gm/dl (6.0-8.3)
[2025-09-13] MEDS: INSULIN REGULAR 250 UNITS in SODIUM CHLORIDE 0.9% 247.5 ML IV SCH (23:21)
[2025-09-13] MEDS: NovoLIN-R BOLUS FROM BAG IV ONE (23:21)
[2025-09-14 04:44] LABS: Hematocrit (blood only) 33.0 % (42.0-52.0); Hemoglobin 10.3 g/dL (14.0-18.0); Mean Corpuscular Hemoglobin 24.4 pg (25.0-34.0); Mean Corpuscular Volume 78.2 fL (80.0-100.0); Platelet Count 161 K/uL (130-400); RDW Standard Deviation 52.5 fL (36.4-46.3); Red Blood Count 4.22 M/uL (4.70-6.10); White Blood Count 4.69 K/ul (4.8-10.8)
[2025-09-14] MEDS: SEVERE STRESS LEVEL ONE (04:56)
[2025-09-14 05:02] LABS: Alanine Aminotransferase 32.0 U/L (7-52); Albumin Level 2.3 gm/dl (3.4-5.0); Alkaline Phosphatase 101.0 U/L (34-104); Anion Gap 9.0 (3-11); Bilirubin,Total 0.5 mg/dl (0.2-1.0); Blood Urea Nitrogen 19.0 mg/dl (6-23); Calcium 8.3 mg/dl (8.6-10.3); Carbon Dioxide 23.0 mmol/L (21-32); Chloride 108.0 mmol/L (98-107); Creatinine Clr Calc Pharmacy 107.7 ml/min; Glucose 266.0 mg/dl (70-99(Fasting)); Magnesium 2.3 mg/dl (1.7-2.4); Potassium 3.4 mmol/L (3.5-5.1); Sodium 140.0 mmol/L (136-145); Total Protein 6.2 gm/dl (6.0-8.3)
[2025-09-14] MEDS: POTASSIUM CHLORIDE CRTAB 20 MEQ TABCR PO STA (05:43)
[2025-09-14 05:56] LABS: Immature Granulocytes # (auto) 0.22 K/uL (0.01-0.20); Immature Granulocytes % (auto) 4.7 %; Polychromasia 1+
[2025-09-14] MEDS: FLUTICASONE FUROATE 100MCG 14 PUFFS/INHALER INH SCH (07:58)
[2025-09-14] MEDS: UMECLIDINIUM/VILANTEROL 62.5/25MCG 7 PUFFS/INHALER INH SCH (07:58)
[2025-09-14] MEDS: ESCITALOPRAM OXALATE 20 MG TAB PO SCH (07:58)
[2025-09-14] MEDS: INSULIN ASPART PER UNIT CHARGE SC SCH ×2 (07:58→20:45)
--- NOTE | 2025-09-14 08:44 | Critical Care Progress Note ---
Date of Service September 14, 2025 Assessment & Plan (1) Metabolic encephalopathy: (2) Shock circulatory: (3) Obstructive sleep apnea of adult: (4) Hypertension: (5) COPD (chronic obstructive pulmonary disease): (6) Anxiety: (7) GERD (gastroesophageal reflux disease): (8) Pericardial effusion: (9) Sepsis: Plan Reason Critically Ill: 64-year-old male coming to the hospital because of feeling unwell. Was found to be hypotensive in the ED, did not respond to fluids. Sent to the ICU on Levophed Past medical history: Appendectomy July 2025, diabetes, hypertension Neuro - [facility]: negative --Metabolic encephalopathy --> improved Likely secondary to hypoglycemia with sepsis TSH, ammonia, sodium, calcium within normal limit Cardiac - -- Shock No clear source, CT abdomen pelvis negative for any abnormality Prostatomegaly Continue broad-spectrum antibiotics Vasopressor support to keep MAP greater than 65 Random cortisol 21.32, would expect to be higher in somebody was in shock --Pericardial effusion Patient seem to have pericardial effusion even on the CT chest 07/28/2025 it has just gotten worse on the latest CTA Follow-up official report of 2D echo Respiratory - CTA chest 09/13/2025 personally reviewed: Motion degraded study Minimal dependent ectasis bilateral lower lobe Moderate pericardial effusion No significant mediastinal lymphadenopathy --History of COPD/asthma On Trelegy 100 at home Not in exacerbation --JOSHUA On BiPAP at home GI - -- Mildly elevated AST --> resolved Likely from shock Continue to monitor RENAL/LYTES - -- Monitor BUNs/creatinine Avoid obstructive medications ENDO - -- Patient was hypoglycemic at presentation in the ED Could be as the patient is on glipizide and was not taking anything p.o. Currently on D5-1/2 with KCl and it -- Diabetes type 2 Continue with ICU hyperglycemia protocol HEME - --Pancytopenia With splenomegaly HLH is a possibility Ferritin 990 -- Normocytic anemia Monitor H&H ID - -- Sepsis Patient was being treated with ciprofloxacin as an outpatient Respiratory BioFire negative for everything on 09/13/2025 UA clean ESR 100 CRP 12.56 --Prophylaxis VTE: Heparin GI: Pantoprazole Lines: Peripheral Diet: Clear liquids, advance as tolerated Plan: In/out: +2.5 L, urine output 2080 Potassium being replaced Stat 2D echo was done yesterday clin nurse spec informed us that there was mild diastolic collapse of the right atrium which would respond to IV fluids and thankfully he did Follow-up official 2D echo report Source of infection is not clear, he did have UTI for which he was taking ciprofloxacin since Monday CT abdominal pelvis was negative, CT chest did not show any clear signs of infection I will order Lyme, babesiosis. Anaplasmosis antibody was negative Would continue with empiric antibiotics for the time being and follow-up blood cultures Try to titrate off vasopressors Patient's random cortisol was only 21, I would expect it to be higher in somebody who is in shock. If the patient needs persistent vasopressors then low threshold to start hydrocortisone Start clear liquids and advance as tolerated Case discussed with primary team I have personally spent 32 minutes of critical care time in the direct management of this patient. This is a life/limb threatening event. This includes time spent evaluating patient, direct bedside care, chart review, placing orders, interpretation of diagnostic studies, discussion with consultants, patient, and family members, as well as other required patient management activities. This time is exclusive of all separately billable procedures, and teaching time and separate from and in addition to any other critical care service time. Admission and Anticipated Discharge Date Admission Date: September 13, 2025 Subjective Patient seen and examined at bedside. No acute distress, no new results overnight His blood pressure was 92/56 with heart rate in the high 70s at the time of examination He stated he is feeling much better compared to yesterday Denied any nausea or vomiting No chest pain, no shortness of breath, no abdominal pain. Levophed was 0.02 early in the morning today. Has been afebrile Review of Systems 2 Review of Systems: All systems reviewed & are unremarkable except as noted in Subjective Physical Exam 2 Physical Exam: Constitutional: No acute distress HEENT: EOMI, PERRLA Respiratory system: Good air entry bilaterally, no wheeze, no rhonchi, mild crackles bilateral lower lobe CVS: S1-S2 positive, no murmurs or gallops Abdomen: Soft, nontender, nondistended, reducible midline hernia, decreased bowel sounds Extremities: +2 pulses bilaterally radialis/ dorsalis pedis, no cyanosis, no edema Neuro: Awake alert oriented to self and place, moving all extremities appropriately, cranial nerves II to XII grossly intact Psych: Normal mood and affect G/U: Positive [place] Skin: no rashes, warm and dry Lymphatic: no cervical or axillary lymphadenopathy Results & Data Results & Data Vital Signs (Past 12 Hours) Vital Signs Temp Pulse Resp BP Pulse Ox O2 Del Method O2 Del Method 09/14/25 08:20 Room Air 09/14/25 07:45 36.3 C L 83 29 H 99 Nasal Cannula 09/14/25 07:35 87/59 L 09/14/25 07:35 87/59 L 09/14/25 07:35 87/59 L 09/14/25 07:35 87/59 L 09/14/25 07:35 87/59 L 09/14/25 07:33 36.3 C L 83 26 H 97 09/14/25 07:30 36.3 C L 86 28 H 96 09/14/25 07:15 36.3 C L 80 20 97 09/14/25 07:15 98/67 L 09/14/25 07:00 96/63 L 09/14/25 07:00 36.2 C L 82 22 96 Nasal Cannula 09/14/25 06:48 36.2 C L 85 20 96 09/14/25 06:46 95/65 L 09/14/25 06:46 95/65 L 09/14/25 06:46 95/65 L 09/14/25 06:46 95/65 L 09/14/25 06:45 36.1 C L 83 20 95 09/14/25 06:30 36.0 C L 84 16 96 09/14/25 06:15 97/72 L 09/14/25 06:15 97/72 L 09/14/25 06:15 97/72 L 09/14/25 06:15 97/72 L 09/14/25 06:15 97/72 L 09/14/25 06:15 35.9 C L 94 H 24 96 09/14/25 06:00 35.8 C L 92 H 25 H 97 09/14/25 06:00 93/67 L 09/14/25 06:00 93/67 L 09/14/25 06:00 93/67 L 09/14/25 06:00 93/67 L 09/14/25 06:00 93/67 L 09/14/25 05:45 94/77 L 09/14/25 05:45 94/77 L 09/14/25 05:45 94/77 L 09/14/25 05:45 94/77 L 09/14/25 05:45 94/77 L 09/14/25 05:45 35.7 C L 99 H 20 96 09/14/25 05:32 35.5 C L 93 H 24 96 09/14/25 05:30 99/67 L 09/14/25 05:29 35.5 C L 95 H 26 H 96 09/14/25 05:17 35.4 C L 83 20 96 09/14/25 05:16 108/79 09/14/25 05:14 35.4 C L 83 24 97 09/14/25 05:02 35.3 C L 79 16 97 09/14/25 05:00 92/67 L 09/14/25 04:59 35.3 C L 79 16 97 09/14/25 04:47 35.2 C L 77 16 97 09/14/25 04:45 101/78 09/14/25 04:44 35.2 C L 83 16 97 09/14/25 04:32 35.1 C L 79 16 97 09/14/25 04:30 93/66 L 09/14/25 04:24 35.0 C L 68 16 97 09/14/25 04:15 110/72 09/14/25 03:30 34.7 C L 49 L 16 125/78 98 09/14/25 03:15 34.6 C L 46 L 16 110/72 98 09/14/25 03:04 54 L 16 98 09/14/25 03:00 34.5 C L 45 L 16 105/61 98 09/14/25 02:45 34.5 C L 46 L 16 105/65 97 09/14/25 02:30 34.5 C L 49 L 17 118/76 98 09/14/25 02:15 34.5 C L 50 L 16 105/69 98 09/14/25 02:00 34.6 C L 52 L 16 117/70 98 09/14/25 01:45 34.6 C L 52 L 16 100/70 98 09/14/25 01:30 34.7 C L 71 19 89/70 L 96 09/14/25 00:30 34.6 C L 61 20 97 09/14/25 00:15 34.5 C L 54 L 16 97 09/14/25 00:08 58 L 09/14/25 00:00 34.4 C L 53 L 18 96 09/14/25 00:00 86/57 L 09/13/25 23:45 34.3 C L 49 L 16 96 09/13/25 23:30 34.2 C L 59 L 16 98 09/13/25 23:15 34.2 C L 56 L 16 98 09/13/25 23:00 34.3 C L 59 L 17 97 09/13/25 23:00 92/63 L 09/13/25 22:45 34.4 C L 62 18 98 09/13/25 22:37 68 17 97 09/13/25 22:30 34.6 C L 61 17 98 09/13/25 22:15 34.7 C L 64 17 98 09/13/25 22:00 34.9 C L 59 L 16 99 09/13/25 22:00 93/58 L 09/13/25 22:00 93/58 L 09/13/25 22:00 93/58 L 09/13/25 22:00 93/58 L 09/13/25 22:00 93/58 L 09/13/25 21:45 35.0 C L 60 17 98 09/13/25 21:30 35.0 C L 57 L 21 97 09/13/25 21:22 Nasal Cannula 09/13/25 21:15 35.0 C L 64 12 96 09/13/25 21:00 34.9 C L 66 20 98 09/13/25 21:00 111/67 09/13/25 21:00 111/67 09/13/25 21:00 111/67 09/13/25 21:00 111/67 09/13/25 20:45 34.8 C L 99 H 35 H 83 L O2 Flow Rate O2 Flow Rate FiO2 09/14/25 08:20 09/14/25 07:45 2 09/14/25 07:35 09/14/25 07:35 09/14/25 07:35 09/14/25 07:35 09/14/25 07:35 09/14/25 07:33 09/14/25 07:30 09/14/25 07:15 09/14/25 07:15 09/14/25 07:00 09/14/25 07:00 2 09/14/25 06:48 09/14/25 06:46 09/14/25 06:46 09/14/25 06:46 09/14/25 06:46 09/14/25 06:45 09/14/25 06:30 09/14/25 06:15 09/14/25 06:15 09/14/25 06:15 09/14/25 06:15 09/14/25 06:15 09/14/25 06:15 09/14/25 06:00 09/14/25 06:00 09/14/25 06:00 09/14/25 06:00 09/14/25 06:00 09/14/25 06:00 09/14/25 05:45 09/14/25 05:45 09/14/25 05:45 09/14/25 05:45 09/14/25 05:45 09/14/25 05:45 09/14/25 05:32 09/14/25 05:30 09/14/25 05:29 09/14/25 05:17 09/14/25 05:16 09/14/25 05:14 09/14/25 05:02 09/14/25 05:00 09/14/25 04:59 09/14/25 04:47 09/14/25 04:45 09/14/25 04:44 09/14/25 04:32 09/14/25 04:30 09/14/25 04:24 09/14/25 04:15 09/14/25 03:30 09/14/25 03:15 09/14/25 03:04 30 09/14/25 03:00 09/14/25 02:45 09/14/25 02:30 09/14/25 02:15 09/14/25 02:00 09/14/25 01:45 09/14/25 01:30 09/14/25 00:30 09/14/25 00:15 09/14/25 00:08 09/14/25 00:00 09/14/25 00:00 09/13/25 23:45 09/13/25 23:30 09/13/25 23:15 09/13/25 23:00 09/13/25 23:00 09/13/25 22:45 09/13/25 22:37 30 09/13/25 22:30 09/13/25 22:15 09/13/25 22:00 09/13/25 22:00 09/13/25 22:00 09/13/25 22:00 09/13/25 22:00 09/13/25 22:00 09/13/25 21:45 09/13/25 21:30 09/13/25 21:22 2 09/13/25 21:15 09/13/25 21:00 09/13/25 21:00 09/13/25 21:00 09/13/25 21:00 09/13/25 21:00 09/13/25 20:45 Laboratory Results 09/14/25 04:17 09/14/25 04:17 Coding Level of Care Code 25976 CRITICAL CARE 1ST 30-74M Diagnoses Metabolic encephalopathy G93.41 Shock circulatory R57.9 Obstructive sleep apnea of adult G47.33 Primary hypertension I10 Hypertension type: primary hypertension COPD (chronic obstructive pulmonary disease) J44.9 Anxiety F41.9 GERD (gastroesophageal reflux disease) K21.9 Pericardial effusion I31.39 Sepsis without acute organ dysfunction, due to unspecified organism A41.9 Sepsis acute organ dysfunction status: without acute organ dysfunction Sepsis type: sepsis due to unspecified organism (4) Hypertension Hypertension type: primary hypertension Qualified Code(s): I10 - Essential (primary) hypertension (9) Sepsis Sepsis acute organ dysfunction status: without acute organ dysfunction Sepsis type: sepsis due to unspecified organism Qualified Code(s): A41.9 - Sepsis, unspecified organism
[2025-09-14] MEDS: CEFEPIME 2000MG 2,000 MG/20 ML SYR IV SCH (10:10)
--- NOTE | 2025-09-14 11:58 | Hospitalist Progress Note ---
Date of Service September 14, 2025 Assessment & Plan (1) Shock circulatory: (2) Metabolic encephalopathy: (3) Acute UTI: (4) Type 2 diabetes mellitus with peripheral neuropathy: (5) Pericardial effusion: (6) Benign prostatic hyperplasia with urinary obstruction: (7) Hypertension: (8) COPD (chronic obstructive pulmonary disease): (9) Hypothermia: (10) Hypoglycemia: (11) Elevated erythrocyte sedimentation rate: (12) Weight loss: Plan 64yo male with recent hospitalization from 08/28 to 08/30 for sepsis 2nd to appendicitis s/p appendectomy, COPD, tobacco dependence, gout, GERD, HTN, T2DM, and a chronic pericardial effusion first seen on echo in 2021 per records. Since the patient could not provide any history I obtained all information from the ER attending and the medical record. The patient presented from his home in [place] today with a report of dizziness for several weeks, fatigue, weakness, recently diagnosed e.coli UTI, and poor appetite. A 09/07/25 PCP office note states that he has not been feeling well since his surgery earlier this month. #shock - -presumed septic with recently dx E Coli UTI, hypoglycemia, hypothermia, altered MS, abnormal CBC indices, elevated inflammatory markers, etc. -hypovolemia may also have played a role as he looked volume contracted at presentation -cortisol level wnl -no PE on CTA chest -CTA chest/abd/pelvis without any other source of infection -echo with preserved EF and, although he does have moderate sized pericardial effusion, there has not been any tamponade features/physiology -pressors weaned off early this am, 09/14/25 (norepi) -BPs stable since then -cont LR fluids -cont IV cefepime while awaiting blood cx's -defer to ICU about ongoing flagyl use #acute metabolic encephalopathy - -CT head negative -presumed 2nd to UTI/sepsis, hypoglycemia, etc. -MARKED improvement today / essentially resolved #hypoglycemia, hypothermia - -resolved -2nd to stress from illness/UTI - all in the setting of poor PO intake and glipizide/empagliflozin usage -hold PO DM agents -serial BSGs -now on insulin drip due to hyperglycemia #pericardial effusion - -moderate in size -a 2021 echo from the [facility] system showed an effusion even then -it has been small in the past -gradually enlarging over the last several months -etiology?? -with abnormal CBC, elevated inflammatory markers, splenomegaly, nightsweats, etc - malignant? inflammatory / autoimmune? other? -echo with the following results: -will d/w cardiology if elective pericardiocentesis would be indicated given his clinical picture #e.coli UTI - -pansensitive -grew on outpatient urine cx just a few days ago -cont cefepime IV -blood cx's obtained/pending #recent appendicitis s/p appendectomy 08/28/25 - -incisions clean/healed -CT a/p without intra-abd abscess or other acute intra-abdominal pathology #T2DM - -a1c 7.5% earlier this month -BSGs per ICU protocol -was severely hypoglycemic at presentation - likely due to stress from illness, poor PO intake, and DM oral agents - now hyperglycemic requiring insulin drip -cont to hold PO DM meds #COPD - -I presume the IV steroids in ER was for COPD Flare? -but no wheezing or other respiratory symptoms to suggest COPD flare -further, lungs are clear, and CTA chest neg for infiltrates -albuterol prn -cont home inhalers when able #elevated ESR, elevated CRP, abnormal CBC - -could be 2nd to recent surgery, recent e.coli UTI, perhaps related to the worsening pericardial effusion depending on its etiology (malignancy, autoimmune, etc) -atypical lymphs on differential - checked EBV titers - negative for acute mono -consider formal peripheral smear on Monday #HTN - -hold all home meds due to shock #GERD - -PPI twice daily #weight loss - -15-20kg of weight loss since this time 1 year ago -etiology? -CT chest w/o pathology -CT a/p w/p pathology other than splenomegaly -perhaps the underlying etiology of the pericardial effusion is contributing? -some of the weight loss could be semaglutide related #tobacco dependence - -quit 20-30 years ago #prior heavy etoh abuse - -quit 5 years ago #DVT proph - -defer selection to ICU team attempted to call pt's sister at the number listed in chart no 09/13/25 no answer, went directly to voicemail; left message asking her to call the hospital for an update when able will try calling pt's sister again later today obtain PT/OT evals will discuss the effusion with cardiology Admission and Anticipated Discharge Date Admission Date: September 13, 2025 Subjective patient very awake this am able to give full history pressors weaned off early this AM BPs stable since patient reports nightsweats nearly every night for the last 2 months during this time period he has had fatigue/weakness takes him "30 minutes to get out of bed" every morning due to stiffness and muscle weakness has lost weight, but has been on Ozempic for some time following his appendectomy he had very poor appetite for the first week at home appetite just starting to improve he was aware of his e.coli UTI picked up Rx for cipro took at least 2 doses at home before coming to hospital Review of Systems 2 Review of Systems: gen - no fevers or chills; several months of nightsweats cv - had mild chest discomfort right before coming to the hospital -states he gets chest pain with activity after 10 minutes of that exertional activity -no edema pulm - no dyspnea at rest GI - no nausea/emesis Physical Exam 2 Physical Exam: gen - looks MUCH better today; NAD, awake/alert, talking, oriented HENT - MMM, no lesions head/neck - no JVD, no lymph nodes; no tenderness over b/l temporal arteries heart - RRR, s1 s2, no murmur or rub lungs - mild b/l rales bases, but no wheeze, no increased work of breathing abd - soft NT ND BS+; abd wall incisions from recent appendectomy clean/intact/healed ext - no edema, warm, pulses 2+ b/l feet psych - a/o x 3 Results & Data Results & Data Vital Signs (Past 12 Hours) Vital Signs Temp Pulse Resp BP Pulse Ox O2 Del Method O2 Flow Rate 09/14/25 09:00 95/66 L 09/14/25 09:00 36.4 C L 82 19 93 Room Air 09/14/25 08:45 93/59 L 09/14/25 08:30 36.4 C L 80 24 95 09/14/25 08:20 Room Air 09/14/25 08:15 101/63 09/14/25 08:15 36.4 C L 82 27 H 09/14/25 08:00 36.3 C L 89 30 H 95 Room Air 09/14/25 07:45 36.3 C L 83 29 H 99 Nasal Cannula 2 09/14/25 07:35 87/59 L 09/14/25 07:35 87/59 L 09/14/25 07:35 87/59 L 09/14/25 07:35 87/59 L 09/14/25 07:35 87/59 L 09/14/25 07:33 36.3 C L 83 26 H 97 09/14/25 07:30 36.3 C L 86 28 H 96 09/14/25 07:15 36.3 C L 80 20 97 09/14/25 07:15 98/67 L 09/14/25 07:00 96/63 L 09/14/25 07:00 36.2 C L 82 22 96 Nasal Cannula 2 09/14/25 06:48 36.2 C L 85 20 96 09/14/25 06:46 95/65 L 09/14/25 06:46 95/65 L 09/14/25 06:46 95/65 L 09/14/25 06:46 95/65 L 09/14/25 06:45 36.1 C L 83 20 95 09/14/25 06:30 36.0 C L 84 16 96 09/14/25 06:15 97/72 L 09/14/25 06:15 97/72 L 09/14/25 06:15 97/72 L 09/14/25 06:15 97/72 L 09/14/25 06:15 97/72 L 09/14/25 06:15 35.9 C L 94 H 24 96 09/14/25 06:00 35.8 C L 92 H 25 H 97 09/14/25 06:00 93/67 L 09/14/25 06:00 93/67 L 09/14/25 06:00 93/67 L 09/14/25 06:00 93/67 L 09/14/25 06:00 93/67 L 09/14/25 05:45 94/77 L 09/14/25 05:45 94/77 L 09/14/25 05:45 94/77 L 09/14/25 05:45 94/77 L 09/14/25 05:45 94/77 L 09/14/25 05:45 35.7 C L 99 H 20 96 09/14/25 05:32 35.5 C L 93 H 24 96 09/14/25 05:30 99/67 L 09/14/25 05:29 35.5 C L 95 H 26 H 96 09/14/25 05:17 35.4 C L 83 20 96 09/14/25 05:16 108/79 09/14/25 05:14 35.4 C L 83 24 97 09/14/25 05:02 35.3 C L 79 16 97 09/14/25 05:00 92/67 L 09/14/25 04:59 35.3 C L 79 16 97 09/14/25 04:47 35.2 C L 77 16 97 09/14/25 04:45 101/78 09/14/25 04:44 35.2 C L 83 16 97 09/14/25 04:32 35.1 C L 79 16 97 09/14/25 04:30 93/66 L 09/14/25 04:24 35.0 C L 68 16 97 09/14/25 04:15 110/72 09/14/25 03:30 34.7 C L 49 L 16 125/78 98 09/14/25 03:15 34.6 C L 46 L 16 110/72 98 09/14/25 03:04 54 L 16 98 09/14/25 03:00 34.5 C L 45 L 16 105/61 98 09/14/25 02:45 34.5 C L 46 L 16 105/65 97 09/14/25 02:30 34.5 C L 49 L 17 118/76 98 09/14/25 02:15 34.5 C L 50 L 16 105/69 98 09/14/25 02:00 34.6 C L 52 L 16 117/70 98 09/14/25 01:45 34.6 C L 52 L 16 100/70 98 09/14/25 01:30 34.7 C L 71 19 89/70 L 96 09/14/25 00:30 34.6 C L 61 20 97 09/14/25 00:15 34.5 C L 54 L 16 97 09/14/25 00:08 58 L 09/14/25 00:00 34.4 C L 53 L 18 96 09/14/25 00:00 86/57 L Laboratory Results Laboratory Results - last 24 hr 09/13/25 09/13/25 09/13/25 09:54 12:35 12:48 WBC RBC Hgb POC Hgb Hct POC Hct MCV MCH MCHC RDW Std Deviation RDW Coeff of Mildred Plt Count MPV Immature Gran % (Auto) Neut % (Auto) Lymph % (Auto) [place] % (Auto) Eos % (Auto) Baso % (Auto) Neut # (Auto) Lymph # (Auto) [place] # (Auto) Eos # (Auto) Baso # (Auto) Immature Gran # (Auto) Polychromasia ESR Specimen Type Sample Site POC pH POC pCO2 POC pO2 POC HCO3 POC Total CO2 POC Base Excess O2 Sat Pulse Oximetry ABG pH (Temp Correct) ABG pCO2 (Temp Corrct POC ABG pO2 at Pt Temp POC ABG O2 Sat Kamari Test O2 Delivery Device POC Sodium Sodium POC Potassium Potassium Chloride Carbon Dioxide Anion Gap BUN Creatinine Est Cr Clr Drug Dosing eGFR BUN/Creatinine Ratio Glucose POC Glucose 87 85 Lactate Calcium Ionized Calcium Phosphorus Magnesium Iron 11 L TIBC 225 L Transferrin 161 L Transferrin % Sat 5 L Ferritin 990.2 H Total Bilirubin Direct Bilirubin AST ALT Alkaline Phosphatase Ammonia C-Reactive Protein 12.56 H Total Protein Albumin Globulin Albumin/Globulin Ratio Triglycerides Procalcitonin 0.13 TSH 0.622 Random Cortisol 21.32 Urine Color Urine Appearance Urine pH Ur Specific Neely Urine Protein Urine Glucose (UA) Urine Ketones Urine Blood Urine Nitrite Urine Bilirubin Urine Urobilinogen Ur Leukocyte Esterase Urine WBC (Auto) Urine RBC (Auto) U Hyaline Cast (Auto) U Epithel Cells (Auto) Urine Bacteria (Auto) Urine Comment Nasal Screen MRSA (PCR) Anaplasma Smear Babesia Smear Babesia microti DNA PCR Lyme Disease Screen Ehrlichia DNA (PCR) EBV Capsid Ag IgG Ab Positive EBV Caps Ag IgG Sig Str > 750.0 EBV Capsid Ag IgM Ab Negative EBV Caps Ag IgM Sig Str < 10.0 EBV Early Antigen IgG Negative EBV EA Signal Strength < 5.0 EBV Nuclear Antigen Ab Positive EBV Nucl Ag IgG Sig Str 514.0 EBV Interpretation See Comment Monoscreen Negative 09/13/25 09/13/25 09/13/25 12:58 13:41 13:50 WBC RBC Hgb POC Hgb Hct POC Hct MCV MCH MCHC RDW Std Deviation RDW Coeff of Mildred Plt Count MPV Immature Gran % (Auto) Neut % (Auto) Lymph % (Auto) [place] % (Auto) Eos % (Auto) Baso % (Auto) Neut # (Auto) Lymph # (Auto) [place] # (Auto) Eos # (Auto) Baso # (Auto) Immature Gran # (Auto) Polychromasia ESR Specimen Type Sample Site POC pH POC pCO2 POC pO2 POC HCO3 POC Total CO2 POC Base Excess O2 Sat Pulse Oximetry ABG pH (Temp Correct) ABG pCO2 (Temp Corrct POC ABG pO2 at Pt Temp POC ABG O2 Sat Kamari Test O2 Delivery Device POC Sodium Sodium POC Potassium Potassium Chloride Carbon Dioxide Anion Gap BUN Creatinine Est Cr Clr Drug Dosing eGFR BUN/Creatinine Ratio Glucose POC Glucose 102 H 98 Lactate Calcium Ionized Calcium Phosphorus Magnesium Iron TIBC Transferrin Transferrin % Sat Ferritin Total Bilirubin Direct Bilirubin AST ALT Alkaline Phosphatase Ammonia 25.0 C-Reactive Protein Total Protein Albumin Globulin Albumin/Globulin Ratio Triglycerides Procalcitonin TSH Random Cortisol Urine Color Urine Appearance Urine pH Ur Specific Neely Urine Protein Urine Glucose (UA) Urine Ketones Urine Blood Urine Nitrite Urine Bilirubin Urine Urobilinogen Ur Leukocyte Esterase Urine WBC (Auto) Urine RBC (Auto) U Hyaline Cast (Auto) U Epithel Cells (Auto) Urine Bacteria (Auto) Urine Comment Nasal Screen MRSA (PCR) Anaplasma Smear Babesia Smear Babesia microti DNA PCR Lyme Disease Screen [place] DNA (PCR) EBV Capsid Ag IgG Ab EBV Caps Ag IgG Sig Str EBV Capsid Ag IgM Ab EBV Caps Ag IgM Sig Str EBV Early Antigen IgG EBV EA Signal Strength EBV Nuclear Antigen Ab EBV Nucl Ag IgG Sig Str EBV Interpretation Monoscreen 09/13/25 09/13/25 09/13/25 14:03 14:16 14:38 WBC RBC Hgb POC Hgb Hct POC Hct MCV MCH MCHC RDW Std Deviation RDW Coeff of Mildred Plt Count MPV Immature Gran % (Auto) Neut % (Auto) Lymph % (Auto) [place] % (Auto) Eos % (Auto) Baso % (Auto) Neut # (Auto) Lymph # (Auto) [place] # (Auto) Eos # (Auto) Baso # (Auto) Immature Gran # (Auto) Polychromasia ESR 100 H Specimen Type Sample Site POC pH POC pCO2 POC pO2 POC HCO3 POC Total CO2 POC Base Excess O2 Sat Pulse Oximetry ABG pH (Temp Correct) ABG pCO2 (Temp Corrct POC ABG pO2 at Pt Temp POC ABG O2 Sat Kamari Test O2 Delivery Device POC Sodium Sodium POC Potassium Potassium Chloride Carbon Dioxide Anion Gap BUN Creatinine Est Cr Clr Drug Dosing eGFR BUN/Creatinine Ratio Glucose POC Glucose 112 H Lactate 1.9 Calcium Ionized Calcium Phosphorus Magnesium Iron TIBC Transferrin Transferrin % Sat Ferritin Total Bilirubin Direct Bilirubin AST ALT Alkaline Phosphatase Ammonia C-Reactive Protein Total Protein Albumin Globulin Albumin/Globulin Ratio Triglycerides Procalcitonin TSH Random Cortisol Urine Color Urine Appearance Urine pH Ur Specific Neely Urine Protein Urine Glucose (UA) Urine Ketones Urine Blood Urine Nitrite Urine Bilirubin Urine Urobilinogen Ur Leukocyte Esterase Urine WBC (Auto) Urine RBC (Auto) U Hyaline Cast (Auto) U Epithel Cells (Auto) Urine Bacteria (Auto) Urine Comment Nasal Screen MRSA (PCR) Anaplasma Smear See Comment Babesia Smear Babesia microti DNA PCR Lyme Disease Screen [place] DNA (PCR) EBV Capsid Ag IgG Ab EBV Caps Ag IgG Sig Str EBV Capsid Ag IgM Ab EBV Caps Ag IgM Sig Str EBV Early Antigen IgG EBV EA Signal Strength EBV Nuclear Antigen Ab EBV Nucl Ag IgG Sig Str EBV Interpretation Monoscreen 09/13/25 09/13/25 09/13/25 15:38 15:46 19:28 WBC RBC Hgb POC Hgb Hct POC Hct MCV MCH MCHC RDW Std Deviation RDW Coeff of Mildred Plt Count MPV Immature Gran % (Auto) Neut % (Auto) Lymph % (Auto) [place] % (Auto) Eos % (Auto) Baso % (Auto) Neut # (Auto) Lymph # (Auto) [place] # (Auto) Eos # (Auto) Baso # (Auto) Immature Gran # (Auto) Polychromasia ESR Specimen Type Sample Site POC pH POC pCO2 POC pO2 POC HCO3 POC Total CO2 POC Base Excess O2 Sat Pulse Oximetry ABG pH (Temp Correct) ABG pCO2 (Temp Corrct POC ABG pO2 at Pt Temp POC ABG O2 Sat Kamari Test O2 Delivery Device POC Sodium Sodium POC Potassium Potassium Chloride Carbon Dioxide Anion Gap BUN Creatinine Est Cr Clr Drug Dosing eGFR BUN/Creatinine Ratio Glucose POC Glucose 121 H 332 H* Lactate Calcium Ionized Calcium Phosphorus Magnesium Iron TIBC Transferrin Transferrin % Sat Ferritin Total Bilirubin Direct Bilirubin AST ALT Alkaline Phosphatase Ammonia C-Reactive Protein Total Protein Albumin Globulin Albumin/Globulin Ratio Triglycerides Procalcitonin TSH Random Cortisol Urine Color Yellow Urine Appearance Clear Urine pH 5.5 Ur Specific Ne[place] 1.019 Urine Protein Negative Urine Glucose (UA) 2+ H Urine Ketones Negative Urine Blood Trace H Urine Nitrite Negative Urine Bilirubin Negative Urine Urobilinogen Negative Ur Leukocyte Esterase Negative Urine WBC (Auto) 0-5 Urine RBC (Auto) 0-2 U Hyaline Cast (Auto) 0-2 U Epithel Cells (Auto) 0-2 Urine Bacteria (Auto) None Seen Urine Comment Nasal Screen MRSA (PCR) Anaplasma Smear Babesia Smear Babesia microti DNA PCR Lyme Disease Screen [place] DNA (PCR) EBV Capsid Ag IgG Ab EBV Caps Ag IgG Sig Str EBV Capsid Ag IgM Ab EBV Caps Ag IgM Sig Str EBV Early Antigen IgG EBV EA Signal Strength EBV Nuclear Antigen Ab EBV Nucl Ag IgG Sig Str EBV Interpretation Monoscreen 09/13/25 09/13/25 09/13/25 19:56 21:05 23:20 WBC RBC Hgb POC Hgb 9.9 L Hct POC Hct 29 L MCV MCH MCHC RDW Std Deviation RDW Coeff of Mildred Plt Count MPV Immature Gran % (Auto) Neut % (Auto) Lymph % (Auto) [place] % (Auto) Eos % (Auto) Baso % (Auto) Neut # (Auto) Lymph # (Auto) [place] # (Auto) Eos # (Auto) Baso # (Auto) Immature Gran # (Auto) Polychromasia ESR Specimen Type Arterial Sample Site R Radial POC pH 7.35 POC pCO2 38 POC pO2 88 POC HCO3 21 POC Total CO2 22 L POC Base Excess -5.0 O2 Sat Pulse Oximetry 100 ABG pH (Temp Correct) 7.381 ABG pCO2 (Temp Corrct 34 L POC ABG pO2 at Pt Temp 75 POC ABG O2 Sat 96.0 H Kamari Test NA O2 Delivery Device Cannula POC Sodium 138 Sodium 136 POC Potassium 4.3 Potassium 4.1 D Chloride 104 Carbon Dioxide 24 Anion Gap 8 BUN 17 Creatinine 0.74 Est Cr Clr Drug Dosing 113.5 eGFR 101.81 BUN/Creatinine Ratio 23.0 H Glucose 368 H* POC Glucose 333 H* Lactate Calcium 7.6 L Ionized Calcium Phosphorus 4.7 Magnesium 2.1 Iron TIBC Transferrin Transferrin % Sat Ferritin Total Bilirubin 0.6 Direct Bilirubin AST 47 H ALT 31 Alkaline Phosphatase 98 Ammonia C-Reactive Protein Total Protein 5.8 L Albumin 2.2 L Globulin 3.6 Albumin/Globulin Ratio 0.6 L Triglycerides Procalcitonin TSH Random Cortisol Urine Color Urine Appearance Urine pH Ur Specific Neely Urine Protein Urine Glucose (UA) Urine Ketones Urine Blood Urine Nitrite Urine Bilirubin Urine Urobilinogen Ur Leukocyte Esterase Urine WBC (Auto) Urine RBC (Auto) U Hyaline Cast (Auto) U Epithel Cells (Auto) Urine Bacteria (Auto) Urine Comment Nasal Screen MRSA (PCR) Anaplasma Smear Babesia Smear Babesia microti DNA PCR Lyme Disease Screen [place] DNA (PCR) EBV Capsid Ag IgG Ab EBV Caps Ag IgG Sig Str EBV Capsid Ag IgM Ab EBV Caps Ag IgM Sig Str EBV Early Antigen IgG EBV EA Signal Strength EBV Nuclear Antigen Ab EBV Nucl Ag IgG Sig Str EBV Interpretation Monoscreen 09/13/25 09/14/25 09/14/25 Unknown 00:22 01:25 WBC RBC Hgb POC Hgb Hct POC Hct MCV MCH MCHC RDW Std Deviation RDW Coeff of Mildred Plt Count MPV Immature Gran % (Auto) Neut % (Auto) Lymph % (Auto) [place] % (Auto) Eos % (Auto) Baso % (Auto) Neut # (Auto) Lymph # (Auto) [place] # (Auto) Eos # (Auto) Baso # (Auto) Immature Gran # (Auto) Polychromasia ESR Specimen Type Sample Site POC pH POC pCO2 POC pO2 POC HCO3 POC Total CO2 POC Base Excess O2 Sat Pulse Oximetry ABG pH (Temp Correct) ABG pCO2 (Temp Corrct POC ABG pO2 at Pt Temp POC ABG O2 Sat Kamari Test O2 Delivery Device POC Sodium Sodium POC Potassium Potassium Chloride Carbon Dioxide Anion Gap BUN Creatinine Est Cr Clr Drug Dosing eGFR BUN/Creatinine Ratio Glucose POC Glucose 301 H* 293 H Lactate Calcium Ionized Calcium Phosphorus Magnesium Iron TIBC Transferrin Transferrin % Sat Ferritin Total Bilirubin Direct Bilirubin AST ALT Alkaline Phosphatase Ammonia C-Reactive Protein Total Protein Albumin Globulin Albumin/Globulin Ratio Triglycerides Procalcitonin TSH Random Cortisol Urine Color Urine Appearance Urine pH Ur Specific Neely Urine Protein Urine Glucose (UA) Urine Ketones Urine Blood Urine Nitrite Urine Bilirubin Urine Urobilinogen Ur Leukocyte Esterase Urine WBC (Auto) Urine RBC (Auto) U Hyaline Cast (Auto) U Epithel Cells (Auto) Urine Bacteria (Auto) Urine Comment Nasal Screen MRSA (PCR) Negative Anaplasma Smear Babesia Smear Babesia microti DNA PCR Lyme Disease Screen [place] DNA (PCR) EBV Capsid Ag IgG Ab EBV Caps Ag IgG Sig Str EBV Capsid Ag IgM Ab EBV Caps Ag IgM Sig Str EBV Early Antigen IgG EBV EA Signal Strength EBV Nuclear Antigen Ab EBV Nucl Ag IgG Sig Str EBV Interpretation Monoscreen 09/14/25 09/14/25 09/14/25 02:25 03:24 04:17 WBC 4.69 L RBC 4.22 L Hgb 10.3 L POC Hgb Hct 33.0 L POC Hct MCV 78.2 L MCH 24.4 L MCHC 31.2 L RDW Std Deviation 52.5 H RDW Coeff of Mildred 18.8 H Plt Count 161 MPV 10.0 Immature Gran % (Auto) 4.7 Neut % (Auto) 60.8 Lymph % (Auto) 22.6 [place] % (Auto) 11.5 Eos % (Auto) 0.0 Baso % (Auto) 0.4 Neut # (Auto) 2.85 Lymph # (Auto) 1.06 L [place] # (Auto) 0.54 Eos # (Auto) 0.00 Baso # (Auto) 0.02 Immature Gran # (Auto) 0.22 H Polychromasia 1+ ESR Specimen Type Sample Site POC pH POC pCO2 POC pO2 POC HCO3 POC Total CO2 POC Base Excess O2 Sat Pulse Oximetry ABG pH (Temp Correct) ABG pCO2 (Temp Corrct POC ABG pO2 at Pt Temp POC ABG O2 Sat Kamari Test O2 Delivery Device POC Sodium Sodium 140 POC Potassium Potassium 3.4 L Chloride 108 H Carbon Dioxide 23 Anion Gap 9 BUN 19 Creatinine 0.78 Est Cr Clr Drug Dosing 107.7 eGFR 100.21 BUN/Creatinine Ratio 24.4 H Glucose 266 H POC Glucose 293 H 305 H* Lactate Calcium 8.3 L Ionized Calcium 1.17 Phosphorus 4.6 Magnesium 2.3 Iron TIBC Transferrin Transferrin % Sat Ferritin Total Bilirubin 0.5 Direct Bilirubin 0.2 AST 37 ALT 32 Alkaline Phosphatase 101 Ammonia C-Reactive Protein Total Protein 6.2 Albumin 2.3 L Globulin Albumin/Globulin Ratio Triglycerides 111 Procalcitonin TSH Random Cortisol Urine Color Urine Appearance Urine pH Ur Specific Neely Urine Protein Urine Glucose (UA) Urine Ketones Urine Blood Urine Nitrite Urine Bilirubin Urine Urobilinogen Ur Leukocyte Esterase Urine WBC (Auto) Urine RBC (Auto) U Hyaline Cast (Auto) U Epithel Cells (Auto) Urine Bacteria (Auto) Urine Comment Nasal Screen MRSA (PCR) Anaplasma Smear Babesia Smear Babesia microti DNA PCR Lyme Disease Screen [place] DNA (PCR) EBV Capsid Ag IgG Ab EBV Caps Ag IgG Sig Str EBV Capsid Ag IgM Ab EBV Caps Ag IgM Sig Str EBV Early Antigen IgG EBV EA Signal Strength EBV Nuclear Antigen Ab EBV Nucl Ag IgG Sig Str EBV Interpretation Monoscreen 09/14/25 09/14/25 09/14/25 04:22 05:19 06:23 WBC RBC Hgb POC Hgb Hct POC Hct MCV MCH MCHC RDW Std Deviation RDW Coeff of Mildred Plt Count MPV Immature Gran % (Auto) Neut % (Auto) Lymph % (Auto) [place] % (Auto) Eos % (Auto) Baso % (Auto) Neut # (Auto) Lymph # (Auto) [place] # (Auto) Eos # (Auto) Baso # (Auto) Immature Gran # (Auto) Polychromasia ESR Specimen Type Sample Site POC pH POC pCO2 POC pO2 POC HCO3 POC Total CO2 POC Base Excess O2 Sat Pulse Oximetry ABG pH (Temp Correct) ABG pCO2 (Temp Corrct POC ABG pO2 at Pt Temp POC ABG O2 Sat Kamari Test O2 Delivery Device POC Sodium Sodium POC Potassium Potassium Chloride Carbon Dioxide Anion Gap BUN Creatinine Est Cr Clr Drug Dosing eGFR BUN/Creatinine Ratio Glucose POC Glucose 237 H 205 H 170 H Lactate Calcium Ionized Calcium Phosphorus Magnesium Iron TIBC Transferrin Transferrin % Sat Ferritin Total Bilirubin Direct Bilirubin AST ALT Alkaline Phosphatase Ammonia C-Reactive Protein Total Protein Albumin Globulin Albumin/Globulin Ratio Triglycerides Procalcitonin TSH Random Cortisol Urine Color Urine Appearance Urine pH Ur Specific Neely Urine Protein Urine Glucose (UA) Urine Ketones Urine Blood Urine Nitrite Urine Bilirubin Urine Urobilinogen Ur Leukocyte Esterase Urine WBC (Auto) Urine RBC (Auto) U Hyaline Cast (Auto) U Epithel Cells (Auto) Urine Bacteria (Auto) Urine Comment Nasal Screen MRSA (PCR) Anaplasma Smear Babesia Smear Babesia microti DNA PCR Lyme Disease Screen [place] DNA (PCR) EBV Capsid Ag IgG Ab EBV Caps Ag IgG Sig Str EBV Capsid Ag IgM Ab EBV Caps Ag IgM Sig Str EBV Early Antigen IgG EBV EA Signal Strength EBV Nuclear Antigen Ab EBV Nucl Ag IgG Sig Str EBV Interpretation Monoscreen 09/14/25 09/14/25 09/14/25 07:36 08:30 09:26 WBC RBC Hgb POC Hgb Hct POC Hct MCV MCH MCHC RDW Std Deviation RDW Coeff of Mildred Plt Count MPV Immature Gran % (Auto) Neut % (Auto) Lymph % (Auto) [place] % (Auto) Eos % (Auto) Baso % (Auto) Neut # (Auto) Lymph # (Auto) [place] # (Auto) Eos # (Auto) Baso # (Auto) Immature Gran # (Auto) Polychromasia ESR Specimen Type Sample Site POC pH POC pCO2 POC pO2 POC HCO3 POC Total CO2 POC Base Excess O2 Sat Pulse Oximetry ABG pH (Temp Correct) ABG pCO2 (Temp Corrct POC ABG pO2 at Pt Temp POC ABG O2 Sat Kamari Test O2 Delivery Device POC Sodium Sodium POC Potassium Potassium Chloride Carbon Dioxide Anion Gap BUN Creatinine Est Cr Clr Drug Dosing eGFR BUN/Creatinine Ratio Glucose POC Glucose 167 H 219 H Lactate Calcium Ionized Calcium Phosphorus Magnesium Iron TIBC Transferrin Transferrin % Sat Ferritin Total Bilirubin Direct Bilirubin AST ALT Alkaline Phosphatase Ammonia C-Reactive Protein Total Protein Albumin Globulin Albumin/Globulin Ratio Triglycerides Procalcitonin TSH Random Cortisol Urine Color Urine Appearance Urine pH Ur Specific Neely Urine Protein Urine Glucose (UA) Urine Ketones Urine Blood Urine Nitrite Urine Bilirubin Urine Urobilinogen Ur Leukocyte Esterase Urine WBC (Auto) Urine RBC (Auto) U Hyaline Cast (Auto) U Epithel Cells (Auto) Urine Bacteria (Auto) Urine Comment Nasal Screen MRSA (PCR) Anaplasma Smear See Comment Babesia Smear See Comment Babesia microti DNA PCR Pending Lyme Disease Screen Negative Ehrlichia DNA (PCR) Pending EBV Capsid Ag IgG Ab EBV Caps Ag IgG Sig Str EBV Capsid Ag IgM Ab EBV Caps Ag IgM Sig Str EBV Early Antigen IgG EBV EA Signal Strength EBV Nuclear Antigen Ab EBV Nucl Ag IgG Sig Str EBV Interpretation Monoscreen 09/14/25 09/14/25 09/14/25 09:41 10:38 11:21 WBC RBC Hgb POC Hgb Hct POC Hct MCV MCH MCHC RDW Std Deviation RDW Coeff of Mildred Plt Count MPV Immature Gran % (Auto) Neut % (Auto) Lymph % (Auto) [place] % (Auto) Eos % (Auto) Baso % (Auto) Neut # (Auto) Lymph # (Auto) [place] # (Auto) Eos # (Auto) Baso # (Auto) Immature Gran # (Auto) Polychromasia ESR Specimen Type Sample Site POC pH POC pCO2 POC pO2 POC HCO3 POC Total CO2 POC Base Excess O2 Sat Pulse Oximetry ABG pH (Temp Correct) ABG pCO2 (Temp Corrct POC ABG pO2 at Pt Temp POC ABG O2 Sat Kamari Test O2 Delivery Device POC Sodium Sodium POC Potassium Potassium Chloride Carbon Dioxide Anion Gap BUN Creatinine Est Cr Clr Drug Dosing eGFR BUN/Creatinine Ratio Glucose POC Glucose 194 H 149 H 118 H Lactate Calcium Ionized Calcium Phosphorus Magnesium Iron TIBC Transferrin Transferrin % Sat Ferritin Total Bilirubin Direct Bilirubin AST ALT Alkaline Phosphatase Ammonia C-Reactive Protein Total Protein Albumin Globulin Albumin/Globulin Ratio Triglycerides Procalcitonin TSH Random Cortisol Urine Color Urine Appearance Urine pH Ur Specific Neely Urine Protein Urine Glucose (UA) Urine Ketones Urine Blood Urine Nitrite Urine Bilirubin Urine Urobilinogen Ur Leukocyte Esterase Urine WBC (Auto) Urine RBC (Auto) U Hyaline Cast (Auto) U Epithel Cells (Auto) Urine Bacteria (Auto) Urine Comment Nasal Screen MRSA (PCR) Anaplasma Smear Babesia Smear Babesia microti DNA PCR Lyme Disease Screen Ehrlichia DNA (PCR) EBV Capsid Ag IgG Ab EBV Caps Ag IgG Sig Str EBV Capsid Ag IgM Ab EBV Caps Ag IgM Sig Str EBV Early Antigen IgG EBV EA Signal Strength EBV Nuclear Antigen Ab EBV Nucl Ag IgG Sig Str EBV Interpretation Monoscreen Diagnostic Findings Microbiology 09/14/25 09:26 Blood Blood Parasites Smear - Preliminary 09/13/25 blood cultures x 2 sets - thus far negative PG Care Time/CCT Total # of Minutes Spent Total Time Spent with Patient: Total time spent is greater than 50% in coordination of care (as documented) at patient's floor/unit and/or counseling patient: Coding Level of Care Code 33331 SUB INP/OBS CARE 3/50MIN Diagnoses Shock circulatory R57.9 Metabolic encephalopathy G93.41 Acute UTI N39.0 Type 2 diabetes mellitus with peripheral neuropathy E11.42 Pericardial effusion I31.39 Benign prostatic hyperplasia with urinary obstruction N40.1; N13.8 Primary hypertension I10 Hypertension type: primary hypertension COPD (chronic obstructive pulmonary disease) J44.9 Hypothermia T68.XXXA Hypoglycemia E16.2 Elevated erythrocyte sedimentation rate R70.0 Weight loss R63.4 (7) Hypertension Hypertension type: primary hypertension Qualified Code(s): I10 - Essential (primary) hypertension
--- NOTE | 2025-09-14 12:28 | Electrocardiogram Report ---
Test Reason : Blood Pressure : */* mmHG Vent. Rate : 117 BPM Atrial Rate : 117 BPM P-R Int : 162 ms QRS Dur : 84 ms QT Int : 308 ms P-R-T Axes : 51 -39 81 degrees QTcB Int : 429 ms Sinus tachycardia Left axis deviation Anterior infarct , age undetermined Abnormal ECG When compared with ECG of 28-Aug-2025 08:59, Premature ventricular complexes are no longer Present Anterior infarct is now Present Confirmed by Berenice Tom (Lc) on 09/14/2025 12:27:42 PM Referred By: Confirmed By: Berenice Tom
[2025-09-14 14:02] LABS: A calco-baum cmplx NotReported Not Detected (NotDetected); Bact fragilis Not Reported Not Detected (NotDetected); Blood Culture Id Panel See PCR Comment (NotDetected); C auris Not Reported Not Detected (NotDetected); Calbicans Not Reported Not Detected (NotDetected); Candida glabrata Not Reported Not Detected (NotDetected); Candida krusei Not Reported Not Detected (NotDetected); Cneoformans/gatti Not Reported Not Detected (NotDetected); Cparapsilosis Not Reported Not Detected (NotDetected); Ctropicalis Not Reported Not Detected (NotDetected); E cloacae compx Not Reported Not Detected (NotDetected); Efaecalis Not Reported Not Detected (NotDetected); Efaecium Not Reported Not Detected (NotDetected); Enterobacterales Not Reported Not Detected (NotDetected); Escherichia coli Not Reported Not Detected (NotDetected); H influenzae Not Reported Not Detected (NotDetected); K aerogenes Not Reported Not Detected (NotDetected); Koxytoca Not Reported Not Detected (NotDetected); Kpneumoniae grp Not Reported Not Detected (NotDetected); Lmonocyt Not Reported Not Detected (NotDetected); N meningitidis Not Reported Not Detected (NotDetected); P aeruginosa Not Reported Not Detected (NotDetected); Proteus spp Not Reported Not Detected (NotDetected); Salmonella spp Not Reported Not Detected (NotDetected); Staph lugdunensis Not Reported Not Detected (NotDetected); Staph spp. Not Reported DETECTED (NotDetected); Staphaureus Not Reported Not Detected (NotDetected); Staphepi Not Reported DETECTED (NotDetected); Staphylococcus spp. DETECTED (NotDetected); Stenmaltophilia Not Reported Not Detected (NotDetected); Strep agal(GrpB) Not Reported Not Detected (NotDetected); Strep pneum Not Reported Not Detected (NotDetected); Strep pyog (GrpA) Not Reported Not Detected (NotDetected); Strep spp Not Reported Not Detected (NotDetected)
[2025-09-14 14:11] LABS: Staphylococcus epidermidis DETECTED (NotDetected); mecAC Resistant Gene DETECTED (NotDetected)
[2025-09-14 15:49] LABS: Appearance Urine Clear (Clear); Bacteria Urine Automated None Seen (None Seen); Cast Urine Automated 0-2 /lpf (0-2); Epithelial Cell Urine Auto 0-2 /hpf (0-2); Glucose Urine UA 3+ (Negative); RBC Urine Automated 0-2 /hpf (0-2); WBC Urine Automated 0-5 /hpf (0-5)
[2025-09-14] MEDS ORDERED: PHARMACY GLYCEMIC MGMT CONSULT PRN (16:26)
--- NOTE | 2025-09-14 17:04 | Pharmacy Report ---
Pharmacy Glycemic Short Note 2 - Date of Service September 14, 2025 - Glycemic Short BSG Results (Last 24 hours): 09/13/25 09/13/25 09/13/25 19:28 21:05 23:20 Glucose 368 H* POC Glucose 332 H* 333 H* 09/14/25 09/14/25 09/14/25 00:22 01:25 02:25 Glucose POC Glucose 301 H* 293 H 293 H 09/14/25 09/14/25 09/14/25 03:24 04:17 04:22 Glucose 266 H POC Glucose 305 H* 237 H 09/14/25 09/14/25 09/14/25 05:19 06:23 07:36 Glucose POC Glucose 205 H 170 H 167 H 09/14/25 09/14/25 09/14/25 08:30 09:41 10:38 Glucose POC Glucose 219 H 194 H 149 H 09/14/25 09/14/25 09/14/25 11:21 13:01 14:01 Glucose POC Glucose 118 H 114 H 96 09/14/25 09/14/25 15:04 16:04 Glucose POC Glucose 83 89 OUTPATIENT ANTIDIABETIC REGIMEN: * Empagliflozin * Glipizide * Semaglutide * HbA1c 7.5% 08/29/25 ASSESSMENT: * 64 yo M with T2DM admitted to ICU 09/13 for hypotension. Originally on norepinephrine, but this was titrated off this AM. Now ordered diet as of this AM. Remains * Originally with severe hypoglycemia 36 mg/dL on admission. 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 * Shortly thereafter, patient became hyperglycemic with BSG >300 mg/dL. Etiology likely 2nd methylprednisolone administered in AM 09/13 * Insulin drip initiated 09/13 PM. This was titrated off 09/14 without basal insulin added. Etiology likely 2nd wearing off of steroids. BSG's have remained in the 80's for an hour after the insulin drip was discontinued. * Suspect patient will not require much insulin now that steroids have stopped. Patient remains in ICU therefore goal BSG higher anyway * Discussed w Dr. Maryjo ZAVALA to discontinue insulin drip and use correctional insulin to control BSG's. Patient at higher risk for hypoglycemia. * Will order loose Novolog correction factor. Minimal CHO coverage (with insulin) desired, but would still like to track CHO consumption to better assess future potential changes. Will therefore order VERY large CHO ratio - meant to not provide significant insulin but still prompt assessment/tracking of CHO consumption PLAN FOR INPATIENT GLYCEMIC CONTROL: * Hold outpatient oral diabetes medications * Basal insulin * None for now * Bolus insulin * NovoLog per scale ACHS or Q6hrs while NPO * Goal Range: Low 120 mg/dL - High 160 mg/dL * Correction Factor: 35 mg/dL/unit * Nutritional / Prandial insulin per carb ratio of 1 unit per 70 grams CHO consumed
[2025-09-14] MEDS: INSULIN PROTOCOL GOAL RANGE ONE (19:25)
[2025-09-14] MEDS: ATORVASTATIN 20 MG TAB PO SCH (20:47)
[2025-09-14] MEDS: TAMSULOSIN HCL 0.4 MG CAP PO SCH (20:48)
[2025-09-14] MEDS: PREGABALIN 50 MG CAP PO SCH (20:49)
[2025-09-15] MEDS: INSULIN ASPART PER UNIT CHARGE SC ONE (01:27)
[2025-09-15 05:20] LABS: Hematocrit (blood only) 25.6 % (42.0-52.0); Hemoglobin 8.2 g/dL (14.0-18.0); Mean Corpuscular Hemoglobin 24.4 pg (25.0-34.0); Mean Corpuscular Volume 76.2 fL (80.0-100.0); Platelet Count 140 K/uL (130-400); RDW Standard Deviation 51.3 fL (36.4-46.3); Red Blood Count 3.36 M/uL (4.70-6.10); White Blood Count 5.04 K/ul (4.8-10.8)
[2025-09-15 05:36] LABS: Alanine Aminotransferase 21.0 U/L (7-52); Albumin Level 2.0 gm/dl (3.4-5.0); Alkaline Phosphatase 73.0 U/L (34-104); Anion Gap 3.0 (3-11); Bilirubin,Total 0.5 mg/dl (0.2-1.0); Blood Urea Nitrogen 18.0 mg/dl (6-23); Calcium 8.0 mg/dl (8.6-10.3); Carbon Dioxide 27.0 mmol/L (21-32); Chloride 107.0 mmol/L (98-107); Creatinine Clr Calc Pharmacy 108.9 ml/min; Glucose 131.0 mg/dl (70-99(Fasting)); Magnesium 1.8 mg/dl (1.7-2.4); Potassium 4.3 mmol/L (3.5-5.1); Sodium 137.0 mmol/L (136-145); Total Protein 5.1 gm/dl (6.0-8.3)
[2025-09-15 06:09] LABS: ALC (manual) 1.51 K/uL (1.2-3.4); ANC (manual) 3.28 K/uL (1.4-6.5); RBC Morphology Unremarkable
--- NOTE | 2025-09-15 07:45 | Critical Care Progress Note ---
Date of Service September 15, 2025 Assessment & Plan (1) Metabolic encephalopathy: (2) Shock circulatory: (3) Obstructive sleep apnea of adult: (4) Hypertension: (5) COPD (chronic obstructive pulmonary disease): (6) Anxiety: (7) GERD (gastroesophageal reflux disease): (8) Pericardial effusion: (9) Sepsis: Plan Reason Critically Ill: 64-year-old male coming to the hospital because of feeling unwell. Was found to be hypotensive in the ED, did not respond to fluids. Sent to the ICU on Levophed Past medical history: Appendectomy July 2025, diabetes, hypertension Neuro - Delirium resolved. Likely metabolic. Continue to maintain sleep-wake cycle Cardiac - Shock, now resolved. Possible urosepsis given E. coli in the urine. Off pressors. No significant pericardial effusion on echocardiogram. Respiratory - Oxygen requirement resolved. Continue Trelegy and nightly BiPAP. GI - No current issues RENAL/LYTES - No current issues ENDO - Glycemic control per protocol. Low blood sugar could be a contributing factor to the patient's encephalopathy on presentation. HEME - Anemia. No indication for transfusion. No evidence of ongoing acute blood loss. Platelets low but still acceptable ID - E. coli UTI, pansensitive. De-escalate cefepime to Rocephin. Discontinue metronidazole. --Prophylaxis VTE: Heparin GI: Pantoprazole Lines: Peripheral Diet: As tolerated Patient's critical care issues are resolved. He is hemodynamically stable and appropriate to transfer to the floor. Critical care will sign off. Feel free to contact us with questions or concerns Admission and Anticipated Discharge Date Admission Date: September 13, 2025 Subjective Patient seen and examined. EMR reviewed. Discussed with off going brake repair mechanic as well as with overnight critical care BONNIE and on multidisciplinary rounds. Patient is awake alert and conversant. He sitting up in a chair eating breakfast. He offers no complaints other than sleeping poorly last night. No abdominal pain. No fevers chills or night sweats. He is on room air. Is been hemodynamically stable and off pressors since yesterday morning early. Review of Systems Review of Systems: All systems reviewed & are unremarkable except as noted in Subjective Physical Exam Constitutional: WD/WN, vitals as above Neck: trachea midline, no thyromegaly Respiratory: normal respiratory effort, lungs clear to auscultation Cardiovascular: RRR, no murmur, no edema Gastrointestinal (Abdomen): normal bowel sounds, soft, nontender, no hepatosplenomegaly Musculoskeletal: Extremities: extremities normal to inspection Skin: no rashes, warm and dry Neurologic: Nonfocal exam Lymphatic: no cervical lymphadenopathy Results & Data Results & Data Vital Signs (Past 12 Hours) Vital Signs Temp Pulse Resp BP Pulse Ox O2 Del Method O2 Del Method 09/15/25 07:44 36.5 C 09/15/25 07:36 Room Air 09/15/25 07:35 73 09/15/25 07:00 75 20 92 Room Air 09/15/25 07:00 100/64 09/15/25 06:00 68 23 105/69 92 09/15/25 05:07 36.5 C 09/15/25 05:00 75 19 108/78 92 09/15/25 04:00 62 17 96/64 L 96 09/15/25 03:00 65 18 90/57 L 96 09/15/25 02:00 65 20 102/69 95 09/15/25 01:09 36.4 C L 09/15/25 01:00 71 17 91/68 L 97 09/15/25 00:00 66 17 87/59 L 97 09/14/25 23:00 65 16 99/65 L 97 09/14/25 22:24 68 17 98 09/14/25 22:00 89/65 L 09/14/25 22:00 89/65 L 09/14/25 22:00 67 21 89/65 L 96 09/14/25 21:00 Nasal Cannula 09/14/25 21:00 77 19 103/67 96 09/14/25 20:30 71 22 95/63 L 95 09/14/25 20:00 92/61 L 09/14/25 20:00 77 16 92/61 L 96 O2 Flow Rate FiO2 09/15/25 07:44 09/15/25 07:36 09/15/25 07:35 09/15/25 07:00 09/15/25 07:00 09/15/25 06:00 09/15/25 05:07 09/15/25 05:00 09/15/25 04:00 09/15/25 03:00 09/15/25 02:00 09/15/25 01:09 09/15/25 01:00 09/15/25 00:00 09/14/25 23:00 09/14/25 22:24 30 09/14/25 22:00 09/14/25 22:00 09/14/25 22:00 09/14/25 21:00 2 09/14/25 21:00 09/14/25 20:30 09/14/25 20:00 09/14/25 20:00 Critical Care Results & Data Vital Signs (Past 12 Hours) Vital Signs Temp Pulse Resp BP Pulse Ox O2 Del Method O2 Del Method 09/15/25 07:44 36.5 C 09/15/25 07:36 Room Air 09/15/25 07:35 73 09/15/25 07:00 75 20 92 Room Air 09/15/25 07:00 100/64 09/15/25 06:00 68 23 105/69 92 09/15/25 05:07 36.5 C 09/15/25 05:00 75 19 108/78 92 09/15/25 04:00 62 17 96/64 L 96 09/15/25 03:00 65 18 90/57 L 96 09/15/25 02:00 65 20 102/69 95 09/15/25 01:09 36.4 C L 09/15/25 01:00 71 17 91/68 L 97 09/15/25 00:00 66 17 87/59 L 97 09/14/25 23:00 65 16 99/65 L 97 09/14/25 22:24 68 17 98 09/14/25 22:00 89/65 L 09/14/25 22:00 89/65 L 09/14/25 22:00 67 21 89/65 L 96 09/14/25 21:00 Nasal Cannula 09/14/25 21:00 77 19 103/67 96 09/14/25 20:30 71 22 95/63 L 95 09/14/25 20:00 92/61 L 09/14/25 20:00 77 16 92/61 L 96 O2 Flow Rate FiO2 09/15/25 07:44 09/15/25 07:36 09/15/25 07:35 09/15/25 07:00 09/15/25 07:00 09/15/25 06:00 09/15/25 05:07 09/15/25 05:00 09/15/25 04:00 09/15/25 03:00 09/15/25 02:00 09/15/25 01:09 09/15/25 01:00 09/15/25 00:00 09/14/25 23:00 09/14/25 22:24 30 09/14/25 22:00 09/14/25 22:00 09/14/25 22:00 09/14/25 21:00 2 09/14/25 21:00 09/14/25 20:30 09/14/25 20:00 09/14/25 20:00 Lab & Micro Results (Past 24 Hours) RBC 3.36 M/uL (4.70-6.10) L 09/15/25 WBC 5.04 K/ul (4.8-10.8) 09/15/25 Hgb 8.2 g/dL (14.0-18.0) L 09/15/25 Hct 25.6 % (42.0-52.0) L 09/15/25 MCV 76.2 fL (80.0-100.0) L 09/15/25 MCH 24.4 pg (25.0-34.0) L 09/15/25 MCHC 32.0 g/dL (32.0-36.0) 09/15/25 RDW Standard Deviation 51.3 fL (36.4-46.3) H 09/15/25 RDW Coefficient of Variation 18.9 % (11.5-14.5) H 09/15/25 Plt Count 140 K/uL (130-400) 09/15/25 MPV 10.0 fL (9.4-12.4) 09/15/25 ANC 3.28 K/uL (1.4-6.5) 09/15/25 ALC 1.51 K/uL (1.2-3.4) 09/15/25 Neutrophils % (Manual) 65 % 09/15/25 Lymphocytes % (Manual) 30 % 09/15/25 Monocytes % (Manual) 3 % 09/15/25 Myelocytes % (Manual) 2 % 09/15/25 Neutrophils # (Manual) 3.28 K/uL (1.40-6.50) 09/15/25 Lymphocytes # (Manual) 1.51 K/uL (1.2-3.4) 09/15/25 Monocytes # (Manual) 0.15 K/uL (0.11-0.59) 09/15/25 Myelocytes # (Manual) 0.10 K/uL (0-0) H 09/15/25 Red Blood Cell Morphology Unremarkable 09/15/25 Na 137 mmol/L (136-145) 09/15/25 K 4.3 mmol/L (3.5-5.1) 09/15/25 Cl 107 mmol/L (98-107) 09/15/25 CO2 27 mmol/L (21-32) 09/15/25 Anion Gap 3 (3-11) 09/15/25 BUN 18 mg/dl (6-23) 09/15/25 Creatinine 0.78 mg/dl (0.6-1.4) 09/15/25 BUN/Creatinine Ratio 23.1 (10-20) H 09/15/25 Glu 131 mg/dl (70-99(Fasting)) H 09/15/25 Ca 8.0 mg/dl (8.6-10.3) L 09/15/25 Total Bilirubin 0.5 mg/dl (0.2-1.0) 09/15/25 Direct Bilirubin 0.1 mg/dl (0-0.2) 09/15/25 AST 21 U/L (13-39) 09/15/25 ALT 21 U/L (7-52) 09/15/25 Alkaline Phosphatase 73 U/L (34-104) 09/15/25 TP 5.1 gm/dl (6.0-8.3) L 09/15/25 Albumin 2.0 gm/dl (3.4-5.0) L 09/15/25 Mg 1.8 mg/dl (1.7-2.4) 09/15/25 04:57 Calcium Level 8.0 mg/dl (8.6-10.3) L 09/15/25 04:57 Microbiology 09/13/25 14:03 Aerobic Blood Culture - Preliminary Blood No growth in Aerobic bottle after 24 hours. Anaerobic Blood Culture - Preliminary No growth in Anaerobic bottle after 24 hours. 09/13/25 14:16 Aerobic Blood Culture - Preliminary Blood Gram positive cocci clusters Anaerobic Blood Culture - Preliminary No growth in Anaerobic bottle after 24 hours. 09/14/25 09:26 Blood Parasites Smear - Preliminary Blood I & O Totals 24 Hours 09/14/25 09/15/25 09/16/25 06:59 06:59 06:59 Intake Total 4593.300 / 4593.300 4985.105 / 4985.105 Output Total 2080 / 2080 2450 / 2450 Balance 2513.300 / 2513.300 2535.105 / 2535.105 Cumulative 09/13/25 09:31 thru 09/15/25 06:00 Intake Total 9578.405 Output Total 4530 Balance 5048.405 RT Ventilator Mngmt (Last Documented) Ventilator Ordered Settings Respiratory Rate 20 09/15/25 07:00 Fraction of Inspired Oxygen 30 09/14/25 22:24 Ventilator - PT Measurements Respiratory Rate 20 Coding Level of Care Code 56082 SUB INP/OBS CARE 3/50MIN Diagnoses Metabolic encephalopathy G93.41 Shock circulatory R57.9 Obstructive sleep apnea of adult G47.33 Primary hypertension I10 Hypertension type: primary hypertension COPD (chronic obstructive pulmonary disease) J44.9 Anxiety F41.9 GERD (gastroesophageal reflux disease) K21.9 Pericardial effusion I31.39 Sepsis without acute organ dysfunction, due to unspecified organism A41.9 Sepsis type: sepsis due to unspecified organism Sepsis acute organ dysfunction status: without acute organ dysfunction (4) Hypertension Hypertension type: primary hypertension Qualified Code(s): I10 - Essential (primary) hypertension (9) Sepsis Sepsis type: sepsis due to unspecified organism Sepsis acute organ dysfunction status: without acute organ dysfunction Qualified Code(s): A41.9 - Sepsis, unspecified organism
[2025-09-15] MEDS: cefTRIAXone SODIUM 2,000 MG/50 ML BAG IV SCH (08:09)
--- NOTE | 2025-09-15 11:10 | Hospitalist Progress Note ---
Date of Service September 15, 2025 Assessment & Plan (1) Shock circulatory: (2) Metabolic encephalopathy: (3) Acute UTI: (4) Type 2 diabetes mellitus with peripheral neuropathy: (5) Pericardial effusion: (6) Benign prostatic hyperplasia with urinary obstruction: (7) Hypertension: (8) COPD (chronic obstructive pulmonary disease): (9) Hypothermia: (10) Hypoglycemia: (11) Elevated erythrocyte sedimentation rate: (12) Weight loss: (13) Fall: (14) Orthostatic hypotension: (15) Positive blood culture: Plan 64yo male with recent hospitalization from 08/28 to 08/30 for sepsis 2nd to appendicitis s/p appendectomy, COPD, tobacco dependence, gout, GERD, HTN, T2DM, and a chronic pericardial effusion first seen on echo in 2021 per records. Since the patient could not provide any history I obtained all information from the ER attending and the medical record. The patient presented from his home in [place] today with a report of dizziness for several weeks, fatigue, weakness, recently diagnosed e.coli UTI, and poor appetite. A 09/07/25 PCP office note states that he has not been feeling well since his surgery earlier this month. #shock - -presumed septic 2nd to E Coli UTI -hypovolemia may also have played a role as he looked volume contracted at presentation -cortisol level wnl -no PE on CTA chest -CTA chest/abd/pelvis without any other source of infection -echo with preserved EF and, although he does have moderate sized pericardial effusion, there has not been any tamponade features/physiology at any time -pressors weaned off 09/14/25 -he is markedly orthostatic today thus gave NS bolus and placed him back on basal fluids -cont abx --> changing IV cefepime to IV rocephin for the recent e.coli -blood cx's --> 1 out of 4 cultures + staph epi, likely contamination; follow other 3 bottles #acute metabolic encephalopathy - present on admission - resolved - -CT head negative -presumed 2nd to UTI/sepsis, hypoglycemia, etc. #hypoglycemia, hypothermia - -resolved -2nd to stress from illness/UTI - all in the setting of poor PO intake and glipizide/empagliflozin usage -cont to hold PO DM agents -following his severe hypoglycemia he had received a large dose of IV solumedrol which led to marked hyperglycemia on hospital day #1 -required insulin drip due to hyperglycemia while in ICU -insulin drip off #pericardial effusion - -moderate in size -a 2021 echo from the [facility] system showed an effusion even then -it has been small in the past -gradually enlarging over the last several months -etiology?? -with abnormal CBC, elevated inflammatory markers, splenomegaly, nightsweats, etc - malignant? inflammatory / autoimmune? other? -echo with the following results: -discussed informally with Dr Barrios from [facility] Card[facility] about whether pericardiocentesis would be possible -it is mainly posterior so no good window to perform the tap #e.coli UTI - -pansensitive -grew on outpatient urine cx just a few days prior to admission -cont IV rocephin -blood cx's negative for e.coli #recent appendicitis s/p appendectomy 08/28/25 - -incisions clean/healed -CT a/p without intra-abd abscess or other acute intra-abdominal pathology #T2DM - -a1c 7.5% earlier this month -BSGs per ICU protocol -was severely hypoglycemic at presentation - likely due to stress from illness, poor PO intake, and DM oral agents - then developed hyperglycemia requiring insulin drip as noted above -cont to hold PO DM meds -BSGs improved #COPD - -CTA chest neg for infiltrates -albuterol prn -cont home inhalers when able -no exacerbation at this time #elevated ESR, elevated CRP, abnormal CBC, splenomegaly, etc - -could be 2nd to recent surgery, recent e.coli UTI, perhaps related to the worsening pericardial effusion depending on its etiology (malignancy, autoimmune, etc) -atypical lymphs on differential - checked EBV titers - negative for acute mono -consider formal peripheral smear -I asked Dr Beebe from oncology to see in consultation for work-up for malignancy -she checked B12/folate due to anemia -folate low - replace -B12 low-normal - replace #HTN - -hold all home meds due to severe orthostasis #GERD - -PPI twice daily #weight loss - -15-20kg of weight loss since this time 1 year ago -etiology? -CT chest w/o pathology -CT a/p w/p pathology other than splenomegaly -perhaps the underlying etiology of the pericardial effusion is contributing? -some of the weight loss could be semaglutide related -have asked Dr Beebe from oncology to see in consultation #tobacco dependence - -quit 20-30 years ago #prior heavy etoh abuse - -quit 5 years ago #DVT proph - -heparin SC #fall - -2nd to orthostasis? -fortunately no injuries from this fall today -fall precautions #orthostatic hypotension - -patient has been dizzy/lightheaded for 1-2 months -I presume it has been due to orthostasis -cortisol level wnl -gave fluid bolus today followed by basal fluids -follow serial orthostatic BPs -although he has a pericardial effusion he does NOT have tamponade features -consider midodrine -consider TEDS hose #positive blood culture - -1 out of 4 + for staph epi -likely contaminant -will follow all cultures to final PT/OT left message for pt's sister this pm, 09/15, on her voicemail again care d/w cardiology, Dr Barrios care d/w heme/onc, Dr Beebe transferring from ICU to PCU Admission and Anticipated Discharge Date Admission Date: September 13, 2025 Subjective patient again hemodynamically stable has had mild sinus tachycardia with soft BPs at times he overall feels better appetite is good denies any dyspnea does feel dizzy with standing has had the dizziness for several months gets lightheaded with standing up no vertigo I saw Mr Diaz twice today -2nd visit was after he had tried to ambulate and get back into his chair -he simply missed the chair and fell to the ground between the bed & chair -he did NOT hit his head -he did not pass out -he felt a little dizzy right before he fall asked staff to check orthostatic BPs after the above happened +orthostatics with drop in BP to the 80s systolic with standing Review of Systems 2 Review of Systems: gen - no sweats overnight; no fevers or chills cv - no chest pain pulm - no dyspnea GI - no abd pain or N/V Physical Exam 2 Physical Exam: first visit on AM rounds: gen - sitting in chair, comfortable, NAD HENT - MMM, no lesions head/neck - no JVD heart - mildly tachy, s1 s2, no murmur or rub lungs - CTA b/l, no wheeze, no increased work of breathing abd - soft NT ND BS+ ext - no edema, pulses 2+ b/l feet psych - a/o x 3 2nd visit after his fall: again sitting in chair comfortable head - no signs of trauma neck - no tenderness over c-spine elements musculo - passive ROM of all 4 limbs without pain or tenderness; no signs of trauma or injury; no gross abnormalities neuro - strength 5/5 x 4 exts Results & Data Results & Data Vital Signs (Past 12 Hours) Vital Signs Temp Pulse Resp BP Pulse Ox O2 Del Method O2 Del Method 09/15/25 10:00 Room Air 09/15/25 07:44 36.5 C 09/15/25 07:36 Room Air 09/15/25 07:35 73 09/15/25 07:00 75 20 92 Room Air 09/15/25 07:00 100/64 09/15/25 06:00 68 23 105/69 92 09/15/25 05:07 36.5 C 09/15/25 05:00 75 19 108/78 92 09/15/25 04:00 62 17 96/64 L 96 09/15/25 03:00 65 18 90/57 L 96 09/15/25 02:00 65 20 102/69 95 09/15/25 01:09 36.4 C L 09/15/25 01:00 71 17 91/68 L 97 09/15/25 00:00 66 17 87/59 L 97 Laboratory Results Laboratory Results - last 48 hr 09/13/25 09/14/25 09/14/25 14:16 04:17 07:36 WBC RBC Hgb Hct MCV MCH MCHC RDW Std Deviation RDW Coeff of Mildred Plt Count MPV Absolute Nucleated RBC Nucleated RBC % (auto) Neutrophils % (Manual) Lymphocytes % (Manual) Monocytes % (Manual) Myelocytes % (Man) Neutrophils # (Manual) Total Absolute Neuts Lymphocytes # (Manual) Total Abs Lymphocytes Monocytes # (Manual) Myelocytes # (Manual) RBC Morphology Sodium Potassium Chloride Carbon Dioxide Anion Gap BUN Creatinine Est Cr Clr Drug Dosing eGFR BUN/Creatinine Ratio Glucose POC Glucose 167 H Calcium Magnesium Total Bilirubin Direct Bilirubin AST ALT Alkaline Phosphatase Total Protein Albumin Triglycerides 111 Vitamin B12 Folate Urine Color Urine Appearance Urine pH Ur Specific [place] Urine Protein Urine Glucose (UA) Urine Ketones Urine Blood Urine Nitrite Urine Bilirubin Urine Urobilinogen Ur Leukocyte Esterase Urine WBC (Auto) Urine RBC (Auto) U Hyaline Cast (Auto) U Epithel Cells (Auto) Urine Bacteria (Auto) Urine Comment IgG IgA IgM Anaplasma Smear Babesia Smear Lyme Disease Screen Staphylococcus sp PCR DETECTED A mecA/C-Methicil Resis Gene DETECTED A Staph epidermidis (PCR) DETECTED A Bld Cult ID Panel PCR See PCR Comment 09/14/25 09/14/25 09/14/25 08:30 09:26 09:41 WBC RBC Hgb Hct MCV MCH MCHC RDW Std Deviation RDW Coeff of Mildred Plt Count MPV Absolute Nucleated RBC Nucleated RBC % (auto) Neutrophils % (Manual) Lymphocytes % (Manual) Monocytes % (Manual) Myelocytes % (Man) Neutrophils # (Manual) Total Absolute Neuts Lymphocytes # (Manual) Total Abs Lymphocytes Monocytes # (Manual) Myelocytes # (Manual) RBC Morphology Sodium Potassium Chloride Carbon Dioxide Anion Gap BUN Creatinine Est Cr Clr Drug Dosing eGFR BUN/Creatinine Ratio Glucose POC Glucose 219 H 194 H Calcium Magnesium Total Bilirubin Direct Bilirubin AST ALT Alkaline Phosphatase Total Protein Albumin Triglycerides Vitamin B12 Folate Urine Color Urine Appearance Urine pH Ur Specific [place] Urine Protein Urine Glucose (UA) Urine Ketones Urine Blood Urine Nitrite Urine Bilirubin Urine Urobilinogen Ur Leukocyte Esterase Urine WBC (Auto) Urine RBC (Auto) U Hyaline Cast (Auto) U Epithel Cells (Auto) Urine Bacteria (Auto) Urine Comment IgG IgA IgM Anaplasma Smear See Comment Babesia Smear See Comment Lyme Disease Screen Negative Staphylococcus sp PCR mecA/C-Methicil Resis Gene Staph epidermidis (PCR) Bld Cult ID Panel PCR 09/14/25 09/14/25 09/14/25 10:38 11:21 13:01 WBC RBC Hgb Hct MCV MCH MCHC RDW Std Deviation RDW Coeff of Mildred Plt Count MPV Absolute Nucleated RBC Nucleated RBC % (auto) Neutrophils % (Manual) Lymphocytes % (Manual) Monocytes % (Manual) Myelocytes % (Man) Neutrophils # (Manual) Total Absolute Neuts Lymphocytes # (Manual) Total Abs Lymphocytes Monocytes # (Manual) Myelocytes # (Manual) RBC Morphology Sodium Potassium Chloride Carbon Dioxide Anion Gap BUN Creatinine Est Cr Clr Drug Dosing eGFR BUN/Creatinine Ratio Glucose POC Glucose 149 H 118 H 114 H Calcium Magnesium Total Bilirubin Direct Bilirubin AST ALT Alkaline Phosphatase Total Protein Albumin Triglycerides Vitamin B12 Folate Urine Color Urine Appearance Urine pH Ur Specific [place] Urine Protein Urine Glucose (UA) Urine Ketones Urine Blood Urine Nitrite Urine Bilirubin Urine Urobilinogen Ur Leukocyte Esterase Urine WBC (Auto) Urine RBC (Auto) U Hyaline Cast (Auto) U Epithel Cells (Auto) Urine Bacteria (Auto) Urine Comment IgG IgA IgM Anaplasma Smear Babesia Smear Lyme Disease Screen Staphylococcus sp PCR mecA/C-Methicil Resis Gene Staph epidermidis (PCR) Bld Cult ID Panel PCR 09/14/25 09/14/25 09/15/25 16:04 20:12 01:25 WBC RBC Hgb Hct MCV MCH MCHC RDW Std Deviation RDW Coeff of Mildred Plt Count MPV Absolute Nucleated RBC Nucleated RBC % (auto) Neutrophils % (Manual) Lymphocytes % (Manual) Monocytes % (Manual) Myelocytes % (Man) Neutrophils # (Manual) Total Absolute Neuts Lymphocytes # (Manual) Total Abs Lymphocytes Monocytes # (Manual) Myelocytes # (Manual) RBC Morphology Sodium Potassium Chloride Carbon Dioxide Anion Gap BUN Creatinine Est Cr Clr Drug Dosing eGFR BUN/Creatinine Ratio Glucose POC Glucose 89 186 H 134 H Calcium Magnesium Total Bilirubin Direct Bilirubin AST ALT Alkaline Phosphatase Total Protein Albumin Triglycerides Vitamin B12 Folate Urine Color Urine Appearance Urine pH Ur Specific [place] Urine Protein Urine Glucose (UA) Urine Ketones Urine Blood Urine Nitrite Urine Bilirubin Urine Urobilinogen Ur Leukocyte Esterase Urine WBC (Auto) Urine RBC (Auto) U Hyaline Cast (Auto) U Epithel Cells (Auto) Urine Bacteria (Auto) Urine Comment IgG IgA IgM Anaplasma Smear Babesia Smear Lyme Disease Screen Staphylococcus sp PCR mecA/C-Methicil Resis Gene Staph epidermidis (PCR) Bld Cult ID Panel PCR 09/15/25 09/15/25 09/15/25 04:57 07:16 11:20 WBC 5.04 RBC 3.36 L Hgb 8.2 L Hct 25.6 L MCV 76.2 L MCH 24.4 L MCHC 32.0 RDW Std Deviation 51.3 H RDW Coeff of Mildred 18.9 H Plt Count 140 MPV 10.0 Absolute Nucleated RBC Nucleated RBC % (auto) Neutrophils % (Manual) 65 Lymphocytes % (Manual) 30 Monocytes % (Manual) 3 Myelocytes % (Man) 2 Neutrophils # (Manual) 3.28 Total Absolute Neuts 3.28 Lymphocytes # (Manual) 1.51 Total Abs Lymphocytes 1.51 Monocytes # (Manual) 0.15 Myelocytes # (Manual) 0.10 H RBC Morphology Unremarkable Sodium 137 Potassium 4.3 D Chloride 107 Carbon Dioxide 27 Anion Gap 3 BUN 18 Creatinine 0.78 Est Cr Clr Drug Dosing 108.9 eGFR 100.21 BUN/Creatinine Ratio 23.1 H Glucose 131 H POC Glucose 120 H 220 H Calcium 8.0 L Magnesium 1.8 Total Bilirubin 0.5 Direct Bilirubin 0.1 AST 21 ALT 21 Alkaline Phosphatase 73 Total Protein 5.1 L Albumin 2.0 L 09/15/25 14:21 Vitamin B12 330 Folate 4.36 L IgG 1218.1 IgA 585.4 H IgM < 20.0 L Diagnostic Findings Microbiology 09/13/25 14:03 Blood Aerobic Blood Culture - Preliminary No growth in Aerobic bottle after 48 hours. 09/13/25 14:03 Blood Anaerobic Blood Culture - Preliminary No growth in Anaerobic bottle after 48 hours. 09/13/25 14:16 Blood Aerobic Blood Culture - Preliminary Staphylococcus epidermidis 09/13/25 14:16 Blood Anaerobic Blood Culture - Preliminary No growth in Anaerobic bottle after 48 hours. 09/14/25 09:26 Blood Blood Parasites Smear - Final PG Care Time/CCT Total # of Minutes Spent Total Time Spent with Patient: Total time spent is greater than 50% in coordination of care (as documented) at patient's floor/unit and/or counseling patient: Coding Level of Care Code 82620 SUB INP/OBS CARE 3/50MIN Diagnoses Shock circulatory R57.9 Metabolic encephalopathy G93.41 Acute UTI N39.0 Type 2 diabetes mellitus with peripheral neuropathy E11.42 Pericardial effusion I31.39 Benign prostatic hyperplasia with urinary obstruction N40.1; N13.8 Primary hypertension I10 Hypertension type: primary hypertension COPD (chronic obstructive pulmonary disease) J44.9 Hypothermia T68.XXXA Hypoglycemia E16.2 Elevated erythrocyte sedimentation rate R70.0 Weight loss R63.4 Fall W19.XXXA Orthostatic hypotension I95.1 Positive blood culture R78.81 (7) Hypertension Hypertension type: primary hypertension Qualified Code(s): I10 - Essential (primary) hypertension
--- NOTE | 2025-09-15 13:11 | Pharmacy Report ---
Pharmacy Glycemic Short Note 2 - Date of Service September 15, 2025 - Glycemic Short BSG Results (Last 24 hours): 09/14/25 09/14/25 09/14/25 14:01 15:04 16:04 Glucose POC Glucose 96 83 89 09/14/25 09/15/25 09/15/25 20:12 01: 04:57 Glucose 131 H POC Glucose 186 H 134 H 09/15/25 09/15/25 07:16 11:20 Glucose POC Glucose 120 H 220 H OUTPATIENT ANTIDIABETIC REGIMEN: * Empagliflozin * Glipizide * Semaglutide * HbA1c 7.5% 08/29/25 ASSESSMENT: 09/15 * Patient has been stable for downgrade from ICU. Fsating 120 mg/dL this morning- will continue to hold on basal insulin * Lunch BSG elevated at lunch after 50 gm CHO for breakfast. Will trial stress 1 carb ratio. 09/14 * 64 yo M with T2DM admitted to ICU 09/13 for hypotension. Originally on norep inephrine, but this was titrated off this AM. Now ordered diet as of this AM. Remains * Originally with severe hypoglycemia 36 mg/dL on admission. 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 * Shortly thereafter, patient became hyperglycemic with BSG >300 mg/dL. Etiology likely 2nd methylprednisolone administered in AM 09/13 * Insulin drip initiated 09/13 PM. This was titrated off 09/14 without basal insulin added. Etiology likely 2nd wearing off of steroids. BSG's have remained in the 80's for an hour after the insulin drip was discontinued. * Suspect patient will not require much insulin now that steroids have stopped. Patient remains in ICU therefore goal BSG higher anyway * Discussed w Dr. Maryjo ZAVALA to discontinue insulin drip and use correctional insulin to control BSG's. Patient at higher risk for hypoglycemia. * Will order loose Novolog correction factor. Minimal CHO coverage (with insuli n) desired, but would still like to track CHO consumption to better assess future potential changes. Will therefore order VERY large CHO ratio - meant to not provide significant insulin but still prompt assessment/tracking of CHO consumption PLAN FOR INPATIENT GLYCEMIC CONTROL: * Hold outpatient oral diabetes medications * Basal insulin * None for now * Bolus insulin * NovoLog per scale ACHS or Q6hrs while NPO * Goal Range: Low 120 mg/dL - High 160 mg/dL * Correction Factor: 35 mg/dL/unit * Nutritional / Prandial insulin per carb ratio of 1 unit per 15 grams CHO consumed
--- NOTE | 2025-09-15 13:58 | Oncology Consultation ---
Date of Consultation September 15, 2025 Assessment & Plan (1) Anemia: (2) Splenomegaly: Plan -Reviewed labs and imaging. Has microcytic anemia with normal iron studies. Recommended obtaining bone marrow biopsy to rule out underlying hematologic malignancy given B symptoms, splenomegaly, elevated IgA level (spep with IIFE pending). This can be obtained inpatient/outpatient. Patient prefers to have bone marrow biopsy done inpatient if possible. Bone marrow biopsy ordered. Follow-up with nc outpatient to discuss results. - History of Present Illness Reason for Consultation: ba effusion, high ESR/CRP, splenomegaly, nightsw Attending Physician: Pedro Caicedo MD History of Present Illness 64-year-old gentleman with medical history significant for type 2 diabetes mellitus, hypertension, GERD, chronic pericardial effusion admitted to [facility] with fatigue and altered mental status. Admitted for possible septic shock secondary to E. coli UTI. Hematology consulted due to anemia, atypical lymphocytes noted on differential, night sweats and weight loss. CT chest on 09/13/2025 revealed moderate pericardial effusion. CT abdomen and pelvis on 09/13/2025 showed splenomegaly and markedly distended urinary bladder Allergies Allergy/AdvReac Type Severity Reaction Status Date / Time No Known Drug Allergies Allergy Verified 09/08/25 09:22 Home Medications Medication Instructions Recorded Confirmed Type Custom Orthotics #1 ea 07/21/20 09/08/25 Rx blood sugar diagnostic #50 ea 10/13/20 09/08/25 Rx fluticasone fur. 100 mcg-umeclid 1 inh inhalation Q24H PRN sob 04/11/24 09/13/25 History 62.5 mcg-vilant 25 mcg inhalat.powder (Trelegy Ellipta) aspirin 81 mg tablet,delayed 81 mg PO DAILY 11/21/24 09/13/25 History release (Adult Aspirin Regimen) empagliflozin 25 mg tablet 25 mg PO QAM #90 tabs 01/15/25 09/13/25 Rx trazodone 50 mg tablet 50 mg PO HS #90 tabs 03/20/25 09/13/25 Rx Diabetic Shoes #1 ea 03/25/25 09/08/25 Rx semaglutide 0.25 mg or 0.5 mg (2 0.5 mg (0.736 mL) subcut .Weekly 04/03/25 09/13/25 Rx mg/3 mL) subcutaneous pen injector #3 mL (Ozempic) blood sugar diagnostic (Accu-Chek #100 ea 04/08/25 09/08/25 Rx Guide test strips) lancets (Accu-Chek Fastclix Lancet #100 ea 04/08/25 09/08/25 Rx Drum) lisinopril 10 mg tablet 10 mg PO .every other day #45 tabs 04/14/25 09/13/25 Rx escitalopram oxalate 20 mg tablet 20 mg PO QAM #90 tabs 04/15/25 09/13/25 Rx glipizide 10 mg tablet, extended 10 mg PO QAM #90 tabs 04/15/25 09/13/25 Rx release 24 hr metoprolol succinate 25 mg 25 mg PO QAM #90 tabs 04/15/25 09/13/25 Rx tablet,extended release 24 hr atorvastatin 20 mg tablet 20 mg PO PM #90 tabs 04/16/25 09/13/25 Rx famotidine 20 mg tablet 20 mg PO HS #180 tabs 04/21/25 09/13/25 Rx blood-glucose meter (Accu-Chek #1 ea 05/12/25 09/08/25 Rx Guide Me Glucose Meter) ferrous sulfate 325 mg (65 mg 325 mg PO DAILY #90 tabs 05/19/25 09/13/25 Rx iron) tablet fluticasone propionate 50 2 spray intranasal DAILY PRN 05/21/25 09/13/25 Rx mcg/actuation nasal Congestion #47.4 mL spray,suspension (Allergy Relief (fluticasone)) tizanidine 4 mg tablet 4 mg PO BID PRN muscle spasticity 05/30/25 09/13/25 Rx #20 tabs promethazine 12.5 mg tablet 12.5 mg PO HS PRN nausea and 06/19/25 09/13/25 Rx vomiting #60 tabs azelastine 137 mcg (0.1 %) nasal 1 spray intranasal DAILY PRN 07/10/25 09/13/25 Rx spray Congestion #90 mL pantoprazole 40 mg tablet,delayed 40 mg PO BID #180 tabs 07/10/25 09/13/25 Rx release tamsulosin 0.4 mg capsule (Flomax) 0.4 mg PO QPM #90 caps 07/14/25 09/13/25 Rx pregabalin 50 mg capsule (Lyrica) 50 mg PO BID #60 caps 07/18/25 09/13/25 Rx ciprofloxacin HCl 500 mg tablet 500 mg PO BID 7 days #14 tabs 09/09/25 09/13/25 Rx (Cipro) Patient History Medical History Right rotator cuff tear Trochanteric bursitis, right hip Anxiety COPD (chronic obstructive pulmonary disease) Diabetes GERD (gastroesophageal reflux disease) Chronic diarrhea Disc degeneration, lumbar Dyslipidemia Diabetic neuropathy Chronic venous insufficiency BPH (benign prostatic hyperplasia) Bloating reason for upcoming EGD Dysphagia reason for upcoming EGD Urinary urgency hx Pericardial effusion pt. unaware - small, monitoring per [place] [facility] records ETD (eustachian tube dysfunction) Renal cyst pt. unaware Lung nodules monitored Hypertension Stenosis, cervical spine reports full ROM Obstructive sleep apnea cpap - does not wear as it "does not stay on" Restrictive lung disease no pulmonoloist, uses inhaler prn Cardiomegaly follows w/ Dr Rigo Barrios (03/10/24) IBS (irritable bowel syndrome) Mixed hearing loss, bilateral No H/A's Bony sclerosis 05/02/23-Sclerotic foci within the intertrochanteric region of the right femur have slightly progressed. Dominant focus measures 1.9 cm, previously measuring 1.6 cm Varicose veins of left lower extremity having testing at [facility] 04/17 or 04/18 Hx: UTI (urinary tract infection) Hx of colonic polyps Hx of gout SOBOE (shortness of breath on exertion) with minimal exertion when walking Surgical History History of laparoscopic appendectomy (08/28/25) Laparoscopic Appendectomy(Not Applicable) - Godfrey Joe, DO, FACS S/P right rotator cuff repair History of cystoscopy (05/14/24) w/ clot evacuation Hx of hernia repair (1981) History of foot surgery (2005) S/P right rotator cuff repair Hx of removal of cyst (2016) abdominal Hx of colonoscopy with polypectomy History of arthroscopy of right shoulder (07/2023) History of open reduction and internal fixation (ORIF) procedure (11/12/19) R ankle History of cataract surgery (2019) B/L Hx of transurethral resection of prostate 04/23/24 and 06/2018 History of esophagogastroduodenoscopy (EGD) (2019) History of tooth extraction All teeth removed History of inguinal herniorrhaphy Family History Sister Family history of diabetes mellitus multiple sisters Stroke Hypertension Cancer Breast cancer Mother Family history of diabetes mellitus Hypertension Cancer Other Family history of deafness or hearing loss No family history of adverse response to anesthesia Denies family history of Ovarian cancer Prostate cancer Myocardial infarction Colorectal cancer Social History Smoking Status: Unknown if ever smoked Tobacco Type: Cigarettes Age Started Using Tobacco: 26; Age Quit Using Tobacco: 41; packs per day: 1; Second Hand Exposure: No; Do You Dip or Chew Tobacco: No; Preferred Language: Filipino Communication Ability: Effective Visual Impairment: No Limitations Hearing Ability: Normal Software Applications Developer Required: No Beliefs That Will Affect Care: None marital status: Current Living Situation: Other Current Living Situation Comment: home with sister current occupational status: unemployed Feels Safe at Home: Yes Childhood Exposure to Second-Hand Smoke: Yes Diet: regular Diet Comment: regular caffeine: No during the past year weight has: remained stable Dental Care, Regularly: No Physical Activity Frequency: 1-2 Times per Week Physical Activity Frequency Comment: LIMITED BY PHYSICAL CONDITION Seatbelt Use: always Sunscreen Use: No Assistive Devices: BiPap, Cane, Walker and Wheelchair Results & Data Vital Signs (Past 12 Hours) Vital Signs Temp Pulse Resp BP Pulse Ox O2 Del Method O2 Del Method 09/15/25 13:36 113 H 24 103/69 92 09/15/25 13:26 37.5 C 104 H 26 H 92/61 L 92 09/15/25 10:00 Room Air 09/15/25 07:44 36.5 C 09/15/25 07:36 Room Air 09/15/25 07:35 73 09/15/25 07:00 75 20 92 Room Air 09/15/25 07:00 100/64 09/15/25 06:00 68 23 105/69 92 09/15/25 05:07 36.5 C 09/15/25 05:00 75 19 108/78 92 09/15/25 04:00 62 17 96/64 L 96 09/15/25 03:00 65 18 90/57 L 96 09/15/25 02:00 65 20 102/69 95
[2025-09-15 15:17] LABS: Immunoglobulin A 585.4 mg/dl (70-400); Immunoglobulin G 1218.1 mg/dl (635-1741); Immunoglobulin M < 20.0 mg/dl (45-281)
[2025-09-15 15:18] LABS: Folate (Folic Acid),Ser orPlas 4.36 ng/ml (>5.38)
[2025-09-15 16:36] LABS: Vitamin B12 330.0 pg/ml (180-914)
[2025-09-15] MEDS: SODIUM CHLORIDE 0.9% 500 ML IV ONE (18:11)
[2025-09-15] MEDS: CYANOCOBALAMIN (B-12) 500 MCG TABLET PO SCH (18:22)
[2025-09-15] MEDS: FOLIC ACID 1 MG TAB PO SCH (18:22)
[2025-09-15] MEDS: SODIUM CHLORIDE 0.9% 1,000 ML IV SCH (18:42)
[2025-09-16 06:16] LABS: Hematocrit (blood only) 25.3 % (42.0-52.0); Hemoglobin 8.3 g/dL (14.0-18.0); Mean Corpuscular Hemoglobin 24.8 pg (25.0-34.0); Mean Corpuscular Volume 75.5 fL (80.0-100.0); Platelet Count 154 K/uL (130-400); RDW Standard Deviation 49.5 fL (36.4-46.3); Red Blood Count 3.35 M/uL (4.70-6.10); White Blood Count 5.39 K/ul (4.8-10.8)
[2025-09-16 06:37] LABS: Alanine Aminotransferase 16.0 U/L (7-52); Albumin Level 2.2 gm/dl (3.4-5.0); Alkaline Phosphatase 72.0 U/L (34-104); Anion Gap 6.0 (3-11); Bilirubin,Total 0.6 mg/dl (0.2-1.0); Blood Urea Nitrogen 12.0 mg/dl (6-23); Calcium 7.7 mg/dl (8.6-10.3); Carbon Dioxide 28.0 mmol/L (21-32); Chloride 102.0 mmol/L (98-107); Creatinine Clr Calc Pharmacy 124.9 ml/min; Glucose 122.0 mg/dl (70-99(Fasting)); Magnesium 1.6 mg/dl (1.7-2.4); Potassium 3.5 mmol/L (3.5-5.1); Sodium 136.0 mmol/L (136-145); Total Protein 5.2 gm/dl (6.0-8.3)
[2025-09-16 07:10] LABS: ALC (manual) 2.86 K/uL (1.2-3.4); ANC (manual) 1.94 K/uL (1.4-6.5); Polychromasia 1+; Reactive Lymphocytes # (manual) 1.08 K/uL; Reactive Lymphocytes % (manual) 20 %
[2025-09-16] MEDS: LANTUS PER UNIT CHARGE SC SCH (08:34)
[2025-09-16] MEDS ORDERED: LANTUS PER UNIT CHARGE SC SCH (09:00)
[2025-09-16] MEDS: MAGNESIUM SULFATE / D5W 1 GM/100 ML BAG IV SCH (09:38)
[2025-09-16] MEDS: MIDODRINE HCL 2.5 MG TAB PO SCH (12:38)
--- NOTE | 2025-09-16 13:13 | Electrocardiogram Report ---
Test Reason : Blood Pressure : */* mmHG Vent. Rate : 83 BPM Atrial Rate : 83 BPM P-R Int : 172 ms QRS Dur : 94 ms QT Int : 438 ms P-R-T Axes : 53 -17 32 degrees QTcB Int : 514 ms Normal sinus rhythm Prolonged QT Abnormal ECG When compared with ECG of 13-Sep-2025 09:54, ST no longer depressed in Lateral leads Confirmed by Alcides Luz ([id number]) on 09/16/2025 1:13:01 PM Referred By: Sharita Pompa Confirmed By: Alcides Luz
[2025-09-16 14:22] LABS: Anti Nuclear Antibody Screen NEGATIVE (NEGATIVE)
[2025-09-16] MEDS: INFLUENZA VACC TS2025-26(6m+)/PF (IIV3) 0.5mL Syr IM ONE (14:31)
[2025-09-16] MEDS: PNEUMOCOCCAL VACCINE (PCV20) 20-VAL CONJ-DIP CRM/PF 0.5 ML SYR IM ONE (14:31)
--- NOTE | 2025-09-16 16:12 | Hospitalist Progress Note ---
Date of Service September 16, 2025 Assessment & Plan (1) Shock circulatory: (2) Orthostatic hypotension: (3) Metabolic encephalopathy: (4) Acute UTI: (5) Type 2 diabetes mellitus with peripheral neuropathy: (6) Pericardial effusion: (7) Benign prostatic hyperplasia with urinary obstruction: (8) Hypertension: (9) COPD (chronic obstructive pulmonary disease): (10) Hypothermia: (11) Hypoglycemia: (12) Elevated erythrocyte sedimentation rate: (13) Weight loss: (14) Fall: (15) Positive blood culture: Plan 64yo male with recent hospitalization from 08/28 to 08/30 for sepsis 2nd to appendicitis s/p appendectomy, COPD, tobacco dependence, gout, GERD, HTN, T2DM, and a chronic pericardial effusion first seen on echo in 2021 per records. Since the patient could not provide any history I obtained all information from the ER attending and the medical record. The patient presented from his home with a report of dizziness for several weeks, fatigue, weakness, recently diagnosed e.coli UTI, and poor appetite. A 09/07/25 PCP office note states that he has not been feeling well since his surgery earlier this month. #shock - -presumed septic 2nd to E Coli UTI -hypovolemia may also have played a role as he looked volume contracted at presentation -cortisol level wnl - 21 -no PE on CTA chest -CTA chest/abd/pelvis without any other source of infection -echo with preserved EF and, although he does have moderate sized pericardial effusion, there has not been any tamponade features/physiology at any time -pressors weaned off 09/14/25 -he remains orthostatic - see below -cont IV rocephin for the recent e.coli; day #4 of appropriate antibiotics -blood cx's --> 1 out of 4 cultures + staph epi, likely contamination; other 3 bottles remain negative #orthostatic hypotension - -patient has been dizzy/lightheaded for 1-2 months -I presume it has been due to the orthostasis we have identified here -cortisol level wnl -although he has a pericardial effusion he does NOT have tamponade features -despite multiple fluid boluses and maintenance fluid his SBP with standing continues to drop into the 80s -add TEDS hose -add midodrine 2.5mg TID -if orthostatics do not improve with all of the above then give 1 unit PRBCs #acute metabolic encephalopathy - present on admission - resolved - -CT head negative -presumed 2nd to UTI/sepsis, hypoglycemia, etc. #hypoglycemia, hypothermia - -resolved -2nd to stress from illness/UTI - all in the setting of poor PO intake and glipizide/empagliflozin usage -cont to hold PO DM agents -following his severe hypoglycemia he had received a large dose of IV solumedrol which led to marked hyperglycemia on hospital day #1 -required insulin drip due to hyperglycemia while in ICU -insulin drip off #pericardial effusion - -moderate in size -a 2021 echo from the [facility] system showed an effusion even then -it has been small in the past -gradually enlarging over the last several months -etiology?? -with abnormal CBC, elevated inflammatory markers, splenomegaly, nightsweats, etc - malignant? inflammatory / autoimmune? other? -echo with the following results: -[place] informally with [place] Barrios [place] [facility] [place] [facility] about whether pericardiocentesis would be possible -it is mainly posterior so no good window to perform the tap -ANTONI returned negative thus autoimmune (SLE, etc) unlikely -could consider MORIS level and 1,25-OH vit D level to r/o sarcoid but await bone marrow biopsy first #e.coli UTI - -pansensitive -grew on outpatient urine cx just a few days prior to admission -cont IV rocephin -blood cx's negative for e.coli -day #4 of IV abx -plan 7 days of Rx; can likely transition to PO abx on 09/17/25 #recent appendicitis s/p appendectomy 08/28/25 - -incisions clean/healed -CT a/p without intra-abd abscess or other acute intra-abdominal pathology #T2DM - -a1c 7.5% earlier this month -BSGs per ICU protocol -was severely hypoglycemic at presentation - likely due to stress from illness, poor PO intake, and DM oral agents - then developed hyperglycemia requiring insulin drip as noted above -cont to hold PO DM meds -BSGs improved -pharmacy glycemic team is managing #COPD - -CTA chest neg for infiltrates -albuterol prn -cont home inhalers when able -no exacerbation at this time -patient reported cough overnight - chest x-ray checked - no infiltrates, O2 sats & exam remain wnl #elevated ESR, elevated CRP, abnormal CBC, splenomegaly, etc - -could be 2nd to recent surgery, recent e.coli UTI, perhaps related to the worsening pericardial effusion depending on its etiology (malignancy, autoimmune, etc) -atypical lymphs on differential - checked EBV titers - negative for acute mono; will check CMV titers tomorrow am -ANTONI returned negative -I asked Dr Beebe from oncology to see in consultation for work-up for malignancy -she checked B12/folate due to anemia -folate low - replace -B12 low-normal - replace -she advised bone marrow biopsy - this has been requested for tomorrow, 09/17 #HTN - -hold all home meds due to severe orthostasis #GERD - -PPI twice daily #weight loss - -15-20kg of weight loss since this time 1 year ago -etiology? -CT chest w/o pathology -CT a/p w/p pathology other than splenomegaly -perhaps the underlying etiology of the pericardial effusion is contributing? -some of the weight loss could be semaglutide related -have asked Dr Beebe from oncology to see in consultation; bone marrow bx recommended #tobacco dependence - -quit 20-30 years ago #prior heavy etoh abuse - -quit 5 years ago #DVT proph - -heparin SC but hold tomorrow am for bone marrow bx #fall - occurred 09/15 in the hospital - -2nd to orthostasis? -fortunately no injuries from this fall -fall precautions #positive blood culture - -1 out of 4 + for staph epi -likely contaminant ; no Rx needed -all other cultures remain negative cont PT/OT left message for pt's sister 2x's since he was admitted -- left messages each time care d/w heme/onc, Dr Beebe Admission and Anticipated Discharge Date Admission Date: September 13, 2025 Subjective patient was getting his IV replaced when I saw him he continues to have +orthostatics with drops in BPs to the 80s he is mildly dizzy with standing no chest pain or dyspnea does have a cough; the cough bothered him overnight no wheezing Dr Beebe saw him from heme/onc - she recommended bone marrow bx - he is agreeable due to persistent/refractory orthostasis despite midodrine & IV fluids consented him for PRBCs -he signed consent tele overnight - NSR or sinus tach (especially latter with standing) Review of Systems 2 Review of Systems: cv - no orthopnea, no PND pulm - cough is dry, no sputum GI - no nausea or emesis Physical Exam 2 Physical Exam: gen - lying in bed comfortably, NAD skin - pallor HENT - MMM, no lesions head/neck - no JVD heart - mildly tachy, s1 s2, no murmur or rub lungs - mild dry rales bases, otherwise CTA b/l, no wheeze, no increased work of breathing abd - soft NT ND BS+ ext - no edema, pulses 2+ b/l feet psych - a/o x 3, restricted affect Results & Data Results & Data Vital Signs (Past 12 Hours) Vital Signs Temp Pulse Pulse Resp BP Pulse Ox O2 Del Method 09/16/25 14:52 37.2 C 108 H 18 122/80 91 Room Air 09/16/25 14:17 105 H 09/16/25 11:40 36.8 C 105 H 18 110/75 91 Room Air 09/16/25 10:56 89 09/16/25 10:00 09/16/25 07:49 Nasal Cannula 09/16/25 07:30 36.4 C L 105 H 18 101/70 97 Nasal Cannula O2 Del Method O2 Flow Rate 09/16/25 14:52 09/16/25 14:17 09/16/25 11:40 09/16/25 10:56 09/16/25 10:00 Room Air 09/16/25 07:49 2 09/16/25 07:30 2 Laboratory Results Laboratory Results - last 24 hr 09/15/25 09/15/25 09/15/25 04:57 14:21 16:21 WBC RBC Hgb Hct MCV MCH MCHC RDW Std Deviation RDW Coeff of Mildred Plt Count MPV Absolute Nucleated RBC Nucleated RBC % (auto) Neutrophils % (Manual) Lymphocytes % (Manual) Reactive Lymphs % (Man) Monocytes % (Manual) Basophils % (Manual) Metamyelocytes % (Man) Myelocytes % (Man) Neutrophils # (Manual) Total Absolute Neuts Lymphocytes # (Manual) Reactive Lymphs # Total Abs Lymphocytes Monocytes # (Manual) Basophils # (Manual) Metamyelocytes # (Man) Myelocytes # (Manual) Polychromasia Sodium Potassium Chloride Carbon Dioxide Anion Gap BUN Creatinine Est Cr Clr Drug Dosing eGFR BUN/Creatinine Ratio Glucose POC Glucose 229 H Calcium Magnesium Total Bilirubin Direct Bilirubin AST ALT Alkaline Phosphatase Total Protein Albumin Vitamin B12 330 ANTONI Screen NEGATIVE 11/09/15/25 09/16/25 19:46 19:47 04:48 WBC 5.39 RBC 3.35 L Hgb 8.3 L Hct 25.3 L MCV 75.5 L MCH 24.8 L MCHC 32.8 RDW Std Deviation 49.5 H RDW Coeff of Mildred 18.5 H Plt Count 154 MPV 9.9 Absolute Nucleated RBC 0.02 Nucleated RBC % (auto) 0.4 Neutrophils % (Manual) 36 Lymphocytes % (Manual) 33 Reactive Lymphs % (Man) 20 Monocytes % (Manual) 4 Basophils % (Manual) 1 Metamyelocytes % (Man) 3 Myelocytes % (Man) 3 Neutrophils # (Manual) 1.94 Total Absolute Neuts 1.94 Lymphocytes # (Manual) 1.78 Reactive Lymphs # 1.08 Total Abs Lymphocytes 2.86 Monocytes # (Manual) 0.22 Basophils # (Manual) 0.05 Metamyelocytes # (Man) 0.16 H Myelocytes # (Manual) 0.16 H Polychromasia 1+ Sodium 136 Potassium 3.5 Chloride 102 Carbon Dioxide 28 Anion Gap 6 BUN 12 Creatinine 0.64 Est Cr Clr Drug Dosing 124.9 eGFR 106.38 BUN/Creatinine Ratio 18.8 Glucose 122 H POC Glucose 333 H* 254 H Calcium 7.7 L Magnesium 1.6 L Total Bilirubin 0.6 Direct Bilirubin 0.3 H AST 19 ALT 16 Alkaline Phosphatase 72 Total Protein 5.2 L Albumin 2.2 L Vitamin B12 ANTONI Screen 09/16/25 09/16/25 08:01 11:39 WBC RBC Hgb Hct MCV MCH MCHC RDW Std Deviation RDW Coeff of Mildred Plt Count MPV Absolute Nucleated RBC Nucleated RBC % (auto) Neutrophils % (Manual) Lymphocytes % (Manual) Reactive Lymphs % (Man) Monocytes % (Manual) Basophils % (Manual) Metamyelocytes % (Man) Myelocytes % (Man) Neutrophils # (Manual) Total Absolute Neuts Lymphocytes # (Manual) Reactive Lymphs # Total Abs Lymphocytes Monocytes # (Manual) Basophils # (Manual) Metamyelocytes # (Man) Myelocytes # (Manual) Polychromasia Sodium Potassium Chloride Carbon Dioxide Anion Gap BUN Creatinine Est Cr Clr Drug Dosing eGFR BUN/Creatinine Ratio Glucose POC Glucose 116 H 235 H Calcium Magnesium Total Bilirubin Direct Bilirubin AST ALT Alkaline Phosphatase Total Protein Albumin Vitamin B12 ANTONI Screen PG Care Time/CCT Total # of Minutes Spent Total Time Spent with Patient: Total time spent is greater than 50% in coordination of care (as documented) at patient's floor/unit and/or counseling patient: Coding Level of Care Code 18008 SUB INP/OBS CARE 3/50MIN Diagnoses Shock circulatory R57.9 Orthostatic hypotension I95.1 Metabolic encephalopathy G93.41 Acute UTI N39.0 Type 2 diabetes mellitus with peripheral neuropathy E11.42 Pericardial effusion I31.39 Benign prostatic hyperplasia with urinary obstruction N40.1; N13.8 Primary hypertension I10 Hypertension type: primary hypertension COPD (chronic obstructive pulmonary disease) J44.9 Hypothermia T68.XXXA Hypoglycemia E16.2 Elevated erythrocyte sedimentation rate R70.0 Weight loss R63.4 Fall W19.XXXA Positive blood culture R78.81 (8) Hypertension Hypertension type: primary hypertension Qualified Code(s): I10 - Essential (primary) hypertension
--- NOTE | 2025-09-16 16:55 | XRay Report ---
Clinical History: Cough Technique: PA and lateral views of the chest were obtained Findings: There are no definite pulmonary infiltrates. The heart size is within normal limits. No pleural effusion or pneumothorax is seen. No fracture is noted. There is thoracic degenerative disc disease Impression: No active disease Electronically signed by Tera Dunne 09-16-2025 4:55 PM
[2025-09-16] MEDS ORDERED: SODIUM CHLORIDE 0.9% 100 ML IV PRN (18:00)
[2025-09-16] MEDS: ACETAMINOPHEN 500 MG TAB PO ONE (19:46)
[2025-09-17 06:10] LABS: Hematocrit (blood only) 33.3 % (42.0-52.0); Hemoglobin 10.8 g/dL (14.0-18.0); Mean Corpuscular Hemoglobin 24.9 pg (25.0-34.0); Mean Corpuscular Volume 76.9 fL (80.0-100.0); Platelet Count 160 K/uL (130-400); RDW Standard Deviation 49.3 fL (36.4-46.3); Red Blood Count 4.33 M/uL (4.70-6.10); White Blood Count 6.69 K/ul (4.8-10.8)
[2025-09-17 06:28] LABS: Anion Gap 8.0 (3-11); Blood Urea Nitrogen 11.0 mg/dl (6-23); Calcium 8.3 mg/dl (8.6-10.3); Carbon Dioxide 29.0 mmol/L (21-32); Chloride 101.0 mmol/L (98-107); Creatinine Clr Calc Pharmacy 111.8 ml/min; Glucose 140.0 mg/dl (70-99(Fasting)); Potassium 3.7 mmol/L (3.5-5.1); Sodium 138.0 mmol/L (136-145)
--- NOTE | 2025-09-17 10:14 | Hospitalist Progress Note ---
Date of Service September 17, 2025 Assessment & Plan (1) Acute UTI: Plan: #e.coli UTI - -pansensitive -grew on outpatient urine cx just a few days prior to admission -cont IV rocephin -blood cx's negative for e.coli -day #5 of IV abx (2) Shock circulatory: Plan: -resolved (3) Orthostatic hypotension: Plan: -patient has been dizzy/lightheaded for 1-2 months -I presume it has been due to the orthostasis we have identified here -cortisol level wnl -although he has a pericardial effusion he does NOT have tamponade features -despite multiple fluid boluses and maintenance fluid his SBP with standing continues to drop into the 80s -given PRBC transfusion -monitor results (4) Metabolic encephalopathy: Plan: -resoloved (5) Type 2 diabetes mellitus with peripheral neuropathy: Plan: -pharmacy glycemic team is managing (6) Pericardial effusion: Plan: -discussed informally with Dr Barrios from [facility] [place] about whether pericardiocentesis would be possible -it is mainly posterior so no good window to perform the tap -ANTONI returned negative thus autoimmune (SLE, etc) unlikely (7) Hypertension: Plan: -meds held 2nd to orthostatic hypotension (8) COPD (chronic obstructive pulmonary disease): Plan: -CTA chest neg for infiltrates -albuterol prn -cont home inhalers when able -no exacerbation at this time -patient reported cough overnight - chest x-ray checked - no infiltrates, O2 sats & exam remain wnl (9) Elevated erythrocyte sedimentation rate: Plan: -could be 2nd to recent surgery, recent e.coli UTI, perhaps related to the worsening pericardial effusion depending on its etiology (malignancy, autoimmune, etc) -atypical lymphs on differential - checked EBV titers - negative for acute mono; will check CMV titers tomorrow am -ANTONI returned negative -bone marrow biopsy today -heme-onc following (10) Positive blood culture: Plan: -1 out of 4 + for staph epi -likely contaminant ; no Rx needed -all other cultures remain negative Plan 64yo male with recent hospitalization from 08/28 to 08/30 for sepsis 2nd to appendicitis s/p appendectomy, COPD, tobacco dependence, gout, GERD, HTN, T2DM, and a chronic pericardial effusion first seen on echo in 2021 per records. S teresa the patient could not provide any history I obtained all information from the ER attending and the medical record. The patient presented from his home with a report of dizziness for several weeks , fatigue, weakness, recently diagnosed e.coli UTI, and poor appetite. A 09/07/25 PCP office note states that he has not been feeling well since his surgery earlier this month. Admission and Anticipated Discharge Date Admission Date: September 13, 2025 Subjective No events overnight. Pt resting comfortably in chair. Review of Systems Review of Systems: CONST: Negative for fever, body aches and chills. HENT: Negative for neck pain/stiffness, headache, congestion, sore throat, swelling. EYES: Negative for discharge/pain or vision changes. RESP: Negative for cough/hemoptysis and shortness of breath. CV: Negative chest pain, difficulty breathing, palpitations. ABD: Negative pain, nausea, vomiting. : Negative increase frequency, dysuria, blood in urine or stool. MUSC: Negative for muscle aches, edema. SKIN: Negative rash, lesions/sores. NEURO: Negative headache, dizziness, weakness. Physical Exam Physical Exam: GENERAL APPEARANCE NAD, activity normal for age, well developed/ well nourished, no cyanosis, pallor, or diaphoresis. EYES lids/conjunctiva normal. EARS/NOSE/THROAT Mucous membranes moist, nares normal, lips/teeth normal uvula midline without oral pharyngeal erythema, exudate or swelling TMs normal bilaterally. No lymphangitis/lymphedema. HEAD/NECK normocephalic atraumatic, no facial trauma, neck is supple. RESPIRATORY respiratory effort normal, speaks in full sentences, no tripod position, no accessory muscle use. Lungs clear to auscultation without rhonchi, wheezes, rales CARDIAC Regular rate and rhythm, no edema. ABDOMINAL Soft, ND/NT. No evidence of fluid wave. No pulsatile masses on exam, rebound tenderness, Sethi sign or pain over Mcburney's point. MUSCLES/EXTREMITIES No abnormal range of motion, no swelling. SKIN Warm, pink and dry. No rashes, dermatoses, petechiae or lesions. NEUROLOGICAL Speech is clear and appropriate. Normal level of consciousness. Gait and coordination are normal. 5/5 strength in all extremities. PSYCH Normal mood and affect. Judgement/competence is appropriate Results & Data Results & Data Vital Signs (Past 12 Hours) Vital Signs Temp Pulse Pulse Resp BP BP Pulse Ox 09/17/25 08:26 36.4 C L 97 H 24 114/74 91 09/17/25 07:05 27 H 09/17/25 03:38 36.8 C 80 19 111/74 96 09/17/25 03:11 89 20 95 09/16/25 22:34 91 H 19 95 09/16/25 22:22 36.4 C L 89 18 98/66 L 91 09/16/25 22:22 36.4 C L 89 18 98/66 L 91 O2 Del Method O2 Flow Rate FiO2 09/17/25 08:26 Room Air 09/17/25 07:05 3 09/17/25 03:38 BiPAP 09/17/25 03:11 2 09/16/25 22:34 2 09/16/25 22:22 2 09/16/25 22:22 2 PG Care Time/CCT Total # of Minutes Spent Total Time Spent with Patient: Total time spent is greater than 50% in coordination of care (as documented) at patient's floor/unit and/or counseling patient: Coding Level of Care Code 94684 SUB INP/OBS CARE 2/35MIN Diagnoses Acute UTI N39.0 Shock circulatory R57.9 Orthostatic hypotension I95.1 Metabolic encephalopathy G93.41 Type 2 diabetes mellitus with peripheral neuropathy E11.42 Pericardial effusion I31.39 Primary hypertension I10 Hypertension type: primary hypertension COPD (chronic obstructive pulmonary disease) J44.9 Elevated erythrocyte sedimentation rate R70.0 Positive blood culture R78.81 (7) Hypertension Hypertension type: primary hypertension Qualified Code(s): I10 - Essential (primary) hypertension
[2025-09-17 10:41] LABS: Bone Marrow Smear SLHOLD
[2025-09-17 10:52] LABS: ALC (manual) 2.61 K/uL (1.2-3.4); ANC (manual) 3.68 K/uL (1.4-6.5); Hypochromasia Present; Ovalocytes 1+; Polychromasia 1+; Stomatocytes 1+; Target Cells 1+
--- NOTE | 2025-09-17 13:13 | CT Scan Report ---
CT guided bone marrow biopsy INDICATION: Anemia PROCEDURE: Procedure and risks were explained. Informed consent was obtained. A final timeout was com pleted. The patient was placed prone on the CT exam table. The left gluteal region was prepped and dr aped in sterile fashion. 1% lidocaine was utilized for skin anesthesia. Utilizing CT guidance, an 11-gauge bone biopsy needle was advanced into the left iliac bone. Multiple aspirates and 1 bone core was obtained and given to the lab. The needle was removed and Band-Aid fede lied. The patient tolerated the procedure well. Vital signs will be monitored postprocedure. IMPRESSION: Bone marrow biopsy as above. Performed, dictated, and signed by Aidan Mcdermott PA-C; to be co-signed by Dr. Godfrey Pollock. Electronically signed by: Godfrey Pollock M.D. 09/17/2025 2:00 PM
--- NOTE | 2025-09-17 13:51 | Pharmacy Report ---
Pharmacy Glycemic Short Note 2 - Date of Service September 17, 2025 - Glycemic Short BSG Results (Last 24 hours): 09/16/25 09/16/25 09/16/25 17:36 19:46 23:03 Glucose POC Glucose 193 H 301 H* 114 H 09/17/25 09/17/25 09/17/25 05:53 08:05 11:56 Glucose 140 H POC Glucose 142 H 242 H OUTPATIENT ANTIDIABETIC REGIMEN: * Empagliflozin * Glipizide * Semaglutide * HbA1c 7.5% 08/29/25 ASSESSMENT: 09/17 * Rigo received a total of 36 units of insulin yesterday (5 units were basal and 31 units were bolus). * Fasting BSG was in the goal range today so will continue basal insulin without change * Lunch BSG kyree to 242mg/dL so CR of bolus insulin was tightened for better control. 09/16 * Patient has been stable for downgrade from ICU. Fsating 120 mg/dL this morning- will continue to hold on basal insulin * Lunch BSG elevated at lunch after 50 gm CHO for breakfast. Will trial stress 1 carb ratio. 09/14 * 64 yo M with T2DM admitted to ICU 09/13 for hypotension. Originally on norepinephrine, but this was titrated off this AM. Now ordered diet as of this AM. Remains * Originally with severe hypoglycemia 36 mg/dL on admission. 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 * Shortly thereafter, patient became hyperglycemic with BSG >300 mg/dL. Etiology likely 2nd methylprednisolone administered in AM 09/13 * Insulin drip initiated 09/13 PM. This was titrated off 09/14 without basal insulin added. Etiology likely 2nd wearing off of steroids. BSG's have remained in the 80's for an hour after the insulin drip was discontinued. * Suspect patient will not require much insulin now that steroids have stopped. Patient remains in ICU therefore goal BSG higher anyway * Discussed w Dr. Maryjo ZAVALA to discontinue insulin drip and use correctional insulin to control BSG's. Patient at higher risk for hypoglycemia. * Will order loose Novolog correction factor. Minimal CHO coverage (with insulin) desired, but would still like to track CHO consumption to better assess future potential changes. Will therefore order VERY large CHO ratio - meant to not provide significant insulin but still prompt assessment/tracking of CHO consumption PLAN FOR INPATIENT GLYCEMIC CONTROL: * Hold outpatient oral diabetes medications * Basal insulin * Lantus 5 units SQ daialy * Bolus insulin * NovoLog per scale ACHS or Q6hrs while NPO * Goal Range: Low 120 mg/dL - High 160 mg/dL * Correction Factor: 30 mg/dL/unit * Nutritional / Prandial insulin per carb ratio of 1 unit per 9 grams CHO consumed
[2025-09-17] MEDS: ACETAMINOPHEN 325 MG TAB PO PRN (16:03)
[2025-09-18 06:29] LABS: Hematocrit (blood only) 26.8 % (42.0-52.0); Hemoglobin 8.7 g/dL (14.0-18.0); Mean Corpuscular Hemoglobin 24.9 pg (25.0-34.0); Mean Corpuscular Volume 76.6 fL (80.0-100.0); Platelet Count 122 K/uL (130-400); RDW Standard Deviation 49.1 fL (36.4-46.3); Red Blood Count 3.50 M/uL (4.70-6.10); White Blood Count 5.77 K/ul (4.8-10.8)
[2025-09-18 06:48] LABS: Anion Gap 8.0 (3-11); Blood Urea Nitrogen 10.0 mg/dl (6-23); Calcium 7.6 mg/dl (8.6-10.3); Carbon Dioxide 27.0 mmol/L (21-32); Chloride 99.0 mmol/L (98-107); Creatinine Clr Calc Pharmacy 140.7 ml/min; Glucose 151.0 mg/dl (70-99(Fasting)); Potassium 3.5 mmol/L (3.5-5.1); Sodium 134.0 mmol/L (136-145)
[2025-09-18] MEDS: LANTUS PER UNIT CHARGE SC SCH (08:35)
--- NOTE | 2025-09-18 10:24 | Hospitalist Progress Note ---
Date of Service September 18, 2025 Assessment & Plan (1) Acute UTI: Plan: #e.coli UTI - -pansensitive -grew on outpatient urine cx just a few days prior to admission -cont IV rocephin -blood cx's negative for e.coli -day #6 of IV abx (2) Elevated erythrocyte sedimentation rate: Plan: -could be 2nd to recent surgery, recent e.coli UTI, perhaps related to the worsening pericardial effusion depending on its etiology (malignancy, autoimmune, etc) -atypical lymphs on differential - checked EBV titers - negative for acute mono; -ANTONI returned negative -bone marrow biopsy completed 09/17 -heme-onc following (3) Shock circulatory: Plan: -resolved (4) Orthostatic hypotension: Plan: -patient has been dizzy/lightheaded for 1-2 months -I presume it has been due to the orthostasis we have identified here -cortisol level wnl -although he has a pericardial effusion he does NOT have tamponade features -despite multiple fluid boluses and maintenance fluid his SBP with standing continues to drop into the 80s -given PRBC transfusion -monitor results (5) Metabolic encephalopathy: Plan: -resoloved (6) Type 2 diabetes mellitus with peripheral neuropathy: Plan: -pharmacy glycemic team is managing (7) Pericardial effusion: Plan: -discussed informally with Dr Barrios from [facility] about whether pericardiocentesis would be possible -it is mainly posterior so no good window to perform the tap -ANTONI returned negative thus autoimmune (SLE, etc) unlikely (8) Hypertension: Plan: -meds held 2nd to orthostatic hypotension (9) COPD (chronic obstructive pulmonary disease): Plan: -CTA chest neg for infiltrates -albuterol prn -cont home inhalers when able -no exacerbation at this time -patient reported cough overnight - chest x-ray checked - no infiltrates, O2 sats & exam remain wnl (10) Positive blood culture: Plan: -1 out of 4 + for staph epi -likely contaminant ; no Rx needed -all other cultures remain negative Plan 64yo male with recent hospitalization from 08/28 to 08/30 for sepsis 2nd to appendicitis s/p appendectomy, COPD, tobacco dependence, gout, GERD, HTN, T2DM, and a chronic pericardial effusion first seen on echo in 2021 per records. Since the patient could not provide any history I obtained all information from the ER attending and the medical record. The patient presented from his home with a report of dizziness for several weeks, fatigue, weakness, recently diagnosed e.coli UTI, and poor appetite. A 09/07/25 PCP office note states that he has not been feeling well since his surgery earlier this month. Admission and Anticipated Discharge Date Admission Date: September 13, 2025 Subjective No events overnight. Pt resting comfortably in bed. Review of Systems Review of Systems: CONST: Negative for fever, body aches and chills. HENT: Negative for neck pain/stiffness, headache, congestion, sore throat, swelling. EYES: Negative for discharge/pain or vision changes. RESP: Negative for cough/hemoptysis and shortness of breath. CV: Negative chest pain, difficulty breathing, palpitations. ABD: Negative pain, nausea, vomiting. : Negative increase frequency, dysuria, blood in urine or stool. MUSC: Negative for muscle aches, edema. SKIN: Negative rash, lesions/sores. NEURO: Negative headache, dizziness, weakness. Physical Exam Physical Exam: GENERAL APPEARANCE NAD, activity normal for age, well developed/ well nourished, no cyanosis, pallor, or diaphoresis. EYES lids/conjunctiva normal. EARS/NOSE/THROAT Mucous membranes moist, nares normal, lips/teeth normal uvula midline without oral pharyngeal erythema, exudate or swelling TMs normal bilaterally. No lymphangitis/lymphedema. HEAD/NECK normocephalic atraumatic, no facial trauma, neck is supple. RESPIRATORY respiratory effort normal, speaks in full sentences, no tripod position, no accessory muscle use. Lungs clear to auscultation without rhonchi, wheezes, rales CARDIAC Regular rate and rhythm, no edema. ABDOMINAL Soft, ND/NT. No evidence of fluid wave. No pulsatile masses on exam, rebound tenderness, Sethi sign or pain over Mcburney's point. MUSCLES/EXTREMITIES No abnormal range of motion, no swelling. SKIN Warm, pink and dry. No rashes, dermatoses, petechiae or lesions. NEUROLOGICAL Speech is clear and appropriate. Normal level of consciousness. Gait and coordination are normal. 5/5 strength in all extremities. PSYCH Normal mood and affect. Judgement/competence is appropriate Results & Data Results & Data Vital Signs (Past 12 Hours) Vital Signs Temp Pulse Resp BP BP Pulse Ox O2 Del Method 09/18/25 09:44 09/18/25 07:59 37.2 C 94 H 18 92/59 L 90 Room Air 09/18/25 03:35 36.6 C 103 H 18 111/72 93 BiPAP 09/17/25 23:21 36.7 C 89 18 108/73 95 BiPAP 09/17/25 23:17 21 O2 Del Method O2 Flow Rate 09/18/25 09:44 Room Air 09/18/25 07:59 09/18/25 03:35 09/17/25 23:21 09/17/25 23:17 3 PG Care Time/CCT Total # of Minutes Spent Total Time Spent with Patient: Total time spent is greater than 50% in coordination of care (as documented) at patient's floor/unit and/or counseling patient: Coding Level of Care Code 40424 SUB INP/OBS CARE 2/35MIN Diagnoses Acute UTI N39.0 Elevated erythrocyte sedimentation rate R70.0 Shock circulatory R57.9 Orthostatic hypotension I95.1 Metabolic encephalopathy G93.41 Type 2 diabetes mellitus with peripheral neuropathy E11.42 Pericardial effusion I31.39 Primary hypertension I10 Hypertension type: primary hypertension COPD (chronic obstructive pulmonary disease) J44.9 Positive blood culture R78.81 (8) Hypertension Hypertension type: primary hypertension Qualified Code(s): I10 - Essential (primary) hypertension
[2025-09-19 05:15] LABS: Hematocrit (blood only) 26.4 % (42.0-52.0); Hemoglobin 8.5 g/dL (14.0-18.0); Mean Corpuscular Hemoglobin 25.1 pg (25.0-34.0); Mean Corpuscular Volume 77.9 fL (80.0-100.0); Platelet Count 117 K/uL (130-400); RDW Standard Deviation 49.9 fL (36.4-46.3); Red Blood Count 3.39 M/uL (4.70-6.10); White Blood Count 6.41 K/ul (4.8-10.8)
[2025-09-19 05:47] LABS: Anion Gap 5.0 (3-11); Blood Urea Nitrogen 11.0 mg/dl (6-23); Calcium 7.7 mg/dl (8.6-10.3); Carbon Dioxide 29.0 mmol/L (21-32); Chloride 100.0 mmol/L (98-107); Creatinine Clr Calc Pharmacy 109.6 ml/min; Glucose 169.0 mg/dl (70-99(Fasting)); Potassium 3.5 mmol/L (3.5-5.1); Sodium 134.0 mmol/L (136-145)
[2025-09-19] MEDS: LANTUS PER UNIT CHARGE SC SCH (08:53)
--- NOTE | 2025-09-19 09:12 | Discharge Summary ---
Discharge Summary Date of Service September 19, 2025 Principal Dx & Hospital Course #1 = Principal Diagnosis (1) Acute UTI: #e.coli UTI - -pansensitive -grew on outpatient urine cx just a few days prior to admission -cont IV rocephin -blood cx's negative for e.coli -day #6 of IV abx -d/c home off abx, patient completed course (2) Elevated erythrocyte sedimentation rate: -could be 2nd to recent surgery, recent e.coli UTI, perhaps related to the worsening pericardial effusion depending on its etiology (malignancy, autoimmune, etc) -atypical lymphs on differential - checked EBV titers - negative for acute mono; -ANTONI returned negative -bone marrow biopsy completed 09/17 -heme-onc following -follow up as outpatient (3) Shock circulatory: -resolved (4) Orthostatic hypotension: -patient has been dizzy/lightheaded for 1-2 months -I presume it has been due to the orthostasis we have identified here -cortisol level wnl -although he has a pericardial effusion he does NOT have tamponade features -despite multiple fluid boluses and maintenance fluid his SBP with standing continues to drop into the 80s -given PRBC transfusion -monitor results -con't midodrine (5) Metabolic encephalopathy: -resoloved (6) Type 2 diabetes mellitus with peripheral neuropathy: -pharmacy glycemic team is managing (7) Pericardial effusion: -discussed informally with Dr Barrios from [facility] [place] [facility] about whether pericardiocentesis would be possible -it is mainly posterior so no good window to perform the tap -ANTONI returned negative thus autoimmune (SLE, etc) unlikely (8) Hypertension: -meds held 2nd to orthostatic hypotension (9) COPD (chronic obstructive pulmonary disease): -CTA chest neg for infiltrates -albuterol prn -cont home inhalers when able -no exacerbation at this time -patient reported cough overnight - chest x-ray checked - no infiltrates, O2 sats & exam remain wnl (10) Positive blood culture: -1 out of 4 + for staph epi -likely contaminant ; no Rx needed -all other cultures remain negative Plan 64yo male with recent hospitalization from 08/28 to 08/30 for sepsis 2nd to appendicitis s/p appendectomy, COPD, tobacco dependence, gout, GERD, HTN, T2DM, and a chronic pericardial effusion first seen on echo in 2021 per records. Since the patient could not provide any history I obtained all information from the ER attending and the medical record. The patient presented from his home with a report of dizziness for several weeks, fatigue, weakness, recently diagnosed e.coli UTI, and poor appetite. A 09/07/25 PCP office note states that he has not been feeling well since his surgery earlier this month. Admission HPI Per Admitting Provider 64yo male with recent hospitalization from 08/28 to 08/30 for sepsis 2nd to appendicitis s/p appendectomy, COPD, tobacco dependence, gout, GERD, HTN, T2DM, and a chronic pericardial effusion first seen on echo in 2021 per records. Since the patient could not provide any history I obtained all information from the ER attending and the medical record. The patient presented from his home in [place] earlier today with a report of dizziness, fatigue, weakness, recently diagnosed e.coli UTI, and poor appetite. A 09/07/25 PCP office note states that he has not been feeling well since his baeza rgery earlier this month. During my initial assessment the patient was significantly altered. He slept for most of the visit, just occasionally waking up when I called his name. He could only tell me that he lives with his sister & nephew and that his nephew brought him to the ER today. I was unable to elicit any further history from him due to his altered mental status. While assessing him he was noted to have low-normal BPs, and within minutes his SBP was in the 80s. Prior to my assessment he had received about 1 liter of isotonic fluids. I ordered an additional 1 liter of NS while I was assessing him. Following this 2nd liter his SBP did not improve and 3rd bolus of 1 liter was ordered. Simultaneously I contacted the ICU attending on-call, Dr Sibley, and ordered norepinephrine for refractory shock. Due to recently diagnosed e.coli UTI I ordered blood cultures and started IV antibiotic therapy. Sed rate returned elevated at 100, and CRP was also elevated at 12. Discharge Exam GENERAL APPEARANCE NAD, activity normal for age, well developed/ well nourished, no cyanosis, pallor, or diaphoresis. EYES lids/conjunctiva normal. EARS/NOSE/THROAT Mucous membranes moist, nares normal, lips/teeth normal uvula midline without oral pharyngeal erythema, exudate or swelling TMs normal bilaterally. No lymphangitis/lymphedema. HEAD/NECK normocephalic atraumatic, no facial trauma, neck is supple. RESPIRATORY respiratory effort normal, speaks in full sentences, no tripod position, no accessory muscle use. Lungs clear to auscultation without rhonchi, wheezes, rales CARDIAC Regular rate and rhythm, no edema. ABDOMINAL Soft, ND/NT. No evidence of fluid wave. No pulsatile masses on exam, rebound tenderness, Sethi sign or pain over Mcburney's point. MUSCLES/EXTREMITIES No abnormal range of motion, no swelling. SKIN Warm, pink and dry. No rashes, dermatoses, petechiae or lesions. NEUROLOGICAL Speech is clear and appropriate. Normal level of consciousness. Gait and coordination are normal. 5/5 strength in all extremities. PSYCH Normal mood and affect. Judgement/competence is appropriate Discharge Plan Discharge Items Patient Disposition: Home - Self-Care Reason For Visit: SEPTIC SHOCK, ALTERED MENTAL STATUS, E.COLI UTI Discharge Diagnosis: UTI, septic shock Condition on Discharge: Serious Activity: Resume your previous activity Non-emergency contact: Primary Care Provider Call non-emergency contact if: you have any medication questions Follow-up/Referrals: Sharita Pompa DO [Primary Care Provider] - Diet: Regular Addtl Attending Provider Instructions: Follow up with heme-onc in 1 week about bone marrow biopsy results Pending Studies at Discharge: No Stand-Alone Forms: My [employer], Smoking Cessation Medications and DC Order Prescriptions: New midodrine 2.5 mg Tablet 2.5 mg PO TID@0800,1200,1700 Qty: 90 0RF umeclidinium-vilanterol [Anoro Ellipta] 62.5-25 mcg/actuation Blister With Device 1 inh inhalation DAILY Qty: 60 0RF fluticasone furoate [Arnuity Ellipta] 100 mcg/actuation Blister With Device 1 inh inhalation DAILY Qty: 30 0RF Continued pregabalin [Lyrica] 50 mg capsule 50 mg PO BID Qty: 60 0RF (DME) blood sugar diagnostic Strip See Rx Instructions .ROUTE .MEDSUPPLY Qty: 50 3RF Rx Instructions: Testing blood sugar once daily empagliflozin 25 mg tablet 25 mg PO QAM Qty: 90 2RF trazodone 50 mg tablet 50 mg PO HS Qty: 90 2RF (DME) Diabetic Shoes Misc See Rx Instructions .Route Qty: 1 0RF Rx Instructions: Diabetic shoes and inserts Ozempic 0.25 mg or 0.5 mg (2 mg/3 mL) pen injector 0.5 mg subcut .Weekly Qty: 3 4RF Patient Comments: tuesdays (DME) Accu-Chek Guide test strips Strip See Rx Instructions .Route Qty: 100 1RF Rx Instructions: TEST BSG ONCE DAILY; DX CODE- E11.9 (DME) lancets [Accu-Chek Fastclix Lancet Drum] Misc See Rx Instructions .Route Qty: 100 1RF Rx Instructions: TEST BSG ONCE DAILY; DX CODE- E11.9 lisinopril 10 mg tablet 10 mg PO .every other day Qty: 45 3RF Hold Instructions: low BP escitalopram oxalate 20 mg tablet 20 mg PO QAM Qty: 90 1RF metoprolol succinate 25 mg tablet extended release 24 hr 25 mg PO QAM Qty: 90 1RF glipizide 10 mg tablet extended release 24hr 10 mg PO QAM Qty: 90 1RF atorvastatin 20 mg tablet 20 mg PO PM Qty: 90 1RF famotidine 20 mg tablet 20 mg PO HS Qty: 180 2RF Rx Instructions: 12/18/2024 per Seth--- may increase to BID PRN if needed (DME) blood-glucose meter [Accu-Chek Guide Me Glucose Mtr] Misc See Rx Instructions .Route Qty: 1 0RF Rx Instructions: TEST BSG ONCE DAILY; DX CODE- E11.9 ferrous sulfate 325 mg (65 mg iron) tablet 325 mg PO DAILY Qty: 90 3RF fluticasone propionate [Allergy Relief (fluticasone)] 50 mcg/actuation spray,suspension 2 spray INTNAS DAILY PRN (Reason: Congestion) Qty: 47.4 3RF Rx Instructions: administer into each nostril tizanidine 4 mg tablet 4 mg PO BID PRN (Reason: muscle spasticity) Qty: 20 0RF promethazine 12.5 mg tablet 12.5 mg PO HS PRN (Reason: nausea and vomiting) Qty: 60 1RF pantoprazole 40 mg tablet,delayed release (DR/EC) 40 mg PO BID Qty: 180 1RF Hold Instructions: elevated creatinine azelastine 137 mcg (0.1 %) spray,non-aerosol 1 spray INTNAS DAILY PRN (Reason: Congestion) Qty: 90 1RF tamsulosin [Flomax] 0.4 mg capsule 0.4 mg PO QPM Qty: 90 2RF Rx Instructions: Take one capsule at bedtime. ciprofloxacin HCl [Cipro] 500 mg tablet 500 mg PO BID 7 Days Qty: 14 0RF (DME) Custom Orthotics Misc See Rx Instructions .ROUTE .MEDSUPPLY Qty: 1 0RF Rx Instructions: As directed aspirin [Adult Aspirin Regimen] 81 mg tablet,delayed release (DR/EC) 81 mg PO DAILY Trelegy Ellipta 100-62.5-25 mcg blister with device 1 inh inhalation Q24H PRN (Reason: sob) Rx Instructions: RINSE MOUTH AND SPIT AFTER USE X 2. DO NOT SWALLOW WATER Discharge Orders: Discharge Order (Routine); Ordered 09/19/25 Ordered By: Philip Carter Admission Data Admit Date/Time: 09/13/25 17:23 Attending Provider: Philip Carter Admit Provider: Pedro Caicedo Primary Care Provider: Sharita Pompa Other Providers: Pedro Caicedo; Antonino Sibley; Maite Beebe Hospital Stay Data Consultations 09/13/25 13:23 ED Decision to Admit Stat 09/13/25 19:44 Consult Hired Hand Routine 09/15/25 13:56 Consult Hematology Routine Diagnostic Imagining Performed 09/13/25 09:59 CT angio chest PE protocol Stat 09/13/25 10:00 CT head/brain wo con Stat 09/13/25 17:24 CT Abd and Pelvis [CT abd pelvis IV con only] Stat 09/17/25 11:25 IR bone marrow bx & asp Routine Pending Results Patient Have Any Pending Studies at Discharge: No Discharge Instructions Given to Patient (Per Discharging Provider) Follow up with heme-onc in 1 week about bone marrow biopsy results Total Time Total Time Spent Total Time Spent (In Minutes): 50 Coding Level of Care Code 80970 INP/OBS DISCH >30 MIN Diagnoses Acute UTI N39.0 Elevated erythrocyte sedimentation rate R70.0 Shock circulatory R57.9 Orthostatic hypotension I95.1 Metabolic encephalopathy G93.41 Type 2 diabetes mellitus with peripheral neuropathy E11.42 Pericardial effusion I31.39 Primary hypertension I10 Hypertension type: primary hypertension COPD (chronic obstructive pulmonary disease) J44.9 Positive blood culture R78.81
[2025-09-19 11:23] VITALS: TEMP 98.8
--- NOTE | 2025-09-19 12:09 | Cardiology Consultation ---
Date of Consultation September 19, 2025 Assessment & Plan (1) Pericardial effusion: Plan 1. Pericardial effusion: Unclear if this is entirely responsible for his tachycardia, but certainly concerning given its size. Development of tachycardia is been relatively gradual over the course of a day or so. Blood pressure appears normal in the supine position, possibly due to midodrine being administered. While there does seem to be some inspiratory variation in the size of the IVC, it is dilated. Difficult to determine if this effusion is causing some symptoms. Will check some other possibilities such as CBC and hypovolemia. Will try some volume administration and consider pericardiocentesis for definitive evaluation. Etiology of the pericardial effusion is unclear. Being worked up for malignancy. Inflammatory is possible given his recent history of infection. So me diffuse symptoms as well which could be consistent with connective tissue disorder. History of Present Illness Reason for Consultation: Tachycardia, pericardial effusion Requesting Physician: Emma Attending Physician: Philip Carter MD History of Present Illness Patient is a 64-year-old gentleman with a remote history of a small pericardial effusion and aortic insufficiency who presented to the hospital several weeks ago with symptoms of appendicitis. Patient underwent operative intervention and was eventually discharged. However, he returned on 09/13/2025 with signs of septic shock. He was treated for an E. coli infection. He received volume resuscitation and a brief use of vasopressors. He was noted at the time of admission to have a small to moderate-sized pericardial effusion. Hemodynamically he improved, but maintained relatively low blood pressures. Not notably tachycardic until this morning. Patient has been working with physical therapy and during his session this morning became notably tachycardic while ascending stairs. I interviewed the patient in bed. He states that at that time he was not having symptoms at all. He reported some mild dyspnea with activity but overall was just weak. He does have a history of poor ambulation overall and does use a walker at home. He denies any chest pain. Is not had dizziness or lightheadedness. Not been aware of palpitations. He denies any significant lower extremity edema. Tolerating regular diet. Allergies Allergy/AdvReac Type Severity Reaction Status Date / Time No Known Drug Allergies Allergy Verified 09/08/25 09:22 Home Medications Medication Instructions Recorded Confirmed Type Custom Orthotics #1 ea 07/21/20 09/08/25 Rx blood sugar diagnostic #50 ea 10/13/20 09/08/25 Rx fluticasone fur. 100 mcg-umeclid 1 inh inhalation Q24H PRN sob 04/11/24 09/13/25 History 62.5 mcg-vilant 25 mcg inhalat.powder (Trelegy Ellipta) aspirin 81 mg tablet,delayed 81 mg PO DAILY 11/21/24 09/13/25 History release (Adult Aspirin Regimen) empagliflozin 25 mg tablet 25 mg PO QAM #90 tabs 01/15/25 09/13/25 Rx trazodone 50 mg tablet 50 mg PO HS #90 tabs 03/20/25 09/13/25 Rx Diabetic Shoes #1 ea 03/25/25 09/08/25 Rx semaglutide 0.25 mg or 0.5 mg (2 0.5 mg (0.736 mL) subcut .Weekly 04/03/25 09/13/25 Rx mg/3 mL) subcutaneous pen injector #3 mL (Bizible) blood sugar diagnostic (Accu-Chek #100 ea 04/08/25 09/08/25 Rx Guide test strips) lancets (Accu-Chek Fastclix Lancet #100 ea 04/08/25 09/08/25 Rx Drum) lisinopril 10 mg tablet 10 mg PO .every other day #45 tabs 04/14/25 09/13/25 Rx escitalopram oxalate 20 mg tablet 20 mg PO QAM #90 tabs 04/15/25 09/13/25 Rx glipizide 10 mg tablet, extended 10 mg PO QAM #90 tabs 04/15/25 09/13/25 Rx release 24 hr metoprolol succinate 25 mg 25 mg PO QAM #90 tabs 04/15/25 09/13/25 Rx tablet,extended release 24 hr atorvastatin 20 mg tablet 20 mg PO PM #90 tabs 04/16/25 09/13/25 Rx famotidine 20 mg tablet 20 mg PO HS #180 tabs 04/21/25 09/13/25 Rx blood-glucose meter (Accu-Chek #1 ea 05/12/25 09/08/25 Rx Guide Me Glucose Meter) ferrous sulfate 325 mg (65 mg 325 mg PO DAILY #90 tabs 05/19/25 09/13/25 Rx iron) tablet fluticasone propionate 50 2 spray intranasal DAILY PRN 05/21/25 09/13/25 Rx mcg/actuation nasal Congestion #47.4 mL spray,suspension (Allergy Relief (fluticasone)) tizanidine 4 mg tablet 4 mg PO BID PRN muscle spasticity 05/30/25 09/13/25 Rx #20 tabs promethazine 12.5 mg tablet 12.5 mg PO HS PRN nausea and 06/19/25 09/13/25 Rx vomiting #60 tabs azelastine 137 mcg (0.1 %) nasal 1 spray intranasal DAILY PRN 07/10/25 09/13/25 Rx spray Congestion #90 mL pantoprazole 40 mg tablet,delayed 40 mg PO BID #180 tabs 07/10/25 09/13/25 Rx release tamsulosin 0.4 mg capsule (Flomax) 0.4 mg PO QPM #90 caps 07/14/25 09/13/25 Rx pregabalin 50 mg capsule (Lyrica) 50 mg PO BID #60 caps 07/18/25 09/13/25 Rx ciprofloxacin HCl 500 mg tablet 500 mg PO BID 7 days #14 tabs 09/09/25 09/13/25 Rx (Cipro) fluticasone furoate 100 1 inh inhalation DAILY #30 ea 09/19/25 Rx mcg/actuation blister powder for inhalation (Arnuity Ellipta) midodrine 2.5 mg tablet 2.5 mg PO TID@0800,1200,1700 #90 09/19/25 Rx tabs umeclidinium 62.5 mcg-vilanterol 1 inh inhalation DAILY #60 ea 09/19/25 Rx 25 mcg/actuation powdr for inhalation (Anoro Ellipta) Patient History Medical History Right rotator cuff tear Trochanteric bursitis, right hip Anxiety COPD (chronic obstructive pulmonary disease) Diabetes GERD (gastroesophageal reflux disease) Chronic diarrhea Disc degeneration, lumbar Dyslipidemia Diabetic neuropathy Chronic venous insufficiency BPH (benign prostatic hyperplasia) Bloating reason for upcoming EGD Dysphagia reason for upcoming EGD Urinary urgency hx Pericardial effusion pt. unaware - small, monitoring per [place] [facility] records ETD (eustachian tube dysfunction) Renal cyst pt. unaware Lung nodules monitored Hypertension Stenosis, cervical spine reports full ROM Obstructive sleep apnea cpap - does not wear as it "does not stay on" Restrictive lung disease no pulmonoloist, uses inhaler prn Cardiomegaly follows w/ Dr Rigo Barrios (03/10/24) IBS (irritable bowel syndrome) Mixed hearing loss, bilateral No H/A's Bony sclerosis 05/02/23-Sclerotic foci within the intertrochanteric region of the right femur have slightly progressed. Dominant focus measures 1.9 cm, previously measuring 1.6 cm Varicose veins of left lower extremity having testing at [facility] 04/17 or 04/18 Hx: UTI (urinary tract infection) Hx of colonic polyps Hx of gout SOBOE (shortness of breath on exertion) with minimal exertion when walking Surgical History History of laparoscopic appendectomy (08/28/25) Laparoscopic Appendectomy(Not Applicable) - Godfrey Joe, DO, FACS S/P right rotator cuff repair History of cystoscopy (05/14/24) w/ clot evacuation Hx of hernia repair (1981) History of foot surgery (2005) S/P right rotator cuff repair Hx of removal of cyst (2016) abdominal Hx of colonoscopy with polypectomy History of arthroscopy of right shoulder (07/2023) History of open reduction and internal fixation (ORIF) procedure (11/12/19) R ankle History of cataract surgery (2019) B/L Hx of transurethral resection of prostate 04/23/24 and 06/2018 History of esophagogastroduodenoscopy (EGD) (2018) History of tooth extraction All teeth removed History of inguinal herniorrhaphy Family History Sister Family history of diabetes mellitus multiple sisters Stroke Hypertension Cancer Breast cancer Mother Family history of diabetes mellitus Hypertension Cancer Other Family history of deafness or hearing loss No family history of adverse response to anesthesia Denies family history of Ovarian cancer Prostate cancer Myocardial infarction Colorectal cancer Social History Smoking Status: Unknown if ever smoked Tobacco Type: Cigarettes Age Started Using Tobacco: 26; Age Quit Using Tobacco: 41; packs per day: 1; Second Hand Exposure: No; Do You Dip or Chew Tobacco: No; Preferred Language: Lithuanian Communication Ability: Effective Visual Impairment: No Limitations Hearing Ability: Normal Certified Nurse Aide Required: No Beliefs That Will Affect Care: None marital status: Current Living Situation: Other Current Living Situation Comment: home with sister current occupational status: unemployed Feels Safe at Home: Yes Childhood Exposure to Second-Hand Smoke: Yes Diet: regular Diet Comment: regular caffeine: No during the past year weight has: remained stable Dental Care, Regularly: No Physical Activity Frequency: 1-2 Times per Week Physical Activity Frequency Comment: LIMITED BY PHYSICAL CONDITION Seatbelt Use: always Sunscreen Use: No Assistive Devices: BiPap, Cane, Walker and Wheelchair Review of Systems Review of Systems: Per HPI. Physical Exam Physical Exam: The patient is alert and oriented. Mood and affect appeared normal. He answered all questions appropriately. Obese HEENT: Pupils are equal and reactive to light and accommodation. Extraocular movements are intact. The sclerae are anicteric. Neuro: Cranial nerves intact Neck: Patient's neck is supple. There does not appear to be distention of the jugular vein. Lungs: Clear to auscultation bilaterally. He has good air movement without use of accessory muscles. No rales wheezes or rhonchi. Cardiac: Heart demonstrates a rapid rate but normal rhythm. No murmur on examination. No rub. Pulses: The patient has palpable radial pulses bilaterally that are equal in intensity Extremities: There was no evidence of hypoperfusion. There is no cyanosis or clubbing. Trace lower extremity edema Skin: I did not appreciate any rashes on examination today. Results & Data Vital Signs (Past 12 Hours) Vital Signs Temp Pulse Pulse Resp BP BP BP 09/19/25 11:20 37.1 C 118 H 22 122/83 09/19/25 10:00 09/19/25 09:17 37.5 C 87 20 96/66 L 107/71 86/56 L 09/19/25 08:04 37.5 C 87 20 107/71 09/19/25 04:12 97 H 24 09/19/25 03:57 89 18 96/66 L 09/19/25 00:20 109 H Pulse Ox O2 Del Method O2 Del Method O2 Flow Rate 09/19/25 11:20 90 Nasal Cannula 09/19/25 10:00 Room Air 09/19/25 09:17 93 09/19/25 08:04 93 Room Air 09/19/25 04:12 94 3 09/19/25 03:57 94 CPAP 09/19/25 00:20 Laboratory Results Abnormal Lab Results 09/18/25 09/18/25 09/19/25 16:19 19:39 04:30 WBC 6.41 RBC 3.39 L Hgb 8.5 L Hct 26.4 L MCV 77.9 L MCH 25.1 MCHC 32.2 RDW Std Deviation 49.9 H RDW Coeff of Mildred 18.6 H Plt Count 117 L MPV 10.3 Absolute Nucleated RBC 0.02 Nucleated RBC % (auto) 0.3 Sodium 134 L Potassium 3.5 Chloride 100 Carbon Dioxide 29 Anion Gap 5 BUN 11 Creatinine 0.77 Est Cr Clr Drug Dosing 109.6 eGFR 100.60 BUN/Creatinine Ratio 14.3 Glucose 169 H POC Glucose 204 H 181 H Calcium 7.7 L 09/19/25 09/19/25 07:46 11:18 WBC RBC Hgb Hct MCV MCH MCHC RDW Std Deviation RDW Coeff of Mildred Plt Count MPV Absolute Nucleated RBC Nucleated RBC % (auto) Sodium Potassium Chloride Carbon Dioxide Anion Gap BUN Creatinine Est Cr Clr Drug Dosing eGFR BUN/Creatinine Ratio Glucose POC Glucose 170 H 211 H Calcium Diagnostic Findings Echocardiogram 09/14/2025: Ejection fraction greater than 70%. Small to moderate pericardial effusion. PG Care Time/CCT Total # of Minutes Spent Total Time Spent with Patient: Total time spent is greater than 50% in coordination of care (as documented) at patient's floor/unit and/or counseling patient: Coding Level of Care Code 96919 INT INP/OBS CARE 3/75MIN Diagnoses Pericardial effusion I31.39
--- NOTE | 2025-09-19 13:32 | Pre Anesthesia Assessment ---
Date of Service September 19, 2025 Pre Sedation Assessment Vital Signs Temp Pulse Pulse Resp BP BP BP 09/19/25 11:20 98.8 F 118 H 22 122/83 09/19/25 10:00 09/19/25 09:17 99.5 F 87 20 96/66 L 107/71 86/56 L 09/19/25 08:04 99.5 F 87 20 107/71 09/19/25 04:12 97 H 24 09/19/25 03:57 89 18 96/66 L 09/19/25 00:20 109 H 09/18/25 23:25 100.6 F H 116 H 20 112/70 09/18/25 23:20 25 H 09/18/25 20:19 09/18/25 19:57 102.2 F H 101 H 18 115/60 09/18/25 15:51 97.5 F L 88 18 113/74 Pulse Ox O2 Del Method O2 Del Method O2 Flow Rate 09/19/25 11:20 90 Nasal Cannula 09/19/25 10:00 Room Air 09/19/25 09:17 93 09/19/25 08:04 93 Room Air 09/19/25 04:12 94 3 09/19/25 03:57 94 CPAP 09/19/25 00:20 09/18/25 23:25 95 CPAP 09/18/25 23:20 92 3 09/18/25 20:19 Room Air 09/18/25 19:57 93 Room Air 09/18/25 15:51 93 Room Air Cardiovascular + regular rate Respiratory + respiratory effort normal Pre-Sedation Airway Assessment Smoking Status: Unknown if ever smoked Hx Sleep Apnea: No Hx Difficult Intubation: No Short, Thick Neck: No Thyromental Distance: > or= 3.5 Finger Breadths Oral Cavity: + Dental Abnormalities Mallampati Class: III ASA: ASA3 Procedure Planning Contraindications for Sedation: none Current Medications Reviewed: Yes Notes The planned sedation has been discussed with the patient. Informed Consent was obtained. I have identified the patient, determined the appropriateness of sedation and have assessed the patient immediately prior to the procedure. All medicine(s) and interventions are by my order.
[2025-09-19] MEDS: MIDAZOLAM HCL 1 MG/ML 2ML VIAL ONE (14:22)
--- NOTE | 2025-09-19 14:51 | Post Anesthesia Assessment ---
Date of Service September 19, 2025 Post Sedation Assessment Vital Signs Temp Pulse Pulse Resp BP BP BP 09/19/25 11:20 98.8 F 118 H 22 122/83 09/19/25 10:00 09/19/25 09:17 99.5 F 87 20 96/66 L 107/71 86/56 L 09/19/25 08:04 99.5 F 87 20 107/71 09/19/25 04:12 97 H 24 09/19/25 03:57 89 18 96/66 L 09/19/25 00:20 109 H 09/18/25 23:25 100.6 F H 116 H 20 112/70 09/18/25 23:20 25 H 09/18/25 20:19 09/18/25 19:57 102.2 F H 101 H 18 115/60 09/18/25 15:51 97.5 F L 88 18 113/74 Pulse Ox O2 Del Method O2 Del Method O2 Flow Rate 09/19/25 11:20 90 Nasal Cannula 09/19/25 10:00 Room Air 09/19/25 09:17 93 09/19/25 08:04 93 Room Air 09/19/25 04:12 94 3 09/19/25 03:57 94 CPAP 09/19/25 00:20 09/18/25 23:25 95 CPAP 09/18/25 23:20 92 3 09/18/25 20:19 Room Air 09/18/25 19:57 93 Room Air 09/18/25 15:51 93 Room Air Recovery Score Activity: Moves 4 extremities Respiration: Deep Breath/Cough Circulation: +/-20% PreAnes Value Consciousness: Fully Awake Oxygen Saturation: O2 needed for >90% Discharge Sedation Level of Care: Fast Track Phase II
[2025-09-19] MEDS ORDERED: SODIUM CHLORIDE 0.9% 100 ML IV PRN (15:58)
--- NOTE | 2025-09-19 16:08 | XCELERA ---
[id number] \\[facility]\ISCV_PDF_Reports\[id number]
[2025-09-19 16:09] LABS: Hematocrit (blood only) 25.5 % (42.0-52.0); Hemoglobin 8.2 g/dL (14.0-18.0); Mean Corpuscular Hemoglobin 24.9 pg (25.0-34.0); Mean Corpuscular Volume 77.5 fL (80.0-100.0); Platelet Count 139 K/uL (130-400); RDW Standard Deviation 51.0 fL (36.4-46.3); Red Blood Count 3.29 M/uL (4.70-6.10); White Blood Count 6.38 K/ul (4.8-10.8)
--- NOTE | 2025-09-19 16:10 | XCELERA ---
[id number] \\[facility]\ISCV_PDF_Reports\[id number]
[2025-09-19] MEDS: VASOPRESSIN 20 UNITS in SODIUM CHLORIDE 0.9% 100 ML IV SCH (16:45)
[2025-09-19] MEDS ORDERED: STAT IV Infusion **Titration per Protocol STA ×2 (16:48→17:12)
[2025-09-19] MEDS: CALCIUM CHLORIDE 10% 1,000 MG in DEXTROSE 5% 50 ML IV STA (16:55)
[2025-09-19] MEDS: ALBUMIN 25% 25 GM/100 ML VIAL IV SCH (16:57)
[2025-09-19] MEDS ORDERED: RAPID SEQUENCE INDUCTION BAG ONE (16:58)
[2025-09-19] MEDS: SODIUM BICARB 8.4% INJ 50 MEQ/50 ML SYR IV STA ×2 (16:58→17:11)
[2025-09-19 17:02] LABS: iSTAT Art Bld Gas Base Excess -8.0 mmol/L (-9-1.8); iSTAT Art Bld Gas pCO2 Correct 31 mmHg (35-46); iSTAT Art Bld Gas pH Corrected 7.362 (7.35-7.45); iSTAT Arterial Blood Gas pO2 C 166
--- NOTE | 2025-09-19 17:06 | Cardiac Catheterization ---
[facility] Data: Safety Director Cardiac Status Clinical evaluation leading to the procedure CAD Presenation: Sx unlikely to be ischemic Diagnostic Physicians Name: Alcides Cisneros MD Closure Device Recommendations: Management Recommendatons (Pericardial drain) Cardiac Cath Procedure Full Procedure Date September 19, 2025 Pre-Procedure Diagnosis Pre-Procedure Diagnosis: Pericardial Disease AUC Score AUC Score: 7 Post-Procedure Diagnosis Post-Procedure Diagnosis: Cardiothoracic Finding (Pericardial effusion) Procedure(s) Performed Procedure(s) Performed: Pericardiocentesis Vessel Builder Alcides Cisneros MD Excellence Specialist(s) Tj Estimated Blood Loss Estimated Blood Loss: 515 Medication(s) Medication(s): Fentanyl, Lidocaine 1% and Versed Summary of Findings Echocardiographic guided Pericardiocentesis Indication: Pericardial effusion with suspected tamponade Procedure: - Moderate sedation with fentanyl/versed - Local anesthesia with 1% lidocaine - Using micropuncture needle pericardial space accessed from subxiphoid approach - Injection of saline contrast through micropuncture sheath confirmed position in pericardial space - Opening pericardial pressure 13 mmHg - 6Fr sheath placed over J wire and 6Fr pigtail catheter placed into pericardial space - Aspiration of 515 ml of grossly bloody fluid with some white debris. - Residual effusion noted at apex. Attempts made to reposition catheter into that space unsuccessful. - Repeat bubble study showed contrast into different plane in pericardial space. - Attempt made to access pericardial space from apical approach unsuccessful. - Decision made to leave residual effusion as some question as to whether apical pericardial space was actually fluid. Plan was to obtain repeat CT to assess. - Taken off table but soon nauseated, diaphoretic and ill appearing with undetectable BP - Increased pericardial fluid noted on repeat echocardiography - Back to vp lab table with additional IV fluids wide open - 4Fr sheath placed to RT VEHICLE TRIMMER under ultrasound guidance initial systolic pressures in 50s. - Started on norepinephrine - Under echo guidance pericardial space reaccessed from subxiphoid approach - 6Fr sheath and 6Fr pigtail placed. - Additional 435 ml of bloody fluid removed with improvement in BP - At completion of procedure off vasopressors. - Drain/sheath sutured in place. Drain left accordion suction. - RT VEHICLE TRIMMER sheath sutured in place. - Transferred to ICU for further management. Summary: 1. Initial Pericardiocentesis of 515 grossly bloody fluid with white debris. 2. Rapid reaccumulation of pericardial effusion with tamponade and cardiogenic shock 3. Repeat pericardiocentesis with placement of 6Fr pericardial drain and removal of additional 435 ml. Recommendations: - Pericardial drain left to suction. - Initial trial of Supportive care with IV fluids and blood products - If remains unstable with continued pericardial drainage transfer to tertiary center for possible surgical window - Follow-up cytology, cell counts, cultures Hemodynamics Rest Ao:: 125/81/99 Final Ao: 143/76/96 LV: -- Recommendations Recommendations: Management Recommendatons (Pericardial drain) Radiation Exposure (mGy) 957 Contrast (mls) -- Disposition ICU I attest to the content of the Intraoperative Record and any orders documented therein. Any exceptions are noted below. [facility] Card Cath Procedure Codes Therapeutic Services & Ancillary Procedure 1: Cardiovascular Tx and Anc Procedures: 41853 Pericardiocentesis w / Imaging Procedure 2: Cardiovascular Tx and Anc Procedures: 58626 Arterial Line Placement Moderate Sedation Procedure 1: Sedation/Anesthesia: 76397 Mod Sedation by the same physician;Init15 Min Child Age 5 & Up Procedure 2: Sedation/Anesthesia: 18738 Mod Sedation by the same physician; Ea Dybfwalini24 Minutes PG Care Time/CCT Total # of Minutes Spent Total Time Spent with Patient: Total time spent is greater than 50% in coordination of care (as documented) at patient's floor/unit and/or counseling patient:
[2025-09-19] MEDS: CALCIUM CHLORIDE 10% 10 ML SYR IV SCH ×2 (17:11→18:30)
[2025-09-19] MEDS: NA BICARBONATE 8.4% 150 MEQ in D5W 1,000 ML IV SCH (17:15)
[2025-09-19] MEDS: SODIUM CHLORIDE 0.9% 1000ML IV SCH (17:15)
[2025-09-19] MEDS ORDERED: Nursing to Pharmacy Communication SCH ×2 (17:15→18:15)
[2025-09-19] MEDS: CALCIUM CHLORIDE 10% 10 ML SYR IV ONE ×2 (17:16→17:17)
[2025-09-19] MEDS: SODIUM BICARB 8.4% INJ 50 MEQ/50 ML SYR IV ONE (17:16)
[2025-09-19] MEDS: NOREPINEPHRINE/D5W 4 MG/250 ML IV ONE (17:17)
[2025-09-19] MEDS: ONDANSETRON INJ 2 MG/ML 2 ML VIAL ONE (17:17)
[2025-09-19] MEDS: NOREPINEPHRINE/D5W 4 MG/250 ML PLCT IV SCH (17:18)
--- NOTE | 2025-09-19 17:20 | Procedure Note ---
Procedure Note Date of Service September 19, 2025 CENTRAL LINE PROCEDURE NOTE: Procedure: 7 [place] introducer trauma line placement, left femoral Provider: Mynor Lazar MD Indication: Hemorrhagic shock Anesthesia: 5 cc lidocaine 1% Site: Left femoral Procedure was emergent. Verbal consent obtained from the patient. No family immediately available consent was signed and placed on the chart prior to procedure. Indication, risks, and benefits were explained at length. A time-out was completed verifying correct patient, procedure, site, positioning, and implants(s) or special equipment if applicable. Patients left groin was cleansed and draped in the typical sterile fashion using Chloraprep. The femoral vein and artery were identified using ultrasound. The superficial tissue was anesthetized using 5 cc mL of 1% lidocaine without epinephrine under direct visualization with the ultrasound. After adequate anesthetization was achieved, the left femoral vein was cannulated under direct ultrasound guidance using an introducer needle on a syringe. Good venous blood return was maintained prior to removal of syringe from introducer needle. Using Seldinger Technique, a guide wire was advanced through the introducer needle without resistance. The introducer needle was removed. A small incision was made in penetrating fashion at the guide wire insertion site utilizing an 11 blade scalpel. A 7 [place] introducer/trauma line with the dilator was loaded and flushed and passed over the wire into the vein. The guide wire was removed intact from the catheter without issue. Claves were placed on each catheter tip with confirmation of good blood flow from each lumen. Each port was easily flushed with sterile saline. The catheter was placed at the hub and sutured in place. BioPatch was applied to the catheter and a sterile Tegaderm dressing was applied over the catheter with careful attention to sterility. Patient tolerated procedure well. No immediate complications were met. [facility] [place] Procedure Codes (Charges) Tubes, Drains, and Vasc Access Procedure 1: Tubes, Drains, and Vasc Access: [id number] Place catheter in vein superior or inferior vena cava Procedure 2: Tubes, Drains, and Vasc Access: [id number] Ultrasound Guidance For Vascular Coding CPT Codes Tubes, Drains, and Vasc Access - Tubes, Drains, and Vasc Access: [id number] Place catheter in vein superior or inferior vena cava ([id number]) Tubes, Drains, and Vasc Access - Tubes, Drains, and Vasc Access: [id number] Ultrasound Guidance For Vascular ([id number]) Additional Codes Date of Service ([facility].SURGERY)
--- NOTE | 2025-09-19 17:32 | Critical Care Progress Note ---
Date of Service September 19, 2025 Assessment & Plan (1) Metabolic encephalopathy: (2) Shock circulatory: (3) Obstructive sleep apnea of adult: (4) Hypertension: (5) COPD (chronic obstructive pulmonary disease): (6) Anxiety: (7) GERD (gastroesophageal reflux disease): (8) Pericardial effusion: (9) Sepsis: Plan Reason Critically Ill: 64-year-old male coming admitted to the hospital several days ago with hypotension now returning to the ICU status post ba cardiocentesis with hemopericardium and a pericardial drain in place requiring massive resuscitation. 24-hour events: Patient was preparing to be discharged. He developed ta chycardia of unclear etiology prompting cardiology consultation. Echocardiogram demonstrated pericardial effusion. He is taken to the [facility] where pericardiocentesis was performed with removal of about 100 cc of bloody fluid. The bleeding rapidly recurred and the patient became hemodynamically unstable necessitating placement of a pericardial drain and transferred to the ICU. Aggressive resuscitation undertaken. Patient currently being evaluated for transfer to a higher level of care Recommendations: Neuro -no current issues Cardiac -hypovolemic shock. Currently on norepinephrine and vasopressin. Multiple serial bedside echocardiograms were performed. These revealed pericardial effusion with likely some congealed blood. There did not appear to be tamponade however the right ventricle appeared underfilled and the left ventricle showed cavity obliteration on pressors. Continue aggressive fluid resuscitation and will try and down titrate pressors as tolerated. Currently on norepinephrine and vasopressin Respiratory -minimal respiratory complaints currently. Would consider intubation prior to transport if needed by [facility] but respiratory status appears stable currently GI - No current issues RENAL/LYTES -acidosis, metabolic. Responded well to bicarb and calcium. Currently on a bicarb infusion. Awaiting repeat lab. Replacing electrolytes ENDO - glycemic protocol HEME -severe anemia with hemopericardium. Status post massive transfusion protocol and aggressive volume resuscitation. The patient had microcytic anemia prior to this with normal iron studies and underwent bone marrow which is currently pending. He did have elevated IgE levels as well. ID -patient presented with E. coli pansensitive UTI and is currently on R ocephin. Continue for now. No indication for escalation of antibiotics. Clinical pattern does not appear entirely consistent with acute onset septic shock and that would not account for the hemopericardium. --Prophylaxis VTE: Heparin GI: Pantoprazole Lines: Peripheral Diet: As tolerated Patient is critically ill with multiorgan system dysfunction. Significant possibility of clinical decline or . A total of 90 minutes was spent in evaluation management Admission and Anticipated Discharge Date Admission Date: September 13, 2025 Subjective Asked to reevaluate patient known from prior admission in the ICU for hypotension. Called by cardiology to evaluate patient in [facility]. The patient was apparently ready for discharge. He been abated previously with borderline blood pressures. He was in the ICU for a short period of time on pressors which have been weaned off. He was getting ready to be discharged today when he developed tachycardia. He is seen by cardiology. Echocardiogram showed a fairly large pericardial effusion. He was taken to the [facility] for pericardiocentesis. After the procedure, he did was being prepared to return to the floor when he developed severe hypotension. He was taken back to the [facility] urgently and a pericardial drain was placed with removal of 800 cc of blood. He initially was hemodynamically stable however in transfer from the [facility] to the ICU the patient developed significant hypotension. Arrived in the ICU with the patient. He is awake alert and conversant but hemodynamically unstable with tachycardia and low blood pressure. Dr. Cisneros was present at bedside draining the pericardial effusion. I urgently placed a trauma resuscitation line and we prepped the rapid infuser. He received 2 units of emergency release blood through the rapid infuser once it was placed. His resuscitation continued with 2 A of bicarb, 2 A of calcium, unit of platelets, 6 unit of packed cells and for liters of crystalloid. It appears on serial echocardiograms that there is ongoing pericardial bleeding there may be small laceration in the right ventricle. Cardiology is in discussions with a tertiary facility for transfer the patient while we continue to resuscitate him. Throughout the resuscitation the patient is awake alert and conversant. He denies pain. No shortness of breath. No cough or sputum production. He is not experiencing any palpitations. Review of Systems Review of Systems: All systems reviewed & are unremarkable except as noted in Subjective Physical Exam Constitutional: + ill appearing and + frail appearing Neck: trachea midline, no thyromegaly Respiratory: normal respiratory effort, lungs clear to auscultation Cardiovascular: Rate/Rhythm: + tachycardic Heart Sounds: normal S1 and normal S2; no murmur Extremities: no edema Gastrointestinal (Abdomen): normal bowel sounds, soft, nontender, no hepatosplenomegaly Musculoskeletal: Extremities: extremities normal to inspection Skin: + pallor Lymphatic: no cervical lymphadenopathy Results & Data Results & Data Vital Signs (Past 12 Hours) Vital Signs Temp Pulse Resp BP BP BP Pulse Ox 09/19/25 11:20 37.1 C 118 H 22 122/83 90 09/19/25 10:00 09/19/25 09:17 37.5 C 87 20 96/66 L 107/71 86/56 L 93 09/19/25 08:04 37.5 C 87 20 107/71 93 O2 Del Method O2 Del Method 09/19/25 11:20 Nasal Cannula 09/19/25 10:00 Room Air 09/19/25 09:17 09/19/25 08:04 Room Air Critical Care Results & Data Vital Signs (Past 12 Hours) Vital Signs Temp Pulse Resp BP BP BP Pulse Ox 09/19/25 11:20 37.1 C 118 H 22 122/83 90 09/19/25 10:00 09/19/25 09:17 37.5 C 87 20 96/66 L 107/71 86/56 L 93 09/19/25 08:04 37.5 C 87 20 107/71 93 O2 Del Method O2 Del Method 09/19/25 11:20 Nasal Cannula 09/19/25 10:00 Room Air 09/19/25 09:17 09/19/25 08:04 Room Air Lab & Micro Results (Past 24 Hours) RBC 3.29 M/uL (4.70-6.10) L 09/19/25 WBC 6.38 K/ul (4.8-10.8) 09/19/25 Hgb 8.2 g/dL (14.0-18.0) L 09/19/25 Hct 25.5 % (42.0-52.0) L 09/19/25 MCV 77.5 fL (80.0-100.0) L 09/19/25 MCH 24.9 pg (25.0-34.0) L 09/19/25 MCHC 32.2 g/dL (32.0-36.0) 09/19/25 RDW Standard Deviation 51.0 fL (36.4-46.3) H 09/19/25 RDW Coefficient of Variation 18.7 % (11.5-14.5) H 09/19/25 Plt Count 139 K/uL (130-400) 09/19/25 MPV 10.0 fL (9.4-12.4) 09/19/25 Nucleated Red Blood Cells % (auto) 0.3 % 09/19 Nucleated RBC Absolute Count (auto) 0.02 K/uL (0.00-0.12) 1 11/19/24 Na 134 mmol/L (136-145) L 09/19/25 K 3.5 mmol/L (3.5-5.1) 09/19/25 Cl 100 mmol/L (98-107) 09/19/25 CO2 29 mmol/L (21-32) 09/19/25 Anion Gap 5 (3-11) 09/19/25 BUN 11 mg/dl (6-23) 09/19/25 Creatinine 0.77 mg/dl (0.6-1.4) 09/19/25 BUN/Creatinine Ratio 14.3 (10-20) 09/19/25 Glu 169 mg/dl (70-99(Fasting)) H 09/19/25 Ca 7.7 mg/dl (8.6-10.3) L 09/19/25 Calcium Level 7.7 mg/dl (8.6-10.3) L 09/19/25 04:30 Kamari Test NA 09/19/25 16:38 Microbiology 09/13/25 14:16 Aerobic Blood Culture - Final Blood Staphylococcus epidermidis Anaerobic Blood Culture - Final No growth in Anaerobic bottle after 5 days. 09/13/25 14:03 Aerobic Blood Culture - Final Blood No growth in Aerobic bottle after 5 days. Anaerobic Blood Culture - Final No growth in Anaerobic bottle after 5 days. I & O Totals 24 Hours 09/18/25 09/19/25 09/20/25 06:59 06:59 06:59 Intake Total 2220 / 2220 1330 / 1330 610 / 610 Output Total 881 / 881 1125 / 1125 201 / 201 Balance 1339 / 1339 205 / 205 409 / 409 Cumulative 09/13/25 09:31 thru 09/19/25 17:10 Intake Total 13678.238 Output Total 88256 Balance 8289.238 RT Ventilator Mngmt (Last Documented) Ventilator Ordered Settings Respiratory Rate 22 09/19/25 11:20 Fraction of Inspired Oxygen 3 09/17/25 07:05 Ventilator - PT Measurements Respiratory Rate 22 Coding Level of Care Code 07503 CRITICAL CARE EA ADD 30M Diagnoses Metabolic encephalopathy G93.41 Shock circulatory R57.9 Obstructive sleep apnea of adult G47.33 Primary hypertension I10 Hypertension type: primary hypertension COPD (chronic obstructive pulmonary disease) J44.9 Anxiety F41.9 GERD (gastroesophageal reflux disease) K21.9 Pericardial effusion I31.39 Sepsis without acute organ dysfunction, due to unspecified organism A41.9 Sepsis type: sepsis due to unspecified organism Sepsis acute organ dysfunction status: without acute organ dysfunction (4) Hypertension Hypertension type: primary hypertension Qualified Code(s): I10 - Essential (primary) hypertension (9) Sepsis Sepsis type: sepsis due to unspecified organism Sepsis acute organ dysfunction status: without acute organ dysfunction Qualified Code(s): A41.9 - Sepsis, unspecified organism
[2025-09-19] MEDS: SODIUM CHLORIDE 0.9% 1,000 ML IV SCH (17:37)
[2025-09-19 18:04] LABS: Hematocrit (blood only) 35.3 % (42.0-52.0); Hemoglobin 11.2 g/dL (14.0-18.0); Immature Granulocytes # (auto) 0.45 K/uL (0.01-0.20); Immature Granulocytes % (auto) 4.4 %; Mean Corpuscular Hemoglobin 26.1 pg (25.0-34.0); Mean Corpuscular Volume 82.7 fL (80.0-100.0); Platelet Count 108 K/uL (130-400); RDW Standard Deviation 55.0 fL (36.4-46.3); Red Blood Count 4.29 M/uL (4.70-6.10); White Blood Count 10.18 K/ul (4.8-10.8)
[2025-09-19 18:09] LABS: INR 1.4 (0.9-1.1); Prothrombin Time 14.9 Seconds (9.0-12.0)
[2025-09-19 18:20] LABS: Alanine Aminotransferase 16.0 U/L (7-52); Albumin Globulin Ratio 1.1 (0.9-2); Albumin Level 2.2 gm/dl (3.4-5.0); Alkaline Phosphatase 67.0 U/L (34-104); Anion Gap 14.0 (3-11); Bilirubin,Total 1.2 mg/dl (0.2-1.0); Blood Urea Nitrogen 13.0 mg/dl (6-23); Calcium 7.3 mg/dl (8.6-10.3); Carbon Dioxide 17.0 mmol/L (21-32); Chloride 106.0 mmol/L (98-107); Creatinine Clr Calc Pharmacy 109.6 ml/min; Globulin 2.0 gm/dl (2.5-4.0); Glucose 287.0 mg/dl (70-99(Fasting)); Potassium 3.9 mmol/L (3.5-5.1); Sodium 137.0 mmol/L (136-145); Total Protein 4.2 gm/dl (6.0-8.3)
[2025-09-19 18:34] LABS: Fibrinogen 360 mg/dl (184-400)
[2025-09-19 18:52] VITALS: BP 130/87; PULSE 120; RESP 32; O2SAT 95
[2025-09-19] MEDS ORDERED: HEPARIN 25000 UNIT/500 ML D5W IV ONE (19:48)
[2025-09-22 09:27] LABS: Fluid Basophil % 0 %; Fluid Eosinophil % 0 %; Fluid Lymphocytes % 41 %; Fluid Mesothelial % 0 %; Fluid Monocyte/Macrophage % 1 %; Fluid Neutrophil % 58 %; Fluid Total Nucleated Cell Ct 942 cells/uL
[2025-09-25 05:53] LABS: Albumin 2.0 g/dL (3.8-4.8); Beta-1-Globulin 0.4 g/dL (0.4-0.6); Gamma Globulin 1.1 g/dL (0.8-1.7); Total Protein 5.4 g/dL (6.1-8.1)
== END 2025-09-19 20:00 | disposition short-term general hospital (02) | DRG 871 ==
LOC: ED 09:31 → 1E 17:23 → SUATTDRO 17:23 → 1E 20:57 → 4W 09-15 18:02 → 1E 09-19 16:12